=== PATIENT | male | born 1935 | race Caucasian/White ===

== ENCOUNTER → 2020-09-26 08:43 | Outpatient (BNVA) | payer MEDICARE, SELFPAY | PROVIDERS: Visit Provider Urology | DX: Z76.89 Persons encountering health services in other specified circumstances (principal) ==

== ENCOUNTER → 2020-10-04 10:36 | Outpatient (BNVA) | payer MEDICARE, SELFPAY | PROVIDERS: Visit Provider Urology | DX: Z13.89 Encounter for screening for other disorder (principal) | CPT/HCPCS: Q3014 ==

== ENCOUNTER → 2020-12-28 12:06 | Outpatient (BNVA) | payer MEDICARE, SELFPAY | PROVIDERS: Visit Provider Urology | DX: R97.20 Elevated prostate specific antigen [PSA] (principal); N32.0 Bladder-neck obstruction; R39.12 Poor urinary stream; R35.1 Nocturia | CPT/HCPCS: Q3014 ==

== ENCOUNTER → 2021-07-02 13:26 | Outpatient (BNVA) | payer MEDICARE, SELFPAY | PROVIDERS: Visit Provider Urology | DX: R97.20 Elevated prostate specific antigen [PSA] (principal); N40.1 Benign prostatic hyperplasia with lower urinary tract symptoms; R33.9 Retention of urine, unspecified | CPT/HCPCS: Q3014 ==

== ENCOUNTER 2021-07-10 18:59 | Outpatient (REF) | payer SELFPAY ==
[2021-07-10 19:19] LABS: Appearance Urine HAZY; Color Urine YELLOW; Glucose Urine UA NEG (NEG); Leukocyte Esterase Urine TRACE (NEG); Nitrite Urine NEG (NEG); Urine Blood 3+ (NEG); Urine Ketones NEG (NEG); Urine Protein 1+ MG/DL (NEG-TRACE)
[2021-07-10 19:25] LABS: Squamous Epithelial Cell Urine 1+ /LPF
[2021-07-10 19:26] LABS: RBC Urine 50-75 /HPF (0)
== END 2021-07-10 19:00 | disposition home or self-care (01) ==
LOC: HO.MMNH1L 18:59
PROVIDERS: Visit Provider Family Medicine
DX: I50.9 Heart failure, unspecified (principal); R35.0 Frequency of micturition
CPT/HCPCS: 81001; 87086

== ENCOUNTER → 2021-12-25 08:18 | Outpatient (BNVA) | payer BC, SELFPAY | PROVIDERS: PCP Family Medicine; Visit Provider Urology | DX: Z13.89 Encounter for screening for other disorder (principal) ==

== ENCOUNTER 2022-04-16 14:37 | Inpatient (IN) | payer MEDICARE, SELFPAY ==
[2022-04-16] VITALS (7 sets, daily range): BP systolic 129–150; BP diastolic 49–80; PULSE 54–76; RESP 17–22; TEMP 36.4–36.9; O2SAT 93–100; BMI 17.9
--- NOTE | ~2022-04-16 | CT_ITS ---
EXAMINATION: CT ABDOMEN AND PELVIS WITHOUT CONTRAST CLINICAL INFORMATION: 87-year-old male with abdominal pain. Rule out renal obstruction. COMPARISON: None TECHNIQUE: Multidetector volumetric imaging was performed from the superior aspect of the liver through the pubic symphysis. Sagittal and coronal reformatted images were obtained on the technologist's workstation. This CT examination was performed using dose optimization techniques as appropriate, variously including the following: *Automated exposure control *Adjustment of mA and/or kV according to patient size (this includes techniques or standardized protocols for targeted exams where dose is matched to indication/reason for exam; i.e. extremities or head) *Use of iterative reconstruction technique DLP: 343 mGy-cm FINDINGS: Visualized lung bases demonstrate emphysematous changes. There is minimal pleural fluid. The right lung base with some overlying patchy opacities, atelectasis versus developing infiltrate. Partially visualized coronary artery calcifications. The liver demonstrates normal size, contour and attenuation. The gallbladder is normal in appearance. The pancreas demonstrates several scattered calcifications which may be vascular in nature with sequelae of chronic pancreatitis. The spleen is normal in appearance. Hypertrophy of the bilateral adrenal glands. Bilateral renal cysts are noted, more prominent within the right kidney. Largest cyst measures approximately 6 cm. No renal calculi or hydronephrosis of either kidney. Normal caliber loops of small and large bowel. There is a moderate colonic stool burden. Normal appendix. Visualized portions of the distal descending thoracic aorta are prominent measuring up to 3.5 cm. The abdominal aorta is normal in caliber but demonstrates severe atherosclerotic disease. The bladder is well-distended. There is mild diffuse bladder wall thickening. The prostate gland is at the upper limits of normal in size. There is no gross free pelvic fluid. No inguinal lymphadenopathy. Small amount of fluid noted within the right inguinal canal. Diffuse osteopenia. Degenerative changes of the spine. Mild L1 compression deformity, age indeterminate. CT/CT abdomen pelvis wo con IMPRESSION: -No CT evidence for acute abnormality within the abdomen or pelvis. -Mild diffuse bladder wall thickening suggesting bladder outlet obstruction. -Bilateral renal cysts. No renal calculi or hydronephrosis of either kidney. -Atelectasis versus developing infiltrate of the right lung base. Fleischner guidelines were followed.
--- NOTE | 2022-04-16 15:11 | PC.NURSE ---
Pt's is a section 12 bed search from the community by [facility]. Pt is unable to remain at home by himself due to being bedbound/dependent on home O2. Pt offers no complaints. Diana from [facility] wrote section on spouse. Contact phone number [phone]
[2022-04-16 15:47] LABS: MANUAL DIFF FLAG NO
[2022-04-16 15:49] LABS: Basophils Percent Auto 0.3 % (0-2); Eosinophils Absolute Auto 0.2 X10*3/uL (0.0-0.4); Eosinophils Percent Auto 2.4 % (0-4); Hematocrit 23.3 % (42.0-52.0); Hemoglobin 7.3 g/dl (14.0-18.0); Imm Gran Abs Auto 0.09 X10*3/uL (0.00-0.03); Imm Gran Pct Auto 1.4 % (0.0-0.4); Lymphocytes Absolute Auto 0.6 X10*3/uL (1.2-4.9); Lymphocytes Percent Auto 8.4 % (20-40); Mean Corpuscular HGB Conc 31.3 g/dl (31.0-36.0); Mean Corpuscular Hemoglobin 27.7 pg (27.0-33.0); Mean Corpuscular Volume 88.3 fL (80.0-98.0); Mean Platelet Volume 9.6 fL (9.4-12.4); Monocytes Absolute Auto 0.6 X10*3/uL (0.1-1.2); Neutrophils Absolute Auto 5.2 x10*3/uL (2.0-8.3); Neutrophils Percent Auto 78.5 % (45-73); Platelet Count 247 X10*3/uL (160-400); Red Blood Count 2.64 X10*6/uL (4.60-5.80); Red Cell Distribution Width 15.9 % (11.0-16.0); White Blood Count 6.6 X10*3/uL (4.8-10.8)
[2022-04-16 15:51] LABS: Appearance Urine HAZY; Color Urine STRAW; Glucose Urine UA NEG (NEG); Leukocyte Esterase Urine NEG (NEG); Nitrite Urine NEG (NEG); UACC Culture Trigger NO; Urine Blood 3+ (NEG); Urine Ketones NEG (NEG); Urine Protein 2+ MG/DL (NEG-TRACE)
[2022-04-16 16:00] LABS: Bacteria Urine 1+ /LPF; Squamous Epithelial Cell Urine 1+ /LPF
--- NOTE | 2022-04-16 16:01 | ED_ITS ---
HPI - General Adult General Chief complaint: General Medical Stated complaint: UNABLE TO AMBULATE Time Seen by Provider: 04/16/22 14:59 Source: patient Mode of arrival: ambulatory Limitations: no limitations History of Present Illness HPI narrative: Patient comes to the emergency room via AMS. Patient has no complaints. Patient came here with his . His came to the emergency room with suicidal ideation. Patient cannot take care of himself at home, therefore he came along with the right. Patient's is very overwhelmed with taking care of the patient home, requesting a case management consult. Patient is not sure why he is here Related Data Home Medications Medication Instructions Recorded Confirmed amlodipine 5 mg tablet 1 tab PO DAILY 04/16/22 04/16/22 apixaban 2.5 mg tablet (Eliquis) 1 tab PO BID 04/16/22 04/16/22 digoxin 125 mcg (0.125 mg) tablet 1 tab PO DAILY 04/16/22 04/16/22 finasteride 5 mg tablet 1 tab PO DAILY 04/16/22 04/16/22 fluticasone fur. 100 mcg-umeclid 1 puff inhalation DAILY 04/16/22 04/16/22 62.5 mcg-vilant 25 mcg inhalat.powder (Trelegy Ellipta) furosemide 40 mg tablet 1 tab PO DAILY 04/16/22 04/16/22 levetiracetam 500 mg tablet 1 tab PO BID 04/16/22 04/16/22 pantoprazole 40 mg tablet,delayed 1 tab PO DAILY 04/16/22 04/16/22 release sertraline 25 mg tablet 1 tab PO DAILY 04/16/22 04/16/22 Allergies Allergy/AdvReac Type Severity Reaction Status Date / Time No Known Allergies Allergy Verified 12/25/21 08:19 Review of Systems Review of Systems: Constitutional : No Weight loss, No Fever, No Chills, No Night Sweats, No Fatigue, No Malaise ENT/Mouth : No Hearing loss, No Ear Pain, No Nasal Congestion, No Sinus Pain, No Hoarseness, No sore throat, No Rhinorrhea, No Swallowing Difficulty Eyes: No Eye Pain, No Swelling, No Redness, No Foreign Body, No Discharge, No Vision Changes Cardiovascular : No Chest Pain, No SOB, No Dyspnea on Exertion, No Orthopnea, No Edema, No Palpitations Respiratory : No Cough, No Sputum, No Wheezing, No Smoke Exposure, No Dyspnea Gastrointestinal : No Nausea, No Vomiting, No Diarrhea, No Constipation, No abdominal Pain, No Hematochezia, No Melena Genitourinary : no irregular bleeding, No Dysuria, No Urinary Frequency, No Hematuria, No Urinary Incontinence, No Urgency, No Flank Pain, No Urinary Flow Changes, No Hesitancy Musculoskeletal : No joint pain, No Myalgias, No Joint Swelling Skin : No Skin Lesions, No rash Neuro : No Weakness, No Numbness, No Paresthesias, No Loss of Consciousness, No Dizziness, No Headache Psych : No Anxiety/Panic, No Depression, No SI/HI/AH/VH, No Social Issues, Heme/Lymph: No Bruising, No Bleeding,No Lymphadenopathy Endocrine : No Polyuria, No Polydipsia, No Temperature Intolerance PMFSH Past Medical History Medical History Elevated PSA Elevated PSA Social History Social History Alcohol intake: unknown Patient Tobacco Use Status: Former Tobacco user Use of substances other than those prescribed or required for medical reasons: No Advance Directives: No Advance Directives Information Provided: No Physical Exam ED Vital Signs: Vital Signs - 24 hr 04/16/22 15:08 04/16/22 16:47 04/16/22 20:34 Temperature 98.4 F 97.9 F 97.6 F Pulse Rate 60 54 56 Respiratory Rate 18 18 22 H Blood Pressure 150/60 H 150/52 H 129/50 L Pulse Oximetry 100 98 93 Oxygen Delivery Method Nasal Cannula Nasal Cannula Nasal Cannula Oxygen Flow Rate 2 3 BMI result Body Mass Index 17.9 Const Other: Appearance: Alert. Oriented X3. No acute distress. Eyes: Pupils equal, round and reactive to light. ENT: Pharynx normal. Neck: Normal inspection. Neck supple. No lymph nodes noted. No crepitus CVS: Normal heart rate and rhythm. Pulses normal. Normal S1 and S2 Respiratory: No respiratory distress. Breath sounds normal. No Wheezing. No rales Abdomen: Soft and nontender. No rigidity. No distention. Skin: Skin warm and dry. Normal skin color. Normal skin turgor. Extremities: No lower extremity edema. No Lacerations. No Rash Neuro: Oriented X 3. No motor deficit. No sensory deficit. Moving all extremities. No slurred speech. CN 2 through 12 grossly intact Psych: calm, cooperative, normal affect Course Course Course Narrative: Were getting basic labs. Case management and physical therapy will be consulted, patient will likely need placement per patient's 's request. Compared to previous labs, patient is anemic, creatinine is elevated. Patient is receiving IV fluids, guaiac stool pending Guaiac is negative. I discussed with the patient that he needs a blood transfusion. Patient is agreeable. I also discussed the blood transfusion with the patient's , who is agreeable that the patient gets a blood transfusion. Patient's signed the blood consent. The states that patient has had kidney issues in the past especially after his [place]. I discussed the patient with Dr. Santana, patient being admitted Medical Decision Making Lab Data Result diagrams: 04/16/22 15:42 04/16/22 19:07 Labs: Lab Results 04/16/22 04/16/22 04/16/22 Range/Units 15:38 15:39 15:42 WBC 6.6 (4.8-10.8) X10*3/uL RBC 2.64 L D (4.60-5.80) X10*6/uL Hgb 7.3 L D (14.0-18.0) g/dl Hct 23.3 L D (42.0-52.0) % MCV 88.3 (80.0-98.0) fL MCH 27.7 (27.0-33.0) pg MCHC 31.3 (31.0-36.0) g/dl RDW 15.9 (11.0-16.0) % Plt Count 247 (160-400) X10*3/uL MPV 9.6 (9.4-12.4) fL Immature Gran % (Auto) 1.4 H (0.0-0.4) % Neut % (Auto) 78.5 H (45-73) % Lymph % (Auto) 8.4 L (20-40) % [place] % (Auto) 9.0 (2-11) % Eos % (Auto) 2.4 (0-4) % Baso % (Auto) 0.3 (0-2) % Lymph # (Auto) 0.6 L (1.2-4.9) X10*3/uL [place] # (Auto) 0.6 (0.1-1.2) X10*3/uL Eos # (Auto) 0.2 (0.0-0.4) X10*3/uL Baso # (Auto) 0.0 (0.0-0.2) X10*3/uL Abs Immat Gran (auto) 0.09 H (0.00-0.03) X10*3/uL Absolute Neuts (auto) 5.2 (2.0-8.3) x10*3/uL Absolute Nucleated RBC 0.000 (0.0-0.012) X10*3/uL Nucleated RBC % (auto) 0.0 (0.0-0.2) /100WBC Sodium (135-145) mmol/L Potassium (3.3-5.1) mmol/L Chloride (96-108) mmol/L Carbon Dioxide (22-29) mmol/L Anion Gap (12-20) BUN (9-16) mg/dL Creatinine (0.5-1.4) mg/dL Estim Creat Clear Calc Estimated GFR Random Glucose (60-115) mg/dL Calcium (8.4-10.2) mg/dL Total Bilirubin (0.0-1.0) mg/dL Direct Bilirubin (0.0-0.5) mg/dL AST (5-37) U/L ALT (0-40) U/L Alkaline Phosphatase (39-117) U/L Total Protein (6.5-8.0) g/dL Albumin (3.5-5.0) g/dL Urine Color STRAW Urine Appearance HAZY Urine pH 7.0 (5.0-8.0) Ur Specific [place] 1.020 (1.005-1.025) Urine Protein 2+ H (NEG-TRACE) MG/DL Urine Glucose (UA) NEG (NEG) MG/DL Urine Ketones NEG (NEG) MG/DL Urine Blood 3+ H (NEG) Urine Nitrite NEG (NEG) Ur Leukocyte Esterase NEG (NEG) Urine RBC 76-150 H (0) /HPF Urine WBC 1-4 (0-4) /HPF Ur Squamous Epith Cells 1+ /LPF Urine Bacteria 1+ /LPF Granular Casts 0-2 /LPF Stool Occult Blood (NEGATIVE) COVID-19 (VINCE) Negative (Negative) COVID-19 Clin Com See Note Blood Type Antibody Screen Crossmatch 04/16/22 04/16/22 04/16/22 Range/Units 15:42 16:43 19:07 WBC (4.8-10.8) X10*3/uL RBC (4.60-5.80) X10*6/uL Hgb (14.0-18.0) g/dl Hct (42.0-52.0) % MCV (80.0-98.0) fL MCH (27.0-33.0) pg MCHC (31.0-36.0) g/dl RDW (11.0-16.0) % Plt Count (160-400) X10*3/uL MPV (9.4-12.4) fL Immature Gran % (Auto) (0.0-0.4) % Neut % (Auto) (45-73) % Lymph % (Auto) (20-40) % [place] % (Auto) (2-11) % Eos % (Auto) (0-4) % Baso % (Auto) (0-2) % Lymph # (Auto) (1.2-4.9) X10*3/uL [place] # (Auto) (0.1-1.2) X10*3/uL Eos # (Auto) (0.0-0.4) X10*3/uL Baso # (Auto) (0.0-0.2) X10*3/uL Abs Immat Gran (auto) (0.00-0.03) X10*3/uL Absolute Neuts (auto) (2.0-8.3) x10*3/uL Absolute Nucleated RBC (0.0-0.012) X10*3/uL Nucleated RBC % (auto) (0.0-0.2) /100WBC Sodium 141 140 (135-145) mmol/L Potassium 5.0 4.9 (3.3-5.1) mmol/L Chloride 102 105 (96-108) mmol/L Carbon Dioxide 28 25 (22-29) mmol/L Anion Gap 16 15 (12-20) BUN 52 H 49 H (9-16) mg/dL Creatinine 3.08 H 2.90 H (0.5-1.4) mg/dL Estim Creat Clear Calc 11.1 11.8 Estimated GFR 19 21 Random Glucose 96 96 (60-115) mg/dL Calcium 8.6 8.2 L (8.4-10.2) mg/dL Total Bilirubin 0.2 (0.0-1.0) mg/dL Direct Bilirubin < 0.2 (0.0-0.5) mg/dL AST 13 D (5-37) U/L ALT 12 (0-40) U/L Alkaline Phosphatase 90 (39-117) U/L Total Protein 6.3 L (6.5-8.0) g/dL Albumin 3.2 L (3.5-5.0) g/dL Urine Color Urine Appearance Urine pH (5.0-8.0) Ur Specific [place] (1.005-1.025) Urine Protein (NEG-TRACE) MG/DL Urine Glucose (UA) (NEG) MG/DL Urine Ketones (NEG) MG/DL Urine Blood (NEG) Urine Nitrite (NEG) Ur Leukocyte Esterase (NEG) Urine RBC (0) /HPF Urine WBC (0-4) /HPF Ur Squamous Epith Cells /LPF Urine Bacteria /LPF Granular Casts /LPF Stool Occult Blood NEGATIVE (NEGATIVE) COVID-19 (VINCE) (Negative) COVID-19 Clin Com Blood Type Antibody Screen Crossmatch 04/16/22 Range/Units 19:07 WBC (4.8-10.8) X10*3/uL RBC (4.60-5.80) X10*6/uL Hgb (14.0-18.0) g/dl Hct (42.0-52.0) % MCV (80.0-98.0) fL MCH (27.0-33.0) pg MCHC (31.0-36.0) g/dl RDW (11.0-16.0) % Plt Count (160-400) X10*3/uL MPV (9.4-12.4) fL Immature Gran % (Auto) (0.0-0.4) % Neut % (Auto) (45-73) % Lymph % (Auto) (20-40) % [place] % (Auto) (2-11) % Eos % (Auto) (0-4) % Baso % (Auto) (0-2) % Lymph # (Auto) (1.2-4.9) X10*3/uL [place] # (Auto) (0.1-1.2) X10*3/uL Eos # (Auto) (0.0-0.4) X10*3/uL Baso # (Auto) (0.0-0.2) X10*3/uL Abs Immat Gran (auto) (0.00-0.03) X10*3/uL Absolute Neuts (auto) (2.0-8.3) x10*3/uL Absolute Nucleated RBC (0.0-0.012) X10*3/uL Nucleated RBC % (auto) (0.0-0.2) /100WBC Sodium (135-145) mmol/L Potassium (3.3-5.1) mmol/L Chloride (96-108) mmol/L Carbon Dioxide (22-29) mmol/L Anion Gap (12-20) BUN (9-16) mg/dL Creatinine (0.5-1.4) mg/dL Estim Creat Clear Calc Estimated GFR Random Glucose (60-115) mg/dL Calcium (8.4-10.2) mg/dL Total Bilirubin (0.0-1.0) mg/dL Direct Bilirubin (0.0-0.5) mg/dL AST (5-37) U/L ALT (0-40) U/L Alkaline Phosphatase (39-117) U/L Total Protein (6.5-8.0) g/dL Albumin (3.5-5.0) g/dL Urine Color Urine Appearance Urine pH (5.0-8.0) Ur Specific [place] (1.005-1.025) Urine Protein (NEG-TRACE) MG/DL Urine Glucose (UA) (NEG) MG/DL Urine Ketones (NEG) MG/DL Urine Blood (NEG) Urine Nitrite (NEG) Ur Leukocyte Esterase (NEG) Urine RBC (0) /HPF Urine WBC (0-4) /HPF Ur Squamous Epith Cells /LPF Urine Bacteria /LPF Granular Casts /LPF Stool Occult Blood (NEGATIVE) COVID-19 (VINCE) (Negative) COVID-19 Clin Com Blood Type O Positive Antibody Screen NEGATIVE Crossmatch See Detail Critical Care Time Critical Care Time Critical Care Time: Yes Total Critical Care Time: 45 Attestation: I have personally provided critical care time. Time includes review of lab data, radiology results, discussion with consultants, and monitoring for potential decompensation. Intervention performed as documented. Discharge Plan Discharge Clinical Impression: Anemia, BERLIN (acute kidney injury) Patient Disposition: Admitted As Inpatient
[2022-04-16 16:02] LABS: Granular Casts Urine 0-2 /LPF
[2022-04-16 16:08] LABS: COVID-19 Test Negative (Negative)
[2022-04-16 16:21] LABS: Alanine Aminotransferase 12 U/L (0-40); Alkaline Phosphatase 90 U/L (39-117); Blood Urea Nitrogen 52 mg/dL (9-16); Glucose Random 96 mg/dL (60-115)
--- NOTE | 2022-04-16 16:21 | PC.NURSE ---
Prelimary med rec completed via last claim. Pt is poor history.
[2022-04-16 16:26] LABS: Albumin Level 3.2 g/dL (3.5-5.0); Anion Gap 16 (12-20); Aspartate Amino Transferase 13 U/L (5-37); Bilirubin Direct < 0.2 mg/dL (0.0-0.5); Bilirubin Total 0.2 mg/dL (0.0-1.0); Calcium 8.6 mg/dL (8.4-10.2); Carbon Dioxide 28 mmol/L (22-29); Chloride 102 mmol/L (96-108); Creatinine Clr Calc Pharmacy 11.1; Estimated Glomerular Filt Rate 19; Sodium 141 mmol/L (135-145); Total Protein 6.3 g/dL (6.5-8.0)
[2022-04-16 16:47] LABS: OBS1 NEGATIVE (NEGATIVE)
[2022-04-16 16:48] LABS: OBS Int Ctl Valid YES
[2022-04-16] MEDS: 0.9 % Sodium Chloride 1,000 ML 999 ML IVCONT (16:50)
--- NOTE | 2022-04-16 17:27 | MHC.CM.ED ---
Addendum entered by Debbie Brush 04/16/22 22:01: Pt is being admitted. [facility] reviewed with pt , Tanya Ag 04/16. 5 referrals placed. PT pending. Awaiting HCP copy from [facility]. , Tanya requests updates regarding patient condition. Aware he will be admitted. awaiting [facility] consult. Original Note: CM met with patient at the request of Dr. Kendrick. Pt brought to ED because his /caregiver was Section 12 for Crisis at [facility] and he cannot care for himself at home. Pt is sl confused, but is able to answer many CM questions. Pt tells CM he lives with his , has a walker and a W/C and has limited mobility. He has VNA services, but cannot remember facility. Is an [employer] [place]. [facility] Cannot [facility] PCP name. Tells CM he needs care if his is hospitalized. States she has been hospitalized many times for mental issues . Agreeable to PT eval and possible STR while is hospitalized. CM met with . She is a patient at [facility] awaiting crisis evaluation from [facility]. Tanya was able to fill in the blanks with regards to pt history. Tanya tells CM her is confused at times and is able to pivot to his w/c. He has a weekly [employer] DEVELOPMENT SPECIALIST and SN, PT & OT with [facility]. Services with [facility] have been verified via [employer]. Tanya tells CM that PCP is Dr. Higgins in [place] and is vet connected. Pt uses continuous O2 @2L. Pt has MOW. Tanya tells CM her has brain damage from hypoxia, IL, COPD, PE, hx kidney failure. States pt has had problems swallowing ? growth in throat . Eats soft foods and full liquids with a straw. Tanya tells CM that HCP/daughter Ml Fritz ([phone]) is the HCP for both pt and for her. Daughter lives in [place] and cannot care for pt. Tanya is requesting [address] and [facility] for STR. D/C plan: STR. Will need transportation at discharge. Referrals placed. CM to follow for d/c needs.
--- NOTE | 2022-04-16 17:37 | PHA.MEDREC ---
Pharmacy Consult ? Medication Reconciliation Pharmacy has completed the medication reconciliation. Per daughter, patient is taking eliquis 2.5 bid. Patient thinks he is supposed to alternate 5mg and 2.5mg Thanks kyree
--- NOTE | 2022-04-16 19:05 | PC.NURSE ---
Assumed care of this pt. at 1900 - report from Taya Gamez RN
--- NOTE | 2022-04-16 19:38 | PC.NURSE ---
Pt. going for abdominal CT without contrast at this time
[2022-04-16 20:43] LABS: Anion Gap 15 (12-20); Blood Urea Nitrogen 49 mg/dL (9-16); Calcium 8.2 mg/dL (8.4-10.2); Carbon Dioxide 25 mmol/L (22-29); Chloride 105 mmol/L (96-108); Creatinine Clr Calc Pharmacy 11.8; Estimated Glomerular Filt Rate 21; Glucose Random 96 mg/dL (60-115); Potassium 4.9 mmol/L (3.3-5.1); Sodium 140 mmol/L (135-145)
--- NOTE | 2022-04-16 21:56 | PM.IMHP ---
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 Patient is pleasantly confused. Denies any chest pain palpitations lightheadedness or dizziness. Denies any shortness of breath. Most of the history obtained from the patient's , patient's daughter. Reportedly patient's was presented to the hospital for suicidal ideation - mentions she was not able to take care of her at home. Denies patient having any fever chills cough, Denies patient complaining of chest pain palpitations lightheadedness or dizziness. patient's mentions that she has not noticed any blood in the stool. And had patient has been eating and drinking well. Reports she felt depressed, overwhelmed; had suicidal ideation; subsequently called in the EMS and brought her as well for placement. ER team did written labs on the patient in the process of placement and noted to have drop in hemoglobin to less 7.3 and elevated creatinine to 3.0. Stool guaiac was negative. Admitted for further management. Review of all other systems is negative except mentioned above ER course: Per ER team patient on routine labs noted to have drop in hemoglobin; stool guaiac was negative. Also had elevated creatinine. Patient was given IV fluids. Admitted for further management. [facility] Medical History Elevated PSA Elevated PSA Pertinent family history: Patient unable to provide information Social History Alcohol intake: unknown Patient Tobacco Use Status: Former Tobacco user Use of substances other than those prescribed or required for medical reasons: No Advance Directives: No Advance Directives Information Provided: No Meds Allergies Allergy/AdvReac Type Severity Reaction Status Date / Time No Known Allergies Allergy Verified 12/25/21 08:19 Active Medications: Current Medications Acetaminophen (Acetaminophen 325 Mg Tablet) 650 mg PO Q6H PRN PRN Reason: Pain, Mild (Pain Scale 1-3) Amlodipine Besylate (Amlodipine Besylate 5 Mg Tablet) 5 mg PO DAILY [facility]; Protocol Apixaban (Apixaban 2.5 Mg Tablet) 2.5 mg PO BID [facility] Finasteride (Finasteride 5 Mg Tablet) 5 mg PO DAILY [facility] Sodium Chloride (Ns) 1,000 mls @ 50 mls/hr IVCONT .Q20H [facility] Levetiracetam (Levetiracetam 500 Mg Tablet) 500 mg PO BID [facility] Melatonin (Melatonin 3 Mg Tablet) 6 mg PO BEDTIME PRN PRN Reason: Insomnia Omeprazole (Omeprazole 20 Mg Capsule.Dr) 20 mg PO DAILY@0630 [facility] Pharmacy Consult (Consult Rx Perform Med Rec) 1 each MISCELLANE ONCE PRN PRN Reason: Consult order Senna (Sennosides 8.6 Mg Tablet) 17.2 mg PO BEDTIME PRN PRN Reason: Constipation Sertraline HCl (Sertraline Hcl 25 Mg Tablet) 25 mg PO DAILY [facility] Sodium Chloride (0.9 % Sodium Chloride Flush 3 Ml Syringe) 3 ml IVFLUSH QSHIFT [facility] Home Medications Medication Instructions Recorded Confirmed Last Taken Type amlodipine 5 mg tablet 1 tab PO DAILY 04/16/22 04/16/22 Unknown History apixaban 2.5 mg tablet (Eliquis) 1 tab PO BID 04/16/22 04/16/22 Unknown History digoxin 125 mcg (0.125 mg) tablet 1 tab PO DAILY 04/16/22 04/16/22 Unknown History finasteride 5 mg tablet 1 tab PO DAILY 04/16/22 04/16/22 Unknown History fluticasone fur. 100 mcg-umeclid 1 puff inhalation DAILY 04/16/22 04/16/22 Unknown History 62.5 mcg-vilant 25 mcg inhalat.powder (Trelegy Ellipta) furosemide 40 mg tablet 1 tab PO DAILY 04/16/22 04/16/22 Unknown History levetiracetam 500 mg tablet 1 tab PO BID 04/16/22 04/16/22 Unknown History pantoprazole 40 mg tablet,delayed 1 tab PO DAILY 04/16/22 04/16/22 Unknown History release sertraline 25 mg tablet 1 tab PO DAILY 04/16/22 04/16/22 Unknown History Physical Exam Vital Signs and Narrative: Vital Signs: Last Vital Signs Temp 97.9 F 04/16/22 21:43 Pulse 54 08/03/22 21:43 Resp 17 04/16/22 21:43 BP 136/50 L 04/16/22 21:43 Pulse Ox 93 04/16/22 20:34 O2 Del Method 04/16/22 20:34 O2 Flow Rate 3 04/16/22 20:34 Oxygen Flow Rate 2 04/16/22 15:08 BMI result Body Mass Index 17.9 Gen: Appears be in no acute distress HEENT: NCAT, Moist mucosa. Pulmonary: Vesicular breath sounds, fair air entry CVS: Normal S1-S2 Abdomen: BS+, Soft, Nontender Extremities: Warm well perfused Neuro: Alert and awake. Results Labs CBC and Chem 7: 04/16/22 15:42 04/16/22 19:07 Labs: Laboratory Results - last 24 hr 04/16/22 04/16/22 04/16/22 15:38 15:39 15:42 MCV 88.3 MCH 27.7 MCHC 31.3 RDW 15.9 Plt Count 247 MPV 9.6 Immature Gran % (Auto) 1.4 H Neut % (Auto) 78.5 H Lymph % (Auto) 8.4 L [place] % (Auto) 9.0 Eos % (Auto) 2.4 Baso % (Auto) 0.3 Lymph # (Auto) 0.6 L [place] # (Auto) 0.6 Eos # (Auto) 0.2 Baso # (Auto) 0.0 Abs Immat Gran (auto) 0.09 H Absolute Neuts (auto) 5.2 Absolute Nucleated RBC 0.000 Nucleated RBC % (auto) 0.0 Anion Gap Estim Creat Clear Calc Estimated GFR Random Glucose Calcium Total Bilirubin Direct Bilirubin AST ALT Alkaline Phosphatase Total Protein Albumin Urine Color STRAW Urine Appearance HAZY Urine pH 7.0 Ur Specific [place] 1.020 Urine Protein 2+ H Urine Glucose (UA) NEG Urine Ketones NEG Urine Blood 3+ H Urine Nitrite NEG Ur Leukocyte Esterase NEG Urine RBC 76-150 H Urine WBC 1-4 Ur Squamous Epith Cells 1+ Urine Bacteria 1+ Granular Casts 0-2 Stool Occult Blood COVID-19 (VINCE) Negative COVID-19 Clin Com See Note Blood Type Antibody Screen Crossmatch 04/16/22 04/16/22 04/16/22 15:42 16:43 19:07 MCV MCH MCHC RDW Plt Count MPV Immature Gran % (Auto) Neut % (Auto) Lymph % (Auto) [place] % (Auto) Eos % (Auto) Baso % (Auto) Lymph # (Auto) [place] # (Auto) Eos # (Auto) Baso # (Auto) Abs Immat Gran (auto) Absolute Neuts (auto) Absolute Nucleated RBC Nucleated RBC % (auto) Anion Gap 16 15 Estim Creat Clear Calc 11.1 11.8 Estimated GFR 19 21 Random Glucose 96 96 Calcium 8.6 8.2 L Total Bilirubin 0.2 Direct Bilirubin < 0.2 AST 13 D ALT 12 Alkaline Phosphatase 90 Total Protein 6.3 L Albumin 3.2 L Urine Color Urine Appearance Urine pH Ur Specific [place] Urine Protein Urine Glucose (UA) Urine Ketones Urine Blood Urine Nitrite Ur Leukocyte Esterase Urine RBC Urine WBC Ur Squamous Epith Cells Urine Bacteria Granular Casts Stool Occult Blood NEGATIVE COVID-19 (VINCE) COVID-19 [place] Blood Type Antibody Screen Crossmatch 04/16/22 19:07 MCV MCH MCHC RDW Plt Count MPV Immature Gran % (Auto) Neut % (Auto) Lymph % (Auto) [place] % (Auto) Eos % (Auto) Baso % (Auto) Lymph # (Auto) [place] # (Auto) Eos # (Auto) Baso # (Auto) Abs Immat Gran (auto) Absolute Neuts (auto) Absolute Nucleated RBC Nucleated RBC % (auto) Anion Gap Estim Creat Clear Calc Estimated GFR Random Glucose Calcium Total Bilirubin Direct Bilirubin AST ALT Alkaline Phosphatase Total Protein Albumin Urine Color Urine Appearance Urine pH Ur Specific [place] Urine Protein Urine Glucose (UA) Urine Ketones Urine Blood Urine Nitrite Ur Leukocyte Esterase Urine RBC Urine WBC Ur Squamous Epith Cells Urine Bacteria Granular Casts Stool Occult Blood COVID-19 (VINCE) COVID-19 zulily Com Blood Type O Positive Antibody Screen NEGATIVE Crossmatch See Detail Imaging Radiologist's Impressions: Impressions Abdomen/Pelvis CT 04/16/22 19:54 IMPRESSION: -No CT evidence for acute abnormality within the abdomen or pelvis. -Mild diffuse bladder wall thickening suggesting bladder outlet obstruction. -Bilateral renal cysts. No renal calculi or hydronephrosis of either kidney. -Atelectasis versus developing infiltrate of the right lung base. Fleischner guidelines were followed. 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 noted to have anemia /BERLIN. Admitted for further management. Anemia: Patient baseline hemoglobin around 11. Hemoglobin on presentation 7.3. Stool guaiac was negative in the ER. CT abdomen showed no evidence of retroperitoneal hemorrhage. Patient being transfused 1 unit of blood. Will stop obtain iron studies, folate and B12. BERLIN: Patient baseline creatinine around 1.0. Creatinine on presentation is 3.0. Avoid nephrotoxins. Hold home furosemide for now. Nephrology consult Microscopic Hematuria: Likely from dehydration/BERLIN. Repeat UA once improved to ensure improvement. Urology follow up. chronic conditions: History of CHF: Patient is currently euvolemic. Hold home Lasix for now. Monitor for signs of fluid overload. History of COPD: Stable. History of seizures: Continue home Keppra History of AFib: Will resume Eliquis if hemoglobin remains stable from tomorrow. digoxin on hold secondary to BERLIN. History of hypertension: Continue home amlodipine. History of depression: Continue home sertraline. History of bladder outlet obstruction: Patient on finasteride. DVT prophylaxis: SCD boots Code status: Full code. Confirmed with the patient's daughter who is the healthcare proxy. Quality Stroke Does the patient have a stroke diagnosis?: No VTE Prior VTE?: No VTE Risk Level:: Medical - moderate - high VTE Device Contraindication: Treatment Not Indicated VTE Drug Contraindication: N/A - Med Ordered
--- NOTE | 2022-04-16 23:38 | PC.NURSE ---
Blood transfusion ended. No reactions noted. VSS - see TAR
[2022-04-16] MEDS: 0.9 % Sodium Chloride 1,000 ML 50 ML IVCONT (23:41)
--- NOTE | 2022-04-16 23:41 | PC.NURSE ---
0.9% NS infusing at 50cc/hr for a total of 500ccs.
[2022-04-17] VITALS (7 sets, daily range): BP systolic 138–153; BP diastolic 54–66; PULSE 48–95; RESP 17–23; TEMP 36.2–36.6; O2SAT 91–100; BMI 17.9
[2022-04-17 00:34] LABS: Iron 62 mcg/dL (45-160); Percent Iron Saturation 27 % (15-50); Total Iron Binding Capacity 228 mcg/dL (228-428); Unsaturated Iron Binding 166 ug/dL
[2022-04-17 00:53] LABS: Ferritin 392 ng/mL (20-250)
--- NOTE | 2022-04-17 05:44 | PC.NURSE ---
PATIENT WAS INC OF URINE ,BED BATH GIVEN ,BEDDING CHANGE ,PATIENT WAS GIVEN FRESH PITCHER OF WATER .
[2022-04-17 05:45] LABS: Folate 6.8 ng/mL (> or = 4.0); Vitamin B12 456 pg/mL (200-900)
[2022-04-17 06:14] LABS: MANUAL DIFF FLAG NO
[2022-04-17 06:18] LABS: Basophils Percent Auto 0.4 % (0-2); Eosinophils Absolute Auto 0.2 X10*3/uL (0.0-0.4); Eosinophils Percent Auto 2.5 % (0-4); Hemoglobin 9.3 g/dl (14.0-18.0); Imm Gran Abs Auto 0.11 X10*3/uL (0.00-0.03); Imm Gran Pct Auto 1.6 % (0.0-0.4); Lymphocytes Absolute Auto 0.6 X10*3/uL (1.2-4.9); Lymphocytes Percent Auto 9.2 % (20-40); Mean Corpuscular HGB Conc 32.1 g/dl (31.0-36.0); Mean Corpuscular Hemoglobin 27.5 pg (27.0-33.0); Mean Corpuscular Volume 85.8 fL (80.0-98.0); Monocytes Absolute Auto 0.5 X10*3/uL (0.1-1.2); Neutrophils Absolute Auto 5.3 x10*3/uL (2.0-8.3); Neutrophils Percent Auto 78.3 % (45-73); Platelet Count 248 X10*3/uL (160-400); Red Blood Count 3.38 X10*6/uL (4.60-5.80); Red Cell Distribution Width 16.2 % (11.0-16.0); White Blood Count 6.8 X10*3/uL (4.8-10.8)
[2022-04-17 06:31] LABS: Anion Gap 17 (12-20); Blood Urea Nitrogen 46 mg/dL (9-16); Calcium 8.5 mg/dL (8.4-10.2); Carbon Dioxide 22 mmol/L (22-29); Chloride 107 mmol/L (96-108); Creatinine Clr Calc Pharmacy 12.7; Estimated Glomerular Filt Rate 23; Glucose Random 83 mg/dL (60-115); Potassium 5.4 mmol/L (3.3-5.1); Sodium 141 mmol/L (135-145)
[2022-04-17] MEDS: levETIRAcetam 500 MG TABLET PO (08:26)
[2022-04-17] MEDS: Sertraline HCL 25 MG TABLET PO (08:26)
[2022-04-17] MEDS: amLODIPine Besylate 5 MG TABLET PO (08:26)
[2022-04-17] MEDS: Finasteride 5 MG TABLET PO (08:26)
[2022-04-17] MEDS: Apixaban 2.5 MG TABLET PO (08:26)
[2022-04-17] MEDS: Digoxin 0.125 MG TABLET 0.0625 MG PO (08:35)
--- NOTE | 2022-04-17 09:10 | P.PNIM_ITS ---
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 unavailable interval history: no complaints Cardiovascular Cardiovascular: Reports no additional cardiovascular complaints Respiratory Respiratory: Reports no additional respiratory complaints Physical Exam Vital Signs: Vital Signs: Last Vital Signs Temp 97.9 F 04/17/22 08:56 Pulse 52 04/17/22 08:56 Resp 18 04/17/22 08:56 BP 152/66 H 04/17/22 08:56 Pulse Ox 99 04/17/22 08:56 O2 Del Method 04/17/22 08:56 O2 Flow Rate 2 04/17/22 08:56 Oxygen Flow Rate 2 04/16/22 15:08 BMI result Body Mass Index 17.9 General: AO X 2, no acute distress, frail Resp: diminished bilateral, no accessory muscles used CVS: S1,S2,RRR, murmur GI: soft, non tender, non distended Neuro: motor grossly intact, alert Psych: appropriate affect, impaired insight Objective Data Active Medications Acetaminophen (Acetaminophen 325 Mg Tablet) 650 mg PO Q6H PRN PRN Reason: Pain, Mild (Pain Scale 1-3) Amlodipine Besylate (Amlodipine Besylate 5 Mg Tablet) 5 mg PO DAILY [facility]; Protocol Last Admin: 04/17/22 08:26 Dose: 5 mg Documented By: ISABELLE Apixaban (Apixaban 2.5 Mg Tablet) 2.5 mg PO BID [facility] Last Admin: 04/17/22 08:26 Dose: 2.5 mg Documented By: ISABELLE Digoxin (Digoxin 0.125 Mg Tablet) 0.0625 mg PO Q48H [facility] Last Admin: 04/17/22 08:35 Dose: 0.0625 mg Documented By: ISABELLE Finasteride (Finasteride 5 Mg Tablet) 5 mg PO DAILY [facility] Last Admin: 04/17/22 08:26 Dose: 5 mg Documented By: ISABELLE Levetiracetam (Levetiracetam 500 Mg Tablet) 500 mg PO BID [facility] Last Admin: 04/17/22 08:26 Dose: 500 mg Documented By: ISABELLE Omeprazole (Omeprazole 20 Mg Capsule.) 20 mg PO DAILY@0630 [facility] Last Admin: 04/17/22 06:44 Dose: Not Given Documented By: HEVER Non-Admin Reason: Patient Refused Pharmacy Consult (Consult Rx Perform Med Rec) 1 each MISCELLANE ONCE PRN PRN Reason: Consult order Senna (Sennosides 8.6 Mg Tablet) 17.2 mg PO BEDTIME PRN PRN Reason: Constipation Sertraline HCl (Sertraline Hcl 25 Mg Tablet) 25 mg PO DAILY [facility] Last Admin: 04/17/22 08:26 Dose: 25 mg Documented By: ISABELLE Sodium Chloride (0.9 % Sodium Chloride Flush 3 Ml Syringe) 3 ml IVFLUSH QSHIFT [facility] Last Admin: 04/17/22 08:26 Dose: Not Given Documented By: ISABELLE Non-Admin Reason: IV Running Labs CBC & Chem 7: 04/17/22 05:55 04/17/22 05:55 Labs: Laboratory Results - last 24 hr 04/16/22 04/16/22 04/16/22 15:38 15:39 15:42 MCV 88.3 MCH 27.7 MCHC 31.3 RDW 15.9 Plt Count 247 MPV 9.6 Immature Gran % (Auto) 1.4 H Neut % (Auto) 78.5 H Lymph % (Auto) 8.4 L Lucas % (Auto) 9.0 Eos % (Auto) 2.4 Baso % (Auto) 0.3 Lymph # (Auto) 0.6 L Lucas # (Auto) 0.6 Eos # (Auto) 0.2 Baso # (Auto) 0.0 Abs Immat Gran (auto) 0.09 H Absolute Neuts (auto) 5.2 Absolute Nucleated RBC 0.000 Nucleated RBC % (auto) 0.0 Anion Gap Estim Creat Clear Calc Estimated GFR Random Glucose Calcium Iron TIBC % Saturation Unsat Iron Binding Ferritin Total Bilirubin Direct Bilirubin AST ALT Alkaline Phosphatase Total Protein Albumin Vitamin B12 Folate Urine Color STRAW Urine Appearance HAZY Urine pH 7.0 Ur Specific [place] 1.020 Urine Protein 2+ H Urine Glucose (UA) NEG Urine Ketones NEG Urine Blood 3+ H Urine Nitrite NEG Ur Leukocyte Esterase NEG Urine RBC 76-150 H Urine WBC 1-4 Ur Squamous Epith Cells 1+ Urine Bacteria 1+ Granular Casts 0-2 Stool Occult Blood COVID-19 (VINCE) Negative COVID-19 Clin Com See Note Blood Type Antibody Screen Crossmatch 04/16/22 04/16/22 04/16/22 15:42 16:43 19:07 MCV MCH MCHC RDW Plt Count MPV Immature Gran % (Auto) Neut % (Auto) Lymph % (Auto) Lucas % (Auto) Eos % (Auto) Baso % (Auto) Lymph # (Auto) Lucas # (Auto) Eos # (Auto) Baso # (Auto) Abs Immat Gran (auto) Absolute Neuts (auto) Absolute Nucleated RBC Nucleated RBC % (auto) Anion Gap 16 15 Estim Creat Clear Calc 11.1 11.8 Estimated GFR 19 21 Random Glucose 96 96 Calcium 8.6 8.2 L Iron TIBC % Saturation Unsat Iron Binding Ferritin Total Bilirubin 0.2 Direct Bilirubin < 0.2 AST 13 D ALT 12 Alkaline Phosphatase 90 Total Protein 6.3 L Albumin 3.2 L Vitamin B12 Folate Urine Color Urine Appearance Urine pH Ur Specific [place] Urine Protein Urine Glucose (UA) Urine Ketones Urine Blood Urine Nitrite Ur Leukocyte Esterase Urine RBC Urine WBC Ur Squamous Epith Cells Urine Bacteria Granular Casts Stool Occult Blood NEGATIVE COVID-19 (VINCE) COVID-19 [employer] Com Blood Type Antibody Screen Crossmatch 04/16/22 04/16/22 04/16/22 19:07 23:48 23:48 MCV MCH MCHC RDW Plt Count MPV Immature Gran % (Auto) Neut % (Auto) Lymph % (Auto) Lucas % (Auto) Eos % (Auto) Baso % (Auto) Lymph # (Auto) Lucas # (Auto) Eos # (Auto) Baso # (Auto) Abs Immat Gran (auto) Absolute Neuts (auto) Absolute Nucleated RBC Nucleated RBC % (auto) Anion Gap Estim Creat Clear Calc Estimated GFR Random Glucose Calcium Iron 62 TIBC 228 % Saturation 27 Unsat Iron Binding 166 Ferritin 392 H Total Bilirubin Direct Bilirubin AST ALT Alkaline Phosphatase Total Protein Albumin Vitamin B12 456 Folate 6.8 Urine Color Urine Appearance Urine pH Ur Specific [place] Urine Protein Urine Glucose (UA) Urine Ketones Urine Blood Urine Nitrite Ur Leukocyte Esterase Urine RBC Urine WBC Ur Squamous Epith Cells Urine Bacteria Granular Casts Stool Occult Blood COVID-19 (VINCE) COVID-19 [employer] Com Blood Type O Positive Antibody Screen NEGATIVE Crossmatch See Detail 04/17/22 04/17/22 05:55 05:55 MCV 85.8 MCH 27.5 MCHC 32.1 RDW 16.2 H Plt Count 248 MPV 10.0 Immature Gran % (Auto) 1.6 H Neut % (Auto) 78.3 H Lymph % (Auto) 9.2 L Lucas % (Auto) 8.0 Eos % (Auto) 2.5 Baso % (Auto) 0.4 Lymph # (Auto) 0.6 L Lucas # (Auto) 0.5 Eos # (Auto) 0.2 Baso # (Auto) 0.0 Abs Immat Gran (auto) 0.11 H Absolute Neuts (auto) 5.3 Absolute Nucleated RBC 0.000 Nucleated RBC % (auto) 0.0 Anion Gap 17 Estim Creat Clear Calc 12.7 Estimated GFR 23 Random Glucose 83 Calcium 8.5 Iron TIBC % Saturation Unsat Iron Binding Ferritin Total Bilirubin Direct Bilirubin AST ALT Alkaline Phosphatase Total Protein Albumin Vitamin B12 Folate Urine Color Urine Appearance Urine pH Ur Specific [place] Urine Protein Urine Glucose (UA) Urine Ketones Urine Blood Urine Nitrite Ur Leukocyte Esterase Urine RBC Urine WBC Ur Squamous Epith Cells Urine Bacteria Granular Casts Stool Occult Blood COVID-19 ([facility]INCE) COVID-19 Clin Com Blood Type Antibody Screen Crossmatch Assessment and Plan (1) B[place] (acute kidney injury): Status: Acute Plan 87M was brought into hospital as his who is his primary caregiver is in ED. he was found to have anemia and [place] on CKD III. anemia chronic, mostly due to CKD, inflammation, may be some element of chronic blood loss anemia s/p transfusion of 1 unit prbc, hgb improved 7.3 to 9.3 will restart low dose eliquis [place] on CKD III baseline creatinine about 2 improved from 3.08 to 2.69 possibly hypovolemic, some urinary retention, though no hydro seen on CT. monitor PVR bmp chronic diastolic chf with severe and moderate AI holding lasix chronic hypoxic respiratory failure due to copd stable on 2L home o2 paroxysmal atrial fibrillation low dose eliquis (age, renal function, weight) dig currently in sinus history of pe eliquis seizure disorder keppra htn amlodipine bph proscar full code dvt prophylaxis - eliquis reason for continued hospitalization: safe dispo Quality Stroke Does the patient have a stroke diagnosis?: No VTE Prior VTE?: No VTE Risk Level:: Medical - moderate - high VTE Device Contraindication: Treatment Not Indicated VTE Drug Contraindication: N/A - Med Ordered
--- NOTE | 2022-04-17 12:11 | MHC.CLN ---
PT IS MODERATELY MALNOURISHED PT WITH MILDLY DEPLETED SUBCUTANEOUS FAT AND MUSCLE MASS WITH BMI 17.9 PT DOES NOT KNOW UBW AND IS PLEASANTLY CONFUSED PT REPORTED HIS APPETITE IS ALWAYS GOOD DIET RX: 2GM NA -APPROPRIATE CAN LIBERALIZE IF PO INTAKE POOR RECOMMEND ADDING ENSURE BID TO INCREASE KCALS SUPP TO PROVIDE 700KCALS, 40G PROTEIN MONITOR PO INTAKE CLOSELY SEE ALSO FULL CLINICAL NUTRITION ASSESSMENT
--- NOTE | 2022-04-17 13:18 | PM.PNNEP ---
Subjective Subjective Date of Service: 04/17/22 Interval history: Chart Reviewed. Events noted. 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 Review of all other systems is negative except mentioned above ER course: Per ER team patient on routine labs noted to have drop in hemoglobin; stool guaiac was negative. Also had elevated creatinine. Patient was given IV fluids. Admitted for further management. Physical Exam Vital Signs: Vital Signs: Last Vital Signs Temp 97.5 F 04/17/22 11:33 Pulse 50 04/17/22 11:33 Resp 18 04/17/22 11:33 BP 145/66 H 04/17/22 11:33 Pulse Ox 95 04/17/22 11:33 O2 Del Method 04/17/22 11:33 O2 Flow Rate 2 04/17/22 08:56 Oxygen Flow Rate 2 04/16/22 15:08 BMI result Body Mass Index 17.9 Const: General: comfortable HEENT: Head: Yes normocephalic and Yes atraumatic Neck: Neck: Yes no JVD Resp: Auscultation: clear to auscultation bilaterally Cardio: Jugular venous distension: no JVD Rate: regular rate Rhythm: regular rhythm Heart sounds: S1 normal heart sound present and S2 normal heart sound present GI: Auscultation: normal bowel sounds Neuro: General: moves all extremities Extrem: General: Yes no clubbing, cyanosis or edema Objective Data Labs CBC & Chem 7: 04/17/22 05:55 04/17/22 05:55 Labs: Laboratory Results - last 24 hr 04/16/22 04/16/22 04/16/22 15:38 15:39 15:42 WBC 6.6 RBC 2.64 L D Hgb 7.3 L D Hct 23.3 L D MCV 88.3 MCH 27.7 MCHC 31.3 RDW 15.9 Plt Count 247 MPV 9.6 Immature Gran % (Auto) 1.4 H Neut % (Auto) 78.5 H Lymph % (Auto) 8.4 L [place] % (Auto) 9.0 Eos % (Auto) 2.4 Baso % (Auto) 0.3 Lymph # (Auto) 0.6 L [place] # (Auto) 0.6 Eos # (Auto) 0.2 Baso # (Auto) 0.0 Abs Immat Gran (auto) 0.09 H Absolute Neuts (auto) 5.2 Absolute Nucleated RBC 0.000 Nucleated RBC % (auto) 0.0 Sodium Potassium Chloride Carbon Dioxide Anion Gap BUN Creatinine Estim Creat Clear Calc Estimated GFR Random Glucose Calcium Iron TIBC % Saturation Unsat Iron Binding Ferritin Total Bilirubin Direct Bilirubin AST ALT Alkaline Phosphatase Total Protein Albumin Vitamin B12 Folate Urine Color STRAW Urine Appearance HAZY Urine pH 7.0 Ur Specific [place] 1.020 Urine Protein 2+ H Urine Glucose (UA) NEG Urine Ketones NEG Urine Blood 3+ H Urine Nitrite NEG Ur Leukocyte Esterase NEG Urine RBC 76-150 H Urine WBC 1-4 Ur Squamous Epith Cells 1+ Urine Bacteria 1+ Granular Casts 0-2 Stool Occult Blood COVID-19 (VINCE) Negative COVID-19 Clin Com See Note Blood Type Antibody Screen Crossmatch 04/16/22 04/16/22 04/16/22 15:42 16:43 19:07 WBC RBC Hgb Hct MCV MCH MCHC RDW Plt Count MPV Immature Gran % (Auto) Neut % (Auto) Lymph % (Auto) [place] % (Auto) Eos % (Auto) Baso % (Auto) Lymph # (Auto) [place] # (Auto) Eos # (Auto) Baso # (Auto) Abs Immat Gran (auto) Absolute Neuts (auto) Absolute Nucleated RBC Nucleated RBC % (auto) Sodium 141 140 Potassium 5.0 4.9 Chloride 102 105 Carbon Dioxide 28 25 Anion Gap 16 15 BUN 52 H 49 H Creatinine 3.08 H 2.90 H Estim Creat Clear Calc 11.1 11.8 Estimated GFR 19 21 Random Glucose 96 96 Calcium 8.6 8.2 L Iron TIBC % Saturation Unsat Iron Binding Ferritin Total Bilirubin 0.2 Direct Bilirubin < 0.2 AST 13 D ALT 12 Alkaline Phosphatase 90 Total Protein 6.3 L Albumin 3.2 L Vitamin B12 Folate Urine Color Urine Appearance Urine pH Ur Specific [place] Urine Protein Urine Glucose (UA) Urine Ketones Urine Blood Urine Nitrite Ur Leukocyte Esterase Urine RBC Urine WBC Ur Squamous Epith Cells Urine Bacteria Granular Casts Stool Occult Blood NEGATIVE COVID-19 ([facility]INCE) COVID-19 Clin Com Blood Type Antibody Screen Crossmatch 04/16/22 04/16/22 04/16/22 19:07 23:48 23:48 WBC RBC Hgb Hct MCV MCH MCHC RDW Plt Count MPV Immature Gran % (Auto) Neut % (Auto) Lymph % (Auto) [place] % (Auto) Eos % (Auto) Baso % (Auto) Lymph # (Auto) [place] # (Auto) Eos # (Auto) Baso # (Auto) Abs Immat Gran (auto) Absolute Neuts (auto) Absolute Nucleated RBC Nucleated RBC % (auto) Sodium Potassium Chloride Carbon Dioxide Anion Gap BUN Creatinine Estim Creat Clear Calc Estimated GFR Random Glucose Calcium Iron 62 TIBC 228 % Saturation 27 Unsat Iron Binding 166 Ferritin 392 H Total Bilirubin Direct Bilirubin AST ALT Alkaline Phosphatase Total Protein Albumin Vitamin B12 456 Folate 6.8 Urine Color Urine Appearance Urine pH Ur Specific [place] Urine Protein Urine Glucose (UA) Urine Ketones Urine Blood Urine Nitrite Ur Leukocyte Esterase Urine RBC Urine WBC Ur Squamous Epith Cells Urine Bacteria Granular Casts Stool Occult Blood COVID-19 ([facility]INCE) COVID-19 Clin Com Blood Type O Positive Antibody Screen NEGATIVE Crossmatch See Detail 04/17/22 04/17/22 05:55 05:55 WBC 6.8 RBC 3.38 L D Hgb 9.3 L D Hct 29.0 L D MCV 85.8 MCH 27.5 MCHC 32.1 RDW 16.2 H Plt Count 248 MPV 10.0 Immature Gran % (Auto) 1.6 H Neut % (Auto) 78.3 H Lymph % (Auto) 9.2 L [place] % (Auto) 8.0 Eos % (Auto) 2.5 Baso % (Auto) 0.4 Lymph # (Auto) 0.6 L [place] # (Auto) 0.5 Eos # (Auto) 0.2 Baso # (Auto) 0.0 Abs Immat Gran (auto) 0.11 H Absolute Neuts (auto) 5.3 Absolute Nucleated RBC 0.000 Nucleated RBC % (auto) 0.0 Sodium 141 Potassium 5.4 H Chloride 107 Carbon Dioxide 22 Anion Gap 17 BUN 46 H Creatinine 2.69 H Estim Creat Clear Calc 12.7 Estimated GFR 23 Random Glucose 83 Calcium 8.5 Iron TIBC % Saturation Unsat Iron Binding Ferritin Total Bilirubin Direct Bilirubin AST ALT Alkaline Phosphatase Total Protein Albumin Vitamin B12 Folate Urine Color Urine Appearance Urine pH Ur Specific [place] Urine Protein Urine Glucose (UA) Urine Ketones Urine Blood Urine Nitrite Ur Leukocyte Esterase Urine RBC Urine WBC Ur Squamous Epith Cells Urine Bacteria Granular Casts Stool Occult Blood COVID-19 ([facility]) COVID-19 Clin Com Blood Type Antibody Screen Crossmatch Procedures Date of Service Date of Service: 04/17/22 Assessment & Plan Assessment and plan (1) [place] (acute kidney injury): Status: Acute Assessment and Plan: 87-year-old male with past medical history of hypertension, COPD-on 2 L of home oxygen, CHF, AFib on Eliquis, 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 Review of all other systems is negative except mentioned above ER course: Per ER team patient on routine labs noted to have drop in hemoglobin; stool guaiac was negative. Also had elevated creatinine. Patient was given IV fluids. Admitted for further management. Problem List: #) [place], non-oliguric #) Hyperkalemia #) Anemia #) Hematuria #) Urinary retention #) [place], non-oliguric: [place] likely secondary to poor po intake, decreased renal perfusion which is improving with ivf's. Would provide gentle ivf's if po intake dose not improve. Consider boost/ensure for albumin support. Also noted to have bladder distension on CT abd/pelvis with prior history of bladder outlet dysf Monitor uop. May need chronic pritchett placement. BL S-Cr appears to be 1-1.2 mg/dL Monitor renal panel daily. Suggest repeat UA tomorrow to assess degree of hematuria. #) Hyperkalemia Low K diet lokelma 10 Gm prn K> 5.0 #) ANemia: tsat ok. Will provide 1x dose sergio #) urinary retention. Bladder scan daily. may require chronic pritchett. Should follow up with urology. (2) Anemia: Status: Acute Time Spent With Patient Time: Total time spent is greater than 50% in coordination of care (as documented) at patient's floor/unit and/or counseling patient: Progress Note: Quality Stroke Does the patient have a stroke diagnosis?: No
--- NOTE | 2022-04-17 13:24 | P.DS_ITS ---
DS: Providers Provider Date of Service: 04/17/22 Date of admission: 04/16/22 21:49 Primary care physician: Cailin Higgins MD Consults: 04/16/22 21:53 Consult to Nephrology Routine Consulting Provider: Benjie Guerrero Reason for consultation: [place] DS: Diagnosis Discharge Diagnosis (1) BERLIN (acute kidney injury): Status: Acute (2) Anemia: Status: Acute DS: Summary Hospital Course Hospital Course: from initial hpi: Chief Complaint:? abnormal labs ?87-year-old male with a? hypertension,? 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 Patient is pleasantly confused.? Denies any chest pain palpitations lightheadedness or dizziness.? Denies any shortness of breath.? Most of the history obtained from the patient's , patient's daughter.? Reportedly patient's was presented to the hospital for suicidal ideation - mentions she was not able to take care of her at home.? Denies patient having any fever chills cough,? Denies patient complaining of chest pain palp itations lightheadedness or dizziness. patient's mentions that she has not noticed any blood in the stool.? And had patient has been eating and drinking well.? Reports she felt depressed, overwhelmed; had suicidal ideation; subsequently called in the EMS and brought her as well for placement. ER team did written labs on the patient in the process of placement and noted to have drop in hemoglobin to less 7.3 and elevated creatinine to 3.0.? Stool guaiac was negative.? Admitted for further management.? Review of all other systems is negative except mentioned above ER course: Per ER team patient on routine labs noted to have drop in hemoglobin; stool guaiac was negative.? Also had elevated creatinine.? Patient was given IV fluids.? Admitted for further management. hospital course: Patient was admitted for acute kidney injury on CKD 3, chronic anemia due to CKD 3, inflammation, chronic blood loss anemia. He was given transfusion of 1 unit PRBC and hemoglobin improved from 7.3 to 9.3. No evidence of active bleed so Eliquis was restarted. For his BERLIN on CKD 3, baseline creatinine is about 2, creatinine improved from 3.08 to 2.69. There was some question of urinary ret ention on CT though no hydronephrosis, patient was able to urinate spontaneously, his output should be monitored and he may require Naylor catheter in the future. For his chronic diastolic CHF with severe aortic stenosis and moderate aortic regurgitation, Lasix was held initially, can restart as outpatient. For his chronic hypoxic respiratory failure due to COPD, he was stable on 2 L. 1st paroxysmal atrial fibrillation he will continue low-dose Eliquis and low-dose digoxin.he is currently in sinus rhythm. First history of pulmonary embolism he will continue Eliquis. For seizure disorder he will continue Keppra. For his hypertension will continue amlodipine. For his BPH will continue Proscar. Patient had mild hyperkalemia of 5.4, was given low,. He should have repeat labs within the next week. He is expected require less than 30 days at [facility]. Time Spent with Patient Time attestation: Total time spent providing and/or coordinating discharge services: Discharge coordination time: Greater than 30 minutes Quality: Safe Use of Opioids Does Pt have an Active Cancer Diagnosis on the Problem List?: No Quality: Stroke Does the patient have a stroke diagnosis?: No Physical Exam Vital Signs: Vital Signs: Last Vital Signs Temp 97.5 F 04/17/22 11:33 Pulse 50 04/17/22 11:33 Resp 18 04/17/22 11:33 BP 145/66 H 04/17/22 11:33 Pulse Ox 95 04/17/22 11:33 O2 Del Method 04/17/22 11:33 O2 Flow Rate 2 04/17/22 08:56 Oxygen Flow Rate 2 04/16/22 15:08 BMI result Body Mass Index 17.9 General: AO X 2, no acute distress, frail Resp: diminished bilateral, no accessory muscles used CVS: S1,S2,RRR, murmur GI: soft, non tender, non distended Neuro: motor grossly intact, alert Psych: appropriate affect, impaired insight DS: Data Data Completed and Pending Labs on day of discharge: Laboratory Results - last 24 hr 04/16/22 04/16/22 04/16/22 15:38 15:39 15:42 WBC 6.6 RBC 2.64 L D Hgb 7.3 L D Hct 23.3 L D MCV 88.3 MCH 27.7 MCHC 31.3 RDW 15.9 Plt Count 247 MPV 9.6 Immature Gran % (Auto) 1.4 H Neut % (Auto) 78.5 H Lymph % (Auto) 8.4 L [place] % (Auto) 9.0 Eos % (Auto) 2.4 Baso % (Auto) 0.3 Lymph # (Auto) 0.6 L [place] # (Auto) 0.6 Eos # (Auto) 0.2 Baso # (Auto) 0.0 Abs Immat Gran (auto) 0.09 H Absolute Neuts (auto) 5.2 Absolute Nucleated RBC 0.000 Nucleated RBC % (auto) 0.0 Sodium Potassium Chloride Carbon Dioxide Anion Gap BUN Creatinine Estim Creat Clear Calc Estimated GFR Random Glucose Calcium Iron TIBC % Saturation Unsat Iron Binding Ferritin Total Bilirubin Direct Bilirubin AST ALT Alkaline Phosphatase Total Protein Albumin Vitamin B12 Folate Urine Color STRAW Urine Appearance HAZY Urine pH 7.0 Ur Specific [place] 1.020 Urine Protein 2+ H Urine Glucose (UA) NEG Urine Ketones NEG Urine Blood 3+ H Urine Nitrite NEG Ur Leukocyte Esterase NEG Urine RBC 76-150 H Urine WBC 1-4 Ur Squamous Epith Cells 1+ Urine Bacteria 1+ Granular Casts 0-2 Stool Occult Blood COVID-19 ([facility]) Negative COVID-19 Clin Com See Note Blood Type Antibody Screen Crossmatch 04/16/22 04/16/22 04/16/22 15:42 16:43 19:07 WBC RBC Hgb Hct MCV MCH MCHC RDW Plt Count MPV Immature Gran % (Auto) Neut % (Auto) Lymph % (Auto) [place] % (Auto) Eos % (Auto) Baso % (Auto) Lymph # (Auto) [place] # (Auto) Eos # (Auto) Baso # (Auto) Abs Immat Gran (auto) Absolute Neuts (auto) Absolute Nucleated RBC Nucleated RBC % (auto) Sodium 141 140 Potassium 5.0 4.9 Chloride 102 105 Carbon Dioxide 28 25 Anion Gap 16 15 BUN 52 H 49 H Creatinine 3.08 H 2.90 H Estim Creat Clear Calc 11.1 11.8 Estimated GFR 19 21 Random Glucose 96 96 Calcium 8.6 8.2 L Iron TIBC % Saturation Unsat Iron Binding Ferritin Total Bilirubin 0.2 Direct Bilirubin < 0.2 AST 13 D ALT 12 Alkaline Phosphatase 90 Total Protein 6.3 L Albumin 3.2 L Vitamin B12 Folate Urine Color Urine Appearance Urine pH Ur Specific [place] Urine Protein Urine Glucose (UA) Urine Ketones Urine Blood Urine Nitrite Ur Leukocyte Esterase Urine RBC Urine WBC Ur Squamous Epith Cells Urine Bacteria Granular Casts Stool Occult Blood NEGATIVE COVID-19 ([facility]) COVID-[address] [facility] Blood Type Antibody Screen Crossmatch 04/16/22 04/16/22 04/16/22 19:07 23:48 23:48 WBC RBC Hgb Hct MCV MCH MCHC RDW Plt Count MPV Immature Gran % (Auto) Neut % (Auto) Lymph % (Auto) [place] % (Auto) Eos % (Auto) Baso % (Auto) Lymph # (Auto) [place] # (Auto) Eos # (Auto) Baso # (Auto) Abs Immat Gran (auto) Absolute Neuts (auto) Absolute Nucleated RBC Nucleated RBC % (auto) Sodium Potassium Chloride Carbon Dioxide Anion Gap BUN Creatinine Estim Creat Clear Calc Estimated GFR Random Glucose Calcium Iron 62 TIBC 228 % Saturation 27 Unsat Iron Binding 166 Ferritin 392 H Total Bilirubin Direct Bilirubin AST ALT Alkaline Phosphatase Total Protein Albumin Vitamin B12 456 Folate 6.8 Urine Color Urine Appearance Urine pH Ur Specific [place] Urine Protein Urine Glucose (UA) Urine Ketones Urine Blood Urine Nitrite Ur Leukocyte Esterase Urine RBC Urine WBC Ur Squamous Epith Cells Urine Bacteria Granular Casts Stool Occult Blood COVID-19 ([facility]) COVID-19 [facility] Com Blood Type O Positive Antibody Screen NEGATIVE Crossmatch See Detail 04/17/22 04/17/22 05:55 05:55 WBC 6.8 RBC 3.38 L D Hgb 9.3 L D Hct 29.0 L D MCV 85.8 MCH 27.5 MCHC 32.1 RDW 16.2 H Plt Count 248 MPV 10.0 Immature Gran % (Auto) 1.6 H Neut % (Auto) 78.3 H Lymph % (Auto) 9.2 L [place] % (Auto) 8.0 Eos % (Auto) 2.5 Baso % (Auto) 0.4 Lymph # (Auto) 0.6 L [place] # (Auto) 0.5 Eos # (Auto) 0.2 Baso # (Auto) 0.0 Abs Immat Gran (auto) 0.11 H Absolute Neuts (auto) 5.3 Absolute Nucleated RBC 0.000 Nucleated RBC % (auto) 0.0 Sodium 141 Potassium 5.4 H Chloride 107 Carbon Dioxide 22 Anion Gap 17 BUN 46 H Creatinine 2.69 H Estim Creat Clear Calc 12.7 Estimated GFR 23 Random Glucose 83 Calcium 8.5 Iron TIBC % Saturation Unsat Iron Binding Ferritin Total Bilirubin Direct Bilirubin AST ALT Alkaline Phosphatase Total Protein Albumin Vitamin B12 Folate Urine Color Urine Appearance Urine pH Ur Specific [place] Urine Protein Urine Glucose (UA) Urine Ketones Urine Blood Urine Nitrite Ur Leukocyte Esterase Urine RBC Urine WBC Ur Squamous Epith Cells Urine Bacteria Granular Casts Stool Occult Blood COVID-19 ([facility]) COVID-19 Clin Com Blood Type Antibody Screen Crossmatch Discharge Plan Discharge Patient Disposition: Xfer SNF Discharge Diagnosis: berlin Referrals: [facility] [Outside] - 1 Week Cailin Sheldon MD [Primary Care Provider] - 1 Week Discharge Medications: New digoxin 125 mcg (0.125 mg) Tablet 0.0625 mg PO Q48H Qty: 0 0RF Continued furosemide 40 mg tablet 1 tab PO DAILY levetiracetam 500 mg tablet 1 tab PO BID amlodipine 5 mg tablet 1 tab PO DAILY pantoprazole 40 mg tablet,delayed release (DR/EC) 1 tab PO DAILY sertraline 25 mg tablet 1 tab PO DAILY finasteride 5 mg tablet 1 tab PO DAILY Trelegy Ellipta 100-62.5-25 mcg blister with device 1 puff INHALATION DAILY Eliquis 2.5 mg tablet 1 tab PO BID Discontinued digoxin 125 mcg (0.125 mg) tablet 1 tab PO DAILY Discharge Orders: Discharge Order (Routine); Ordered 04/17/22 Ordered By: Allan Johnson Diet: Advance to usual diet Activity on Discharge: As tolerated Stand Alone Forms: Patient Portal Discharge page Care Plan Goals: pt Health Concerns: urinary retention [place] Plan of Treatment: monitor urine output Assessment: see above
--- NOTE | 2022-04-17 13:26 | MHC.CM.PN ---
Patient is medically cleared for dc to SNF/STR today. Patient will dc to his first choice SNF- [facility] today at 4PM, via [facility]. Patient and Daughter/HCP/Ml @ [phone] are aware of and pleased with the dc plan. Last IMM addressed yesterday.
== END 2022-04-17 16:33 | disposition skilled nursing facility (03) | DRG 682 ==
LOC: HO.ED 21:09 → HO.EDOVER 22:07 → HO.IMC 04-17 06:28
PROVIDERS: Admitting Provider Hospitalist; Emergency Provider Emergency Medicine; PCP Internal Medicine; Visit Provider Internal Medicine
DX: N17.9 Acute kidney failure, unspecified (principal); J96.01 Acute respiratory failure with hypoxia; I13.0 Hypertensive heart and chronic kidney disease with heart failure and stage 1 through stage 4 chronic kidney disease, or unspecified chronic kidney disease; I50.32 Chronic diastolic (congestive) heart failure; N13.8 Other obstructive and reflux uropathy; I35.2 Nonrheumatic aortic (valve) stenosis with insufficiency; J44.9 Chronic obstructive pulmonary disease, unspecified; G40.909 Epilepsy, unspecified, not intractable, without status epilepticus; E86.0 Dehydration; I48.0 Paroxysmal atrial fibrillation; E87.5 Hyperkalemia; D50.0 Iron deficiency anemia secondary to blood loss (chronic); N40.1 Benign prostatic hyperplasia with lower urinary tract symptoms; R33.8 Other retention of urine; D63.1 Anemia in chronic kidney disease; R31.21 Asymptomatic microscopic hematuria; Z20.822 Contact with and (suspected) exposure to COVID-19; Z99.81 Dependence on supplemental oxygen; I25.2 Old myocardial infarction; Z86.711 Personal history of pulmonary embolism; Z79.01 Long term (current) use of anticoagulants; Z79.899 Other long term (current) drug therapy
CPT/HCPCS: 36415; 36430; 74176; 80048; 80076; 81001; 82272; 82607; 82728; 82746; 83540; 85025; 86850; 86900; 86901; 86923; 87635; 96360; 96361; 97162; 99285; J0885; P9016

== ENCOUNTER 2022-04-24 05:00 | Outpatient (REF) | payer SELFPAY ==
[2022-04-24 06:15] LABS: Anion Gap 15 (12-20); Blood Urea Nitrogen 48 mg/dL (9-16); Calcium 8.9 mg/dL (8.4-10.2); Carbon Dioxide 27 mmol/L (22-29); Chloride 101 mmol/L (96-108); Estimated Glomerular Filt Rate 17; Glucose Random 90 mg/dL (60-115); Sodium 139 mmol/L (135-145)
== END 2022-04-24 05:01 | disposition home or self-care (01) ==
LOC: HO.MMNH1L 05:00
PROVIDERS: Visit Provider Family Medicine
DX: N17.9 Acute kidney failure, unspecified (principal)
CPT/HCPCS: 36415; 80048

== ENCOUNTER 2022-05-26 06:49 | Outpatient (REF) | payer MEDICAID, SELFPAY ==
[2022-05-26 07:04] LABS: Hematocrit 34.1 % (42.0-52.0); Hemoglobin 10.8 g/dl (14.0-18.0); Mean Corpuscular HGB Conc 31.7 g/dl (31.0-36.0); Mean Corpuscular Hemoglobin 27.1 pg (27.0-33.0); Mean Corpuscular Volume 85.5 fL (80.0-98.0); Mean Platelet Volume 9.6 fL (9.4-12.4); Platelet Count 261 X10*3/uL (160-400); Red Blood Count 3.99 X10*6/uL (4.60-5.80); Red Cell Distribution Width 16.9 % (11.0-16.0); White Blood Count 7.9 X10*3/uL (4.8-10.8)
[2022-05-26 07:42] LABS: Anion Gap 24 (12-20); Blood Urea Nitrogen 87 mg/dL (9-16); Calcium 9.4 mg/dL (8.4-10.2); Carbon Dioxide 19 mmol/L (22-29); Chloride 106 mmol/L (96-108); Estimated Glomerular Filt Rate 8; Glucose Random 79 mg/dL (60-115); Potassium 4.2 mmol/L (3.3-5.1); Sodium 145 mmol/L (135-145)
== END 2022-05-26 06:50 | disposition home or self-care (01) ==
LOC: HO.MMNH2L 06:49
PROVIDERS: Visit Provider Family Medicine
DX: J44.9 Chronic obstructive pulmonary disease, unspecified (principal); I11.0 Hypertensive heart disease with heart failure; I50.9 Heart failure, unspecified
CPT/HCPCS: 36415; 80048; 85027

== ENCOUNTER 2022-06-02 06:38 | Outpatient (REF) | payer MEDICARE, SELFPAY ==
[2022-06-02 06:47] LABS: Hematocrit 32.1 % (42.0-52.0); Hemoglobin 10.3 g/dl (14.0-18.0); Mean Corpuscular HGB Conc 32.1 g/dl (31.0-36.0); Mean Corpuscular Hemoglobin 27.2 pg (27.0-33.0); Mean Corpuscular Volume 84.9 fL (80.0-98.0); Mean Platelet Volume 10.5 fL (9.4-12.4); Platelet Count 227 X10*3/uL (160-400); Red Blood Count 3.78 X10*6/uL (4.60-5.80); Red Cell Distribution Width 17.2 % (11.0-16.0); White Blood Count 5.9 X10*3/uL (4.8-10.8)
[2022-06-02 07:06] LABS: Anion Gap 24 (12-20); Blood Urea Nitrogen 95 mg/dL (9-16); Calcium 9.7 mg/dL (8.4-10.2); Carbon Dioxide 19 mmol/L (22-29); Chloride 101 mmol/L (96-108); Estimated Glomerular Filt Rate 7; Glucose Random 123 mg/dL (60-115); Potassium 4.7 mmol/L (3.3-5.1); Sodium 139 mmol/L (135-145)
== END 2022-06-02 06:39 | disposition home or self-care (01) ==
LOC: HO.MMNH3L 06:38
PROVIDERS: Visit Provider Family Medicine
DX: I11.0 Hypertensive heart disease with heart failure (principal); I50.9 Heart failure, unspecified; J44.9 Chronic obstructive pulmonary disease, unspecified
CPT/HCPCS: 36415; 80048; 85027

== ENCOUNTER 2022-06-07 17:41 | Inpatient (IN) | payer MEDICARE, SELFPAY ==
--- NOTE | ~2022-06-07 | XR_ITS ---
EXAMINATION: PORTABLE CHEST 1 VIEW CLINICAL INFORMATION: sob . COMPARISON: No recent pertinent prior studies are available for comparison. TECHNIQUE: Portable frontal view of the chest was obtained. FINDINGS: The lungs are hyperinflated. Chronic appearing coarsened reticular markings are seen bilaterally right slightly more so than left. No superimposed acute appearing focal infiltrate, effusion, edema, or pneumothorax. Cardiac and mediastinal silhouettes are within normal limits for technique. No acute bony abnormality seen. XR/XR chest 1V IMPRESSION: Chronic appearing coarsened reticular markings bilaterally of uncertain etiology. No definitive acute process.
--- NOTE | ~2022-06-07 | CT_ITS ---
EXAMINATION: CT ABDOMEN AND PELVIS WITHOUT CONTRAST CLINICAL INFORMATION: Worsening acute kidney injury. Hematuria. COMPARISON: CT abdomen pelvis April 16, 2022 TECHNIQUE: Multidetector volumetric imaging was performed from the superior aspect of the liver through the pubic symphysis. Sagittal and coronal reformatted images were obtained on the technologist's workstation. This CT examination was performed using dose optimization techniques as appropriate, variously including the following: *Automated exposure control *Adjustment of mA and/or kV according to patient size (this includes techniques or standardized protocols for targeted exams where dose is matched to indication/reason for exam; i.e. extremities or head) *Use of iterative reconstruction technique DLP: 276 mGy-cm FINDINGS: Visualized lung bases again demonstrate emphysematous changes. There is mild posterior pleural thickening of the right lower lobe with some overlying atelectasis. The liver demonstrates normal size, contour and attenuation. The gallbladder is normal in appearance. Similar pancreatic calcifications, vascular versus sequela of chronic pancreatitis. The spleen is normal in appearance. There is hypertrophy of both adrenal glands again noted. Bilateral renal cysts again appreciated. No renal calculi or hydronephrosis of either kidney. Normal caliber loops of small and large bowel. Severe atherosclerotic disease of a normal caliber abdominal aorta. There is similar prominence of the visualized distal descending thoracic aorta. The bladder is well-distended and normal in appearance. Prostate gland remains at the upper limits of normal in size. No gross free pelvic fluid. No inguinal lymphadenopathy. Diffuse osteopenia. Degenerative changes of the spine. Similar L1 compression deformity. CT/CT abdomen pelvis wo IV con IMPRESSION: Bilateral renal cysts again noted. No renal calculi or hydronephrosis bilaterally. Fleischner guidelines were followed.
[2022-06-07 18:13] VITALS: BP 144/70; PULSE 78; O2SAT 100
[2022-06-07 18:27] VITALS: BP 138/52; BP 144/70; PULSE 77; PULSE 78; RESP 20; TEMP 36.6; O2SAT 100; BMI 16.9
--- NOTE | 2022-06-07 18:39 | PC.NURSE ---
Addendum entered by Anette Glover 06/07/22 18:43: Pt is a/o x 2. Original Note: Pt V/S are stable. Pt came in with 2L of nasal cannula, RN increased it to 3L d/t patient oxygen was dropping to 74. Pt was placed on the telemetry- and it shows a-fib.
--- NOTE | 2022-06-07 18:49 | ECG_ITS ---
Test Reason : SOB Blood Pressure : / mmHG Vent. Rate : 075 BPM Atrial Rate : 075 BPM P-R Int : 188 ms QRS Dur : 122 ms QT Int : 404 ms P-R-T Axes : 082 050 010 degrees QTc Int : 451 ms Normal sinus rhythm Right bundle branch block Possible Lateral infarct , age undetermined Possible Inferior infarct , age undetermined Abnormal ECG No previous ECGs available Referred By: Rachel Ward Electronically Signed By:
--- NOTE | 2022-06-07 19:01 | ED.GENADULT ---
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 Patient was recently discharged from our facility on 04/17/2022 for BERLIN and anemia. Patient reports SOB, and feeling hungry. Denies chest pain, abdominal pain, nausea, vomiting, diarrhea Onset (ago): day(s) Related Data Home Medications Medication Instructions Recorded Confirmed amlodipine 5 mg tablet 1 tab PO DAILY 04/16/22 04/16/22 apixaban 2.5 mg tablet (Eliquis) 1 tab PO BID 04/16/22 04/16/22 fluticasone fur. 100 mcg-umeclid 1 puff inhalation DAILY 04/16/22 04/16/22 62.5 mcg-vilant 25 mcg inhalat.powder (Trelegy Ellipta) furosemide 40 mg tablet 1 tab PO DAILY 04/16/22 04/16/22 levetiracetam 500 mg tablet 1 tab PO BID 04/16/22 04/16/22 pantoprazole 40 mg tablet,delayed 1 tab PO DAILY 04/16/22 04/16/22 release sertraline 25 mg tablet 1 tab PO DAILY 04/16/22 04/16/22 Previous Rx's Medication Instructions Recorded digoxin 125 mcg (0.125 mg) tablet 0.0625 mg PO Q48H #0 tabs 04/17/22 finasteride 5 mg tablet 5 mg PO DAILY 90 days #90 tabs 05/15/22 Allergies Allergy/AdvReac Type Severity Reaction Status Date / Time No Known Allergies Allergy Verified 12/25/21 08:19 Review of Systems Review of Systems: Constitutional: No Fever, No Chills, No Fatigue, No Malaise ENT/Mouth: No Ear Pain, No sore throat, No Rhinorrhea, No Swallowing Difficulty Eyes: No Eye Pain, No Swelling, No Redness Cardiovascular: No Chest Pain, + SOB, No Dyspnea on Exertion, No Edema Respiratory: No Cough, No Sputum, No Dyspnea Gastrointestinal: No Nausea, No Vomiting, No Diarrhea, No Constipation, No Abdominal pain Genitourinary: No Dysuria, No Urinary Frequency, No Hematuria, No Urinary Incontinence/retention Musculoskeletal: No joint pain, No Myalgias, No Joint Swelling Skin: No Skin Lesions, No rash Neuro: No Weakness, No Headache Yes all other systems are reviewed and are negative Constitutional: Constitutional: Reports as per [facility] Past Medical History Attestation statement: The following information was validated with the patient. Medical History Elevated PSA Elevated PSA Social History Social History Alcohol intake: unknown Patient Tobacco Use Status: Former Tobacco user Use of substances other than those prescribed or required for medical reasons: No Advance Directives: Yes Advance Directives on File: Yes Advance Directives Date on File: 04/17/22 Physical Exam ED Vital Signs: Vital Signs - 24 hr 06/07/22 18:27 06/07/22 20:24 Temperature 97.8 F 98.7 F Pulse Rate 77 83 Respiratory Rate 20 20 Blood Pressure 138/52 L 135/53 L Pulse Oximetry 100 98 Oxygen Delivery Method Nasal Cannula Nasal Cannula Oxygen Flow Rate 2 BMI result Body Mass Index 16.9 Const General: cooperative, healthy appearing and no acute distress Nutritional Appearance: cachectic Orientation/consciousness: oriented to person and oriented to place Limitations: no limitations HENMT Head: Yes normal to inspection and Yes atraumatic Ears: hearing grossly normal bilaterally General nose exam: Normal external nose present Face and sinus: Yes normal facial exam Mouth: mucous membranes dry Eyes General: appearance normal, both eyes and all related structures EOM: EOMs intact bilaterally Neck Neck: Yes normal visual inspection and Yes no meningeal signs Resp Effort & Inspection: normal respiratory effort and no respiratory distress Auscultation: clear to auscultation bilaterally, no crackles, no rales, no rhonchi and no wheezes Cardio Rate: regular rate Heart sounds: S1 normal heart sound present and S2 normal heart sound present GI Inspection: Yes normal to inspection Palpation (GI): Soft to palpation, nontender, no guarding and not rigid Skin Rashes: no rashes Wounds: no wounds Neuro General: oriented to person, oriented to place, tone normal and no meningeal signs Extrem General: Yes normal to inspection Course Course Course Narrative: Spoke with patient's nurse from [facility]. Unclear if patient is currently on dialysis, paperwork states short-term dialysis only, however patient without fistula/access -2025--no leukocytosis. H&H at patient's baseline. Potassium WNL. Acute on chronic worsening BERLIN with a BUN of 103, creatinine of 7.21 -troponin of 70.2, likely from renal dysfunction > will obtain 3 hour repeat. BNP 1151 > all fluids stopped on patient, did not receive anything > will consult Nephrology XR chest 1V IMPRESSION: Chronic appearing coarsened reticular markings bilaterally of uncertain etiology. No definitive acute process. -bladder scan had 0cc. -2111--spoke with Nephrology, Dr. Dominguez who recommended 1 L at 75 cc an hour, repeat labs, and re-evaluate in the morning. 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 On exam vital signs stable, NAD, cachectic, nontoxic, lungs CTA, abdomen soft/nontender. Patient is calm and cooperative, reporting he is hungry. Upon chart review patient was discharged from our facility on 04/17 with a creatinine of 2.69, outpatient labs on 06/02 with a creatinine of 7.51. Spoke with patient's nurse from [facility] was not familiar with patient, unclear if patient is on HD or not. Concern for BERLIN on CKD secondary to dehydration. Lower suspicion for obstruction with recent negative CT. Rule out infectious etiology Plan: EKG, labs, CXR, UA, anticipated admission Medical Records Medical records reviewed: Yes I reviewed the patient's medical records. Lab Data Lab results reviewed: Yes I reviewed the patient's lab results. Result diagrams: 06/07/22 19:04 06/07/22 19:04 Labs: Lab Results 06/07/22 06/07/22 06/07/22 Range/Units 19:04 19:04 19:04 WBC 5.6 (4.8-10.8) X10*3/uL RBC 3.54 L (4.60-5.80) X10*6/uL Hgb 9.6 L (14.0-18.0) g/dl Hct 30.0 L (42.0-52.0) % MCV 84.7 (80.0-98.0) fL MCH 27.1 (27.0-33.0) pg MCHC 32.0 (31.0-36.0) g/dl RDW 18.0 H (11.0-16.0) % Plt Count 185 (160-400) X10*3/uL MPV 9.7 (9.4-12.4) fL Immature Gran % (Auto) 1.6 H (0.0-0.4) % Neut % (Auto) 86.7 H (45-73) % Lymph % (Auto) 4.5 L (20-40) % [place] % (Auto) 6.3 (2-11) % Eos % (Auto) 0.5 (0-4) % Baso % (Auto) 0.4 (0-2) % Lymph # (Auto) 0.3 L (1.2-4.9) X10*3/uL [place] # (Auto) 0.4 (0.1-1.2) X10*3/uL Eos # (Auto) 0.0 (0.0-0.4) X10*3/uL Baso # (Auto) 0.0 (0.0-0.2) X10*3/uL Abs Immat Gran (auto) 0.09 H (0.00-0.03) X10*3/uL Absolute Neuts (auto) 4.8 (2.0-8.3) x10*3/uL Absolute Nucleated RBC 0.000 (0.0-0.012) X10*3/uL Nucleated RBC % (auto) 0.0 (0.0-0.2) /100WBC Sodium 139 (135-145) mmol/L Potassium 4.6 (3.3-5.1) mmol/L Chloride 102 (96-108) mmol/L Carbon Dioxide 16 L (22-29) mmol/L Anion Gap 26 H (12-20) BUN 103 H (9-16) mg/dL Creatinine 7.21 H* (0.5-1.4) mg/dL Estim Creat Clear Calc 4.9 Estimated GFR 7 Random Glucose 78 D (60-115) mg/dL Calcium 9.4 (8.4-10.2) mg/dL Magnesium 2.1 (1.6-2.6) mg/dL Total Bilirubin 0.3 (0.0-1.0) mg/dL Direct Bilirubin 0.2 (0.0-0.5) mg/dL AST 25 D (5-37) U/L ALT 19 (0-40) U/L Alkaline Phosphatase 88 D (39-117) U/L Troponin I High Sens 70.2 H (<3.5-35.0) ng/L B-Natriuretic Peptide (<100) pg/mL Total Protein 6.7 D (6.5-8.0) g/dL Albumin 3.6 D (3.5-5.0) g/dL Lipase 22 (8-78) U/L COVID-19 ([facility]) (Negative) COVID-19 Clin Com 06/07/22 06/07/22 Range/Units 19:04 19:04 WBC (4.8-10.8) X10*3/uL RBC (4.60-5.80) X10*6/uL Hgb (14.0-18.0) g/dl Hct (42.0-52.0) % MCV (80.0-98.0) fL MCH (27.0-33.0) pg MCHC (31.0-36.0) g/dl RDW (11.0-16.0) % Plt Count (160-400) X10*3/uL MPV (9.4-12.4) fL Immature Gran % (Auto) (0.0-0.4) % Neut % (Auto) (45-73) % Lymph % (Auto) (20-40) % [place] % (Auto) (2-11) % Eos % (Auto) (0-4) % Baso % (Auto) (0-2) % Lymph # (Auto) (1.2-4.9) X10*3/uL [place] # (Auto) (0.1-1.2) X10*3/uL Eos # (Auto) (0.0-0.4) X10*3/uL Baso # (Auto) (0.0-0.2) X10*3/uL Abs Immat Gran (auto) (0.00-0.03) X10*3/uL Absolute Neuts (auto) (2.0-8.3) x10*3/uL Absolute Nucleated RBC (0.0-0.012) X10*3/uL Nucleated RBC % (auto) (0.0-0.2) /100WBC Sodium (135-145) mmol/L Potassium (3.3-5.1) mmol/L Chloride (96-108) mmol/L Carbon Dioxide (22-29) mmol/L Anion Gap (12-20) BUN (9-16) mg/dL Creatinine (0.5-1.4) mg/dL Estim Creat Clear Calc Estimated GFR Random Glucose (60-115) mg/dL Calcium (8.4-10.2) mg/dL Magnesium (1.6-2.6) mg/dL Total Bilirubin (0.0-1.0) mg/dL Direct Bilirubin (0.0-0.5) mg/dL AST (5-37) U/L ALT (0-40) U/L Alkaline Phosphatase (39-117) U/L Troponin I High Sens (<3.5-35.0) ng/L B-Natriuretic Peptide 1151 H (<100) pg/mL Total Protein (6.5-8.0) g/dL Albumin (3.5-5.0) g/dL Lipase (8-78) U/L COVID-19 ([facility]INCE) Negative (Negative) COVID-19 Clin Com See Note ECG Data Attestation: I personally reviewed and interpreted this ECG as follows: Prior ECG tracings: available for review Interpretation: EKG normal sinus rhythm with right bundle branch block. When compared to prior EKGs ST now depressed and lateral leads. No STEMI Discharge Plan Discharge Clinical Impression: Acute kidney injury superimposed on CKD, Dyspnea Patient Disposition: Admitted As Inpatient
[2022-06-07 19:09] LABS: MANUAL DIFF FLAG NO
[2022-06-07 19:11] LABS: Basophils Percent Auto 0.4 % (0-2); Eosinophils Percent Auto 0.5 % (0-4); Hemoglobin 9.6 g/dl (14.0-18.0); Imm Gran Abs Auto 0.09 X10*3/uL (0.00-0.03); Imm Gran Pct Auto 1.6 % (0.0-0.4); Lymphocytes Absolute Auto 0.3 X10*3/uL (1.2-4.9); Lymphocytes Percent Auto 4.5 % (20-40); Mean Corpuscular Hemoglobin 27.1 pg (27.0-33.0); Mean Corpuscular Volume 84.7 fL (80.0-98.0); Mean Platelet Volume 9.7 fL (9.4-12.4); Monocytes Absolute Auto 0.4 X10*3/uL (0.1-1.2); Monocytes Percent Auto 6.3 % (2-11); Neutrophils Absolute Auto 4.8 x10*3/uL (2.0-8.3); Neutrophils Percent Auto 86.7 % (45-73); Platelet Count 185 X10*3/uL (160-400); Red Blood Count 3.54 X10*6/uL (4.60-5.80); White Blood Count 5.6 X10*3/uL (4.8-10.8)
[2022-06-07 19:25] LABS: COVID-19 Test Negative (Negative)
[2022-06-07 19:30] LABS: B Type Natriuretic Peptide 1151 pg/mL (<100)
[2022-06-07 19:31] LABS: Troponin-I High Sensitivity 70.2 ng/L (<3.5-35.0)
[2022-06-07 19:55] LABS: Alanine Aminotransferase 19 U/L (0-40); Albumin Level 3.6 g/dL (3.5-5.0); Alkaline Phosphatase 88 U/L (39-117); Anion Gap 26 (12-20); Aspartate Amino Transferase 25 U/L (5-37); Bilirubin Direct 0.2 mg/dL (0.0-0.5); Bilirubin Total 0.3 mg/dL (0.0-1.0); Blood Urea Nitrogen 103 mg/dL (9-16); Calcium 9.4 mg/dL (8.4-10.2); Carbon Dioxide 16 mmol/L (22-29); Chloride 102 mmol/L (96-108); Creatinine Clr Calc Pharmacy 4.9; Estimated Glomerular Filt Rate 7; Glucose Random 78 mg/dL (60-115); Lipase 22 U/L (8-78); Magnesium 2.1 mg/dL (1.6-2.6); Potassium 4.6 mmol/L (3.3-5.1); Sodium 139 mmol/L (135-145); Total Protein 6.7 g/dL (6.5-8.0)
[2022-06-07] MEDS: 0.9 % Sodium Chloride 1,000 ML 999 ML IV (20:21)
[2022-06-07 20:24] VITALS: BP 135/53; PULSE 83; RESP 20; TEMP 37.1; O2SAT 98
--- NOTE | 2022-06-07 20:30 | PC.NURSE ---
per request of provider, pts ivf were stopped
[2022-06-07] MEDS: 0.9 % Sodium Chloride 1,000 ML 75 ML IVCONT (21:19)
--- NOTE | 2022-06-07 21:21 | PC.NURSE ---
ivf started per order
--- NOTE | 2022-06-07 21:43 | PC.NURSE ---
Pt straight cath was inserted, during the insertion resistance was felt. will continue to monitor.
[2022-06-07 22:00] VITALS: BP 139/62; PULSE 81; RESP 20; TEMP 36.8; O2SAT 98
--- NOTE | 2022-06-07 22:27 | PM.IMHP ---
History of Present Illness Date of Service: 06/07/22 Chief Complaint: dyspnea 87-year-old male with past medical history of COPD on 2 L of O2 at baseline, CHF, AFib on Eliquis, bladder outlet obstruction on finasteride, history of seizures, depression, who [facility] after being discharged on 04/17 for management of acute kidney injury on CKD, as well as chronic anemia due to CKD, and chronic blood loss anemia receiving 1 unit of PRBC as well as improvement of his CKD and sent to nursing returns today abnormal labs as well as complaints of dyspnea. Patient reports that he has shortness of breath on his baseline of 2 L that has worsened over the past 3 days, he has a significant cough as well as sputum production. Denies any fever no chills, no chest pain abdominal pain nausea or vomiting, no diarrhea constipation, no urinary symptoms and no lower extremity edema. patient reports no urinary symptoms including no urinary urgency dysuria frequency. On arrival to the ED patient hemodynamically stable with no significant abnormal vitals labs are significant for WBC count of 7.8, hemoglobin of 9.4, hematocrit 30.0, BUN of 108, creatinine of 7. to 1 with a baseline of around 2.9. Chest x-ray shows chronic appearing coarsened reticular markings bilaterlly of uncertain etiology patient will be admitted for further management Review of Systems Review of Systems: Yes all other systems are reviewed and are negative [facility] Medical History (Updated 06/08/22 @ 07:09 by Nicolas Smith MD) Afib Bladder outlet obstruction CHF (congestive heart failure) Elevated PSA Elevated PSA History of COPD History of seizures On home oxygen therapy Family History (Updated 06/08/22 @ 07:05 by Nicolas Smith MD) Other No family history of coronary artery disease Surgical History (Updated 06/08/22 @ 07:05 by Nicolas Smith MD) No pertinent past surgical history Social History Alcohol intake: unknown Patient Tobacco Use Status: Former Tobacco user Use of substances other than those prescribed or required for medical reasons: No Advance Directives: Yes Advance Directives on File: Yes Advance Directives Date on File: 04/17/22 Meds Allergies Allergy/AdvReac Type Severity Reaction Status Date / Time No Known Allergies Allergy Verified 12/25/21 08:19 Active Medications: Current Medications Acetaminophen (Acetaminophen 325 Mg Tablet) 650 mg PO Q6H PRN PRN Reason: Pain, Mild (Pain Scale 1-3) Docusate Sodium (Docusate Sodium 100 Mg Capsule) 100 mg PO DAILY PRN PRN Reason: Constipation Sodium Chloride (Ns) 1,000 mls @ 75 mls/hr IVCONT .[id number] [facility] Last Admin: 06/07/22 21:19 Dose: 75 mls/hr Sodium Chloride (Ns) 1,000 mls @ 75 mls/hr IVCONT .[id number] [facility] Ondansetron HCl (Ondansetron Hcl 4 Mg/2 Ml Vial) 4 mg IVPUSH Q8H PRN PRN Reason: Nausea and Vomiting Pharmacy Consult (Consult Rx Perform Med Rec) 1 each MISCELLANE ONCE PRN PRN Reason: Consult order Sodium Chloride (0.9 % Sodium Chloride Flush 3 Ml Syringe) 3 ml IVFLUSH QSHIFT [facility] Home Medications Medication Instructions Recorded Confirmed Last Taken Type amlodipine 5 mg tablet 1 tab PO DAILY 04/16/22 04/16/22 Unknown History apixaban 2.5 mg tablet (Eliquis) 1 tab PO BID 04/16/22 04/16/22 Unknown History fluticasone fur. 100 mcg-umeclid 1 puff inhalation DAILY 04/16/22 04/16/22 Unknown History 62.5 mcg-vilant 25 mcg inhalat.powder (Trelegy Ellipta) furosemide 40 mg tablet 1 tab PO DAILY 04/16/22 04/16/22 Unknown History levetiracetam 500 mg tablet 1 tab PO BID 04/16/22 04/16/22 Unknown History pantoprazole 40 mg tablet,delayed 1 tab PO DAILY 04/16/22 04/16/22 Unknown History release sertraline 25 mg tablet 1 tab PO DAILY 04/16/22 04/16/22 Unknown History Physical Exam Vital Signs and Narrative: Vital Signs: Last Vital Signs Temp 98.3 F 06/07/22 22:00 Pulse 81 06/07/22 22:00 Resp 20 06/07/22 22:00 BP 139/62 06/07/22 22:00 Pulse Ox 98 06/07/22 22:00 O2 Del Method 06/07/22 22:00 O2 Flow Rate 2 06/07/22 22:00 Oxygen Flow Rate 3 06/07/22 18:27 BMI result Body Mass Index 16.9 Const: General: cooperative and no acute distress Orientation/consciousness: patient oriented x3 Eyes: General: appearance normal, both eyes and all related structures Pupils: Equal, round and reactive pupils present Resp: Other: course crackles bilaterally Effort & Inspection: normal respiratory effort Cardio: Rate: regular rate Rhythm: regular rhythm GI: Palpation (GI): Soft to palpation Auscultation: normal bowel sounds Skin: Other: patient appears very hypovolemic,, very dry skin and and mucosal membranes General skin exam: no rashes or lesions noted Neuro: General: patient oriented x3 Cranial nerves: Yes Equal, round and reactive pupils present Cognition (Neuro): normal cognition Extrem: General: Yes normal to inspection and Yes no pedal edema Results Labs CBC and Chem 7: 06/08/22 04:39 06/08/22 04:39 Labs: Laboratory Results - last 24 hr 06/07/22 06/07/22 06/07/22 19:04 19:04 19:04 MCV 84.7 MCH 27.1 MCHC 32.0 RDW 18.0 H Plt Count 185 MPV 9.7 Immature Gran % (Auto) 1.6 H Neut % (Auto) 86.7 H Lymph % (Auto) 4.5 L Morton % (Auto) 6.3 Eos % (Auto) 0.5 Baso % (Auto) 0.4 Lymph # (Auto) 0.3 L Morton # (Auto) 0.4 Eos # (Auto) 0.0 Baso # (Auto) 0.0 Abs Immat Gran (auto) 0.09 H Absolute Neuts (auto) 4.8 Absolute Nucleated RBC 0.000 Nucleated RBC % (auto) 0.0 Anion Gap 26 H Estim Creat Clear Calc 4.9 Estimated GFR 7 Random Glucose 78 D Calcium 9.4 Magnesium 2.1 Total Bilirubin 0.3 Direct Bilirubin 0.2 AST 25 D ALT 19 Alkaline Phosphatase 88 D B-Natriuretic Peptide Total Protein 6.7 D Albumin 3.6 D Lipase 22 COVID-19 ([facility]) Negative COVID-19 Clin Com See Note 06/07/22 19:04 MCV MCH MCHC RDW Plt Count MPV Immature Gran % (Auto) Neut % (Auto) Lymph % (Auto) Morton % (Auto) Eos % (Auto) Baso % (Auto) Lymph # (Auto) Morton # (Auto) Eos # (Auto) Baso # (Auto) Abs Immat Gran (auto) Absolute Neuts (auto) Absolute Nucleated RBC Nucleated RBC % (auto) Anion Gap Estim Creat Clear Calc Estimated GFR Random Glucose Calcium Magnesium Total Bilirubin Direct Bilirubin AST ALT Alkaline Phosphatase B-Natriuretic Peptide 1151 H Total Protein Albumin Lipase COVID-19 ([facility]) COVID-19 Clin Com Imaging Radiologist's Impressions: Impressions Chest X-Ray 06/07/22 19:40 IMPRESSION: Chronic appearing coarsened reticular markings bilaterally of uncertain etiology. No definitive acute process. Assessment and Plan (1) COPD exacerbation: Status: Acute (2) Acute kidney injury superimposed on CKD: Status: Acute (3) Dyspnea: Qualifiers: Dyspnea type: shortness of breath Qualified Code(s): R06.02 - Shortness of breath Status: Acute Plan this is an 87-year-old male with past medical history of COPD on 2 L of oxygen presents to the hospital with dyspnea found to have COPD exacerbation as well as BERLIN and CKD # acute COPD exacerbation - has dyspnea, cough, increased sputum production - no evidence of pneumonia - will treat with steroids, DuoNeb p.r.n. as well as schedule - continue home oxygen # BERLIN and CKD - unclear etiology at this time - nephrology was consulted recommended IV fluids 75 cc/hour - follow BMP - abdominal pelvic CT to rule out obstruction as patient does have bladder outlet obstruction, and a Naylor was difficult to place - urology consulted # dyspnea - secondary to COPD exacerbation - continue DuoNeb p.r.n. will schedule # hypertension - continue amlodipine # AFib - continue Eliquis, digoxin - Hgb stable # CHF - BNP is elevated but likely due to BERLIN - no evidenc of volume overload - hold furosemide in the setting BERLIN DVT ppx: eliquis Pt will require a minimum 2 night hospital stay for BERLIN requiring IV fluids Quality Stroke Does the patient have a stroke diagnosis?: No VTE Prior VTE?: No VTE Risk Level:: Medical - moderate - high VTE Device Contraindication: Treatment Not Indicated VTE Drug Contraindication: N/A - Med Ordered
--- NOTE | 2022-06-07 22:33 | PC.NURSE ---
Unsuccessful straight cath, Rn notified Dr. Smith at 9:56p.m. via tiger text. Pt had bladder scan and it was 0ml. will continue to monitor.
[2022-06-07 23:18] LABS: VBG Base Excess -7.7 mmol/L; VBG HCO3 15 mmol/L (22-26); VBG pCO2 25 mmHg; VBG pH 7.39 (7.32-7.43); VBG pO2 36 mmHg
[2022-06-07 23:19] LABS: Venous Blood Gas Refer to POC result
[2022-06-08] VITALS (10 sets, daily range): BP systolic 115–143; BP diastolic 54–64; PULSE 64–83; RESP 14–20; TEMP 36.6–37.2; O2SAT 96–100
[2022-06-08] MEDS: methylPREDNISolone Sod Succ 40 MG/ML VIAL IVPUSH (00:06)
[2022-06-08 05:25] LABS: Basophils Percent Auto 0.3 % (0-2); Eosinophils Percent Auto 0.1 % (0-4); Hemoglobin 9.4 g/dl (14.0-18.0); Imm Gran Pct Auto 1.3 % (0.0-0.4); Lymphocytes Absolute Auto 0.1 X10*3/uL (1.2-4.9); Lymphocytes Percent Auto 1.7 % (20-40); MANUAL DIFF FLAG SCAN; Mean Corpuscular HGB Conc 31.3 g/dl (31.0-36.0); Mean Corpuscular Hemoglobin 27.2 pg (27.0-33.0); Mean Corpuscular Volume 86.7 fL (80.0-98.0); Mean Platelet Volume 10.1 fL (9.4-12.4); Monocytes Absolute Auto 0.1 X10*3/uL (0.1-1.2); Monocytes Percent Auto 0.8 % (2-11); Neutrophils Absolute Auto 7.4 x10*3/uL (2.0-8.3); Neutrophils Percent Auto 95.8 % (45-73); Platelet Count 190 X10*3/uL (160-400); Red Blood Count 3.46 X10*6/uL (4.60-5.80); Red Cell Distribution Width 18.3 % (11.0-16.0); SCAN SMEAR FLAG 1; White Blood Count 7.8 X10*3/uL (4.8-10.8)
--- NOTE | 2022-06-08 05:26 | PC.NURSE ---
PT has blood/trauma at penis due to ED straigh cath attempt. Had condom cath on pt during night, no urine yet just some blood. Bladder scanned at 525 for 265ml. Will cont to watch for urine outpt ad pass to oncoming RN
[2022-06-08 05:38] LABS: Anion Gap 27 (12-20); Blood Urea Nitrogen 108 mg/dL (9-16); Calcium 9.6 mg/dL (8.4-10.2); Carbon Dioxide 14 mmol/L (22-29); Chloride 105 mmol/L (96-108); Creatinine Clr Calc Pharmacy 4.8; Estimated Glomerular Filt Rate 7; Glucose Random 73 mg/dL (60-115); Potassium 5.2 mmol/L (3.3-5.1); Sodium 141 mmol/L (135-145)
[2022-06-08 05:47] LABS: SLIDE REVIEW VERIFIED
[2022-06-08] MEDS: Albuterol/Iprat 2.5/0.5MG 3 ML AMPUL.NEB INHALE ×3 (07:54→16:30)
--- NOTE | 2022-06-08 08:14 | PHA.MEDREC ---
Pharmacy Consult ? Medication Reconciliation Pharmacy has completed the medication reconciliation. Patient from [facility]. Of note patient no longer has active order for keppra or furosemide anymore. Lasix was discontinued on 06/02. I personally verified with RN @ [facility] that patient is no longer keppra. Thanks Dino
[2022-06-08] MEDS: Sodium Polystyrene Sulfon/Sorb 15 GM/60 ML ORAL.SUSP 30 GM PO (09:45)
[2022-06-08] MEDS: 0.9 % Sodium Chloride 1,000 ML 75 ML IVCONT (10:45)
[2022-06-08 11:05] LABS: Appearance Urine Turbid; Color Urine RED; Glucose Urine UA Negative (Negative); Leukocyte Esterase Urine Trace (Negative); Nitrite Urine Negative (Negative); UMIC TRIGGER UACC YES; Urine Blood Large (3+) (Negative); Urine Ketones 15 mg/dL (Negative); Urine Protein 300 (3+) mg/dL (Neg-Trace)
[2022-06-08 11:12] LABS: RBC Urine >20 /HPF (0-2); Squamous Epithelial Cell Urine 0-2 /HPF (0-2); UACC Culture Trigger YES
[2022-06-08 11:13] LABS: Bacteria Urine Trace (None Seen); Hyaline Casts Urine 0-2 /LPF (0-2)
--- NOTE | 2022-06-08 12:07 | HO.PM.IMPN ---
Subjective Subjective Date of Service: 06/08/22 Interval History: the patient was seen and evaluated this morning Laying in bed, feels better overall but seems confused Shortness of breath improving No reported other overnight events. Systemic review: No fever, chills but has who relies weakness No chest pain, palpitation Shortness of breath improving, oxygen supplement No abdominal pain, nausea or vomiting No urinary symptoms Dry skin Review of Systems Review of Systems: Yes all other systems are reviewed and are negative Physical Exam Vital Signs: Vital Signs: Last Vital Signs Temp 98.4 F 06/08/22 11:07 Pulse 81 06/08/22 11:14 Resp 19 06/08/22 11:14 BP 127/54 L 06/08/22 11:07 Pulse Ox 100 06/08/22 11:07 O2 Del Method 06/08/22 11:07 O2 Flow Rate 2 06/08/22 07:53 Oxygen Flow Rate 3 06/07/22 18:27 BMI result Body Mass Index 16.9 Const: Other: Constitutional : Alert, interactive, not in distress Neck : Normal inspection, Supple Cardiovascular : RRR, no JVP, no lower extremity edema Respiratory : Decreased bilateral air entry, no crackles, scattered wheezes Gastrointestinal: soft, lax, Normal bowel sounds, Non tender Skin : Warm, Dry skin Neurological : Alert & disoriented x3, No focal deficit Objective Data Active Medications Acetaminophen (Acetaminophen 325 Mg Tablet) 650 mg PO Q6H PRN PRN Reason: Pain, Mild (Pain Scale 1-3) Albuterol/Ipratropium (Albuterol/Iprat 2.5/0.5mg 3 Ml Ampul.Neb) 3 ml INHALE Q4H PRN PRN Reason: Shortness of Breath/Wheezing Albuterol/Ipratropium (Albuterol/Iprat 2.5/0.5mg 3 Ml Ampul.Neb) 3 ml INHALE RQ4H WHILE AWAKE [facility] Last Admin: 06/08/22 11:12 Dose: 3 ml Documented By: GLENYS Docusate Sodium (Docusate Sodium 100 Mg Capsule) 100 mg PO DAILY PRN PRN Reason: Constipation Sodium Chloride (Ns) 1,000 mls @ 75 mls/hr IVCONT .[id number] [facility] Last Admin: 06/08/22 10:45 Dose: 75 mls/hr Documented By: JERRY Methylprednisolone Sodium Succinate (Methylprednisolone Sod Succ 40 Mg/Ml Vial) 40 mg IVPUSH Q12H [facility] Last Admin: 06/08/22 00:06 Dose: 40 mg Documented By: EDWIN Ondansetron HCl (Ondansetron Hcl 4 Mg/2 Ml Vial) 4 mg IVPUSH Q8H PRN PRN Reason: Nausea and Vomiting Pharmacy Consult (Consult Rx Perform Med Rec) 1 each MISCELLANE ONCE PRN PRN Reason: Consult order Sodium Chloride (0.9 % Sodium Chloride Flush 3 Ml Syringe) 3 ml IVFLUSH QSHIFT [facility] Last Admin: 06/08/22 09:36 Dose: Not Given Documented By: LIONEL Non-Admin Reason: IV Running Labs CBC & Chem 7: 06/08/22 04:39 06/08/22 04:39 Labs: Laboratory Results - last 24 hr 06/07/22 06/07/22 06/07/22 19:04 19:04 19:04 MCV 84.7 MCH 27.1 MCHC 32.0 RDW 18.0 H Plt Count 185 MPV 9.7 Immature Gran % (Auto) 1.6 H Neut % (Auto) 86.7 H Lymph % (Auto) 4.5 L Rogers % (Auto) 6.3 Eos % (Auto) 0.5 Baso % (Auto) 0.4 Lymph # (Auto) 0.3 L Rogers # (Auto) 0.4 Eos # (Auto) 0.0 Baso # (Auto) 0.0 Abs Immat Gran (auto) 0.09 H Absolute Neuts (auto) 4.8 Absolute Nucleated RBC 0.000 Nucleated RBC % (auto) 0.0 Smear Tech's Comments VBG pH VBG pCO2 VBG pO2 VBG HCO3 VBG O2 Saturation VBG Base Excess Anion Gap 26 H Estim Creat Clear Calc 4.9 Estimated GFR 7 Random Glucose 78 D Calcium 9.4 Magnesium 2.1 Total Bilirubin 0.3 Direct Bilirubin 0.2 AST 25 D ALT 19 Alkaline Phosphatase 88 D B-Natriuretic Peptide Total Protein 6.7 D Albumin 3.6 D Lipase 22 Urine Color Urine Appearance Urine pH Ur Specific [place] Urine Protein Urine Glucose (UA) Urine Ketones Urine Blood Urine Nitrite Ur Leukocyte Esterase Urine RBC Urine WBC Ur Squamous Epith Cells Urine Bacteria Hyaline Casts COVID-19 ([facility]) Negative COVID-19 Clin Com See Note 06/07/22 06/07/22 06/08/22 19:04 23:13 04:39 MCV 86.7 MCH 27.2 MCHC 31.3 RDW 18.3 H Plt Count 190 MPV 10.1 Immature Gran % (Auto) 1.3 H Neut % (Auto) 95.8 H Lymph % (Auto) 1.7 L Rogers % (Auto) 0.8 L Eos % (Auto) 0.1 Baso % (Auto) 0.3 Lymph # (Auto) 0.1 L Rogers # (Auto) 0.1 Eos # (Auto) 0.0 Baso # (Auto) 0.0 Abs Immat Gran (auto) 0.10 H Absolute Neuts (auto) 7.4 Absolute Nucleated RBC 0.000 Nucleated RBC % (auto) 0.0 Smear Tech's Comments VERIFIED VBG pH 7.39 VBG pCO2 25 VBG pO2 36 VBG HCO3 15 L VBG O2 Saturation 53.0 VBG Base Excess -7.7 Anion Gap Estim Creat Clear Calc Estimated GFR Random Glucose Calcium Magnesium Total Bilirubin Direct Bilirubin AST ALT Alkaline Phosphatase B-Natriuretic Peptide 1151 H Total Protein Albumin Lipase Urine Color Urine Appearance Urine pH Ur Specific [place] Urine Protein Urine Glucose (UA) Urine Ketones Urine Blood Urine Nitrite Ur Leukocyte Esterase Urine RBC Urine WBC Ur Squamous Epith Cells Urine Bacteria Hyaline Casts COVID-19 ([facility]) COVID-19 Clin Com 06/08/22 06/08/22 04:39 10:29 MCV MCH MCHC RDW Plt Count MPV Immature Gran % (Auto) Neut % (Auto) Lymph % (Auto) Rogers % (Auto) Eos % (Auto) Baso % (Auto) Lymph # (Auto) Rogers # (Auto) Eos # (Auto) Baso # (Auto) Abs Immat Gran (auto) Absolute Neuts (auto) Absolute Nucleated RBC Nucleated RBC % (auto) Smear Tech's Comments VBG pH VBG pCO2 VBG pO2 VBG HCO3 VBG O2 Saturation VBG Base Excess Anion Gap 27 H Estim Creat Clear Calc 4.8 Estimated GFR 7 Random Glucose 73 Calcium 9.6 Magnesium Total Bilirubin Direct Bilirubin AST ALT Alkaline Phosphatase B-Natriuretic Peptide Total Protein Albumin Lipase Urine Color RED Urine Appearance Turbid Urine pH 6.0 Ur Specific [place] 1.020 Urine Protein 300 (3+) H Urine Glucose (UA) Negative Urine Ketones 15 Urine Blood Large (3+) H Urine Nitrite Negative Ur Leukocyte Esterase Trace H Urine RBC >20 H Urine WBC 6-10 Ur Squamous Epith Cells 0-2 Urine Bacteria Trace Hyaline Casts 0-2 COVID-19 ([facility]) COVID-19 Clin Com Assessment and Plan (1) COPD exacerbation: Status: Acute (2) Acute kidney injury superimposed on CKD: Status: Acute Plan this is an 87-year-old male with past medical history of COPD on 2 L of oxygen presents to the hospital with dyspnea found to have COPD exacerbation as well as B[place] and CKD # acute COPD exacerbation Improving Continue with steroids, DuoNeb p.r.n. as well as schedule Wean down oxygen # B[place] and CKD stage IV with metabolic acidosis and hyperkalemia Prerenal, ATN Kayexalate given for hyperkalemia Start sodium bicarbonate for metabolic acidosis Continue IV fluids 75 cc/hour Nephrology to follow follow BMP Negative abdominal pelvic CT for any obstruction # bladder outlet obstruction Naylor was difficult to place Urology consulted # dyspnea secondary to COPD exacerbation continue DuoNeb p.r.n. will schedule # Hypertension continue amlodipine # AFib continue Eliquis, digoxin Hgb stable # elevated BNP No evidence of fluid overload or heart failure No reported history of heart failure DVT ppx: eliquis Patient will require overnight hospital stay for treatment of acute kidney injury, COPD exacerbation pending safe discharge plan Quality Stroke Does the patient have a stroke diagnosis?: No VTE Prior VTE?: No VTE Risk Level:: Medical - moderate - high VTE Device Contraindication: Treatment Not Indicated VTE Drug Contraindication: N/A - Med Ordered
[2022-06-08] MEDS: Sodium Bicarbonate 650 MG TABLET PO ×3 (12:43→20:54)
--- NOTE | 2022-06-08 20:07 | P.CONNP_ITS ---
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 He was recently [place] [facility] [place] and chronic blood loss anemia requiring 1 unit prbc's. In the ED, CT abd/pelvis with no evidence of obstruction noted. Lab assessment revealed hemoglobin of 9.4, hematocrit 30.0, BUN of 108, creatinine of 7. Nephrology has been consulted ot assist in his management. ROS is otherwise negative. Review of Systems Constitutional: Reports as per HPI Eyes: Reports as per HPI Reports system reviewed and no additional complaints, except as documented PMFSH Past Medical History Medical History (Updated 06/08/22 @ 07:09 by Nicolas Smith MD) Afib Bladder outlet obstruction CHF (congestive heart failure) Elevated PSA Elevated PSA History of COPD History of seizures On home oxygen therapy Family History Family History (Updated 06/08/22 @ 07:05 by Nicolas Smith MD) Other No family history of coronary artery disease Surgical History Surgical History (Updated 06/08/22 @ 07:05 by Nicolas Smith MD) No pertinent past surgical history Social History Social History Alcohol intake: unknown Patient Tobacco Use Status: Former Tobacco user Use of substances other than those prescribed or required for medical reasons: No Advance Directives: Yes Advance Directives on File: Yes Advance Directives Date on File: 04/17/22 Meds Allergies Allergy/AdvReac Type Severity Reaction Status Date / Time No Known Allergies Allergy Verified 12/25/21 08:19 Active Medications: Current Medications Acetaminophen (Acetaminophen 325 Mg Tablet) 650 mg PO Q6H PRN PRN Reason: Pain, Mild (Pain Scale 1-3) Albuterol/Ipratropium (Albuterol/Iprat 2.5/0.5mg 3 Ml Ampul.Neb) 3 ml INHALE Q4H PRN PRN Reason: Shortness of Breath/Wheezing Albuterol/Ipratropium (Albuterol/Iprat 2.5/0.5mg 3 Ml Ampul.Neb) 3 ml INHALE RQ4H WHILE AWAKE [facility] Last Admin: 06/08/22 19:41 Dose: Not Given Docusate Sodium (Docusate Sodium 100 Mg Capsule) 100 mg PO DAILY PRN PRN Reason: Constipation Sodium Chloride (Ns) 1,000 mls @ 75 mls/hr IVCONT .[id number] [facility] Last Admin: 06/08/22 10:45 Dose: 75 mls/hr Ondansetron HCl (Ondansetron Hcl 4 Mg/2 Ml Vial) 4 mg IVPUSH Q8H PRN PRN Reason: Nausea and Vomiting Pharmacy Consult (Consult Rx Perform Med Rec) 1 each MISCELLANE ONCE PRN PRN Reason: Consult order Prednisone (Prednisone 20 Mg Tablet) 40 mg PO DAILY [facility] Sodium Bicarbonate (Sodium Bicarbonate 650 Mg Tablet) 650 mg PO QID [facility] Last Admin: 06/08/22 17:29 Dose: 650 mg Sodium Chloride (0.9 % Sodium Chloride Flush 3 Ml Syringe) 3 ml IVFLUSH QSHIFT [facility] Last Admin: 06/08/22 17:25 Dose: Not Given Home Medications Medication Instructions Recorded Confirmed Last Taken Type amlodipine 5 mg tablet 1 tab PO DAILY 04/16/22 06/08/22 06/07/22 History apixaban 2.5 mg tablet (Eliquis) 1 tab PO BID 04/16/22 06/08/22 06/07/22 History fluticasone fur. 100 mcg-umeclid 1 puff inhalation DAILY 04/16/22 06/08/22 06/07/22 History 62.5 mcg-vilant 25 mcg inhalat.powder (Trelegy Ellipta) pantoprazole 40 mg tablet,delayed 1 tab PO DAILY 04/16/22 06/08/22 06/07/22 History release sertraline 25 mg tablet 1 tab PO DAILY 04/16/22 06/08/22 06/07/22 History Physical Exam Vital Signs: Last Vital Signs Temp 98 F 06/08/22 15:12 Pulse 82 06/08/22 16:34 Resp 19 06/08/22 16:34 BP 139/56 L 06/08/22 15:12 Pulse Ox 99 06/08/22 15:12 O2 Del Method 06/08/22 15:12 O2 Flow Rate 2 06/08/22 07:53 Oxygen Flow Rate 3 06/07/22 18:27 BMI result Body Mass Index 16.9 Const General: cooperative and no acute distress HEENT Head: Yes normocephalic and Yes atraumatic Neck Neck: Yes no JVD Resp Auscultation: diminished lung sounds Cardio Jugular venous distension: no JVD Rate: regular rate Rhythm: regular rhythm Heart sounds: S1 normal heart sound present and S2 normal heart sound present GI Auscultation: normal bowel sounds Neuro General: moves all extremities Extrem General: Yes no clubbing, cyanosis or edema Results Lab Results Result Diagrams: 06/08/22 04:39 06/08/22 04:39 Lab results: Chemistry 06/07/22 06/08/22 19:04 04:39 Sodium 139 141 Potassium 4.6 5.2 H Carbon Dioxide 16 L 14 L BUN 103 H 108 H Creatinine 7.21 H* 7.44 H* Calcium 9.4 9.6 Hematology 06/07/22 06/08/22 19:04 04:39 WBC 5.6 7.8 Hgb 9.6 L 9.4 L Plt Count 185 190 Urinalysis 06/08/22 10:29 Urine Color RED Urine Appearance Turbid Urine pH 6.0 Ur Specific [place] 1.020 Urine Protein 300 (3+) H Urine Glucose (UA) Negative Urine Ketones 15 Urine Blood Large (3+) H Urine Nitrite Negative Ur Leukocyte Esterase Trace H Urine RBC >20 H Urine WBC 6-10 Ur Squamous Epith Cells 0-2 Hyaline Casts 0-2 Assessment and Plan (1) Acute kidney injury superimposed on CKD: Status: Acute Plan 87-year-old male with past medical history of CKD (BL S-Cr ~ 2.7-3.0 mg/dL), COPD on 2 L of O2 at baseline, CHF, AFib on Eliquis, 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 He was recently [place] [facility] [place] and chronic blood loss anemia requiring 1 unit prbc's. In the ED, CT abd/pelvis with no evidence of obstruction noted. Lab assessment revealed hemoglobin of 9.4, hematocrit 30.0, BUN of 108, creatinine of 7. Nephrology has been consulted to assist in his management. Problem List: BERLIN, oliguric CKD (BL 2.9-3.0 mg/dL) #BERLIN, oliguria BERLIN with oliguria in setting of advanced CKD. Suspect IV depletion as underlying cause of BERLIN. R/O infectious etiology. Attain u.culture urinary obstruction requiring difficult pritchett cath placement. noted gross hemturia. Frail elderly male. Provide gentle ivf's as you are doing. Suggest D5W + 150 meq NaHCO3 at 75 cc/hr. Monitor I/O's Trial of ivf's avoidance of nephrotoxic agents. Patient may ultimately require ASSEMBLER FAUCETS in next 24-48 if no recovery. Low K diet 10 gm lokelma prn K>5.0 renal panel daily. Suggest GOC discussion(s) with family. Procedures Date of Service Date of Service: 06/08/22
--- NOTE | 2022-06-08 22:53 | PC.NURSE ---
PATIENT WAS GIVEN A BED BATH ,LOTION APPLIED AND LINEN CHANGE .
[2022-06-09] VITALS (7 sets, daily range): BP systolic 101–141; BP diastolic 54–70; PULSE 69–86; RESP 16–20; TEMP 36–36.6; O2SAT 95–100
[2022-06-09] MEDS: 0.9 % Sodium Chloride 1,000 ML 75 ML IVCONT (03:38)
[2022-06-09 07:21] LABS: Iron 62 mcg/dL (45-160); Percent Iron Saturation 28 % (15-50); Phosphorus 7.8 mg/dL (2.7-4.5); Total Iron Binding Capacity 220 mcg/dL (228-428); Unsaturated Iron Binding 158 ug/dL
[2022-06-09 07:37] LABS: HBsAGNum1 0.26 S/CO (0.00-0.99); Hepatitis B Surface Antigen Negative (Negative)
[2022-06-09] MEDS: Albuterol/Iprat 2.5/0.5MG 3 ML AMPUL.NEB INHALE (07:40)
--- NOTE | 2022-06-09 08:49 | PM.UROCN ---
History of Present Illness Consult details Consult date: 06/09/22 Narrative: Bladder outlet obstruction with renal BERLIN Michael is a pleasant male. Past history of COPD, CKD, CHF, AFib on Eliquis, bladder outlet obstruction on finasteride, depression. Presents through the emergency room for abnormal labs as well as complaints of dyspnea Had recently been discharged for BERLIN and chronic blood loss anemia CT scan performed showing no hydro nephrosis. BUN 108, creatinine 7 Has condom cath in place Recommend switching from condom catheter Naylor catheter during Nephrology investigation. Review of Systems Constitutional: Constitutional: Reports as per HPI and Reports no additional constitutional complaints Cardiovascular: Cardiovascular: Reports as per HPI and Reports no additional cardiovascular complaints Respiratory: Respiratory: Reports as per HPI and Reports no additional respiratory complaints Gastrointestinal: Gastrointestinal: Reports as per HPI and Reports no additional gastrointestinal complaints Genitourinary: Genitourinary: Reports as per HPI Musculoskeletal: Musculoskeletal: Reports no additional musculoskeletal complaints and Reports as per HPI Neurologic: Reports system reviewed and no additional complaints, except as documented and Reports as per HPI PMFSH Past Medical History Medical History (Updated 06/09/22 @ 08:52 by Javier Mcdonnell MD) Afib Bladder outlet obstruction CHF (congestive heart failure) Elevated PSA Elevated PSA History of COPD History of seizures On home oxygen therapy Family History Family History (Updated 06/08/22 @ 07:05 by Nicolas Smith MD) Other No family history of coronary artery disease Surgical History Surgical History (Updated 06/08/22 @ 07:05 by Nicolas Smith MD) No pertinent past surgical history Social History Social History Alcohol intake: unknown Patient Tobacco Use Status: Former Tobacco user Use of substances other than those prescribed or required for medical reasons: No Advance Directives: Yes Advance Directives on File: Yes Advance Directives Date on File: 04/17/22 Meds Allergies Allergy/AdvReac Type Severity Reaction Status Date / Time No Known Allergies Allergy Verified 12/25/21 08:19 Active Medications: Current Medications Acetaminophen (Acetaminophen 325 Mg Tablet) 650 mg PO Q6H PRN PRN Reason: Pain, Mild (Pain Scale 1-3) Albuterol/Ipratropium (Albuterol/Iprat 2.5/0.5mg 3 Ml Ampul.Neb) 3 ml INHALE Q4H PRN PRN Reason: Shortness of Breath/Wheezing Albuterol/Ipratropium (Albuterol/Iprat 2.5/0.5mg 3 Ml Ampul.Neb) 3 ml INHALE RQ4H WHILE AWAKE [facility] Last Admin: 06/09/22 07:40 Dose: 3 ml Docusate Sodium (Docusate Sodium 100 Mg Capsule) 100 mg PO DAILY PRN PRN Reason: Constipation Finasteride (Finasteride 5 Mg Tablet) 5 mg PO DAILY [facility] Sodium Bicarbonate 150 meq/ (Dextrose) 1,000 mls @ 75 mls/hr IV .[id number] [facility] Ondansetron HCl (Ondansetron Hcl 4 Mg/2 Ml Vial) 4 mg IVPUSH Q8H PRN PRN Reason: Nausea and Vomiting Pharmacy Consult (Consult Rx Perform Med Rec) 1 each MISCELLANE ONCE PRN PRN Reason: Consult order Prednisone (Prednisone 20 Mg Tablet) 40 mg PO DAILY [facility] Sodium Bicarbonate (Sodium Bicarbonate 650 Mg Tablet) 650 mg PO QID [facility] Last Admin: 06/08/22 20:54 Dose: 650 mg Sodium Chloride (0.9 % Sodium Chloride Flush 3 Ml Syringe) 3 ml IVFLUSH QSHIFT [facility] Last Admin: 06/09/22 01:11 Dose: Not Given Tamsulosin HCl (Tamsulosin Hcl 0.4 Mg Capsule) 0.4 mg PO DAILY [facility] Home Medications Medication Instructions Recorded Confirmed Last Taken Type amlodipine 5 mg tablet 1 tab PO DAILY 04/16/22 06/08/22 06/07/22 History apixaban 2.5 mg tablet (Eliquis) 1 tab PO BID 04/16/22 06/08/22 06/07/22 History fluticasone fur. 100 mcg-umeclid 1 puff inhalation DAILY 04/16/22 06/08/22 06/07/22 History 62.5 mcg-vilant 25 mcg inhalat.powder (Trelegy Ellipta) pantoprazole 40 mg tablet,delayed 1 tab PO DAILY 04/16/22 06/08/22 06/07/22 History release sertraline 25 mg tablet 1 tab PO DAILY 04/16/22 06/08/22 06/07/22 History Physical Exam Vital Signs: Vital Signs: Last Vital Signs Temp 97.9 F 06/09/22 04:00 Pulse 69 06/09/22 07:43 Resp 20 06/09/22 07:43 BP 140/70 H 06/09/22 04:00 Pulse Ox 100 06/09/22 04:00 O2 Del Method 06/09/22 04:00 O2 Flow Rate 2 06/08/22 20:00 Oxygen Flow Rate 3 06/07/22 18:27 BMI result Body Mass Index 16.9 Const: General: cooperative, healthy appearing, comfortable and no acute distress Orientation/consciousness: patient oriented x3 HEENT: Face and sinus: Yes normal facial exam Mouth: moist mucous membranes Neck: Neck: Yes normal visual inspection, Yes full ROM and Yes trachea midline Chest: Chest palpation & inspection: normal inspection of the chest Resp: Effort & Inspection: normal respiratory effort, able to speak in complete sentences and no respiratory distress GI: Inspection: Yes normal to inspection Back/Spine/Pelvis: Cervical Spine: normal cervical lordosis Thoracic/Lumbar Spine: thoracic and lumbar spine normal to inspection Skin: General skin exam: no rashes or lesions noted Neuro: General: patient oriented x3, tone normal and moves all extremities Extrem: General: Yes normal to inspection and Yes capillary refill normal Results Labs Result diagrams: 06/08/22 04:39 06/08/22 04:39 Labs: Abnormal lab results 06/08/22 06/09/22 Range/Units 10:29 06:36 Phosphorus 7.8 H (2.7-4.5) mg/dL TIBC 220 L (228-428) mcg/dL Urine Protein 300 (3+) H (Neg-Trace) mg/dL Urine Blood Large (3+) H (Negative) Ur Leukocyte Esterase Trace H (Negative) Urine RBC >20 H (0-2) /HPF Urine 06/08/22 Range/Units 10:29 Urine Color RED Urine Appearance Turbid Urine pH 6.0 (5.0-9.0) Ur Specific [place] 1.020 (1.005-1.025) Urine Protein 300 (3+) H (Neg-Trace) mg/dL Urine Glucose (UA) Negative (Negative) mg/dL All other labs normal. Assessment and Plan (1) BERLIN (acute kidney injury): Status: Acute (2) Bladder outlet obstruction: Status: Acute Plan Naylor catheter during nephrology assesment Procedures Date of Service Date of Service: 06/09/22
[2022-06-09 09:07] LABS: Anion Gap 22 (12-20); Blood Urea Nitrogen 99 mg/dL (9-16); Calcium 8.6 mg/dL (8.4-10.2); Carbon Dioxide 18 mmol/L (22-29); Chloride 107 mmol/L (96-108); Creatinine Clr Calc Pharmacy 5.1; Estimated Glomerular Filt Rate 8; Glucose Random 89 mg/dL (60-115); Sodium 143 mmol/L (135-145)
--- NOTE | 2022-06-09 10:16 | P.PNNP_ITS ---
Subjective Subjective Date of Service: 06/09/22 Interval history: Seen and examined, events noted Talked with his daughter Marissa re: severity of BERLIN nad possihilitty if HD--she feels strongly he would not want it Physical Exam Vital Signs: Vital Signs: Last Vital Signs Temp 96.8 F 06/09/22 09:04 Pulse 70 06/09/22 09:04 Resp 17 06/09/22 09:04 BP 119/58 L 06/09/22 09:04 Pulse Ox 100 06/09/22 09:04 O2 Del Method 06/09/22 09:04 O2 Flow Rate 3 06/09/22 09:04 Oxygen Flow Rate 3 06/07/22 18:27 BMI result Body Mass Index 16.9 Const: General: cooperative and no acute distress HEENT: Head: Yes normocephalic and Yes atraumatic Neck: Neck: Yes no JVD Resp: Auscultation: diminished lung sounds Cardio: Jugular venous distension: no JVD Rate: regular rate Rhythm: r egular rhythm Heart sounds: S1 normal heart sound present and S2 normal heart sound present GI: Auscultation: normal bowel sounds Neuro: General: moves all extremities Extrem: General: Yes no clubbing, cyanosis or edema Objective Data Labs CBC & Chem 7: 06/08/22 04:39 06/09/22 06:36 Labs: Laboratory Results - last 24 hr 06/08/22 06/09/22 06/09/22 10:29 06:36 06:36 Sodium 143 Potassium 4.0 D Chloride 107 Carbon Dioxide 18 L Anion Gap 22 H BUN 99 H Creatinine 6.90 H* Estim Creat Clear Calc 5.1 Estimated GFR 8 Random Glucose 89 Calcium 8.6 D Phosphorus 7.8 H Iron 62 TIBC 220 L % Saturation 28 Unsat Iron Binding 158 Urine Color RED Urine Appearance Turbid Urine pH 6.0 Ur Specific [place] 1.020 Urine Protein 300 (3+) H Urine Glucose (UA) Negative Urine Ketones 15 Urine Blood Large (3+) H Urine Nitrite Negative Ur Leukocyte Esterase Trace H Urine RBC >20 H Urine WBC 6-10 Ur Squamous Epith Cells 0-2 Urine Bacteria Trace Hyaline Casts 0-2 Hep Bs Antigen Negative Procedures Date of Service Date of Service: 06/09/22 Assessment & Plan Assessment and plan (1) Acute kidney injury superimposed on CKD: Status: Acute Plan 1. Non-Oliguric BERLIN: since last adm Cr 3.0 or greater ( prior SCr 07/2021 1.2)--per daughter since the 04/2022 hops he has had multiple hosp ( [facility] [place] and [facility]) and overall is doing very very poorly Suspect BERLIN on adv CKD and likely BSL SCr 3.0 Etiol of BERLIN includes renal hypoperfsuion AIN AGN Obs: depsite no hydro still may be playng a role 2. 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 Failure to Thrive: overall doing very poorly 4. NAGMA: HCO3 imporved REC: cont IVF; track UOP/renal func; would not recomend HD given my d/w daughter ( Marsisa) and his debiltated state as unliklely to provide any meaningful impact; cont IVF as still possible for some degeree of renal recovery with vol replacement Time Spent With Patient Time: Total time spent is greater than 50% in coordination of care (as documented) at patient's floor/unit and/or counseling patient: Progress Note: Quality Stroke Does the patient have a stroke diagnosis?: No
[2022-06-09] MEDS: Tamsulosin HCL 0.4 MG CAPSULE PO (10:18)
[2022-06-09] MEDS: predniSONE 20 MG TABLET 40 MG PO (10:18)
[2022-06-09] MEDS: Finasteride 5 MG TABLET PO (10:19)
[2022-06-09] MEDS: Sodium Bicarbonate 650 MG TABLET PO ×4 (10:19→20:31)
[2022-06-09] MEDS: Sodium Bicarbonate 8.4% 150 MEQ in Dextrose 5 % 850 ML 75 MEQ IV ×2 (10:20→23:20)
--- NOTE | 2022-06-09 12:02 | HO.PM.IMPN ---
Subjective Subjective Date of Service: 06/09/22 Interval History: the patient was seen and evaluated this morning Laying in bed, overall looks better but still confused Shortness of breath improving No reported other overnight events. Systemic review: No fever, chills but has who relies weakness No chest pain, palpitation Shortness of breath improving, oxygen supplement No abdominal pain, nausea or vomiting No urinary symptoms Dry skin Physical Exam Vital Signs: Vital Signs: Last Vital Signs Temp 96.8 F 06/09/22 09:04 Pulse 70 06/09/22 09:04 Resp 17 06/09/22 09:04 BP 119/58 L 06/09/22 09:04 Pulse Ox 100 06/09/22 09:04 O2 Del Method 06/09/22 09:04 O2 Flow Rate 3 06/09/22 09:04 Oxygen Flow Rate 3 06/07/22 18:27 BMI result Body Mass Index 16.9 Const: Other: Constitutional : Alert, interactive, not in distress Neck : Normal inspection, Supple Cardiovascular : RRR, no JVP, no lower extremity edema Respiratory : Decreased bilateral air entry, no crackles, scattered wheezes Gastrointestinal: soft, lax, Normal bowel sounds, Non tender Skin : Warm, Dry skin Neurological : Alert & disoriented x3, No focal deficit Objective Data Active Medications Acetaminophen (Acetaminophen 325 Mg Tablet) 650 mg PO Q6H PRN PRN Reason: Pain, Mild (Pain Scale 1-3) Albuterol/Ipratropium (Albuterol/Iprat 2.5/0.5mg 3 Ml Ampul.Neb) 3 ml INHALE Q4H PRN PRN Reason: Shortness of Breath/Wheezing Albuterol/Ipratropium (Albuterol/Iprat 2.5/0.5mg 3 Ml Ampul.Neb) 3 ml INHALE RQ4H WHILE AWAKE [facility] Last Admin: 06/09/22 11:25 Dose: Not Given Documented By: DEE DEE Non-Admin Reason: Patient Asleep Docusate Sodium (Docusate Sodium 100 Mg Capsule) 100 mg PO DAILY PRN PRN Reason: Constipation Finasteride (Finasteride 5 Mg Tablet) 5 mg PO DAILY [facility] Last Admin: 06/09/22 10:19 Dose: 5 mg Documented By: NOLAN Sodium Bicarbonate 150 meq/ (Dextrose) 1,000 mls @ 75 mls/hr IV .[id number] [facility] Last Admin: 06/09/22 10:20 Dose: 75 mls/hr Documented By: NOLAN Ondansetron HCl (Ondansetron Hcl 4 Mg/2 Ml Vial) 4 mg IVPUSH Q8H PRN PRN Reason: Nausea and Vomiting Pharmacy Consult (Consult Rx Perform Med Rec) 1 each MISCELLANE ONCE PRN PRN Reason: Consult order Prednisone (Prednisone 20 Mg Tablet) 40 mg PO DAILY [facility] Last Admin: 06/09/22 10:18 Dose: 40 mg Documented By: NOLAN Sodium Bicarbonate (Sodium Bicarbonate 650 Mg Tablet) 650 mg PO QID [facility] Last Admin: 06/09/22 10:19 Dose: 650 mg Documented By: NOLAN Sodium Chloride (0.9 % Sodium Chloride Flush 3 Ml Syringe) 3 ml IVFLUSH QSHIFT [facility] Last Admin: 06/09/22 09:04 Dose: Not Given Documented By: NOLAN Non-Admin Reason: IV Running Tamsulosin HCl (Tamsulosin Hcl 0.4 Mg Capsule) 0.4 mg PO DAILY [facility] Last Admin: 06/09/22 10:18 Dose: 0.4 mg Documented By: NOLAN Labs CBC & Chem 7: 06/08/22 04:39 06/09/22 06:36 Labs: Laboratory Results - last 24 hr 06/09/22 06/09/22 06:36 06:36 Anion Gap 22 H Estim Creat Clear Calc 5.1 Estimated GFR 8 Random Glucose 89 Calcium 8.6 D Phosphorus 7.8 H Iron 62 TIBC 220 L % Saturation 28 Unsat Iron Binding 158 Hep Bs Antigen Negative Microbiology Microbiology Results: Microbiology 06/08/22 Unknown Urine Culture - Final Urine Catheterized - Naylor Catheter Assessment and Plan (1) Bladder outlet obstruction: Status: Acute (2) COPD exacerbation: Status: Acute (3) Acute kidney injury superimposed on CKD: Status: Acute Plan this is an 87-year-old male with past medical history of COPD on 2 L of oxygen presents to the hospital with dyspnea found to have COPD exacerbation as well as BERLIN and CKD # acute COPD exacerbation Improving Continue with steroids, DuoNeb p.r.n. as well as schedule Wean down oxygen # BERLIN and CKD stage IV with metabolic acidosis and hyperkalemia Prerenal, ATN, ischemic, GA Negative abdominal pelvic CT for any obstruction Potassium improved Continue D5W with sodium bicarb infusion started Nephrology input appreciated Intake and output follow BMP # bladder outlet obstruction Naylor was difficult to place Urology consulted # dyspnea secondary to COPD exacerbation continue DuoNeb p.r.n. will schedule # Hypertension continue amlodipine # AFib continue Eliquis, digoxin Hgb stable # elevated BNP No evidence of fluid overload or heart failure No reported history of heart failure DVT ppx: eliquis Patient will require overnight hospital stay for treatment of acute kidney injury, COPD exacerbation pending safe discharge plan Quality Stroke Does the patient have a stroke diagnosis?: No VTE Prior VTE?: No VTE Risk Level:: Medical - moderate - high VTE Device Contraindication: Treatment Not Indicated VTE Drug Contraindication: N/A - Med Ordered
[2022-06-09 14:35] LABS: Anion Gap 21 (12-20); Blood Urea Nitrogen 92 mg/dL (9-16); Calcium 8.2 mg/dL (8.4-10.2); Carbon Dioxide 19 mmol/L (22-29); Chloride 107 mmol/L (96-108); Creatinine Clr Calc Pharmacy 5.2; Estimated Glomerular Filt Rate 8; Glucose Random 123 mg/dL (60-115); Potassium 3.7 mmol/L (3.3-5.1); Sodium 143 mmol/L (135-145)
--- NOTE | 2022-06-09 14:56 | MHC.CM.PN ---
PATIENT IS IN FROM [facility] ON 2 L O2 VIA [place] AT FACILITY HCP ON FILE AND VERIFIED. PATIENT IS ORIENTED TO SELF ONLY. PER DISCUSSION WITH DAUGHTER, JOANNE ([phone], REFERRAL PLACED TO [facility] FOR CONSULT. FAMILY PREFERS NO DIALYSIS FOR PATIENT AND WANTS TO POSSIBLY TAKE HIM HOME ON HOSPICE SERVICES. JOANNE ASKS FOR A 06/10/22 CALL AT 0900 OR LATER HOSPITALIST AWARE. IMM 06/09 IN MEDICAL RECORDS BIN
[2022-06-10] MEDS: 0.9 % Sodium Chloride Flush 3 ML SYRINGE IVFLUSH ×2 (00:22→10:08)
--- NOTE | 2022-06-10 03:27 | PC.NURSE ---
Pt changed and repositioned. redness noticed on bottom rn made aware. alleven pad applied to help relieve pressure. warm linen given pt comfortable
[2022-06-10 06:32] VITALS: BP 117/59; PULSE 71; RESP 14; TEMP 36.3; O2SAT 97
--- NOTE | 2022-06-10 06:37 | PC.NURSE ---
PT REPOSITIONED TO LEFT SIDE PAD CHANGED AND PT CLEANED AND MADE COMFY / GIVEN WARM BLANKET AND CALL [facility] PT STILL HAS REDNESS ON BOTTOM ALLVEEN STILL ON TO RELIEVE PRESSURE
[2022-06-10 07:45] LABS: Anion Gap 20 (12-20); Blood Urea Nitrogen 94 mg/dL (9-16); Carbon Dioxide 25 mmol/L (22-29); Chloride 103 mmol/L (96-108); Creatinine Clr Calc Pharmacy 5.4; Estimated Glomerular Filt Rate 8; Glucose Random 111 mg/dL (60-115); Potassium 3.2 mmol/L (3.3-5.1); Sodium 145 mmol/L (135-145)
[2022-06-10] MEDS: Albuterol/Iprat 2.5/0.5MG 3 ML AMPUL.NEB INHALE ×2 (07:49→15:15)
[2022-06-10 07:51] VITALS: PULSE 68; RESP 18; O2SAT 97
[2022-06-10 07:51] LABS: Osmolality Urine 341 mosm/kg (373-1093)
--- NOTE | 2022-06-10 09:59 | HO.PM.IMPN ---
Subjective Subjective Date of Service: 06/10/22 Interval History: the patient was seen and evaluated this morning Laying in bed, more alert and interactive but still confused No reported other overnight events. Systemic review: No fever, chills but has who relies weakness No chest pain, palpitation Shortness of breath improving, oxygen supplement No abdominal pain, nausea or vomiting Naylor catheter in place Dry skin Physical Exam Vital Signs: Vital Signs: Last Vital Signs Temp 97.4 F 06/10/22 06:32 Pulse 68 06/10/22 07:51 Resp 18 06/10/22 07:51 BP 117/59 L 06/10/22 06:32 Pulse Ox 97 06/10/22 06:32 O2 Del Method 06/10/22 06:32 O2 Flow Rate 2 06/10/22 06:32 Oxygen Flow Rate 3 06/07/22 18:27 BMI result Body Mass Index 16.9 Const: Other: Constitutional : Alert, interactive, not in distress Neck : Normal inspection, Supple Cardiovascular : RRR, no JVP, no lower extremity edema Respiratory : Improved bilateral air entry, no crackles, no wheezes Gastrointestinal: soft, lax, Normal bowel sounds, Non tender Skin : Warm, Dry skin Neurological : Alert & oriented to self only, No focal deficit Objective Data Active Medications Acetaminophen (Acetaminophen 325 Mg Tablet) 650 mg PO Q6H PRN PRN Reason: Pain, Mild (Pain Scale 1-3) Albuterol/Ipratropium (Albuterol/Iprat 2.5/0.5mg 3 Ml Ampul.Neb) 3 ml INHALE Q4H PRN PRN Reason: Shortness of Breath/Wheezing Albuterol/Ipratropium (Albuterol/Iprat 2.5/0.5mg 3 Ml Ampul.Neb) 3 ml INHALE RQ4H WHILE AWAKE [facility] Last Admin: 06/10/22 07:49 Dose: 3 ml Documented By: BRESYAMILA Docusate Sodium (Docusate Sodium 100 Mg Capsule) 100 mg PO DAILY PRN PRN Reason: Constipation Finasteride (Finasteride 5 Mg Tablet) 5 mg PO DAILY [facility] Last Admin: 06/09/22 10:19 Dose: 5 mg Documented By: DOBROB Ondansetron HCl (Ondansetron Hcl 4 Mg/2 Ml Vial) 4 mg IVPUSH Q8H PRN PRN Reason: Nausea and Vomiting Pharmacy Consult (Consult Rx Perform Med Rec) 1 each MISCELLANE ONCE PRN PRN Reason: Consult order Prednisone (Prednisone 20 Mg Tablet) 40 mg PO DAILY [facility] Last Admin: 06/09/22 10:18 Dose: 40 mg Documented By: NOLAN Sodium Bicarbonate (Sodium Bicarbonate 650 Mg Tablet) 650 mg PO BID [facility] Sodium Chloride (0.9 % Sodium Chloride Flush 3 Ml Syringe) 3 ml IVFLUSH QSHIFT [facility] Last Admin: 06/10/22 00:22 Dose: 3 ml Documented By: PHIL Tamsulosin HCl (Tamsulosin Hcl 0.4 Mg Capsule) 0.4 mg PO DAILY [facility] Last Admin: 06/09/22 10:18 Dose: 0.4 mg Documented By: NOLAN Labs CBC & Chem 7: 06/08/22 04:39 06/10/22 07:11 Labs: Laboratory Results - last 24 hr 06/09/22 06/10/22 06/10/22 14:08 07:09 07:09 Anion Gap 21 H Estim Creat Clear Calc 5.2 Estimated GFR 8 Random Glucose 123 H D Calcium 8.2 L Urine Osmolality 341 L Ur Random Sodium 74.0 06/10/22 07:11 Anion Gap 20 Estim Creat Clear Calc 5.4 Estimated GFR 8 Random Glucose 111 Calcium 8.0 L Urine Osmolality Ur Random Sodium Microbiology Microbiology Results: Microbiology 06/08/22 Unknown Urine Culture - Final Urine Catheterized - Naylor Catheter Assessment and Plan (1) Bladder outlet obstruction: Status: Acute (2) COPD exacerbation: Status: Acute (3) Acute kidney injury superimposed on CKD: Status: Acute Plan this is an 87-year-old male with past medical history of COPD on 2 L of oxygen presents to the hospital with dyspnea found to have COPD exacerbation as well as BERLIN and CKD # acute COPD exacerbation Resolved Continue with p.o. steroids, DuoNeb p.r.n. and scheduled Wean down oxygen as tolerated # BERLIN and CKD stage IV with metabolic acidosis Prerenal, ATN, ischemic, GA Negative abdominal pelvic CT for any obstruction Creatinine improved but still significantly elevated Acidosis resolved DC D5W with sodium bicarb infusion started Nephrology input appreciated, not candidate for dialysis Family to have hospice team discussion today # hypokalemia Potassium 3.2, replacement given Follow BMP # bladder outlet obstruction Urology placed a Naylor catheter Tamsulosin and finasteride # Hypertension continue amlodipine # AFib continue Eliquis, digoxin Hgb stable # elevated BNP Likely from chronic kidney disease, No evidence of fluid overload or heart failure No reported history of heart failure DVT ppx: eliquis Patient will require overnight hospital stay for treatment of acute kidney injury, COPD exacerbation pending safe discharge plan and hospice team discussion. Quality Stroke Does the patient have a stroke diagnosis?: No VTE Prior VTE?: No VTE Risk Level:: Medical - moderate - high VTE Device Contraindication: Treatment Not Indicated VTE Drug Contraindication: N/A - Med Ordered
[2022-06-10] MEDS: Sodium Bicarbonate 650 MG TABLET PO (10:07)
[2022-06-10] MEDS: predniSONE 20 MG TABLET 40 MG PO (10:08)
[2022-06-10] MEDS: Potassium Chloride Packet 20 MEQ PACKET PO (10:08)
[2022-06-10] MEDS: Finasteride 5 MG TABLET PO (10:08)
[2022-06-10] MEDS: Tamsulosin HCL 0.4 MG CAPSULE PO (10:08)
[2022-06-10 10:22] LABS: Complement C3 82 mg/dL
[2022-06-10 11:06] VITALS: BP 110/51; PULSE 67; RESP 16; O2SAT 95
--- NOTE | 2022-06-10 12:38 | MHC.CM.PN ---
Addendum entered by Bernadette Bush RN 06/10/22 13:46: [facility] transport Original Note: PLAN IS RETURN TO [facility] [place] PENDING COVID (-) RESULTS. THIS TESTING DIRECTOR TO REQUEST A 1600 SPORT INTERN. PATIENT IS MEDICAID PENDING AND WILL S[facility]O [facility] FACILITY. DAUGHTER JOANNE ([phone]) AWARE AND IN AGREEMENT IMM 06/09 PREVIOUSLY COMPLETED. [facility]ST COMPLETED AND UPLOADED INTO [facility]. THIS TESTING DIRECTOR TO BRING COMPLETED MOLST AND TRANSPORT FORM TO ED OVERFLOW AND NOTIFY RAJI
--- NOTE | 2022-06-10 13:34 | P.DS_ITS ---
DS: Providers Provider Date of Service: 06/19/22 Date of admission: 06/07/22 22:16 Primary care physician: Unknown Physician Consults: 06/07/22 22:24 Consult to Nephrology Routine Consulting Provider: [facility] Reason for consultation: B[place] Has provider been notified: No 06/08/22 07:08 Consult to Urology Routine Consulting Provider: Javier Mcdonnell Reason for consultation: bladder outlet obstruction with BERLIN DS: Diagnosis Discharge Diagnosis (1) COPD exacerbation: Status: Resolved (2) Acute kidney injury superimposed on CKD: Status: Acute DS: Summary Hospital Course Hospital Course: Admission note HPI ?87-year-old male with past medical history of COPD on 2 L of O2 at baseline, CHF, AFib on Eliquis, bladder outlet obstruction on finasteride, history of seizures, depression, who comes in from custodial after being discharged on 04/17 for management of acute kidney injury on CKD, as well as chronic anemia due to CKD, and chronic blood loss anemia receiving 1 unit of PRBC as well as improvement of his CKD and sent to nursing? returns today abnormal labs as well as complaints of dyspnea.? Patient reports that he has shortness of breath on his baseline of 2 L that has? worsened over the past 3 days, he has a significant cough as well as sputum production.? Denies any fever no chills, no chest pain abdominal pain nausea or vomiting, no diarrhea constipation, no urinary symptoms and no lower extremity edema.? patient reports no urinary symptoms including no urinary urgency dysuria frequency. ? On arrival to the ED patient hemodynamically stable with no significant abnormal vitals ?labs are significant for WBC count of 7.8, hemoglobin of 9.4, hematocrit 30.0, BUN of 108, creatinine of 7. to 1 with a baseline of around 2.9. ? Chest x-ray shows chronic appearing coarsened reticular markings bilaterlly? of uncertain etiology ?patient will be admitted for further management Hospital course The patient was admitted for treatment of difficulty breathing. Found to be in any acute COPD exacerbation. Responded well to treatment with steroids, nebulizers and oxygen which was weaned down during the hospital stay. He was evaluated for worsening kidney function that has been developing over the last month or so. Associated with metabolic acidosis and hyperkalemia. Treated with IV fluid as CT scan of the abdomen and pelvis was negative for any obstruction. Evaluated by Nephrology as the patient treated with D5W, sodium bicarbonate drip with discussion about need of dialysis. Nephrology team discussed the need of dialysis with the healthcare proxy who refused. Discussion was made with the hospice care team and the HCP approved to change the patient's status to hospice. A MOLST form was held and signed. Patient is supposed to be discharged to [facility] with a plan for hospice care to follow him there. The patient was noticed to have very weak urine stream and bladder outlet ob struction. Evaluated by Urology who placed a Naylor catheter. Finasteride resumed and tamsulosin was added. Noted to have soft blood pressure readings. Amlodipine was held during the hospital stay. Hold amlodipine at time of discharge and monitor blood pressure at the facility Start finasteride along with tamsulosin Keep Naylor catheter in place and follow with Urology as outpatient Continue sodium bicarbonate twice daily Time Spent with Patient Time attestation: Total time spent providing and/or coordinating discharge services: Discharge coordination time: Greater than 30 minutes Quality: Safe Use of Opioids Does Pt have an Active Cancer Diagnosis on the Problem List?: No Quality: Stroke Does the patient have a stroke diagnosis?: No Physical Exam Vital Signs: Vital Signs: Last Vital Signs Temp 97.4 F 06/10/22 06:32 Pulse 67 06/10/22 11:06 Resp 16 06/10/22 11:06 BP 110/51 L 06/10/22 11:06 Pulse Ox 95 06/10/22 11:06 O2 Del Method 06/10/22 06:32 O2 Flow Rate 2 06/10/22 06:32 Oxygen Flow Rate 3 06/07/22 18:27 BMI result Body Mass Index 16.9 Const: Other: Constitutional : Alert, interactive, not in distress Neck : Normal inspection, Supple Cardiovascular : RRR, no JVP, no lower extremity edema Respiratory : Improved bilateral air entry, no crackles, no wheezes Gastrointestinal: soft, lax, Normal bowel sounds, Non tender Skin : Warm, Dry skin Neurological : Alert & oriented to self only, No focal deficit DS: Data Data Completed and Pending Completed studies during hospitalization [Text1]: Procedures Transfusion of Nonautologous Red Blood Cells into Peripheral Vein, Percutaneous Approach (04/16/22) Labs on day of discharge: Laboratory Results - last 24 hr 06/09/22 06/09/22 06/10/22 06:36 14:08 07:09 Sodium 143 Potassium 3.7 Chloride 107 Carbon Dioxide 19 L Anion Gap 21 H BUN 92 H Creatinine 6.77 H* Estim Creat Clear Calc 5.2 Estimated GFR 8 Random Glucose 123 H D Calcium 8.2 L Urine Osmolality 341 L Ur Random Sodium Complement C3 82 Complement C4 43 06/10/22 06/10/22 07:09 07:11 Sodium 145 Potassium 3.2 L Chloride 103 Carbon Dioxide 25 Anion Gap 20 BUN 94 H Creatinine 6.58 H* Estim Creat Clear Calc 5.4 Estimated GFR 8 Random Glucose 111 Calcium 8.0 L Urine Osmolality Ur Random Sodium 74.0 Complement C3 Complement C4 Imaging CT scan - abdomen: Radiologist's impression: ITS Impressions Chest X-Ray 06/07/22 19:40 IMPRESSION: Chronic appearing coarsened reticular markings bilaterally of uncertain etiology. No definitive acute process. Abdomen/Pelvis CT 06/08/22 08:50 IMPRESSION: Bilateral renal cysts again noted. No renal calculi or hydronephrosis bilaterally. Fleischner guidelines were followed. Discharge Plan Discharge Anticipated Discharge Date/Time: 06/10/22 14:54 Patient Disposition: Xfer [facility] Discharge Diagnosis: Acute kidney injury COPD exacerbation Bladder outlet obstruction Referrals: [facility] [Outside] - 1 Week Kai Silva MD [Primary Care Provider] - 1 Week Discharge Medications: New prednisone 20 mg Tablet 40 mg PO DAILY 2 Days Qty: 4 0RF tamsulosin 0.4 mg Capsule 0.4 mg PO DAILY 30 Days Qty: 30 0RF sodium bicarbonate 650 mg Tablet 650 mg PO BID 30 Days Qty: 60 0RF Continued finasteride 5 mg tablet 5 mg PO DAILY 90 Days Qty: 90 1RF pantoprazole 40 mg tablet,delayed release (DR/EC) 1 tab PO DAILY sertraline 25 mg tablet 1 tab PO DAILY Trelegy Ellipta 100-62.5-25 mcg blister with device 1 puff INHALATION DAILY Eliquis 2.5 mg tablet 1 tab PO BID digoxin 125 mcg (0.125 mg) Tablet 0.0625 mg PO Q48H Qty: 0 0RF Held amlodipine 5 mg tablet 1 tab PO DAILY Hold Instructions: Monitor blood pressure before restarting amlodipine. Discharge Orders: Discharge Order (Routine); Ordered 06/10/22 Ordered By: Emma Miranda Diet: Advance to usual diet Activity on Discharge: As tolerated Stand Alone Forms: Patient Portal Discharge page Care Plan Goals: Read below Health Concerns: Read below Plan of Treatment: Read below Assessment: Admitted to the hospital for evaluation of difficulty breathing. Found to be in COPD exacerbation treated with steroids and nebulizers with good response. Kidney function was noted to be significantly worsened your baseline. Evaluated by concrete gun operator and treated with IV fluid and bicarbonate with fair response. Discussions with your healthcare proxy resulted in hospice care evaluation and follow-up after discharge. Discharge Date/Time: 06/10/22 16:34
[2022-06-10 13:38] LABS: COVID-19 Test Negative (Negative); IDNOW Serial# 16C4AD1C
[2022-06-10] MEDS: Digoxin 0.125 MG TABLET 0.0625 MG PO (13:57)
[2022-06-10] MEDS: Apixaban 2.5 MG TABLET PO (13:58)
[2022-06-10 15:16] VITALS: PULSE 104; RESP 20; O2SAT 97
--- NOTE | 2022-06-10 16:25 | PC.NURSE ---
Alert and responsive. VSS, afebrile, no acute resp. distress noted. Weaned oxygen down to 2L, patient tolerated it well. New order to discharge patient back to [facility]. Left via stretcher accompanied by 2 outplacement consultant.
== END 2022-06-10 16:34 | disposition skilled nursing facility (03) | DRG 191 ==
LOC: HO.ED 22:51 → HO.EDOVER 22:53
PROVIDERS: Internal Medicine Nephrology; Physician Assistant; Urology; Admitting Provider Internal Medicine; Emergency Provider Emergency Medicine; PCP Family Medicine; Visit Provider Student in an Organized Health Care Education/Training Program
DX: J44.1 Chronic obstructive pulmonary disease with (acute) exacerbation (principal); E87.2 Acidosis; N17.9 Acute kidney failure, unspecified; N18.4 Chronic kidney disease, stage 4 (severe); Z68.1 Body mass index [BMI] 19.9 or less, adult; I13.0 Hypertensive heart and chronic kidney disease with heart failure and stage 1 through stage 4 chronic kidney disease, or unspecified chronic kidney disease; N32.0 Bladder-neck obstruction; E87.5 Hyperkalemia; I50.9 Heart failure, unspecified; I48.91 Unspecified atrial fibrillation; R62.7 Adult failure to thrive; E86.0 Dehydration; Z20.822 Contact with and (suspected) exposure to COVID-19; Z99.81 Dependence on supplemental oxygen; Z79.01 Long term (current) use of anticoagulants; Z79.899 Other long term (current) drug therapy
CPT/HCPCS: 36415; 51798; 71045; 74176; 80048; 80076; 81001; 81003; 82803; 83540; 83690; 83735; 83880; 83935; 84100; 84300; 84484; 85025; 86160; 87086; 87340; 87635; 93005; 94640; 96360; 97162; 99285; J2920

== ENCOUNTER 2022-06-30 06:17 | Outpatient (REF) | payer MEDICARE, SELFPAY ==
[2022-06-30 06:54] LABS: Hematocrit 24.5 % (42.0-52.0); Hemoglobin 7.4 g/dl (14.0-18.0); Mean Corpuscular HGB Conc 30.2 g/dl (31.0-36.0); Mean Corpuscular Hemoglobin 28.5 pg (27.0-33.0); Mean Corpuscular Volume 94.2 fL (80.0-98.0); Mean Platelet Volume 11.4 fL (9.4-12.4); Platelet Count 155 X10*3/uL (160-400); Red Cell Distribution Width 20.5 % (11.0-16.0); White Blood Count 4.6 X10*3/uL (4.8-10.8)
[2022-06-30 07:37] LABS: Blood Urea Nitrogen 121 mg/dL (9-16); Calcium 8.9 mg/dL (8.4-10.2); Estimated Glomerular Filt Rate 6; Glucose Random 80 mg/dL (60-115)
[2022-06-30 07:49] LABS: Anion Gap 25 (12-20); Carbon Dioxide 22 mmol/L (22-29); Chloride 113 mmol/L (96-108); Potassium 3.7 mmol/L (3.3-5.1); Sodium 156 mmol/L (135-145)
== END 2022-06-30 06:18 | disposition home or self-care (01) ==
LOC: HO.MMNH3L 06:17
PROVIDERS: Visit Provider Family Medicine
DX: I11.0 Hypertensive heart disease with heart failure (principal); I50.9 Heart failure, unspecified; J44.9 Chronic obstructive pulmonary disease, unspecified
CPT/HCPCS: 36415; 80048; 85027

== ENCOUNTER 2022-07-03 06:59 | Inpatient (IN) | payer MEDICARE, OTHER, SELFPAY ==
[2022-07-03] VITALS (11 sets, daily range): BP systolic 124–145; BP diastolic 53–81; PULSE 64–78; RESP 16–24; TEMP 36.2–36.8; O2SAT 95–98; BMI 17.7
--- NOTE | ~2022-07-03 | XR_ITS ---
EXAMINATION: XR CHEST CLINICAL INFORMATION: Left lower lobe rales. Elevated BNP COMPARISON: June 07, 2022 TECHNIQUE: AP portable view of the chest was obtained. FINDINGS: There is some increased pleural density laterally right lower lung consistent with small increase in effusion. There is some right basilar disease present. There are bilateral regions of interstitial lung disease. Heart normal size. No evidence of pulmonary edema. XR/XR chest 1V IMPRESSION: 1. Small right pleural effusion with right basilar disease. 2. Chronic interstitial lung disease with appearance of superimposed emphysematous change
--- NOTE | 2022-07-03 07:12 | ECG_ITS ---
Test Reason : gi bleed Blood Pressure : / mmHG Vent. Rate : 073 BPM Atrial Rate : 073 BPM P-R Int : 134 ms QRS Dur : 118 ms QT Int : 414 ms P-R-T Axes : -22 077 027 degrees QTc Int : 456 ms Sinus rhythm with Premature atrial complexes Right bundle branch block Nonspecific T wave abnormality Inferior leads Nonspecific ST abnormality Lateral leads Abnormal ECG When compared with ECG of 07-JUN-2022 19:29, Premature atrial complexes are now Present Referred By: Berenice Reaves Electronically Signed By:NUVIA MORELAND MD
--- NOTE | 2022-07-03 07:19 | ED_ITS ---
HPI - GI Bleed General Chief complaint: GI Bleed Stated complaint: bloof in stool Time Seen by Provider: 07/03/22 07:12 Source: patient Mode of arrival: EMS Limitations: other (poor historian) History of Present Illness HPI Narrative: 87 yo male with hx of PE, anemia, BPH, afib on digoxin and eliquis, GERD here with c/o having BM this AM and [employer]GET[employer] V[employer]OR noted it was black x 1. No other complaints he is DNR/DNI do not transfer but family wanted him sent to the ED for evaluation. The patient himself has no complaints. MD complaint: melena Onset (ago): minute(s) (just prior to arrival ) Pain Consistency: other (denies pain) Severity: mild Relieving factors: none Exacerbating factors: bowel movement Context: anticoagulant use Associated symptoms: denies other symptoms Treatments Prior to Arrival: none Related Data Home Medications Medication Instructions Recorded Confirmed amlodipine 5 mg tablet 1 tab PO DAILY 04/16/22 07/03/22 apixaban 2.5 mg tablet (Eliquis) 1 tab PO BID 04/16/22 07/03/22 fluticasone fur. 100 mcg-umeclid 1 puff inhalation DAILY 04/16/22 07/03/22 62.5 mcg-vilant 25 mcg inhalat.powder (Trelegy Ellipta) pantoprazole 40 mg tablet,delayed 1 tab PO DAILY@0630 04/16/22 07/03/22 release sertraline 25 mg tablet 1 tab PO DAILY 04/16/22 07/03/22 digoxin 125 mcg (0.125 mg) tablet 62.5 mcg PO Q48H 07/03/22 07/03/22 tamsulosin 0.4 mg capsule 0.4 mg PO BEDTIME 07/03/22 07/03/22 Previous Rx's Medication Instructions Recorded finasteride 5 mg tablet 5 mg PO DAILY 90 days #90 tabs 05/15/22 sodium bicarbonate 650 mg tablet 650 mg PO BID 30 days #60 tabs 06/10/22 Allergies Allergy/AdvReac Type Severity Reaction Status Date / Time No Known Allergies Allergy Verified 12/25/21 08:19 Review of Systems Review of Systems: Constitutional : No Weight loss, No Fever, No Chills ENT/Mouth : No sore throat, No Rhinorrhea Eyes: No Swelling, No Redness Cardiovascular : No Chest Pain, No SOB, NoEdema Respiratory : No Cough, No Sputum, No Wheezing Gastrointestinal : no Nausea, no Vomiting, no Diarrhea, no abdominal Pain, No Hematochezia, pos Melena Genitourinary : No Dysuria, No Urinary Frequency, No Hematuria, No Urgency Musculoskeletal : No joint pain, No Myalgias, No Joint Swelling Skin : No Skin Lesions, No rash Neuro : No Weakness, No Numbness, No Dizziness, No Headache Psych : No Anxiety/Panic, No Depression Heme/Lymph: No Bruising, No Lymphadenopathy Endocrine : No Polyuria, No Polydipsia All other systems reviewed and are negative. [facility] Past Medical History Attestation statement: The following information was validated with the patient. Medical History Afib Bladder outlet obstruction Bladder outlet obstruction CHF (congestive heart failure) Elevated PSA Elevated PSA History of COPD History of seizures On home oxygen therapy Pulmonary embolus Surgical History No pertinent past surgical history Family History Family History (Updated 06/08/22 @ 07:05 by Nicolas Smith MD) Other No family history of coronary artery disease Social History Social History Alcohol intake: unknown Patient Tobacco Use Status: Former Tobacco user Advance Directives: Yes Advance Directives on File: Yes Advance Directives Date on File: 07/03/22 service: No Current occupational status: retired Physical Exam Vital Signs: Vital Signs: Last Vital Signs Temp 97.8 F 07/03/22 07:21 Pulse 76 07/03/22 07:21 Resp 18 07/03/22 07:21 BP 128/53 L 07/03/22 07:21 Pulse Ox 98 07/03/22 07:21 O2 Del Method 07/03/22 07:21 Oxygen Flow Rate 2 07/03/22 07:21 BMI result Body Mass Index 17.7 Appearance: Alert. Oriented X person and place. No acute distress. Eyes: Pupils equal, round and reactive to light. ENT: Pharynx normal. Neck: Normal inspection. Neck supple. CVS: irregular heart rate and rhythm. Pulses normal. Respiratory: No respiratory distress. Breath sounds normal. Abdomen: Soft and nontender. : Naylor in place Rectal: black stool noted on digit Skin: Skin warm and dry. pale skin color. Normal skin turgor. Extremities: No lower extremity edema. No calf ttp Neuro: Oriented X 2. No motor deficit. No sensory deficit. Course Course Course Narrative: hx of anemia in past due to CKD has refused HD, will transfuse 2 UPRBCs and admit patient already given protonix no active GIB here left message with HCP Ml unable to reach to consent for blood - has had transfusions in the past per EMR Ml wants to proceed with admission and blood transfusoion MDM - GI Bleed MDM Narrative Medical decision making narrative: 87 yo male with hx of PE, anemia, BPH, afib on digoxin and eliquis, GERD here with episode of melanotic stool at home he is on DOAC. At this time will need labs, type and screen, IV protonix. Dispo per results and findings. Patient is DNR/DNI and do not transfer to hospital but family wishes him to be evaluated. Lab Data Result diagrams: 07/03/22 07:57 07/03/22 07:57 Labs: Lab Results 07/03/22 07/03/22 07/03/22 Range/Units 07:34 07:57 07:57 WBC 5.8 (4.8-10.8) X10*3/uL RBC 2.14 L (4.60-5.80) X10*6/uL Hgb 6.1 L* (14.0-18.0) g/dl Hct 20.4 L* (42.0-52.0) % MCV 95.3 (80.0-98.0) fL MCH 28.5 (27.0-33.0) pg MCHC 29.9 L (31.0-36.0) g/dl RDW 20.7 H (11.0-16.0) % Plt Count 127 L (160-400) X10*3/uL MPV 11.1 (9.4-12.4) fL Immature Gran % (Auto) 1.4 H (0.0-0.4) % Neut % (Auto) 82.3 H (45-73) % Lymph % (Auto) 6.7 L (20-40) % Greene % (Auto) 6.2 (2-11) % Eos % (Auto) 2.9 (0-4) % Baso % (Auto) 0.5 (0-2) % Lymph # (Auto) 0.4 L (1.2-4.9) X10*3/uL Greene # (Auto) 0.4 (0.1-1.2) X10*3/uL Eos # (Auto) 0.2 (0.0-0.4) X10*3/uL Baso # (Auto) 0.0 (0.0-0.2) X10*3/uL Abs Immat Gran (auto) 0.08 H (0.00-0.03) X10*3/uL Absolute Neuts (auto) 4.8 (2.0-8.3) x10*3/uL Absolute Nucleated RBC 0.000 (0.0-0.012) X10*3/uL Nucleated RBC % (auto) 0.0 (0.0-0.2) /100WBC Smear Path Review SEE NOTE PT (10.0-13.1) SEC INR (0.9-1.1) APTT (26.0-36.4) SEC Sodium 159 H (135-145) mmol/L Potassium 4.3 (3.3-5.1) mmol/L Chloride 113 H (96-108) mmol/L Carbon Dioxide 28 (22-29) mmol/L Anion Gap 22 H (12-20) BUN 122 H (9-16) mg/dL Creatinine 9.16 H* (0.5-1.4) mg/dL Estim Creat Clear Calc 4.4 Estimated GFR 5 Random Glucose 109 D (60-115) mg/dL Lactic Acid (0.5-2.0) mmol/L Calcium 9.3 (8.4-10.2) mg/dL Magnesium 2.3 (1.6-2.6) mg/dL Total Bilirubin 0.4 (0.0-1.0) mg/dL Direct Bilirubin 0.2 (0.0-0.5) mg/dL AST 19 (5-37) U/L ALT 8 (0-40) U/L Alkaline Phosphatase 74 (39-117) U/L Troponin I High Sens (<3.5-35.0) ng/L Total Protein 5.8 L (6.5-8.0) g/dL Albumin 3.0 L (3.5-5.0) g/dL Lipase 19 (8-78) U/L Stool Occult Blood POSITIVE (NEGATIVE) COVID-19 (VINCE) (Negative) COVID-19 Clin Com Blood Type Antibody Screen Crossmatch 07/03/22 07/03/22 07/03/22 Range/Units 07:57 07:57 07:57 WBC (4.8-10.8) X10*3/uL RBC (4.60-5.80) X10*6/uL Hgb (14.0-18.0) g/dl Hct (42.0-52.0) % MCV (80.0-98.0) fL MCH (27.0-33.0) pg MCHC (31.0-36.0) g/dl RDW (11.0-16.0) % Plt Count (160-400) X10*3/uL MPV (9.4-12.4) fL Immature Gran % (Auto) (0.0-0.4) % Neut % (Auto) (45-73) % Lymph % (Auto) (20-40) % Greene % (Auto) (2-11) % Eos % (Auto) (0-4) % Baso % (Auto) (0-2) % Lymph # (Auto) (1.2-4.9) X10*3/uL Greene # (Auto) (0.1-1.2) X10*3/uL Eos # (Auto) (0.0-0.4) X10*3/uL Baso # (Auto) (0.0-0.2) X10*3/uL Abs Immat Gran (auto) (0.00-0.03) X10*3/uL Absolute Neuts (auto) (2.0-8.3) x10*3/uL Absolute Nucleated RBC (0.0-0.012) X10*3/uL Nucleated RBC % (auto) (0.0-0.2) /100WBC Smear Path Review PT (10.0-13.1) SEC INR (0.9-1.1) APTT (26.0-36.4) SEC Sodium (135-145) mmol/L Potassium (3.3-5.1) mmol/L Chloride (96-108) mmol/L Carbon Dioxide (22-29) mmol/L Anion Gap (12-20) BUN (9-16) mg/dL Creatinine (0.5-1.4) mg/dL Estim Creat Clear Calc Estimated GFR Random Glucose (60-115) mg/dL Lactic Acid 0.7 (0.5-2.0) mmol/L Calcium (8.4-10.2) mg/dL Magnesium (1.6-2.6) mg/dL Total Bilirubin (0.0-1.0) mg/dL Direct Bilirubin (0.0-0.5) mg/dL AST (5-37) U/L ALT (0-40) U/L Alkaline Phosphatase (39-117) U/L Troponin I High Sens 93.3 H (<3.5-35.0) ng/L Total Protein (6.5-8.0) g/dL Albumin (3.5-5.0) g/dL Lipase (8-78) U/L Stool Occult Blood (NEGATIVE) COVID-19 (VINCE) Negative (Negative) COVID-19 Clin Com See Note Blood Type Antibody Screen Crossmatch 07/03/22 07/03/22 Range/Units 07:57 08:36 WBC (4.8-10.8) X10*3/uL RBC (4.60-5.80) X10*6/uL Hgb (14.0-18.0) g/dl Hct (42.0-52.0) % MCV (80.0-98.0) fL MCH (27.0-33.0) pg MCHC (31.0-36.0) g/dl RDW (11.0-16.0) % Plt Count (160-400) X10*3/uL MPV (9.4-12.4) fL Immature Gran % (Auto) (0.0-0.4) % Neut % (Auto) (45-73) % Lymph % (Auto) (20-40) % Greene % (Auto) (2-11) % Eos % (Auto) (0-4) % Baso % (Auto) (0-2) % Lymph # (Auto) (1.2-4.9) X10*3/uL Greene # (Auto) (0.1-1.2) X10*3/uL Eos # (Auto) (0.0-0.4) X10*3/uL Baso # (Auto) (0.0-0.2) X10*3/uL Abs Immat Gran (auto) (0.00-0.03) X10*3/uL Absolute Neuts (auto) (2.0-8.3) x10*3/uL Absolute Nucleated RBC (0.0-0.012) X10*3/uL Nucleated RBC % (auto) (0.0-0.2) /100WBC Smear Path Review PT 12.4 (10.0-13.1) SEC INR 1.1 (0.9-1.1) APTT 29.0 (26.0-36.4) SEC Sodium (135-145) mmol/L Potassium (3.3-5.1) mmol/L Chloride (96-108) mmol/L Carbon Dioxide (22-29) mmol/L Anion Gap (12-20) BUN (9-16) mg/dL Creatinine (0.5-1.4) mg/dL Estim Creat Clear Calc Estimated GFR Random Glucose (60-115) mg/dL Lactic Acid (0.5-2.0) mmol/L Calcium (8.4-10.2) mg/dL Magnesium (1.6-2.6) mg/dL Total Bilirubin (0.0-1.0) mg/dL Direct Bilirubin (0.0-0.5) mg/dL AST (5-37) U/L ALT (0-40) U/L Alkaline Phosphatase (39-117) U/L Troponin I High Sens (<3.5-35.0) ng/L Total Protein (6.5-8.0) g/dL Albumin (3.5-5.0) g/dL Lipase (8-78) U/L Stool Occult Blood (NEGATIVE) COVID-19 (VINCE) (Negative) COVID-19 Clin Com Blood Type O Positive Antibody Screen NEGATIVE Crossmatch See Detail ECG Data Attestation: I personally reviewed and interpreted this ECG as follows: ECG interpretation date: 07/03/22 ECG interpretation time: 07:35 Interpretation: Rate: 73 Rhythm: NSR with PACs [place]: normal , LVH Normal P waves. Normal MONICA. RBBB ST T wave : nonspecific ST changes anterior leads, no GO qTC: normal prior studies: no sig changes from may 2022 The study has been interpreted contemporaneously by me. . Critical Care Time Critical Care Time Critical Care Time: Yes Total Critical Care Time: 35 Attestation: review of records, blood transfusion I attest to this time spent taking care of the patient Discharge Plan Discharge Clinical Impression: Melena Anemia Qualifiers: Anemia type: due to chronic kidney disease CKD (chronic kidney disease) Qualifiers: Chronic kidney disease stage: stage 5, not on chronic dialysis Qualified Code(s): N18.5 - Chronic kidney disease, stage 5 Patient Disposition: Admitted As Inpatient
[2022-07-03 07:43] LABS: OBS Int Ctl Valid YES; OBS1 POSITIVE (NEGATIVE)
--- OUTSIDE RECORDS SUMMARY | 2022-07-03 07:44 | XMS_ITS | Continuity of Care Document ---
:1935 Author Organization [facility] Adult Address [address] [place] [address]- Care Team Providers Name Role Phone Ingrid SPRING, Cailin Primary Care Physician [place] [facility] [place] 08/02/21 - 09/01/21 [facility] Adult [address] [place] [address]- Allergies, Adverse Reactions, Alerts Substance Reaction Severity Status cortisone Generalized body aches Active Immunizations Given and Recorded Vaccine Date Status Refusal Reason influenza virus vaccine, inactivated 06/28/21 Given tetanus/diphtheria/pertussis, acel(Tdap) 05/28/21 Given Medications alendronate 70 mg oral tablet TAKE 1 TABLET BY MOUTH ONCE WEEKLY Start Date: 06/27/21 Status: Orderedapixaban = 5 mg, By Mouth, 2 times a day, to start from 07/04/21. last dose tonight -10 mg 07/03/21, 0 Refills, Maintenance, 06/29/21 17:01:00 EDT, Tablet, Partial fill upon patient request if the prescription is for a schedule II opioid drug. Start Date: 06/29/21 Status: Ordereddigoxin 0.125 mg oral tablet 0.125 mg, 1, tablet, By Mouth, Daily, Refills 0, Maintenance, 07/03/21 13:53:00 EDT, Partial fill upon patient request if the prescription is for a schedule II opioid drug. Start Date: 07/03/21 Status: OrderedDocusate/Senna Tablet 1 tablet, By Mouth, 2 times a day, PRN Constipation, 0 Refills, Maintenance, 07/03/21 13:53:00 EDT, Tablet, Partial fill upon patient request if the prescription is for a schedule II opioid drug. Start Date: 07/03/21 Status: Orderedfinasteride 5 mg oral tablet TAKE ONE TABLET BY MOUTH EVERY DAY Start Date: 06/27/21 Status: Orderedfurosemide 40 mg oral tablet 40 mg, 1, tablet, By Mouth, 2 times a day, Refills 0, Maintenance, 07/03/21 13:52:00 EDT, Partial fill upon patient request if the prescription is for a schedule II opioid drug. Start Date: 07/03/21 Status: Orderedmelatonin 3 mg oral tablet = 3 mg, By Mouth, Daily at bedtime, PRN Insomnia, 0 Refills, Maintenance, 07/03/21 13:53:00 EDT, Tablet, Partial fill upon patient request if the prescription is for a schedule II opioid drug. Start Date: 07/03/21 Status: Orderedmetoprolol 100 mg oral tablet, extended release 200 mg, 2, tablet, By Mouth, Daily, # 60 tablet, Refills 5, Tot. Refills 5, Maintenance, 08/21/21 10:10:00 EST, Route to Pharmacy Electronically, [id number], Partial fill upon patientrequest if the prescription is for a schedule II opio... Start Date: 08/21/21 Status: OrderedPRESERVISION AREDS 2 CAPS TAKE 1 CAPSULE BY MOUTH TWICE A DAY Start Date: 06/27/21 Status: Ordered Problem List Condition Effective Dates Status Health Status Informant Aortic valve stenosis(Confirmed) Active Atrial flutter(Confirmed) Active BPH - benign prostatic Active hyperplasia(Confirmed) Diastolic heart failure(Confirmed) Active Emphysema of lung(Confirmed) Active Hypertension(Confirmed) Active PE - Pulmonary embolism(Confirmed) Active Pleural mass(Confirmed) Active Underweight(Confirmed) Active Social History Social History Type Response Tobacco Use: QUIT 04/2021. Sex
--- OUTSIDE RECORDS SUMMARY | 2022-07-03 07:44 | XMS_ITS | Continuity of Care Document ---
:1935 Author Organization [facility] Adult Address [address] [place] [address]- Care Team Providers Name Role Phone Ingrid SPRING, Cailin Primary Care Physician [phone] [facility] [place] Date(s): 03/18/22 - 04/17/22 [facility] Adult [address] [place] [address]- Allergies, Adverse Reactions, Alerts Substance Reaction Severity Status codeine Active Immunizations Given and Recorded Vaccine Date Status Refusal Reason SARS-CoV-2 (COVID-19) mRNA-1273 vaccine 10/01/21 Recorded SARS-CoV-2 (COVID-19) mRNA-1273 vaccine 12/20/20 Recorded SARS-CoV-2 (COVID-19) mRNA-1273 vaccine 11/23/20 Recorded influenza virus vaccine, inactivated 06/28/21 Given tetanus/diphtheria/pertussis, acel(Tdap) 05/28/21 Given Medications albuterol CFC free 90 mcg/inh inhalation aerosol 2, puffs, Inhalation, 4 times a day, PRN, # 8.5 Gm, Refills 5, Tot. Refills 5, Maintenance, 11/13/2216:32:00 EST, Aerosol, Route to Pharmacy Electronically, [id number], [id number], 168, cm, 11/13/21 11:23:00 ES... Start Date: 11/13/21 Stop Date: 05/12/22 Status: OrderedamLODIPine 5 mg oral tablet 5 mg, 1, tablet, By Mouth, Daily, Refills 0, Maintenance, 02/20/22 14:51:00 EDT, Partial fill upon patient request if the prescription is for a schedule II opioid drug. Start Date: 02/20/22 Status: Orderedapixaban 2.5 mg oral tablet 1 tablet = 2.5 mg, By Mouth, 2 times a day, 0 Refills, Maintenance, 02/04/22 13:52:00 EDT, Tablet, Partial fill upon patient request if the prescription is for a schedule II opioid drug. Start Date: 02/04/22 Status: Orderedaspirin 81 mg oral delayed release tablet 81 mg, 1, tablet, By Mouth, Daily, # 30 tablet, Refills 0, Maintenance, 09/09/21 10:09:00 EST, Partial fill upon patient request if the prescription is for a schedule II opioid drug. Start Date: 09/09/21 Status: Orderedcyanocobalamin 100 mcg oral tablet 100 mcg, 1, tablet, By Mouth, Daily, Refills 0, Maintenance, 02/04/22 13:52:00 EDT, Partial fill upon patient request if the prescription is for a schedule II opioid drug. Start Date: 02/04/22 Status: Orderedferrous sulfate 325 mg oral enteric coated tablet 325 mg, 1, tablet, By Mouth, Daily, # 30 tablet, Refills 0, Maintenance, 02/14/22 14:05:00 EDT, Partial fill upon patient request if the prescription is for a schedule II opioid drug. Start Date: 02/14/22 Status: Orderedfinasteride 5 mg oral tablet 1 tablet = 5 mg, By Mouth, Daily, # 90 tablet, 0 Refills, Maintenance, 09/09/21 10:08:00 EST, Tablet, Partial fill upon patient request if the prescription is for a schedule II opioid drug. Start Date: 09/09/21 Status: OrderedFleet Enema 19 gm-7 gm rectal enema 1 each, Rectally, Once, PRN for constipation, Maintenance, 02/14/22 11:34:00 EDT, Enema, Partial fill upon patient request if the prescription is for a schedule II opioid drug. Start Date: 02/14/22 Status: Orderedinsulin lispro 100 units/mL injectable solution 2-10 units, Subcutaneous Injection, Every 6 hours, << Sliding Scale Comments >> 150 - 199 2 units Call if less than 70 200 - 249 4 units 250 - 299 6 units 300 - 349 8 units 350 - 399 10 units Call if greater than 400 << Sliding Scal... Start Date: 02/20/22 Status: OrderedlevETIRAcetam 100 mg/mL oral solution 5 mL = 500 mg, By Mouth, 2 times a day, 0 Refills, Maintenance, 02/20/22 14:51:00 EDT, Solution, Partial fill upon patient request if the prescription is for a schedule II opioid drug. Start Date: 02/20/22 Status: Orderedloratadine 10 mg oral tablet 10 mg, 1, tablet, By Mouth, Daily, Refills 0, Maintenance, 02/20/22 14:50:00 EDT, Partial fill upon patient request if the prescription is for a schedule II opioid drug. Start Date: 02/20/22 Status: Orderedpantoprazole 40 mg oral delayed release tablet 1 tablet = 40 mg, By Mouth, Daily, # 30 tablet, 0 Refills, Maintenance, 02/20/22 14:53:00 EDT, EC Tablet Start Date: 02/20/22 Stop Date: 03/22/22 Status: OrderedPreserVision AREDS oral capsule 1 cap, 2 times a day, 0 Refills, Maintenance, 01/30/22 20:08:00 EDT, Partial fill upon patient request if the prescription is for a schedule II opioid drug. Start Date: 01/30/22 Status: Orderedsertraline 25 mg oral tablet 1 tablet, By Mouth, Daily, # 30 tablet, 10 Refills, [facility], 168, cm, 12/26/21 14:26:00 EDT, Height, 55, kg, 12/06/21 12:39:00 EDT, Dry Weight Start Date: 01/02/22 Status: OrderedTrelegy Ellipta 200 mcg-62.5 mcg-25 mcg/inh inhalation powder 1 puffs, Inhalation, Daily, at the same time every day, 0 Refills, Maintenance, 03/21/22 17:03:00 EDT, Powder, Partial fill upon patient request if the prescription is for a schedule II opioid drug. Start Date: 03/21/22 Status: OrderedVitamin D3 1000 intl units oral capsule 1 capsule = 25 mcg, By Mouth, Daily, # 75 capsule, 0 Refills, Maintenance, 09/09/21 10:09:00 EST, Capsule, Partial fill upon patient request if the prescription is for a schedule II opioid drug. 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 Sex
--- OUTSIDE RECORDS SUMMARY | 2022-07-03 07:44 | XMS_ITS | Continuity of Care Document ---
:1935 Author Organization [facility] Adult Address [address] [place] [address]- Care Team Providers Name Role Phone Ingrid SPRIGN, Cailin Primary Care Physician [phone] Encounter [facility] [place](s): 10/25/21 - 11/24/21 [facility] Adult [address] [place] [id number]- Allergies, Adverse Reactions, Alerts Substance Reaction Severity [...] 11/13/2216:32:00 EST, Aerosol, Route to Pharmacy Electronically, [id number], [facility], 806, cm, 11/13/21 11:23:00 ES... Start Date: 11/13/21 Stop Date: 05/12/22 Status: Orderedapixaban = 5 mg, By Mouth, 2 times a day, to start from 07/04/21. last dose tonight -10 mg 07/03/21, 0 Refills, Maintenance, 06/29/21 17:01:00 EDT, Tablet, Partial fill upon patient request if the prescription is for a schedule II opioid drug. Start Date: 06/29/21 Status: Orderedapixaban 5 mg oral tablet 1 tablet = 5 mg, By Mouth, 2 times a day, # 180 tablet, 3 Refills, Maintenance, 10/28/21 14:11:00 EST, Tablet, [facility] [place], Partial fill upon patient request if the prescription is for a scheduleII opioid drug., 168, cm, 10/14/21 14:11:00 EST,... Start Date: 10/28/21 Stop Date: 10/23/22 Status: Orderedaspirin 81 mg oral delayed release tablet 81 mg, 1, tablet, By Mouth, Daily, # 30 tablet, Refills 0, Maintenance, 09/09/21 10:09:00 EST, Partial fill upon patient request if the prescription is for a schedule II opioid drug. Start Date: 09/09/21 Status: OrderedChem 7 and Digoxin levels in a week Chem 7 and Digoxin levels in a week, See Instructions, # 1 Unknown, Refills 0, Tot. Refills 0, Maintenance, Results to PCP, 10/05/21 11:01:00 EST, Supply, 168, cm, 10/05/21 7:51:00 EST, Height, 46.3, kg, 10/02/21 21:59:00 EST, Dry Weight Start Date: 10/05/21 Status: OrderedDigox 125 mcg (0.125 mg) oral tablet 1 tablet = 125 mcg, By Mouth, Daily, # 90 tablet, 3 Refills, Maintenance, 10/28/21 14:11:00 EST, [facility] [place], Partial fill upon patient request if the prescription is for a schedule II opioid drug., 168, cm, 10/14/21 14:11:00 EST, Height, 46.3,... Start Date: 10/28/21 Stop Date: 10/23/22 Status: Ordereddigoxin 0.125 mg oral tablet 0.125 mg, 1, tablet, By Mouth, Daily, Refills 0, Maintenance, 07/03/21 13:53:00 EDT, Partial fill upon patient request if the prescription is for a schedule II opioid drug. Start Date: 07/03/21 Status: Orderedfinasteride 5 mg oral tablet 1 tablet = 5 mg, By Mouth, Daily, # 90 tablet, 0 Refills, Maintenance, 09/09/21 10:08:00 EST, Tablet, Partial fill upon patient request if the prescription is for a schedule II opioid drug. Start Date: 09/09/21 Status: Orderedfurosemide 40 mg oral tablet 40 mg, 1, tablet, By Mouth, Daily, Refills 0, Maintenance, 07/03/21 13:52:00 EDT, Partial fill upon patient request if the prescription is for a schedule II opioid drug. Start Date: 07/03/21 Status: Orderedfurosemide 40 mg oral tablet 40 mg, 1, tablet, By Mouth, Daily, # 90 tablet, Refills 3, Tot. Refills 3, Maintenance, 10/28/21 14:11:00 EST, Route to Pharmacy Electronically, [facility] [place], Partial fill upon patient request if the prescription is for a schedule II opioid drug.... Start Date: 10/28/21 Stop Date: 10/23/22 Status: Orderedmelatonin 3 mg oral tablet = 3 mg, By Mouth, Daily at bedtime, PRN Insomnia, 0 Refills, Maintenance, 07/03/21 13:53:00 EDT, Tablet, Partial fill upon patient request if the prescription is for a schedule II opioid drug. Start Date: 07/03/21 Status: OrderedPRESERVISION AREDS 2 CAPS TAKE 1 CAPSULE BY MOUTH TWICE A DAY Start Date: 06/27/21 Status: Orderedsertraline 25 mg oral tablet 1 tablet = 25 mg, By Mouth, Daily, # 90 tablet, 0 Refills, Maintenance, 10/25/21 12:27:00 EST, Tablet, [facility] [place], Partial fill upon patient request if the prescription is for a schedule II opioid drug., 168, cm, 10/14/21 14:11:00 EST, Height,... Start Date: 10/25/21 Status: OrderedVitamin D3 1000 intl units oral [...]
--- OUTSIDE RECORDS SUMMARY | 2022-07-03 07:44 | XMS_ITS | Continuity of Care Document ---
:1935 Author Organization [facility] Adult Address [address] [place] [address]- Care Team Providers Name Role Phone Ingrid SPRING, Cailin Primary Care Physician [phone] Encounter [facility] [place] Date(s): 04/18/22 - 05/18/22 [facility] [address] [place] [address]- Allergies, Adverse Reactions, Alerts Substance Reaction Severity [...] 11/13/2216:32:00 EST, Aerosol, Route to Pharmacy Electronically, [id number], [facility], 168, cm, [...] Mouth, Daily, # 30 tablet, 10 Refills, [facility], 168, cm, 12/26/21 14:26:00 EDT, Height, [...] History of pulmonary Active embolism(Confirmed) Hypertension(Confirmed) Active 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 Sex Care Team PersonnelName: Cailin Quintero MD [facility] [address]rd [address] [place], [place] [address]
--- OUTSIDE RECORDS SUMMARY | 2022-07-03 07:44 | XMS_ITS | Continuity of Care Document ---
:1935 Author Organization [facility] Address [address] [place] [address]- Care Team Providers Name Role Phone Live SPRING, Genaro Cisneros Primary Care Physician Encounter [facility] [place] Date(s): 07/17/21 - 08/16/21 [facility] [address] [place] [address]- Attending Physician: Apolonia Cooper Admitting Physician: Apolonia Cooper Referring Physician: Apolonia Cooper Allergies, Adverse Reactions, Alerts Substance Reaction Severity [...] 200 mg, 2, tablet, By Mouth, Daily, Refills 0, Maintenance, 07/03/21 13:53:00 EDT, Partial fill uponpatient request if the prescription is for a [...]
--- OUTSIDE RECORDS SUMMARY | 2022-07-03 07:44 | XMS_ITS | Continuity of Care Document ---
:1935 Author Organization [facility] Adult Address [address] [place] [address]- Care Team Providers Name Role Phone Ingrid SPRING, Cailin Primary Care Physician [phone] Encounter [facility] [place] Date(s): 12/16/21 - 01/15/22 [facility] Adult [address] [place] [address]- Allergies, Adverse Reactions, Alerts Substance Reaction Severity [...] 11/13/2216:32:00 EST, Aerosol, Route to Pharmacy Electronically, [id number], [facility], 168, cm, 11/13/21 11:23:00 ES... Start Date: 11/13/21 Stop Date: 05/12/22 Status: Orderedapixaban 2.5 mg oral tablet 1 tablet = 2.5 mg, By Mouth, 2 times a day, # 60 tablet, 11 Refills, Maintenance, 12/09/21 15:20:00 EDT, Tablet, [facility], Partial fill upon patient request if the prescription is for a schedule II opioid drug., 168, cm, 12/09/21 14:35... Start Date: 12/09/21 Status: Orderedaspirin 81 mg oral delayed release tablet 81 mg, 1, tablet, By Mouth, Daily, # 30 tablet, Refills 0, Maintenance, 09/09/21 10:09:00 EST, Partial fill upon patient request if the prescription is for a schedule II opioid drug. Start Date: 09/09/21 Status: OrderedDigox 125 mcg (0.125 mg) oral tablet 1 tablet = 125 mcg, By Mouth, Daily, # 90 tablet, 3 Refills, Maintenance, 10/28/21 14:11:00 EST, [facility], Partial fill upon patient request if the prescription is for a schedule II opioid drug., 168, cm, 10/14/21 14:11:00 EST, Height, 46.3,... Start Date: 10/28/21 Stop Date: 10/23/22 Status: Orderedfinasteride 5 mg oral tablet 1 [...] 10/28/21 14:11:00 EST, Route to Pharmacy Electronically, [facility], Partial fill upon patient request if the prescription is for a schedule II opioid drug.... Start Date: 10/28/21 Stop Date: 10/23/22 Status: OrderedPRESERVISION AREDS 2 CAPS TAKE 1 CAPSULE BY MOUTH TWICE A DAY Start Date: 06/27/21 Status: Orderedsertraline 25 mg oral tablet 1 tablet, By Mouth, Daily, # 30 tablet, 10 Refills, [facility], 168, cm, 12/26/21 14:26:00 EDT, Height, 55, kg, 12/06/21 12:39:00 EDT, Dry Weight Start Date: 01/02/22 Status: OrderedVitamin D3 1000 intl units oral [...] Active BPH - benign prostatic Active hyperplasia(Confirmed) Depression(Confirmed) Active Diastolic heart failure(Confirmed) Active Vallecular mass(Confirmed) Active Emphysema of lung(Confirmed) Active History of pulmonary Active embolism(Confirmed) Hypertension(Confirmed) Active Pleural mass(Confirmed) Active Underweight(Confirmed) Active Social History Social History Type Response Tobacco Use: 4 or less cigarettes(le ss than 1/4 pack)/day in last 30 days, QUIT 04/2021. Sex
--- OUTSIDE RECORDS SUMMARY | 2022-07-03 07:44 | XMS_ITS | Continuity of Care Document ---
:1935 Author Organization [facility] Adult Address [address] [place] [address]- Care Team Providers Name Role Phone Ingrid SPRING, Cailin Primary Care Physician Encounter [facility] [place] Date(s): 10/28/21 - 11/27/21 [facility] Adult [address] [place] [address]- Allergies, Adverse Reactions, Alerts Substance Reaction Severity [...] 11/13/2216:32:00 EST, Aerosol, Route to Pharmacy Electronically, [id number], [facility], 301, cm, 11/13/21 11:23:00 ES... Start Date: 11/13/21 [...] EST, Route to Pharmacy Electronically, [facility] [place], Partial fill upon patient request if the [...] Maintenance, 10/25/21 12:27:00 EST, Tablet, [facility] [place], Partial fill upon patient request if the [...]
--- OUTSIDE RECORDS SUMMARY | 2022-07-03 07:45 | XMS_ITS | Continuity of Care Document ---
:1935 Author Organization [facility] Adult Address [address] [place] [address]- Care Team Providers Name Role Phone Ingrid SPRING, Cailin Primary Care Physician [phone] Encounter [facility] [place] Date(s): 02/13/22 - 03/15/22 [facility] Adult [address] [place] [address]- Allergies, Adverse Reactions, Alerts Substance Reaction Severity Status codeine Active Immunizations Given and Recorded Vaccine Date Status Refusal Reason SARS-CoV-2 (COVID-19) mRNA-1273 vaccine 10/01/21 Recorded SARS-CoV-2 (COVID-19) mRNA-1273 vaccine 12/20/20 Recorded SARS-CoV-2 (COVID-19) mRNA-1273 vaccine 11/23/20 Recorded influenza virus vaccine, inactivated 06/28/21 Given tetanus/diphtheria/pertussis, acel(Tdap) 05/28/21 Given Medications acetaminophen 325 mg oral tablet 650 mg, 2, tablet, By Mouth, Every 6 hours, PRN, Refills 0, Maintenance, as needed for fever/ pain, 02/14/22 11:31:00 EDT, Partial fill upon patient request if the prescription is for a schedule II opioid drug. Start Date: 02/14/22 Status: Orderedalbuterol CFC free 90 mcg/inh inhalation aerosol 2, puffs, Inhalation, 4 times a day, PRN, # 8.5 Gm, Refills 5, Tot. Refills 5, Maintenance, 11/13/2216:32:00 EST, Aerosol, Route to Pharmacy Electronically, [id number], [facility], 898, cm, 11/13/21 11:23:00 ES... Start Date: 11/13/21 [...] II opioid drug. Start Date: 09/09/21 Status: Orderedbisacodyl 10 mg rectal suppository 1 supp = 10 mg, Rectally, Daily, PRN for constipation, Maintenance, 02/14/22 11:33:00 EDT, Suppository, Partial fill upon patient request if the prescription is for a schedule II opioid drug. Start Date: 02/14/22 Status: Orderedcyanocobalamin 100 mcg oral tablet 100 [...] II opioid drug. Start Date: 02/14/22 Status: Orderedhydrochlorothiazide 25 mg oral tablet 25 mg, 1, tablet, By Mouth, Daily, Refills 0, Maintenance, 02/20/22 14:51:00 EDT, Partial fill upon patient request if the prescription is for a schedule II opioid drug. Start Date: 02/20/22 Status: Orderedinsulin lispro 100 units/mL injectable solution [...] Mouth, Daily, # 30 tablet, 10 Refills, [facility], 168, cm, 12/26/21 14:26:00 EDT, Height, [...] Active Chronic kidney disease, stage Active 3b(Confirmed)1 Depression(Confirmed) Active Diastolic heart failure(Confirmed) Active Vallecular mass(Confirmed) Active Emphysema of lung(Confirmed) Active History of pulmonary Active embolism(Confirmed) Hypertension(Confirmed) Active Pleural mass(Confirmed) Active Underweight(Confirmed) Active 1Per chart review meets GFR criteria Social History Social History Type Response Tobacco Use: 4 or less cigarettes(le ss than 1/4 pack)/day in last 30 days, QUIT 04/2021. Sex
--- OUTSIDE RECORDS SUMMARY | 2022-07-03 07:45 | XMS_ITS | Continuity of Care Document ---
:1935 [address] [facility] Adult Address [address] [place] [address]- Care Team Providers Name Role Phone Ingrid SPRING, Cailin Primary Care Physician [phone] Encounter [facility] [place] Date(s): 10/18/21 - 11/17/[address] [facility] Adult [address] [place] [address]- Allergies, Adverse Reactions, Alerts Substance Reaction Severity [...] 11/13/2216:32:00 EST, Aerosol, Route to Pharmacy Electronically, [id number], [facility], 271, cm, 11/13/21 11:23:00 ES... Start Date: 11/13/21 [...] Maintenance, 10/28/21 14:11:00 EST, Tablet, [facility] [place], Partial fill upon patient request if the [...] Refills, Maintenance, 10/28/21 14:11:00 EST, [facility] [place], Partial fill upon patient request if the [...] 10/28/21 14:11:00 EST, Route to Pharmacy Electronically, [facility], Partial fill upon patient request if the [...] 0 Refills, Maintenance, 10/25/21 12:27:00 EST, Tablet[facility], [facility] fill upon patient request if the [...]
--- OUTSIDE RECORDS SUMMARY | 2022-07-03 07:45 | XMS_ITS | Continuity of Care Document ---
:1935 Author Organization [facility] Adult Address [address] [place] [address]- Care Team Providers Name Role Phone Ingrid SPRING, Cailin Primary Care Physician [phone] Encounter [facility] [place] Date(s): 04/21/22 - 05/21/22 [facility] Adult [address] [place] [address]- Allergies, Adverse Reactions, Alerts Substance Reaction Severity [...] 11/13/2216:32:00 EST, Aerosol, Route to Pharmacy Electronically, [id number], [facility], 168, cm, [...] Mouth, Daily, # 30 tablet, 10 Refills, [facility], 168, cm, 12/26/21 14:26:00 EDT, [...] History of pulmonary Active embolism(Confirmed) Hypertension(Confirmed) Active long-term (current) use of Active anticoagulants(Confirmed) Pleural mass(Confirmed) Active Underweight(Confirmed) Active 1Per chart review meets GFR criteria Social History Social History Type Response Tobacco Use: 4 or less cigarettes(le ss than 1/4 pack)/day in last 30 days, QUIT 04/2021. Sex Care Team PersonnelName: Cailin Quintero MD [facility] [address]rd [address] [place], [place] [address]
--- OUTSIDE RECORDS SUMMARY | 2022-07-03 07:45 | XMS_ITS | Continuity of Care Document ---
:1935 Author Organization [facility] Adult Address [address] [place] [address]- Care Team Providers Name Role Phone Ingrid SPRING, Cailin Primary Care Physician Encounter [facility] [place] Date(s): 10/25/21 - 11/24/21 [facility] Adult [address] [place] [address]- Allergies, Adverse Reactions, Alerts Substance Reaction Severity [...] 11/13/2216:32:00 EST, Aerosol, Route to Pharmacy Electronically, [id number], [facility], 994, cm, 11/13/21 11:23:00 ES... Start Date: 11/13/21 [...] EST, Route to Pharmacy Electronically, [facility] [place], Partial fill upon patient request if the [...] Maintenance, 10/25/21 12:27:00 EST, Tablet, [facility] [place], Partial fill upon patient request if the [...]
--- OUTSIDE RECORDS SUMMARY | 2022-07-03 07:45 | XMS_ITS | Continuity of Care Document ---
:1935 Author Organization [facility] Adult Address [address] [place] [address]- Care Team Providers Name Role Phone Cailin Quintero MD Primary Care Physician Encounter 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 Depression (Discharge Diagnosis) - 12/10/21 Aortic valve stenosis (Discharge Diagnosis) - 12/10/21 Emphysema of lung (Discharge Diagnosis) - 12/10/21 Underweight (Discharge Diagnosis) - 12/10/21 Anemia (Discharge Diagnosis) - 12/10/21 Recurrent falls (Discharge Diagnosis) - 12/10/21 Attending Physician: Cailin Quintero MD Allergies, Adverse Reactions, Alerts Substance Reaction Severity [...] 11/13/2216:32:00 EST, Aerosol, Route to Pharmacy Electronically, [id number], [facility], 168, cm, [...] tablet, 3 Refills, Maintenance, 10/28/21 14:11:00 EST, [facility], Partial fill upon patient request if the [...] EST, Route to Pharmacy Electronically, [facility] [place], Partial fill upon patient request if the prescription is for a schedule II opioid drug.... Start Date: 10/28/21 Stop Date: 10/23/22 Status: OrderedPRESERVISION AREDS 2 CAPS TAKE 1 CAPSULE BY MOUTH TWICE A DAY Start Date: 06/27/21 Status: Orderedsertraline 25 mg oral tablet 1 tablet = 25 mg, By Mouth, Daily, # 90 tablet, 0 Refills, Maintenance, 10/25/21 12:27:00 EST, Tablet, [facility] [place], Partial fill [...] Hypertension(Confirmed) Active Pleural mass(Confirmed) Active Underweight(Confirmed) Active Diagnosis Diagnosis Type Effective Dates Health Clinical Infor mant Status Service Vallecular mass Discharge 12/10/21 Diagnosis Depression Discharge 12/10/21 Diagnosis Aortic valve Discharge 12/10/21 stenosis Diagnosis Emphysema of lung Discharge 12/10/21 Diagnosis Anemia Discharge 12/10/21 Diagnosis Underweight Discharge 12/10/21 Diagnosis Recurrent falls Discharge 12/10/21 Diagnosis Vital Signs Most recent to oldest [Reference Range]: 1 Height 168 cm (12/10/21 2:25 PM) Weight 46 kg (12/10/21 2:25 PM) Oxygen Saturation [94-100 %] 96 % (12/10/21 2:25 PM) Pulse Rate [55-90 bpm] 66 bpm (12/10/21 2:25 PM) Body Mass Index [18.5-24.99] 16.3 *L* (12/10/21 2:25 PM) Blood Pressure [90-138/55-84 mm Hg] 119/53 mm Hg (12/10/21 2:25 PM) Temperature [96.8-100.4 DegF] 97.7 DegF (12/10/21 2:25 PM) Mode of Delivery (Oxygen) Room air (12/10/21 2:25 PM) Blood pressure sites Arm, left (12/10/21 2:25 PM) Temperature Route Oral (12/10/21 2:25 PM) Social History Social History Type Response Tobacco Use: 4 or less cigarettes(le ss than 1/4 pack)/day in last 30 days, QUIT 04/2021. Sex
--- OUTSIDE RECORDS SUMMARY | 2022-07-03 07:45 | XMS_ITS | Continuity of Care Document ---
:1935 Author Organization [facility] Adult Address [address] [place] [address]- Care Team Providers Name Role Phone Ingrid SPRING, Cailin Primary Care Physician Encounter [facility] [place] [place] Date(s): 08/20/21 - 09/19/21 [facility] [address] [place] [address]- Allergies, Adverse Reactions, Alerts Substance Reaction Severity Status cortisone Generalized body aches Active Immunizations Given and Recorded Vaccine Date Status Refusal Reason influenza virus vaccine, inactivated 06/28/21 Given tetanus/diphtheria/pertussis, acel(Tdap) 05/28/21 Given Medications apixaban = 5 mg, By Mouth, 2 times a day, to start from 07/04/21. last dose tonight -10 mg 07/03/21, 0 Refills, Maintenance, 06/29/21 17:01:00 EDT, Tablet, Partial fill upon patient request if the prescription is for a schedule II opioid drug. Start Date: 06/29/21 Status: Orderedaspirin 81 mg oral delayed release tablet 81 mg, 1, tablet, By Mouth, Daily, # 30 tablet, Refills 0, Maintenance, 09/09/21 10:09:00 EST, Partial fill upon patient request if the prescription is for a schedule II opioid drug. Start Date: 09/09/21 Status: Ordereddigoxin 0.125 mg oral tablet 0.125 [...] II opioid drug. Start Date: 07/03/21 Status: Orderedlosartan 50 mg oral tablet 50 mg, 1, tablet, By Mouth, Daily, # 30 tablet, Refills 0, Maintenance, 09/09/21 10:08:00 EST, Partial fill upon patient request if the prescription is for a schedule II opioid drug. Start Date: 09/09/21 Status: Orderedmelatonin 3 mg oral tablet = 3 mg, By Mouth, Daily at bedtime, PRN Insomnia, 0 Refills, Maintenance, 07/03/21 13:53:00 EDT, Tablet, Partial fill upon patient request if the prescription is for a schedule II opioid drug. Start Date: 07/03/21 Status: OrderedPRESERVISION AREDS 2 CAPS TAKE 1 CAPSULE BY MOUTH TWICE A DAY Start Date: 06/27/21 Status: OrderedVitamin D3 1000 intl units oral [...]
--- OUTSIDE RECORDS SUMMARY | 2022-07-03 07:45 | XMS_ITS | Continuity of Care Document ---
:1935 Author Organization [facility] Address [address] [place] [address]- Care Team Providers Name Role Phone Live SPRING, Genaro Cisneros Primary Care Physician Encounter [facility] [place] Date(s): 06/29/21 - 07/03/[address] [address] Discharge Disposition: A-Transfer SNF Attending Physician: Saskia Higgins MD, Alexa Admitting Physician: Malena Corcoran MD Referring Physician: Not on Staff, Referring MD Allergies, Adverse Reactions, Alerts Substance Reaction Severity Status cortisone Generalized body aches Active Immunizations Given and Recorded Vaccine Date Status Refusal Reason influenza virus vaccine, inactivated 06/28/21 Given tetanus/diphtheria/pertussis, acel(Tdap) 05/28/21 Given Medications acetaminophen 325 mg oral tablet 650 mg, By Mouth, 3 times a day, Temperature Greater than 100.5, Refills 0, Maintenance, 06/29/21 17:01:00 EDT, Partial fill upon patient request if the prescription is for a schedule II opioid drug. Start Date: 06/29/21 Status: Orderedalendronate 70 mg oral tablet TAKE 1 TABLET [...] II opioid drug. Start Date: 07/03/21 Status: Ordereddigoxin 0.125 mg oral tablet 0.125 mg, Tablet, By Mouth, 07/03/21 16:00:00 EDT Start Date: 07/03/21 Stop Date: 07/03/21 Status: CompletedDocusate/Senna Tablet 1 tablet, By Mouth, 2 times [...] mg oral tablet, extended release 200 mg, XL Tablet, By Mouth, Hold for: SBP<100, recheck BP, 07/03/21 9:00:00 EDT Start Date: 07/03/21 Stop Date: 07/03/21 Status: CompletedPRESERVISION AREDS 2 CAPS TAKE 1 CAPSULE BY MOUTH TWICE A DAY Start Date: 06/27/21 Status: Ordered Problem List Condition Effective Dates Status Health Status Informant History of BPH(Confirmed) Active Hypertension(Confirmed) Active Procedures Procedure Date Related Diagnosis Body Site Status Cataract Completed Vital Signs Most recent to oldest 1 2 3 [Reference Range]: Height 168 cm 168 cm 168 cm (07/03/21 4:33 PM) (07/03/21 11:35 AM) (07/03/21 7:23 AM) Weight 49.7 kg 49.4 kg 51.6 kg (07/03/21 3:53 AM) (07/02/21 5:46 AM) (07/01/21 8:31 AM) Oxygen Saturation [94-100 98 % 95 % 94 % %] (07/03/21 4:33 PM) (07/03/21 11:35 AM) (07/03/21 7:23 AM) Pulse Rate [55-90 bpm] 79 bpm 76 bpm 80 bpm (07/03/21 4:33 PM) (07/03/21 3:30 PM) (07/03/21 11:35 AM) Body Mass Index 17.93 [18.5-24.99] *L* (06/29/21 5:18 PM) Blood Pressure 103/60 mm Hg 95/56 mm Hg 115/65 mm Hg [90-138/55-84 mm Hg] (07/03/21 4:33 PM) (07/03/21 11:35 AM) ( 9:25 AM) Respiratory Rate [16-30 18 br/min 18 br/min 18 br/mi n br/min] (07/03/21 4:33 PM) (07/03/21 11:35 AM) (07/03/21 7:23 AM) Temperature [96.8-100.4 98.1 DegF 98.1 DegF 97.7 Deg F DegF] (07/03/21 4:33 PM) (07/03/21 11:35 AM) (07/03/21 7:23 AM) Liters per Minute 2 L/min 2 L/min 2 L/min (07/03/21 7:23 AM) (07/02/21 7:29 PM) (07/02/21 4:59 PM) Mode of Delivery (Oxygen) Room air Room air Nasal cannula (07/03/21 4:33 PM) (07/03/21 11:35 AM) (07/03/21 7:23 AM) Blood pressure sites Arm, right Arm, right Arm, right (07/03/21 4:33 PM) (07/03/21 11:35 AM) (07/03/21 7:23 AM) Temperature Route Oral Oral Oral (07/03/21 4:33 PM) (07/03/21 11:35 AM) (07/03/21 7:23 AM) Dry Weight 48 kg (06/29/21 5:18 PM) Weight Obtained Via Bed scale Bed scale Bed scale (07/02/21 5:46 AM) (07/01/21 8:31 AM) (06/30/21 3:36 AM) Dry Weight Obtained Via Patient/family stated (06/29/21 5:18 PM) Social History Social History Type Response Smoking Status 5-9 cigarettes (between 1/4 to 1/2 pack)/day in last 30 days entered on: 12/27/20 Sex
--- OUTSIDE RECORDS SUMMARY | 2022-07-03 07:45 | XMS_ITS | Continuity of Care Document ---
:1935 Author Organization [facility] Adult Address [address] [place] [address]- Care Team Providers Name Role Phone Ingrid SPRING, Cailin Primary Care Physician En[place] [facility] [place] Date(s): 03/14/22 - 04/13/22 [facility] Adult [address] [place] [address]- Allergies, Adverse Reactions, Alerts Substance Reaction Severity [...] 11/13/2216:32:00 EST, Aerosol, Route to Pharmacy Electronically, [id number], [facility], 168, cm, [...] Mouth, Daily, # 30 tablet, 10 Refills, [facility], 168, cm, 12/26/21 14:26:00 EDT, Height, [...] History of pulmonary Active embolism(Confirmed) Hypertension(Confirmed) Active rn long term care (current) use of Active anticoagulants(Confirmed) Pleural mass(Confirmed) Active Underweight(Confirmed) Active 1Per chart review meets GFR criteria Social History Social History Type Response Tobacco Use: 4 or less cigarettes(le ss than 1/4 pack)/day in last 30 days, QUIT 04/2021. Sex
--- OUTSIDE RECORDS SUMMARY | 2022-07-03 07:45 | XMS_ITS | Continuity of Care Document ---
:1935 Author Organization [facility] Adult Address [address] [place] [address]- Care Team Providers Name Role Phone Ingrid SPRING, Cailin Primary Care Physician [phone] Encounter [facility] [place] Date(s): 05/02/22 - 06/01/22 [facility] Adult [address] [place] [address]- Allergies, Adverse Reactions, Alerts Substance Reaction Severity [...] 11/13/2216:32:00 EST, Aerosol, Route to Pharmacy Electronically, [id number], [facility], 168, cm, [...] # 30 tablet, 10 Refills, [facility], 168, cm, 12/26/21 14:26:00 EDT, Height, [...] History of pulmonary Active embolism(Confirmed) Hypertension(Confirmed) Active 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 Sex Care Team PersonnelName: Cailin Quintero MD [facility] [address]rd [address] [place], [place] [address]
--- OUTSIDE RECORDS SUMMARY | 2022-07-03 07:45 | XMS_ITS | Continuity of Care Document ---
:1935 Author Organization [facility] Adult Address [address] [place] [address]- Care Team Providers Name Role Phone Ingrid SPRING, Cailin Primary Care Physician [phone] Encounter [facility] [place] Date(s): 10/24/21 - 11/23/21 [facility] Adult [address] [place] [address]- Encounter Diagnosis Depression (Discharge Diagnosis) - 10/25/21 Allergies, Adverse Reactions, Alerts Substance Reaction Severity [...] 11/13/2216:32:00 EST, Aerosol, Route to Pharmacy Electronically, [id number], [facility], 756, cm, 11/13/21 11:23:00 ES... Start Date: 11/13/21 [...] 10/28/21 14:11:00 EST, Route to [facility], [facility], Partial fill upon patient request if the [...] 0 Refills, Maintenance, 10/25/21 12:27:00 EST, Tablet, [facility], Partial fill upon patient request if the [...] embolism(Confirmed) Active Pleural mass(Confirmed) Active Underweight(Confirmed) Active Diagnosis Diagnosis Type Effective Dates Health Status Clinical Serv ice Informant Depression Discharge 10/25/21 Non-Specified Diagnosis Social History Social History Type Response Tobacco Use: QUIT 04/2021. Sex
--- OUTSIDE RECORDS SUMMARY | 2022-07-03 07:45 | XMS_ITS | Continuity of Care Document ---
:1935 Author Organization [facility] Adult Address [address] [place] [address]- Care Team Providers Name Role Phone Ingrid SPRING, Cailin Primary Care Physician Encounter [facility] [place] Date(s): 03/13/22 - 04/12/22 [facility] Adult [address] [place] [address]- Allergies, Adverse Reactions, Alerts Substance Reaction Severity [...] 11/13/2216:32:00 EST, Aerosol, Route to Pharmacy Electronically, [id number], [facility], 168, cm, [...] Mouth, Daily, # 30 tablet, 10 Refills, [facility], 168, cm, 12/26/21 14:26:00 EDT, [...] History of pulmonary Active embolism(Confirmed) Hypertension(Confirmed) Active base ply hand (current) use of Active anticoagulants(Confirmed) Pleural mass(Confirmed) Active Underweight(Confirmed) Active 1Per chart review meets GFR criteria Social History Social History Type Response Tobacco Use: 4 or less cigarettes(le ss than 1/4 pack)/day in last 30 days, QUIT 04/2021. Sex
--- OUTSIDE RECORDS SUMMARY | 2022-07-03 07:45 | XMS_ITS | Continuity of Care Document ---
:1935 Author Organization [facility] Adult Address [address] [place] [address]- Care Team Providers Name Role Phone Cailin Quintero MD Primary Care Physician [phone] Encounter [facility] Date(s): 10/14/21 - 10/21/21 [facility] Adult [address] [place] [address]- Encounter Diagnosis Acute kidney injury (Discharge Diagnosis) - 10/14/21 Depression (Discharge Diagnosis) - 10/14/21 Aortic valve stenosis (Discharge Diagnosis) - 10/14/21 Diastolic heart failure (Discharge Diagnosis) - 10/14/21 Hypertension (Discharge Diagnosis) - 10/14/21 Attending Physician: Cailin Quintero MD Allergies, Adverse [...] EST, Dry Weight Start Date: 10/05/21 Status: Ordereddigoxin 0.125 mg oral tablet 0.125 [...] II opioid drug. Start Date: 07/03/21 Status: OrderedMetoprolol Succinate ER 100 mg oral tablet, extended release 1 tablet = 100 mg, By Mouth, Daily, # 30 tablet, 0 Refills, Maintenance, 10/02/21 14:24:00 EST, ER Tablet, Partial fill upon patient request if the prescription is for a schedule II opioid drug. Start Date: 10/02/21 Status: OrderedPRESERVISION AREDS 2 CAPS TAKE 1 CAPSULE BY MOUTH TWICE A DAY Start Date: 06/27/21 Status: Orderedsertraline 25 mg oral tablet 1 tablet = 25 mg, By Mouth, Daily, # 90 tablet, 0 Refills, Maintenance, 10/14/21 16:17:00 EST, Tablet, [facility], Partial fill upon patient request if the prescription is for a schedule II opioid drug., 168, cm, 10/14/21 14:11:00 EST, H... Start Date: 10/14/21 Status: OrderedVitamin D3 1000 intl units oral [...] Dates Health Clinical Infor mant Status Service Acute kidney injury Discharge 10/14/21 Diagnosis Depression Discharge 10/14/21 Diagnosis Aortic valve Discharge 10/14/21 stenosis Diagnosis Diastolic heart Discharge 10/14/21 failure Diagnosis Hypertension Discharge 10/14/21 Diagnosis Vital Signs Most recent to oldest [Reference Range]: 1 Height 168 cm (10/14/21 2:11 PM) Social History Social History Type Response Tobacco Use: QUIT 04/2021. Sex
--- OUTSIDE RECORDS SUMMARY | 2022-07-03 07:45 | XMS_ITS | Continuity of Care Document ---
:1935 Author Organization [facility] Adult Address [address] [place] [address]- Care Team Providers Name Role Phone Ingrid SPRING, Cailin Primary Care Physician [phone] Encounter [facility] [place] Date(s): 03/26/22 - 04/25/22 [facility] Adult [address] [place] [address]- Allergies, Adverse Reactions, Alerts Substance Reaction Severity [...] 11/13/2216:32:00 EST, Aerosol, Route to Pharmacy Electronically, [id number], [facility], 168, cm, [...] Mouth, Daily, # 30 tablet, 10 Refills, [facility], 168, cm, 12/26/21 14:26:00 EDT, Height, [...] History of pulmonary Active embolism(Confirmed) Hypertension(Confirmed) Active snf (current) use of Active anticoagulants(Confirmed) Pleural mass(Confirmed) Active Underweight(Confirmed) Active 1Per chart review meets GFR criteria Social History Social History Type Response Tobacco Use: 4 or less cigarettes(le ss than 1/4 pack)/day in last 30 days, QUIT 04/2021. Sex
--- OUTSIDE RECORDS SUMMARY | 2022-07-03 07:45 | XMS_ITS | Continuity of Care Document ---
:1935 Author Organization [facility] Address Unavailable , Care Team Providers Name Role Phone Ingrid SPRING, Cailin Primary Care Physician [id number] Date(s): 02/20/22 - 04/26/22 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 Sex
--- OUTSIDE RECORDS SUMMARY | 2022-07-03 07:45 | XMS_ITS | Continuity of Care Document ---
:1935 Author Organization [facility] Adult Address [address] [place] [address]- Care Team Providers Name Role Phone Ingrid SPRING, Cailin Primary Care Physician [phone] Encounter [facility] [place] Date(s): 12/27/21 - 01/26/22 [facility] Adult [address] [place] [address]- Allergies, Adverse Reactions, Alerts Substance Reaction Severity [...] 11/13/2216:32:00 EST, Aerosol, Route to Pharmacy Electronically, [id number], [facility], 168, cm, [...] tablet, 3 Refills, Maintenance, 10/28/21 14:11:00 EST, [facility], Partial fill upon patient request if the [...] 10/28/21 14:11:00 EST, Route to Pharmacy Electronically, [facility], Partial fill upon patient request if the prescription is for a schedule II opioid drug.... Start Date: 10/28/21 Stop Date: 10/23/22 Status: OrderedPRESERVISION AREDS 2 CAPS TAKE 1 CAPSULE BY MOUTH TWICE A DAY Start Date: 06/27/21 Status: Orderedsertraline 25 mg oral tablet 1 tablet, By Mouth, Daily, # 30 tablet, 10 Refills, [facility], 168, cm, 12/26/21 14:26:00 EDT, Height, [...]
--- OUTSIDE RECORDS SUMMARY | 2022-07-03 07:45 | XMS_ITS | Continuity of Care Document ---
:1935 Author Organization [facility] Address [address] [place] [address]- Care Team Providers Name Role Phone Ingrid SPRING, Cailin Primary Care Physician [id number] Date(s): 03/28/22 - 04/27/22 [facility] [address] [place] [address]- Allergies, Adverse Reactions, Alerts Substance Reaction Severity [...] 11/13/2216:32:00 EST, Aerosol, Route to Pharmacy Electronically, [id number], [facility], 168, cm, [...] Mouth, Daily, # 30 tablet, 10 Refills, [facility], 168, cm, 12/26/21 14:26:00 EDT, [...] History of pulmonary Active embolism(Confirmed) Hypertension(Confirmed) Active halfway (current) use of Active anticoagulants(Confirmed) Pleural mass(Confirmed) Active Underweight(Confirmed) Active 1Per chart review meets GFR criteria Social History Social History Type Response Tobacco Use: 4 or less cigarettes(le ss than 1/4 pack)/day in last 30 days, QUIT 04/2021. Sex
--- OUTSIDE RECORDS SUMMARY | 2022-07-03 07:45 | XMS_ITS | Continuity of Care Document ---
:1935 Author Organization [facility] Adult Address [address] [place] [address]- Care Team Providers Name Role Phone Ingrid PSRING, Cailin Primary Care Physician [phone] Encounter [facility] [place] Date(s): 12/23/21 - 01/22/22 [facility] Adult [address] [place] [address]- Allergies, Adverse Reactions, Alerts Substance Reaction Severity [...] 11/13/2216:32:00 EST, Aerosol, Route to Pharmacy Electronically, [id number], [facility], 168, cm, [...] tablet, 3 Refills, Maintenance, 10/28/21 14:11:00 EST, [facility], Partial fill upon patient request [...] 10/28/21 14:11:00 EST, Route to Pharmacy Electronically, [facility], Partial fill upon patient request if the prescription is for a schedule II opioid drug.... Start Date: 10/28/21 Stop Date: 10/23/22 Status: OrderedPRESERVISION AREDS 2 CAPS TAKE 1 CAPSULE BY MOUTH TWICE A DAY Start Date: 06/27/21 Status: Orderedsertraline 25 mg oral tablet 1 tablet, By Mouth, Daily, # 30 tablet, 10 Refills, [facility], 168, cm, 12/26/21 14:26:00 EDT, [...]
--- OUTSIDE RECORDS SUMMARY | 2022-07-03 07:45 | XMS_ITS | Continuity of Care Document ---
:1935 Author Organization [facility] Adult Address [address] [place] [address]- Care Team Providers Name Role Phone Ingrid SPRING, Cailin Primary Care Physician [phone] Encounter [facility] [place] Date(s): 04/09/22 - 05/09/22 [facility] Adult [address] [place] [address]- Allergies, Adverse Reactions, Alerts Substance Reaction Severity [...] 11/13/2216:32:00 EST, Aerosol, Route to Pharmacy Electronically, [id number], [facility], 168, cm, [...] Mouth, Daily, # 30 tablet, 10 Refills, [facility], 168, cm, 12/26/21 14:26:00 EDT, [...] History of pulmonary Active embolism(Confirmed) Hypertension(Confirmed) Active [facility]FP (current) use of Active anticoagulants(Confirmed) Pleural mass(Confirmed) Active Underweight(Confirmed) Active 1Per chart review meets GFR criteria Social History Social History Type Response Tobacco Use: 4 or less cigarettes(le ss than 1/4 pack)/day in last 30 days, QUIT 04/2021. Sex Care Team PersonnelName: Cailin Quintero MD [facility] [address] [place], [place] [address]
--- OUTSIDE RECORDS SUMMARY | 2022-07-03 07:45 | XMS_ITS | Continuity of Care Document ---
:1935 Author Organization [facility] Adult Address [address] [place] [address]- Care Team Providers Name Role Phone Ingrid SPRING, Cailin Primary Care Physician [place] [facility] [place] 10/14/21 - 11/13/21 [facility] Adult [address] [place] [address]- Attending Physician: Apolonia Cooper Admitting Physician: Admtr, Ar8 Referring Physician: Admtr, Ar8 Allergies, Adverse Reactions, Alerts Substance Reaction Severity [...] 11/13/2216:32:00 EST, Aerosol, Route to Pharmacy Electronically, [id number], [facility], 168, cm, 11/13/21 11:23:00 ES... Start Date: 11/13/21 Stop Date: 05/12/22 Status: Orderedapixaban = 5 mg, By Mouth, 2 times a day, to start from 10/21/21. last dose tonight -10 mg 10/20/21, 0 Refills, Maintenance, 06/29/21 17:01:00 EDT, Tablet, [...] EST, Route to Pharmacy Electronically, [facility] [place], Partial fill upon patient [...]
--- OUTSIDE RECORDS SUMMARY | 2022-07-03 07:45 | XMS_ITS | Continuity of Care Document ---
:1935 Author Organization [facility] Adult Address [address] [place] [address]- Care Team Providers Name Role Phone Cailin Quintero MD Primary Care Physician [place] [facility] [place] 03/21/22 - 03/28/22 [facility] Adult [address] [place] [address]- Encounter Diagnosis Atrial flutter (Discharge Diagnosis) - 03/21/22 half-way (current) use of anticoagulants (Discharge Diagnosis) - 03/21/22 Oxygen dependent (Discharge Diagnosis) - 03/21/22 Attending Physician: Cailin Quintero MD Allergies, Adverse [...] 11/13/2216:32:00 EST, Aerosol, Route to Pharmacy Electronically, [id number], [facility], 168, cm, [...] History of pulmonary Active embolism(Confirmed) Hypertension(Confirmed) Active 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(Confirmed) Pleural mass(Confirmed) Active Underweight(Confirmed) Active 1Per chart review meets GFR criteria Diagnosis Diagnosis Type Effective Dates Health Clinical Infor mant Status Service Atrial flutter Discharge 03/21/22 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 Sex
--- OUTSIDE RECORDS SUMMARY | 2022-07-03 07:45 | XMS_ITS | Continuity of Care Document ---
:1935 Author Organization [facility] Address [address] [place] [address]- Care Team Providers Name Role Phone Genaro Mancini MD Primary Care Physician [place] [facility] [place] 07/03/21 - 08/16/21 [facility] [address] [place] [address]- Attending Physician: Garry Kincaid MD Admitting Physician: Garry Kincaid MD Referring Physician: Genaro Mancini MD Allergies, Adverse Reactions, Alerts Substance Reaction [...]
--- OUTSIDE RECORDS SUMMARY | 2022-07-03 07:45 | XMS_ITS | Continuity of Care Document ---
:1935 Author Organization [facility] Address [address] [place] [address]- Care Team Providers Name Role Phone Cailin Quintero MD Primary Care Physician Encounter [facility] [place] Date(s): 12/24/21 - 12/31/21 [facility] [address] [place] [address]- Encounter Diagnosis Bilateral leg weakness (Discharge Diagnosis) - 12/24/21 Bad odor of urine (Discharge Diagnosis) - 12/24/21 Attending Physician: Cailin Quintero MD Allergies, Adverse [...] 11/13/2216:32:00 EST, Aerosol, Route to Pharmacy Electronically, [id number], [facility], 168, cm, [...] Refills, Maintenance, 10/28/21 14:11:00 EST, [facility] [place], Partial fill upon patient request if the [...] EST, Route to Pharmacy Electronically, [facility] [place], Partial fill upon patient request if the [...] Diagnosis Type Effective Dates Health Status Clinical In formant Service Bilateral leg Discharge 12/24/21 weakness Diagnosis Bad odor of Discharge 12/24/21 urine Diagnosis Vital Signs Most recent to oldest [Reference Range]: 1 Height 168 cm (12/24/21 4:15 PM) Social History Social History Type Response Tobacco Use: 4 or less cigarettes(le ss than 1/4 pack)/day in last 30 days, QUIT 04/2021. Sex
--- OUTSIDE RECORDS SUMMARY | 2022-07-03 07:45 | XMS_ITS | Continuity of Care Document ---
:1935 Author Organization [facility] Adult Address [address] [place] [address]- Care Team Providers Name Role Phone Cailin Quintero MD Primary Care Physician [place] [facility] [place] 07/15/21 - 10/16/21 [facility] [address] [place] [address]- Attending Physician: Cailin Quintero MD Allergies, Adverse [...]
--- OUTSIDE RECORDS SUMMARY | 2022-07-03 07:45 | XMS_ITS | Continuity of Care Document ---
:1935 Author Organization [facility] Adult Address [address] [place] [address]- Care Team Providers Name Role Phone Ingrid SPRING, Cailin Primary Care Physician Encounter [facility] [place] Date(s): 11/05/21 - 12/05/21 [facility] Adult [address] [place] [address]- Allergies, Adverse Reactions, Alerts Substance Reaction Severity [...] 11/13/2216:32:00 EST, Aerosol, Route to Pharmacy Electronically, [id number], [facility], 168, cm, [...] EST, Route to Pharmacy Electronically, [facility] [place], Partial fill upon patient request if the [...] Maintenance, 10/25/21 12:27:00 EST, Tablet, [facility] [place], Partial fill upon patient request if the [...] - Pulmonary embolism(Confirmed) Active Pleural mass(Confirmed) Active Social History Social History Type Response Tobacco Use: QUIT 04/2021. Sex
--- OUTSIDE RECORDS SUMMARY | 2022-07-03 07:46 | XMS_ITS | Encounter Summary ---
:1935 Author Care Team Providers Name Role Phone Genaro Mancini Primary Care Provider [phone] [facility] [address] OTHER [phone] Reason for Visit Acute Rounding Visit Assessment and Plan 1. Chronic kidney disease stage 4 With marked worsening over the past 6 mo nths Will push fluids and monitor closely. bicarb 650 mg bid Continue to avoid nephrotoxic meds as ab le. Renal consult prn 2. Dementia continue to monitor and chart any wilks es in mood or behaviors psych prn zoloft 25 mg daily Discussion Note: None recorded.Patient educational handouts: No information available. Plan of Care Reminders Provider Appointments None recorded. ? ? Lab None recorded. ? ? Referral None recorded. ? ? Procedures None recorded. ? ? Surgeries None recorded. ? ? Imaging None recorded. ? ? Medications Notes: med list reviewed, see MAR for complete list Medications Administered None recorded. Vitals Height Blood Pressure 5 ft 6 in 114/70 mm[Hg] Results Lab Results None recorded. Allergies Code Code System Name Reaction Severity Onset 2877 RxNorm Cortisone ? ? ? Problems Name Status Onset Date Source ? Essential Hypertension Active 07/05/2021 ? Atrial Fibrillation Active 07/05/2021 ? Congestive Heart Failure Active 07/05/2021 ? Benign Prostatic Hyperplasia Active 07/05/2021 ? Osteoporosis Active 07/05/2021 ? At Risk for Falls Active 07/05/2021 ? Seizure Disorder Active 04/18/2022 ? Chronic Obstructive Lung Disease Active 04/18/2022 ? Gastroesophageal Reflux Disease without Esophagitis Active 04/18/2022 ? Dementia Active 04/18/2022 ? Anemia Active 04/22/2022 ? Chronic Kidney Disease Stage 4 Active 04/22/2022 ? Blood in Urine Active 07/02/2022 ? Procedures Notes: cataract Vaccine List Vaccine Type COVID-19, mRNA, LNP-S, PF, 30 mcg/0.3 mL dose (Cyber-Rain) 11/23/2020 12/20/2020 10/01/2021 influenza, high-dose, quadrivalent 06/28/2021 Tdap 05/28/2021 Social History Tobacco Smoking Status Former Smoker Notes: quit Has tobacco cessation counseling been N N otes: n/a as pt no longer provided? smokes What is your code status? DNR/DNI Do you have a medical power of Y Notes: invoked trade mark attorney? What was the date of your most recent 04/18/2022 tobacco screening? Do you have an advanced directive? Y Note s: DNH, NO hd, IVF, GTHCP invoked Do you use any illicit or recreational N drugs? Where do you live? [place]ment Notes[facility] What is your relationship status? What is your level of alcohol None consumption? Legal Guardian? N Do you have an out of hospital DNR? N Do you or have you ever used any other N forms of tobacco or nicotine? Functional Status Unknown. 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 06/13/2022 Chronic Obstructive Lung Disease; Benign Prostatic Hyperplasia; Atrial Fibrillation; Essential Hypertension; Chronic Kidney Disease Stage 4; Gastroesophageal Reflux Disease without Esophagitis; Mixed Anxiety and Depressive Disorder Janine Tam MD: [address] [facility] [place] [address], Ph. 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 History of Present Illness Note: <div>seen today for acute rounding visit-CAOX1 pleaantly confused, lungs clear, labs kidney functioning worsenting and family thinking about hospice</div>Review of Systems: ROS as noted in the HPI Review of Systems None recorded. Physical Exam ? General Adult Exam Reported By: Patient Constitutional: General Appearance: healthy- appearing, too thin. Level of Distress: NAD. Ambulation: in wheelcha ir; in bed at the time of visit Psychiatric: Insight: poor insight. Menta l Status: active and alert, normal mood, normal affect. Orienta tion: to person. Memory: remote memory normal, recent memory abnorm al; Head: Head: normocephalic, atrauma tic Eyes: Lids and Conjunctivae: non-i njected. Sclerae: non-icteric ENMT: Hearing: no hearing loss. Or opharynx: moist mucous membranes Neck: Neck: supple Lungs: Auscultation: no wheezing, n o rales/crackles, no rhonchi, diminished air movement; dim bases Cardiovascular: Heart Auscultation: irregula rly irregular Abdomen: Bowel Sounds: normal, soft, non-distended, no tenderness Musculoskeletal:: Extremities: no cyanosis, no edema. Joints, Bones, and Muscles normal movement of all extre mities Neurologic: Cranial Nerves: grossly inta ct Skin: Inspection and palpation: no rash, no ulcer Notes: <div>04/16 covid negative, vac cine +</div><div>wbc 6.6 h/h 7.3/23.3 plt 247 na 141 k 5.0 bun 49 creat 2.9 gfr 21</div><div>04/18 wbc 6.5 h/h 8.9/27.6 plt 232 na 140 k 4.4 bun 43 creat 2.65 gfr 23 alb 2.7</div><div>04/21 wbc 6.1 h/ h 8.7/27.1 plt 241 na 138 k 3.9 bun 40 creat 3.16 gfr 19</div><div> 04/28 wbc 6.9 h/h 9.9/31.6 plt 257 na 139 k 4.1 bun 54 creat 4.12 gfr 14</div><div>05/05 wbc 6.6 h/h 9.5/31 plt 265 na 139 k 5.1 bun 85 creat 4.83 gfr 12</div><div>06/08 wbc 7.8 h/h 9.4/30 plt 190 n a 141 k 5.2 bun 108 creat 7.44 -hosp</div><div>06/11 wbc 4.7 h/h 7.3/23.2 plt 137 na 146 k 3.5 b un 97 creat 6.5 gfr 8</div>< div>10/17 wbc 4.6 h/h 7.4/24.5 plt 155 na 156 k 3.7 bun 121 creat 8 .8 gfr 6</div>
--- OUTSIDE RECORDS SUMMARY | 2022-07-03 07:46 | XMS_ITS | Continuity of Care Document ---
:1935 Author Organization [facility] Adult Address [address] [place] [address]- Care Team Providers Name Role Phone Ingrid SPRING, Cailin Primary Care Physician Encounter [facility] [place] Date(s): 03/11/22 - 04/10/22 [facility] [address] [place] [address]- Allergies, Adverse Reactions, Alerts Substance Reaction Severity [...] 11/13/2216:32:00 EST, Aerosol, Route to Pharmacy Electronically, [id number], [facility], 168, cm, [...] Mouth, Daily, # 30 tablet, 10 Refills, [facility], 168, cm, 12/26/21 14:26:00 EDT, [...] History of pulmonary Active embolism(Confirmed) Hypertension(Confirmed) Active protein chemist (current) use of Active anticoagulants(Confirmed) Pleural mass(Confirmed) Active Underweight(Confirmed) Active 1Per chart review meets GFR criteria Social History Social History Type Response Tobacco Use: 4 or less cigarettes(le ss than 1/4 pack)/day in last 30 days, QUIT 04/2021. Sex
--- OUTSIDE RECORDS SUMMARY | 2022-07-03 07:46 | XMS_ITS | Continuity of Care Document ---
:1935 Author Organization [facility] Adult Address [address] [place] [address]- Care Team Providers Name Role Phone Ingrid SPRING, Cailin Primary Care Physician [place] [facility] [place](s): 11/28/21 - 12/28/21 [facility] [address] [place] [id number]- Allergies, Adverse Reactions, Alerts Substance Reaction Severity [...] 11/13/2216:32:00 EST, Aerosol, Route to Pharmacy Electronically, [id number], [facility], 168, cm, [...] II opioid drug. Start Date: 09/09/21 Status: Orderedcefuroxime 250 mg oral tablet 1 tablet = 250 mg, By Mouth, 2 times a day, for 5 days, # 10 tablet, 0 Refills, Acute 12/29/21 17:03:00 EDT, 12/24/21 17:03:00 EDT, Tablet, [facility], Partial fill upon patient request if the prescription is for a schedule II opioid chip... Start Date: 12/24/21 Stop Date: 12/29/21 Status: OrderedDigox 125 mcg (0.125 mg) oral tablet 1 tablet = 125 mcg, By Mouth, Daily, # 90 tablet, 3 Refills, Maintenance, 10/28/21 14:11:00 EST, [facility], Partial fill upon patient request if the [...] 14:11:00 EST, Route to Pharmacy Electronically, [facility], Partial fill upon patient request if the [...]
--- OUTSIDE RECORDS SUMMARY | 2022-07-03 07:46 | XMS_ITS | Encounter Summary ---
:1935 Author Care Team Providers Name Role Phone Genaro Mancini Primary Care Provider [phone] [facility] 2nd Floor OTHER [phone] Reason for Visit Admitting H&P Assessment and Plan 1. Dementia Pleasantly confused at baseline. Continue sertraline 25 mg qd. Continue supportive care, expect decline . HCP invoked Monitor mood and behaviors. Psych consult prn. 2. Chronic kidney disease stage 4 With marked worsening over the past 6 m onths, Had improved somewhat with hydration inpt, but beginning to worsen again yest. Will push fluids and monitor closely. Consider decreasing lasix if not improvi ng. Continue to avoid nephrotoxic meds as ab le. Renal consult prn. 3. Anemia Not iron deficient and no evidence of b leeding, so likely anemia of chronic disease. Also malnourished. Monitor labs. Transfuse for hgb <7 Consider procrit. 4. Congestive heart failure Appears euvolemic. Continue lasix 40 mg qd. Monitor resp. status, fluid status, wts and labs. 5. At risk for falls PT OT eval and treat fall precautions frequent safety checks 6. Atrial fibrillation Rate in good control on digoxin 62.5 mc g qod. Continue Eliquis 2.5 mg BID for AC. Monitor HR and bleeding risk. 7. Benign prostatic hyperplasia Continue finasteride 5 mg qd. Concern for possible intermittent retent ion as cause for BERLIN. Needs f/u with uro, Dr. Mcdonnell. 8. Essential hypertension BP in good control on lasix 40 mg qd. a nd amlodipine 5 mg qd. BP goal for this elderly man is permissi ve HTN, with SBP<150 and DBP<90 Monitor BP and labs. 9. Osteoporosis On no meds for this. Encourage high calcium foods. Monitor 10. Chronic obstructive lung disease In good control today. On RA without issue at this time. Continue trelegy 100/62.5/12.5 qd Add albuterol or combivent prn. Use supplemental O2 prn to maintain sats 88-92% Monitor resp status 11. Gastroesophageal reflux disease wit hout esophagitis Continue pantoprazole 40 mg qd. Monitor sxs. 12. Seizure disorder Thought to be isolated incident. Will d/c Antoinettera per neuro. Monitor for seizure activity. Discussion Note: None recorded.Patient educational handouts: No information available. Plan of Care Reminders Provider Appointments None recorded. ? ? Lab None recorded. ? ? Referral None recorded. ? ? Procedures None recorded. ? ? Surgeries None recorded. ? ? Imaging None recorded. ? ? Medications Notes: med list reviewed, see MAR for complete list Medications Administered None recorded. Vitals Height Weight BMI Blood Pressure 5 ft 6 in 98.4 lbs 15.9 kg/m2 112/61 mm[Hg] Results Lab Results None recorded. Allergies Code Code System Name Reaction Severity Onset 0216 RxNorm Cortisone ? ? ? Problems Name [...] mRNA, LNP-S, PF, 30 mcg/0.3 mL dose (Gemvara) 11/23/2020 12/20/2020 10/01/2021 influenza, high-dose, quadrivalent 06/28/2021 Tdap 05/28/2021 Social History Tobacco Smoking Status Former Smoker Notes: quit Has tobacco cessation counseling been N N otes: n/a as pt no longer provided? smokes What is your code status? DNR/DNI Do you have a medical power of Y Notes: invoked attorney law clerk? What was the date of your most recent 04/18/2022 tobacco screening? Do you have an advanced directive? Y Note s: DNH, NO hd, IVF, GTHCP invoked Do you use any illicit or recreational N drugs? Where do you live? Apartment Notes: lives in [facility] complex with his wif e What is your relationship status? What is your level of alcohol None consumption? Do you have an out of hospital DNR? N Legal Guardian? N Do you or have you ever used any other N forms of tobacco or nicotine? Functional Status Unknown. Past Encounters 04/22/2022 Dementia; Chronic Kidney Disease Stage 4 ; Anemia; Congestive Heart Failure; At Risk for Falls; Atrial Fibrillation; Benign Prostatic Hyperplasia; Essential Hypertension; Osteoporosis; Chronic Obstructiv e Lung Disease; Gastroesophageal Reflux Disease without Esophagitis; Seizure Disorder Jocelyn Good MD: [address] [facility] [place] [address], Ph. 04/21/2022 Dementia; Congestive Heart Failure; At R isk for Falls Carmen Hameed [employer]: [address] [facility] [place] [address], Ph. 04/18/2022 Dementia; Congestive Heart Failure; Atri al Fibrillation; Benign Prostatic Hyperplasia; Essential Hypertension; Osteoporosis; At Risk for Falls; Chronic Obstructive Lung Disease; Gastroesophageal Reflux Disease without Esophagitis; Seizure Disorder Carmen Hameed NP: [address] [facility] [place] [address], Ph. History of Present Illness Note: <div>This is an 87 yo man who is known to us from stay here 07/03/2021- 07/31/2021 for rehab after PE, CHF exacerbation and new Aflutter. This time he is here for rehab and possible LTC after a hospitalization for BERLIN, anemia and FTT. He was brought to the ED on 04/16 because was feeling unable to cope and was having SI, she called 911 for both of them as she felt she could no longer care for him and he needed rehab placement. In ED he was found to have had a sharp drop in hgb from 11.1 in 07/2021 to 7.3 and change in renal function from 30/1.15 in 07/2021 to 52/3.08. Labs found in [facility] system showed 24/1.7 in 02/2022 and hgb of 7.2-8.5. SS, stool was heme neg. U/A showed hematuria of 76-150 RBCs and 1-4 WBCs. K+ was 5.0 and he got a dose of lokelma. He got 1U PRBC and IV fluid. Abd/pelvicCT showed Mild diffuse bladder wall thickening suggesting bladder outlet obstruction. Bilateral renal cysts. No renal calculi or hydronephrosis of either kidney. Atelectasis versus developinginfiltrate of the right lung base . Anemia w/u showed nl. iron and high ferritin. Renal function improved sl. with hydration, but was still 46/2.69 when he was transferred here on 04/17. Hgb wasup to 9.3. Renal consult felt this was likely a combination of intermittent obstruction and poor intake, although family said he had been eating and drinking well at home, this seems not to have been the case as he is 7# less than when he was d/c from here in 07/2021.</div><div>Since transfer he has not been eating well. His BUN/Cr was 43/2.65 on 04/18, but up to 40/3.16 yesterday. And hgb is sliding down sl, being 8.9 on 04/18 and 8.7 yest. He got his 2nd COVID booster on 04/18. </div><div>Notable is hospitalization in 02/2022 at [facility] after a seizure, thought to be due to hypertensive urgency, not seizure disorder and dxed with posterior reversible encephalopathy syndrome. Neuro said Reasonable to continue AEDs for now and consider outpatient follow-up. If no further seizure activity and suspicion that seizure was provoked by hypertensive emergency could consider discontinuing Keppra as an outpatient with close monitoring. </div><div>Today he sayshe is feeling well, he has a good appetite and has no c/o. He says he walked a little with PT today.</div><div>His PMH includes HTN, COPD on home O2, CHF pEF, Afib on Eliquis, dementia, BPHwith hx of bladder outlet obstruction on finasteride, depression, hx of PE in 06/2021, GERD, OP, hx of seizure in 02/2022, severe TR/ and right ventricular dysfunction. </div> Review of Systems ? Notes: <div>All others reviewed and negative unless otherwise stated in the HPI.</div> Physical Exam ? General Adult Exam Reported By: Patient Constitutional: General Appearance: healthy- appearing, too thin. Level of Distress: NAD. Ambulation: limited amb ulation, ambulation with walker, in wheelchair; At baseline uses wheelchair mostly. But does use walker Psychiatric: Insight: poor insight. Menta l Status: active and alert, normal mood, normal affect. Orienta tion: to place, to person, not oriented to time. Memory: remote cesar ry normal, recent memory abnormal; Does not recall hospitalization, says he's 84, knows his and where his daughters live Head: Head: normocephalic, atrauma tic Eyes: Lids and Conjunctivae: non-i njected. Sclerae: non-icteric ENMT: Hearing: no hearing loss. Or opharynx: moist mucous membranes Lungs: Auscultation: no wheezing, n o rales/crackles, no rhonchi, diminished air movement; dim bases Cardiovascular: Heart Auscultation: irregula rly irregular; gr. 4/6 holosystolic murmur Abdomen: Bowel Sounds: normal, soft, non-distended, no tenderness Musculoskeletal:: Extremities: no cyanosis, no edema. Joints, Bones, and Muscles normal movement of all extre mities Neurologic: Cranial Nerves: grossly inta ct Skin: Inspection and palpation: no rash, no ulcer Notes: <div>8/3 covid negative, vac cine +</div><div>wbc 6.6 h/h 7.3/23.3 plt 247 na 141 k 5.0 bun 49 creat 2.9 gfr 21</div><div>8 wbc 6.5 h/h 8.9/27.6 plt 232 na 140 k 4.4 bun 43 creat 2.65 gfr 23 alb 2.7</div><div>8/8 wbc 6.1 h/ h 8.7/27.1 plt 241 na 138 k 3.9 bun 40 creat 3.16 gfr 19</div>
--- OUTSIDE RECORDS SUMMARY | 2022-07-03 07:46 | XMS_ITS | Continuity of Care Document ---
:1935 Author Organization [facility] Adult Address [address] [place] [address]- Care Team Providers Name Role Phone Ingrid SPRING, Cailin Primary Care Physician [phone] [place] [facility] [place](s): 01/08/22 - 02/07/22 [facility] [address] [place] [id number] Allergies, Adverse Reactions, Alerts Substance Reaction Severity [...] 11/13/2216:32:00 EST, Aerosol, Route to Pharmacy Electronically, [id number], [facility], 168, cm, [...] mg oral enteric coated tablet 325 mg, By Mouth, Every 48 hours, Refills 0, Maintenance, 02/04/22 13:52:00 EDT, Partial fill upon patient request if the prescription is for a schedule II opioid drug. Start Date: 02/04/22 Status: Orderedfinasteride 5 mg oral tablet 1 tablet = 5 mg, By Mouth, Daily, # 90 tablet, 0 Refills, Maintenance, 09/09/21 10:08:00 EST, Tablet, Partial fill upon patient request if the prescription is for a schedule II opioid drug. Start Date: 09/09/21 Status: Orderedmidodrine 5 mg oral tablet 2.5 mg, 0.5, tablet, By Mouth, 3 times a day, Refills 0, Maintenance, 02/04/22 13:52:00 EDT, Partialfill upon patient request if the prescription is for a schedule II opioid drug. Start Date: 02/04/22 Status: OrderedPreserVision AREDS oral capsule 1 cap, 2 times a day, 0 Refills, Maintenance, 01/30/22 20:08:00 EDT, Partial fill upon patient request if the prescription is for a schedule II opioid drug. Start Date: 01/30/22 Status: Orderedsertraline 25 mg oral tablet 1 tablet, By Mouth, Daily, # 30 tablet, 10 Refills, [facility], 168, cm, 12/26/21 14:26:00 [...] benign prostatic Active hyperplasia(Confirmed) Chronic a-fib(Confirmed) Active Depression(Confirmed) Active Diastolic heart failure(Confirmed) Active Vallecular mass(Confirmed) Active Emphysema of lung(Confirmed) Active History of pulmonary Active embolism(Confirmed) Hypertension(Confirmed) Active Pleural mass(Confirmed) Active Underweight(Confirmed) Active Social History Social History Type Response Tobacco Use: 4 or less cigarettes(le ss than 1/4 pack)/day in last 30 days, QUIT 04/2021. Sex
--- OUTSIDE RECORDS SUMMARY | 2022-07-03 07:46 | XMS_ITS | Continuity of Care Document ---
:1935 Author Organization [facility] Address Unavailable , Care Team Providers Name Role Phone Cailin Quintero MD Primary Care Physician [phone] [id number] Date(s): 03/27/22 - 04/26/22 [facility] Attending Physician: Apoolnia Cooper Admitting Physician: AdmApolonia cormier Referring Physician: AdmtrApolonia Allergies, Adverse Reactions, Alerts Substance Reaction Severity [...] 11/13/2216:32:00 EST, Aerosol, Route to Pharmacy Electronically, [id number], [facility], 168, cm, [...] Mouth, Daily, # 30 tablet, 10 Refills, [facility], 168, cm, 12/26/21 14:26:00 [...] History of pulmonary Active embolism(Confirmed) Hypertension(Confirmed) Active 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 Sex
--- OUTSIDE RECORDS SUMMARY | 2022-07-03 07:46 | XMS_ITS ---
:1935 Author Care Team Providers Name Role Phone YASMEEN REID Primary Care Provider [phone] RIYA JUANA 2ND FLOOR OTHER [phone] Allergies Code Code System Name Reaction Severity Status Onset 2878 RxNorm Cortisone ? ? Active ? Medications Notes: med list reviewed, see MAR for complete list Problems Name Status Onset Date Source ? [...] Urine Active 07/02/2022 ? Procedures Notes: cataract Results Lab Results None recorded. Past Encounters 07/02/2022 Blood in Urine Carmen Hameed [employer]: [address] [place] [address], Ph. 06/30/2022 Chronic Kidney Disease Stage 4; Dementia Carmen Hameed [employer]: [address] [place] [address], Ph. 06/13/2022 Chronic Obstructive Lung Disease; Benign Prostatic Hyperplasia; Atrial Fibrillation; Essential Hypertension; Chronic Kidney Disease Stage 4; Gastroesophageal Reflux Disease without Esophagitis; Mixed Anxiety and Depressive Disorder Jannie Tam MD: [address] [facility] [place] [address], Ph. 06/11/2022 Chronic Obstructive Lung Disease; Mukesh ia; Congestive Heart Failure; Atrial Fibrillation; Benign Prostatic Hyperplasia; Essential Hypertension; Osteoporosis; At Risk for Falls; Gastroesophageal Reflux Disease without Esophagitis; Seizure Dis order; Chronic Kidney Disease Stage 4 Carmen Hameed [employer]: [address] [place] [address], Ph. 05/15/2022 Dementia; Congestive Heart Failure; Atri al Fibrillation; Benign Prostatic Hyperplasia; Essential Hypertension; Osteoporosis; At Risk for Falls; Chronic Obstructive Lung Disease; Gastroesophageal Reflux Disease without Esophagitis; Seizure Disorder Carmen Hameed [employer]: [address] [place] [address], Ph. 05/07/2022 Chronic Obstructive Lung Disease; Chroni c Kidney Disease Stage 4; Gastroesophageal Reflux Disease without Esophagitis Carmen Hameed [employer]: [address] [place] [address], Ph. 04/30/2022 Seizure Disorder; Congestive Heart Failu re; Chronic Obstructive Lung Disease Carmen Hameed [employer]: [address] [place] [address], Ph. 04/22/2022 Dementia; Chronic Kidney Disease Stage 4 ; Anemia; Congestive Heart Failure; At Risk for Falls; Atrial Fibrillation; Benign Prostatic Hyperplasia; Essential Hypertension; Osteoporosis; Chronic Obstructiv e Lung Disease; Gastroesophageal Reflux Disease without Esophagitis; Seizure Disorder Jocelyn Good MD: [address] [place] [address], Ph. 04/21/2022 Dementia; Congestive Heart Failure; At R isk for Falls Carmen Hameed NP: [address] [place] [address], Ph. 04/18/2022 Dementia; Congestive Heart Failure; Atri al Fibrillation; Benign Prostatic Hyperplasia; Essential Hypertension; Osteoporosis; At Risk for Falls; Chronic Obstructive Lung Disease; Gastroesophageal Reflux Disease without Esophagitis; Seizure Disorder Carmen Hameed [employer]: [address] [place] [address], Ph. 07/30/2021 Congestive Heart Failure; Atrial Fibrill ation; Benign Prostatic Hyperplasia; Essential Hypertension; Osteoporosis; At Risk for Falls Carmen Hameed [employer]: [address] [facility] , [place] [address], Ph. 07/23/2021 Congestive Heart Failure; At Risk for Fa lls Carmen Hameed [employer]: [address] [facility] , [place] [address], Ph. 07/19/2021 Congestive Heart Failure; Osteoporosis Carmen Hameed [employer]: [address] [place] [address], Ph. 07/15/2021 Congestive Heart Failure; Benign Prostat ic Hyperplasia Carmen Hameed [employer]: [address] [place] [address], Ph. 07/10/2021 Asthenia; Atrial Fibrillation; Benign Pr ostatic Hyperplasia; Acute Pulmonary Embolism; Aortic Valve Stenosis; Osteoporosis; Congestive Heart Failure; Essential Hypertension Janine Tam MD: [address] [place] [address], Ph. 07/08/2021 Congestive Heart Failure; Essential Hype rtension Carmen Hameed [employer]: [address] [place] [address], Ph. 07/05/2021 Congestive Heart Failure; Atrial Fibrill ation; Benign Prostatic Hyperplasia; Essential Hypertension; Osteoporosis; At Risk for Falls Carmen Hameed [employer]: [address] [place] [address], Ph. Social History Tobacco Smoking Status Former Smoker Notes: quit Vaccine List Vaccine Type COVID-19, mRNA, LNP-S, PF, 30 mcg/0.3 mL dose (abcdexperts) 11/23/2020 12/20/2020 10/01/2021 influenza, high-dose, quadrivalent 06/28/2021 Tdap 05/28/2021 Plan of Care Reminders Provider Appointments None recorded. ? ? Lab None recorded. ? ? Referral None recorded. ? ? Procedures None recorded. ? ? Surgeries None recorded. ? ? Imaging None recorded. ? ? Vitals 07/02/2022 11:58AM Acute Rounding Visit Height Blood Pressure 5 ft 6 in 114/70 mm[Hg] 06/30/2022 02:46PM Acute Rounding Visit Height Blood Pressure 5 ft 6 in 114/70 mm[Hg] 06/13/2022 06:38AM Routine Rounding Visit Height Blood Pressure 5 ft 6 in 110/60 mm[Hg] 06/11/2022 10:47AM Readmission Height Blood Pressure 5 ft 6 in 110/51 mm[Hg] 05/15/2022 11:26AM Routine Rounding Visit Height Blood Pressure 5 ft 6 in 104/74 mm[Hg] 05/07/2022 11:47AM Acute Rounding Visit Height Weight BMI Blood Pressure 5 ft 6 in 95 lbs 15.3 kg/m2 112/61 mm[Hg] 04/30/2022 12:04PM Acute Rounding Visit Height Blood Pressure 5 ft 6 in 112/61 mm[Hg] 04/22/2022 11:55AM Admitting H&P Height Weight BMI Blood Pressure 5 ft 6 in 98.4 lbs 15.9 kg/m2 112/61 mm[Hg] 04/21/2022 01:11PM Acute Rounding Visit Height Blood Pressure 5 ft 6 in 112/71 mm[Hg] 04/18/2022 10:08AM Initial Intake Note Height Weight BMI Blood Pressure 5 ft 6 in 98.4 lbs 15.9 kg/m2 149/60 mm[Hg] 07/30/2021 11:05AM Discharge Summary Height Blood Pressure 5 ft 6 in 106/54 mm[Hg] 07/23/2021 09:52AM Acute Rounding Visit Height Blood Pressure 5 ft 6 in 117/60 mm[Hg] 07/19/2021 10:08AM Acute Rounding Visit Height Blood Pressure 5 ft 6 in 97/56 mm[Hg] 07/15/2021 11:36AM Acute Rounding Visit Height Blood Pressure 5 ft 6 in 106/57 mm[Hg] 07/10/2021 05:23AM Admitting H&P Height Blood Pressure 5 ft 6 in 107/68 mm[Hg] 07/08/2021 11:16AM Acute Rounding Visit Height Blood Pressure 5 ft 6 in 97/62 mm[Hg] 07/05/2021 08:10AM Initial Intake Note Height Weight BMI Blood Pressure 5 ft 6 in 105.6 lbs 17 kg/m2 98/57 mm[Hg]
--- OUTSIDE RECORDS SUMMARY | 2022-07-03 07:46 | XMS_ITS | Continuity of Care Document ---
:1935 Author Organization [facility] Address [address] [place] [address]- Care Team Providers Name Role Phone Ingrid SPRING, Cailin Primary Care Physician Encounter [facility] Date(s): 02/13/22 - 02/20/[address] [address] Discharge Disposition: A-Transfer SNF Attending Physician: James SPRING, Cindy Oden Admitting Physician: Connie Cole MD Referring Physician: Not on Staff, Referring [...] 11/13/2216:32:00 EST, Aerosol, Route to Pharmacy Electronically, [id number], [facility], 168, cm, 11/13/21 11:23:00 ES... Start Date: 11/13/21 Stop Date: 05/12/22 Status: OrderedamLODIPine 5 mg oral tablet 5 mg, 1, tablet, By Mouth, Daily, Refills 0, Maintenance, 02/20/22 14:51:00 EDT, Partial fill upon patient request if the prescription is for a schedule II opioid drug. Start Date: 02/20/22 Status: OrderedamLODIPine 5 mg oral tablet 5 mg, Tablet, By Mouth, 02/20/22 9:00:00 EDT Start Date: 02/20/22 Stop Date: 02/20/22 Status: Completedapixaban 2.5 mg oral tablet 1 tablet = [...] Mouth, Daily, # 30 tablet, 10 Refills, [facility], 168, cm, 12/26/21 14:26:00 [...] Active 1Per chart review meets GFR criteria Results Orders for Microbiology Reports Name Date Sputum Culture w/ Gram Smear 02/14/22 CSF Culture w/ Gram Smear 02/14/22 Fungal Culture, Nonrespiratory 02/14/22 Blood Culture 02/13/22 Blood Culture #2 02/13/22 Urine Culture (Culture Urine) 02/13/22 Microbiology Reports TEST:Sputum Culture STATUS:Auth (Verified) BODY SITE: SOURCE:ENDOTR COLLECTED DATE/TIME:02/14/22 5:30 PMSputum Culture SPECIMEN DESCRIPTION : ENDOTRACHEAL ASPIRATE SPECIAL REQUESTS : NONE GRAM STAIN : 2+ WHITE BLOOD CELLS 2+ GRAM POSITIVE COCCI 1+ GRAM NEGATIVE RODS CULTURE : 1+ NORMAL KRISTINA REPORT STATUS : FINAL 02/17/2022TEST:Spinal Fluid Culture STATUS:Auth (Verified) BODY SITE: SOURCE:CEREBR COLLECTED DATE/TIME:02/14/22 2:50 PMSpinal Fluid Culture SPECIMEN DESCRIPTION : CEREBROSPINAL FLUID SPECIAL REQUESTS : NONE GRAM STAIN : NO ORGANISMS SEEN 1+ RBC'S CULTURE : NO GROWTH 3 DAYS REPORT STATUS : FINAL 02/17/2022TEST:Fungal Culture, Non-Respiratory STATUS:Unauthenticated BODY SITE: SOURCE:CEREBR COLLECTED DATE/TIME:02/14/22 2:50 PMFungal Culture, Non-Respiratory SPECIMEN DESCRIPTION : CEREBROSPINAL FLUID LUMBAR SPINE SPECIAL REQUESTS : NONE DIRECT EXAM : NO FUNGAL ELEMENTS OBSERVED CULTURE : NO FUNGI ISOLATED AFTER 6 DAYS REPORT STATUS : PRELIMINARY REPORT TEST:Blood Culture, Second Order STATUS:Auth (Verified) BODY SITE: SOURCE:Blood COLLECTED DATE/TIME:02/13/22 10:49 PMBlood Culture, Second Order SPECIMEN DESCRIPTION : BLOOD NONE SPECIAL REQUESTS : NONE CULTURE : NO GROWTH 5 DAYS. REPORT STATUS : FINAL 02/19/2022TEST:Blood Culture STATUS:Auth (Verified) BODY SITE: SOURCE:Blood COLLECTED DATE/TIME:02/13/22 10:36 PMBlood Culture SPECIMEN DESCRIPTION : BLOOD NONE SPECIAL REQUESTS : NONE CULTURE : NO GROWTH 5 DAYS. REPORT STATUS : FINAL 02/19/2022TEST:Urine Culture STATUS:Auth (Verified) BODY SITE: SOURCE:RAÚL COLLECTED DATE/TIME:02/13/22 10:29 PMUrine Culture SPECIMEN DESCRIPTION : BLADDER SPECIAL REQUESTS : NONE CULTURE : NO GROWTH 3 DAYS REPORT STATUS : FINAL 2Radiology Reports Exam Date Time Procedure Performing Provider Status 02/18/22 12:28 PM Modified Barium Swallow W/ Speech Veronica Soto; Auth (Verified) (Radio Notes:(Modified Barium Swallow W/ Speech (Radio) Reason For Exam: Dysphagia;DysphagiaRESULT: Modified Barium Swallow W/ Speech (Radio Modified Barium Swallow WITH SPEECH PATHOLOGY CLINICAL INDICATION: Dysphagia COMPARISON: None Technique: Lateral cine-videofluoroscopy was performed during the oral administration of various barium containing consistencies, as described below. Fluoroscopic imaging provided by Mumtaz Levin PA-C. Pulsed fluoroscopy time: 1.6 minutes Dose Area Product (DAP): 188.0 uGy*m2 Findings: Applesauce, pudding, nectar, mixed fruit/juice, and thin barium consistencies were tested. Deep laryngeal penetration was seen with thin barium. The oral and pharyngeal phases of swallowing were otherwise without evidence of laryngeal penetration or subglottic aspiration. IMPRESSION: Deep laryngeal penetration as described. For dietary concerns or recommendations, please refer to speech pathologist report. By undersigning and finalizing the report, the attending radiologist confirms he/she has personally reviewed and interpreted the images and agrees with the description of the findings. I have personally reviewed the images and I agree with this report. WSN: [id number] Ordering Physician: Chastity Dover Dictated By: Yves Bowie Dictated Date/Time: 02/18/22 1:51 pm Reviewed By: Chris Vora MD Signed By: Chris Vora MD Signed Date/Time: 02/18/22 1:56 pm Transcribed By: MARIUSZ Transcribed Date/Time: 02/18/22 12:11 pm Exam Date Time Procedure Performing Provider Status 02/13/22 9:59 PM Chest Portable Dale Larson (Verified) Notes:(Chest Portable) Reason For Exam: Other:RESULT: Chest Portable Chest Portable Reason: Other:; Clinical Question(s): Tube Placement COMPARISON: 12/06/2021 FINDINGS: LINES AND TUBES: Endotracheal tube tip 2.9 cm above the kimberly. OG tube tip and side-port in the stomach. LUNGS AND PLEURA: There is a small right pleural effusion with adjacent atelectasis in the right lower lobe. Central vascular markings are prominent and indistinct. No pleural effusion. No pneumothorax. HEART, MEDIASTINUM AND CALISTA: Heart is at the upper limits of normal for size. Normal upper mediastinal and hilar contour. BONES AND SOFT TISSUES: No acute abnormality. IMPRESSION: ET and OG tubes are satisfactory in position. Vascular congestion and small right pleural effusion suggesting CHF-fluid overload. WSN: [id number] Ordering Physician: Anne-Marie Burr Dictated By: Ab Ordonez MD Dictated Date/Time: 02/13/22 10:28 p Reviewed By: Ab Ordonez MD Signed By: Ab Ordonez MD Signed Date/Time: 02/13/22 10:28 pm Transcribed By: MARIUSZ Transcribed Date/Time: 02/13/22 10:27 pm Vital Signs Most recent to oldest [Reference 1 2 3 Range]: Weight 55.2 kg 55.2 kg 50.5 kg (02/20/22 8:00 AM) (02/20/22 7:58 AM) (02/19/22 7:31 A M) Oxygen Saturation [94-100 %] 98 % 98 % 90 % (02/20/22 8:00 AM) (02/20/22 6:00 AM) *L* (02/20/22 5:34 AM) Pulse Rate [55-90 bpm] 111 bpm 76 bpm 57 bpm *H* (02/20/22 6:00 AM) (02/20/22 5:34 AM ) (02/20/22 8:00 AM) Blood Pressure [90-138/55-84 mm 122/65 mm Hg 122/65 mm Hg 115/67 mm Hg Hg] (02/20/22 10:06 AM) (02/20/22 8:00 AM) (02/20/22 6:00 AM) Respiratory Rate [16-30 br/min] 20 br/min 20 br/min 21 br/min (02/20/22 8:00 AM) (02/20/22 6:00 AM) (02/20/22 5:34 A M) Temperature [96.8-100.4 DegF] 97.3 DegF 97.8 DegF 98 .4 DegF (02/20/22 8:00 AM) (02/20/22 6:00 AM) (02/20/22 12:00 AM) Liters per Minute 2 L/min 2 L/min 2 L/min (02/20/22 8:00 AM) (02/20/22 6:00 AM) (02/20/22 5:34 A M) Mode of Delivery (Oxygen) Nasal cannula Nasal cannula Nasal cannula (02/20/22 8:00 AM) (02/20/22 6:00 AM) (02/20/22 5:34 A M) Blood pressure sites Arm, right Arm, left Arm, left (02/20/22 8:00 AM) (02/20/22 6:00 AM) (02/20/22 5:34 A M) Temperature Route Axillary Oral Oral (02/20/22 8:00 AM) (02/20/22 6:00 AM) (02/20/22 12:00 AM) Weight Obtained Via Bed scale Bed scale Bed scale (02/20/22 7:58 AM) (02/19/22 7:31 AM) (02/14/22 5:46 A M) Social History Social History Type Response Tobacco Use: 4 or less cigarettes(le ss than 1/4 pack)/day in last 30 days, QUIT 04/2021. Sex
--- OUTSIDE RECORDS SUMMARY | 2022-07-03 07:46 | XMS_ITS | Continuity of Care Document ---
:1935 Author Organization [facility] Address [address] [place] [address]- Care Team Providers Name Role Phone Ingrid SPRING, Cailin Primary Care Physician [phone] Encounter [facility] [place] Date(s): 12/31/21 - 01/30/22 [facility] [address] [place] [address]- Allergies, Adverse Reactions, Alerts Substance Reaction Severity [...] 11/13/2216:32:00 EST, Aerosol, Route to Pharmacy Electronically, [id number], [facility], 168, cm, 11/13/21 11:23:00 ES... Start Date: 11/13/21 Stop Date: 05/12/22 Status: Orderedapixaban 5 mg oral tablet 1 tablet = 5 mg, By Mouth, 2 times a day, 0 Refills, Maintenance, 01/30/22 20:06:00 EDT, Partial fill upon patient request if the prescription is for a schedule II opioid drug. Start Date: 01/30/22 Status: Orderedaspirin 81 mg oral delayed release [...] tablet, 3 Refills, Maintenance, 10/28/21 14:11:00 EST, [facility], Partial fill upon patient request [...] 10/28/21 14:11:00 EST, Route to Pharmacy Electronically, [facility], Partial fill upon patient request if the prescription is for a schedule II opioid drug.... Start Date: 10/28/21 Stop Date: 10/23/22 Status: OrderedPRESERVISION AREDS 2 CAPS TAKE 1 CAPSULE BY MOUTH TWICE A DAY Start Date: 06/27/21 Status: OrderedPreserVision AREDS oral capsule 1 cap, 2 times a day, 0 Refills, Maintenance, 01/30/22 20:08:00 EDT, Partial fill upon patient request if the prescription is for a schedule II opioid drug. Start Date: 01/30/22 Status: Orderedsertraline 25 mg oral tablet 1 tablet, By Mouth, Daily, # 30 tablet, 10 Refills, [facility], 168, cm, 12/26/21 14:26:00 EDT, [...]
--- OUTSIDE RECORDS SUMMARY | 2022-07-03 07:46 | XMS_ITS | Encounter Summary ---
:1935 Author Care Team Providers Name Role Phone Genaro Mancini Primary Care Provider [phone] Milton Serena [address] OTHER [phone] Reason for Visit Acute Rounding Visit Assessment and Plan 1. Blood in urine hold to thursday and reeval ua negative for infection Discussion Note: None recorded.Patient educational handouts: No [...] Code Code System Name Reaction Severity Onset 811 RxNorm Cortisone ? ? ? Problems Name [...] mRNA, LNP-S, PF, 30 mcg/0.3 mL dose (MediaPhy) 11/23/2020 12/20/2020 10/01/2021 influenza, high-dose, quadrivalent 06/28/2021 Tdap 05/28/2021 Social History Tobacco Smoking Status Former Smoker Notes: quit What is your level of alcohol None consumption? Has tobacco cessation counseling been N N otes: n/a as pt no longer provided? smokes What is your code status? DNR/DNI Do you have a medical power of Y Notes: invoked contracts attorney? What was the date of your most recent 04/18/2022 tobacco screening? Do you have an advanced directive? Y Note s: DNH, NO hd, IVF, GTHCP invoked Legal Guardian? N Do you have an out of hospital DNR? N Do you or have you ever used any other N forms of tobacco or nicotine? Do you use any illicit or recreational N drugs? Where do you live? Apartment Notes: lives in [facility] with his wif e What is your relationship status? Functional Status Unknown. Past Encounters 07/02/2022 Blood in Urine Carmen Hameed LICENSED DIRECT ENTRY MIDWIFE: [address] [place] [address], Ph. 06/30/2022 Chronic Kidney Disease Stage 4; Dementia Carmen Hameed LICENSED DIRECT ENTRY MIDWIFE: [address] [place] [address], Ph. 06/13/2022 Chronic Obstructive Lung Disease; Benign Prostatic Hyperplasia; Atrial Fibrillation; Essential Hypertension; Chronic Kidney Disease Stage 4; Gastroesophageal Reflux Disease without Esophagitis; Mixed Anxiety and Depressive Disorder Janine Tam MD: [address] [facility] [place] [address], Ph. 06/11/2022 Chronic Obstructive Lung Disease; Mukesh ia; Congestive Heart Failure; Atrial Fibrillation; Benign Prostatic Hyperplasia; Essential Hypertension; Osteoporosis; At Risk for Falls; Gastroesophageal Reflux Disease without Esophagitis; Seizure Dis order; Chronic Kidney Disease Stage 4 Carmen Hameed LICENSED DIRECT ENTRY MIDWIFE: [address] [place] [address], Ph. History of Present Illness Note: <div>seen today for acute rounding visit, CAOx1 O2 on hematuria noted with no symptoms, eliquis held to for 3 days, will reeval then, HCP considering hospice but waiting for [facility]</div>Review of Systems: ROS as noted in the [...] Bowel Sounds: normal, soft, non-distended, no tenderness : ; chronic pritchett-hematuria -eliquis on hold Musculoskeletal:: Extremities: no cyanosis, no edema. Joints, Bones, and Muscles normal movement of all extre mities Neurologic: Cranial Nerves: grossly inta ct Skin: Inspection and palpation: no rash, no ulcer Notes: <div>8 covid negative, vac cine +</div><div>wbc 6.6 h/h 7.3/23.3 plt 247 na 141 k 5.0 bun 49 creat 2.9 gfr 21</div><div>8/ wbc 6.5 h/h 8.9/27.6 plt 232 na 140 k 4.4 bun 43 creat 2.65 gfr 23 alb 2.7</div><div>8 wbc 6.1 h/ h 8.7/27.1 plt 241 [...] b un 97 creat 6.5 gfr 8</div>< div>06/30 wbc 4.6 h/h 7.4/24.5 plt 155 na 156 k 3.7 bun 121 creat 8 .8 gfr 6</div>
--- OUTSIDE RECORDS SUMMARY | 2022-07-03 07:46 | XMS_ITS | Encounter Summary ---
:1935 Author Care Team Providers Name Role Phone Genaro Mancini Primary Care Provider [phone] Milton Serena [address] OTHER [phone] Reason for Visit Routine Rounding routine rounding visit Assessment and Plan 1. Chronic obstructive lung disease s/p recent exacerbation, improved: prednisone 40 mg daily through today Trelegy ellipta 100-62.5-25: one inhalat ion daily will monitor 2. Benign prostatic hyperplasia finasteride 5 mg daily tamsulosin 0.4 mg daily Naylor catheter fu urology will monitor 3. Atrial fibrillation digoxin 62.5 mcg qod for rate control apixaban 2.5 mg bid for AC will monitor 4. Essential hypertension amlodipine 5 mg daily will monitor 5. Chronic kidney disease stage 4 will avoid nephrotoxic medications sodium bicarb 650 bid patient has declined dialysis will monitor 6. Gastroesophageal reflux disease with out esophagitis pantoprazole 40 mg daily will monitor 7. Mixed anxiety and depressive disorde r sertraline 25 mg daily will monitor Discussion Note: None recorded.Patient educational handouts: No [...] Pressure 5 ft 6 in 110/60 mm[Hg] Results Lab Results None recorded. Allergies Code Code System Name Reaction Severity Onset 7140 RxNorm Cortisone ? ? ? Problems Name [...] mRNA, LNP-S, PF, 30 mcg/0.3 mL dose (NoDaysOff) 11/23/2020 12/20/2020 10/01/2021 influenza, high-dose, quadrivalent 06/28/2021 Tdap 05/28/2021 Social History Tobacco Smoking Status Former Smoker Notes: quit What is your level of alcohol None consumption? Has tobacco cessation counseling been N N otes: n/a as pt no longer provided? smokes What is your code status? DNR/DNI Do you have a medical power of Y Notes: invoked civil litigation attorney? What was the date of your [...] do you live? Apartment Notes: lives in [facility] with his wif e What is your relationship status? Functional Status Unknown. Past Encounters 06/13/2022 Chronic Obstructive Lung Disease; Benign Prostatic Hyperplasia; Atrial Fibrillation; Essential Hypertension; Chronic Kidney Disease Stage 4; Gastroesophageal Reflux Disease without Esophagitis; Mixed Anxiety and Depressive Disorder Janine Tam MD: [address] [facility] [place] [address], Ph. 06/11/2022 Chronic Obstructive Lung Disease; Mukesh ia; Congestive Heart Failure; Atrial Fibrillation; Benign Prostatic Hyperplasia; Essential Hypertension; Osteoporosis; At Risk for Falls; Gastroesophageal Reflux Disease without Esophagitis; Seizure Dis order; Chronic Kidney Disease Stage 4 Carmen Hameed NP: [address] [facility] [place] [address], Ph. 05/15/2022 Dementia; Congestive Heart Failure; Atri al Fibrillation; Benign Prostatic Hyperplasia; Essential Hypertension; Osteoporosis; At Risk for Falls; Chronic Obstructive Lung Disease; Gastroesophageal Reflux Disease without Esophagitis; Seizure Disorder Carmen Hameed, FIRE BOSS: [address] [facility] [address] , [place] [address], Ph. 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
</div><div>Medical history is remarkable for hypertension, peripheral edema, COPD, BPH, history of PE, aflutter, CHF, severe TR/, right ventricular dysfuncti on</div><div>
</div><div>Patient was sent out from facility on 06/07/22 to ER at [facility] with dyspnea worsened over prior few days with cough and sputum production. CXR showed chronic changes and labs were stable with no significant abnormalities in vitalsigns. Patient was treated to COPD exacerbation with steroids, nebulizers, and increased oxygen. He responded to respiratory treatments and oxygen was able to weaned down to baseline level during hospitalization.</div><div>
</div><div>Patient was also evaluated for worsened renal function associated with metabolic acidosis and hyperkalemia. Nephrology treated with D5W, sodium bicarb drip and discussed possible dialysis. HCP refused dialysis. Advanced directives were discussed and MOLST was changed. Naylor was placed due to weak stream and bladder outlet obstruction. Hospice consult was placed.</div><div>
</div><div>Today patient is resting in bed with oxygen pnc. He tells me that his breathing is better and he is worried about his roommate and his .</div><div>
</div><div>MOLST: DNR, DNI, DNH - signed 06/10/22; HCP invoked 04/18/22</div>Review of Systems: ROS as noted in the HPI Review of Systems ? Notes: <div>All others [...] 3.5 b un 97 creat 6.5 gfr 8</div>
--- OUTSIDE RECORDS SUMMARY | 2022-07-03 07:46 | XMS_ITS | Continuity of Care Document ---
:1935 Author Organization [facility] Address [address] [place] [address]- Care Team Providers Name Role Phone Ingrid SPRING, Cailin Primary Care Physician Encounter [facility] [place] Date(s): 12/06/21 - 01/05/22 [facility] [address] [place] [address]- Allergies, Adverse Reactions, Alerts Substance Reaction Severity [...] 11/13/2216:32:00 EST, Aerosol, Route to Pharmacy Electronically, [id number], [facility], 168, cm, [...] tablet, 3 Refills, Maintenance, 10/28/21 14:11:00 EST, [facility], Partial fill upon patient request if [...] 10/28/21 14:11:00 EST, Route to Pharmacy Electronically, [facility], Partial fill upon patient request if the prescription is for a schedule II opioid drug.... Start Date: 10/28/21 Stop Date: 10/23/22 Status: OrderedPRESERVISION AREDS 2 CAPS TAKE 1 CAPSULE BY MOUTH TWICE A DAY Start Date: 06/27/21 Status: Orderedsertraline 25 mg oral tablet 1 tablet, By Mouth, Daily, # 30 tablet, 10 Refills, [facility], 168, cm, 12/26/21 14:26:00 EDT, [...]
--- OUTSIDE RECORDS SUMMARY | 2022-07-03 07:46 | XMS_ITS | Continuity of Care Document ---
:1935 Author Organization [facility] Address [address] [place] [address]- Care Team Providers Name Role Phone Live SPRING, Genaro Cisneros Primary Care Physician Encounter [facility] [place] Date(s): 08/12/21 - 08/19/21 [facility] [address] [place] [address]- Encounter Diagnosis Atrial flutter (Discharge Diagnosis) - 08/12/21 Diastolic heart failure (Discharge Diagnosis) - 08/12/21 Emphysema of lung (Discharge Diagnosis) - 08/12/21 Aortic valve stenosis (Discharge Diagnosis) - 08/12/21 Hypertension (Discharge Diagnosis) - 08/12/21 PE - Pulmonary embolism (Discharge Diagnosis) - 08/12/21 Pleural mass (Discharge Diagnosis) - 08/12/21 Attending Physician: Ingrid SPRING, Cailin Allergies, Adverse Reactions, Alerts Substance Reaction Severity [...] Diagnosis Type Effective Dates Health Clinical Infor [facility] Status Service Atrial flutter Discharge 08/12/21 Diagnosis Diastolic heart Discharge 08/12/21 failure Diagnosis Emphysema of lung Discharge 08/12/21 Diagnosis Aortic valve Discharge 08/12/21 stenosis Diagnosis Hypertension Discharge 08/12/21 Diagnosis PE - Pulmonary Discharge 08/12/21 embolism Diagnosis Pleural mass Discharge 08/12/21 Diagnosis Vital Signs Most recent to oldest [Reference Range]: 1 Height 168 cm (08/12/21 4:21 PM) Weight 47.6 kg (08/12/21 4:21 PM) Oxygen Saturation [94-100 %] 97 % (08/12/21 4:21 PM) Body Mass Index [18.5-24.99] 16.87 *L* (08/12/21 4:21 PM) Blood Pressure [90-138/55-84 mm Hg] 114/64 mm Hg (08/12/21 4:21 PM) Mode of Delivery (Oxygen) Room air (08/12/21 4:21 PM) Blood pressure sites Arm, left (08/12/21 4:21 PM) Social History Social History Type Response Tobacco Use: QUIT 04/2021. Sex
--- OUTSIDE RECORDS SUMMARY | 2022-07-03 07:46 | XMS_ITS | Encounter Summary ---
:1935 Author Care Team Providers Name Role Phone Genaro Mancini Primary Care Provider [phone] [facility] 2[address] Floor OTHER [phone] Reason for Visit Routine Rounding Assessment and Plan 1. Dementia continue to monitor and chart any wilks es in mood or behaviors psych prn zoloft 25 mg daily 2. Congestive heart failure eliquis 2.5 mg bid digoxin 62.5 mcg every other day lasix 40 mg bid 3. Atrial fibrillation eliquis 2.5 mg bid digoxin 62.5 mcg daily 4. Benign prostatic hyperplasia finasteride 5 mg daily monitor voiding 5. Essential hypertension lasix 40 mg bid amlodipine 5 mg daily monitor bp 6. Osteoporosis tylenol 650 mg tid preservision mvi 7. At risk for falls PT OT eval and treat fall precautions frequent safety checks 8. Chronic obstructive lung disease trelegy daily monitor resp status O2 prn 9. Gastroesophageal reflux disease with out esophagitis protonix 40 mg daily 10. Seizure disorder monitor for seizures Discussion Note: None recorded.Patient educational handouts: No [...] Pressure 5 ft 6 in 104/74 mm[Hg] Results Lab Results None recorded. Allergies Code Code System Name Reaction Severity Onset 8276 RxNorm Cortisone ? ? ? Problems Name [...] mRNA, LNP-S, PF, 30 mcg/0.3 mL dose (ProtoExchange) 11/23/2020 12/20/2020 10/01/2021 influenza, high-dose, quadrivalent 06/28/2021 Tdap 05/28/2021 Social History Tobacco Smoking Status Former Smoker Notes: quit What is your level of alcohol None consumption? Has tobacco cessation counseling been N N otes: n/a as pt no longer provided? smokes What is your code status? DNR/DNI Do you have a medical power of Y Notes: invoked claims attorney? What was the date of your [...] do you live? Apartment Notes: lives in [facility] with his wif e What is your relationship status? Functional Status Unknown. Past Encounters 05/15/2022 Dementia; Congestive Heart Failure; Atri al Fibrillation; Benign Prostatic Hyperplasia; Essential Hypertension; Osteoporosis; At Risk for Falls; Chronic Obstructive Lung Disease; Gastroesophageal Reflux Disease without Esophagitis; Seizure Disorder Carmen Hameed ROUTE AIDE: [address] [facility] [place] [address], Ph. 05/07/2022 Chronic Obstructive Lung Disease; Chroni c Kidney Disease Stage 4; Gastroesophageal Reflux Disease without Esophagitis Carmen Hameed ROUTE AIDE: [address] [facility] [place] [address], Ph. 04/30/2022 Seizure Disorder; Congestive Heart Failu re; Chronic Obstructive Lung Disease Carmen Hameed ROUTE AIDE: [address] [facility] [place] [place] [address], Ph. 04/22/2022 Dementia; Chronic Kidney Disease Stage 4 ; Anemia; Congestive Heart Failure; At Risk for Falls; Atrial Fibrillation; Benign Prostatic Hyperplasia; Essential Hypertension; Osteoporosis; Chronic Obstructiv e Lung Disease; Gastroesophageal Reflux Disease without Esophagitis; Seizure Disorder Jocelyn Good MD: [address] [facility], [place] [address], Ph. 04/21/2022 Dementia; Congestive Heart Failure; At R isk for Falls Carmen Hameed ROUTE AIDE: [address] [facility] , [place] [address], Ph. 04/18/2022 Dementia; Congestive Heart Failure; Atri al Fibrillation; Benign Prostatic Hyperplasia; Essential Hypertension; Osteoporosis; At Risk for Falls; Chronic Obstructive Lung Disease; Gastroesophageal Reflux Disease without Esophagitis; Seizure Disorder Carmen Hameed ROUTE AIDE: [address] [facility] , [place] [address], Ph. History of Present Illness Note: <div>seen today for 30 day routine rounding visit-</div><div>87 yom admitted to for rehab after presenting from home 04/16, he came with his to the ED because she was SI and felt he could not be left home alone, she was requesting rehab placement. His reported she could no longer take care of him. per family he has been eating and drinking well. He was admitted for desirae CK D3 and chronic anemia due to the ckd, he was given 1 unit PRBC, there was a question of urinary retention, CT no hydronephrosis and he is able to urinate spontaneously.</div><div>
</div><div>CAOx2 animated and engaging, pleasantly confused, lungs clear dim, no distressor discomfort noted, no edema, ambulated with PT contact guard with walker, eating and drinking fairly well, likes his ensure</div>Review of Systems: ROS as noted in the [...] remote cesar ry normal, recent memory abnormal; Head: Head: normocephalic, atrauma tic Eyes: Lids [...] k 5.0 bun 49 creat 2.9 gfr 21</div><div>8/5 wbc 6.5 h/h 8.9/27.6 plt 232 na 140 k 4.4 bun 43 creat 2.65 gfr 23 alb 2.7</div><div>8/8 wbc 6.1 h/ h 8.7/27.1 plt 241 na 138 k 3.9 bun 40 creat 3.16 gfr 19</div><div> 8/15 wbc 6.9 h/h 9.9/31.6 plt 257 na 139 k 4.1 bun 54 creat 4.12 gfr 14</div><div>8 wbc 6.6 h/h 9.5/31 plt 265 na 139 k 5.1 bun 85 creat 4.83 gfr 12</div>
--- OUTSIDE RECORDS SUMMARY | 2022-07-03 07:46 | XMS_ITS | Continuity of Care Document ---
:1935 Author Organization [facility] Adult Address [address] [place] [address]- Care Team Providers Name Role Phone Ingrid SPRING, Cailin Primary Care Physician [place] [facility] [place] 03/24/22 - 04/23/22 [facility] Adult [address] [place] [address]- Allergies, Adverse Reactions, Alerts Substance Reaction Severity [...] 11/13/2216:32:00 EST, Aerosol, Route to Pharmacy Electronically, [id number], [facility], 168, cm, [...] Mouth, Daily, # 30 tablet, 10 Refills, [facility], 168, cm, 12/26/21 14:26:00 [...] History of pulmonary Active embolism(Confirmed) Hypertension(Confirmed) Active prison (current) use of Active anticoagulants(Confirmed) Pleural mass(Confirmed) Active Underweight(Confirmed) Active 1Per chart review meets GFR criteria Social History Social History Type Response Tobacco Use: 4 or less cigarettes(le ss than 1/4 pack)/day in last 30 days, QUIT 04/2021. Sex
--- OUTSIDE RECORDS SUMMARY | 2022-07-03 07:46 | XMS_ITS | Continuity of Care Document ---
:1935 Author Organization [facility] Adult Address [address] [place] [address]- Care Team Providers Name Role Phone Ingrid SPRING, Cailin Primary Care Physician [phone] [place] [facility] [place] 03[place]/22 [facility] Adult [address] [place] [id number] Attending Physician: Cailin Quintero MD Allergies, Adverse [...] 11/13/2216:32:00 EST, Aerosol, Route to Pharmacy Electronically, [id number], [facility], 949, cm, 11/13/21 11:23:00 ES... Start Date: 11/13/21 [...] 10 Refills, [facility], 168, cm, 12/26/21 14:26:00 EDT, Height, [...] History of pulmonary Active embolism(Confirmed) Hypertension(Confirmed) Active assisted (current) use of Active anticoagulants(Confirmed) Pleural mass(Confirmed) Active Underweight(Confirmed) Active 1Per chart review meets GFR criteria Social History Social History Type Response Tobacco Use: 4 or less cigarettes(le ss than 1/4 pack)/day in last 30 days, QUIT 04/2021. Sex
--- OUTSIDE RECORDS SUMMARY | 2022-07-03 07:46 | XMS_ITS | Continuity of Care Document ---
:1935 Author Organization [facility] Adult Address [address] [place] [address]- Care Team Providers Name Role Phone Ingrid SPRING, Cailin Primary Care Physician Encounter [facility] Date(s): 12/24/21 - 01/23/22 [facility] Adult [address] [place] [address]- Attending Physician: AdmApolonia cormier Admitting Physician: AdmtrApolonia Referring Physician: Admtr, Ar8 Allergies, Adverse Reactions, [...] 11/13/2216:32:00 EST, Aerosol, Route to Pharmacy Electronically, [id number], [facility], 340, cm, 11/13/21 11:23:00 ES... Start Date: 11/13/21 [...] tablet, 3 Refills, Maintenance, 10/28/21 14:11:00 EST, [facility], Partial fill upon patient request [...] 10/28/21 14:11:00 EST, Route to Pharmacy Electronically, [facility], Partial fill upon patient request if the prescription is for a schedule II opioid drug.... Start Date: 10/28/21 Stop Date: 10/23/22 Status: OrderedPRESERVISION AREDS 2 CAPS TAKE 1 CAPSULE BY MOUTH TWICE A DAY Start Date: 06/27/21 Status: Orderedsertraline 25 mg oral tablet 1 tablet, By Mouth, Daily, # 30 tablet, 10 Refills, [facility], 168, cm, 12/26/21 14:26:00 EDT, [...]
--- OUTSIDE RECORDS SUMMARY | 2022-07-03 07:46 | XMS_ITS | Encounter Summary ---
:1935 Author Care Team Providers Name Role Phone Genaro Mancini Primary Care Provider [phone] [facility] 2[address] Floor OTHER [phone] Reason for Visit Readmission Assessment and Plan 1. Chronic obstructive lung disease trelegy daily prednisone 40 mg to 06/13 monitor resp status O2 prn 2. Dementia continue to monitor and chart any wilks es in mood or behaviors psych prn zoloft 25 mg daily 3. Congestive heart failure eliquis 2.5 mg bid digoxin 62.5 mcg every other day 4. Atrial fibrillation eliquis 2.5 mg bid digoxin 62.5 mcg qod 5. Benign prostatic hyperplasia finasteride 5 mg daily tamsulosin 0.4 mg daily chronic pritchett now monitor voiding 6. Essential hypertension amlodipine 5 mg daily monitor bp 7. Osteoporosis tylenol 650 mg tid preservision mvi 8. At risk for falls PT OT eval and treat fall precautions frequent safety checks 9. Gastroesophageal reflux disease with out esophagitis monitor 10. Seizure disorder monitor for seizures 11. Chronic kidney disease stage 4 With marked worsening over the past 6 mo nths, Had improved somewhat with hydration inpt Will push fluids and monitor closely. bicarb 650 mg bid Continue to avoid nephrotoxic meds as ab le. Renal consult prn Discussion Note: None recorded.Patient educational handouts: No [...] Pressure 5 ft 6 in 110/51 mm[Hg] Results Lab Results None recorded. Allergies Code Code System Name Reaction Severity Onset 7794 RxNorm Cortisone ? ? ? Problems Name [...] mRNA, LNP-S, PF, 30 mcg/0.3 mL dose (XING) 11/23/2020 12/20/2020 10/01/2021 influenza, high-dose, quadrivalent 06/28/2021 Tdap 05/28/2021 Social History Tobacco Smoking Status Former Smoker Notes: quit What is your level of alcohol None consumption? Has tobacco cessation counseling been N N otes: n/a as pt no longer provided? smokes What is your code status? DNR/DNI Do you have a medical power of Y Notes: invoked estate attorney? What was the date of your [...] relationship status? Functional Status Unknown. Past Encounters 06/11/2022 Chronic Obstructive Lung Disease; Mukesh ia; Congestive Heart Failure; Atrial Fibrillation; Benign Prostatic Hyperplasia; Essential Hypertension; Osteoporosis; At Risk for Falls; Gastroesophageal Reflux Disease without Esophagitis; Seizure Dis order; Chronic Kidney Disease Stage 4 Carmen Hameed NP: [address] [facility] , [place] [address], Ph. 05/15/2022 Dementia; Congestive Heart Failure; Atri al Fibrillation; Benign Prostatic Hyperplasia; Essential Hypertension; Osteoporosis; At Risk for Falls; Chronic Obstructive Lung Disease; Gastroesophageal Reflux Disease without Esophagitis; Seizure Disorder Carmen Hameed COLLECTIONS CURATOR: [address] [facility] , [place] [address], Ph. History of Present Illness Note: <div>seen today for readmission-</div><div>
</div><div>87 yom originally admitted to for rehab after presenting from home 04/16, he came with his to the EDbecause she was SI and felt he could not be left home alone, she was requesting rehab placement. Hiswife reported she could no longer take care of him. per family he has been eating and drinking well.He was admitted for desirae CKD3 and chronic anemia due to the ckd, he was given 1 unit PRBC, there was a question of urinary retention, CT no hydronephrosis and he is able to urinate spontaneously.</div><div>06/07 sent to hospital for altered mental status and sob, with sputum production, cxr negative for acute process, but has corsened reticular markings bilaterally. He was in copd exacerbation, started on steroids, nebs and O2 weaned down. he haslo had desirae, tx with ivf, CT a/p negative forobstruction and he was seen by nephrology, discussed with hcp dialysis and it was refused. status was changed to hospice and to follow him at .,n pritchett started for weak urine stream, tamsulosin added. </div><div>
</div><div>CAOx1 engaging, pleasantly confused, lungs clear dim, no distress or discomfort noted, no edema, pritchett intact of miranda yellow urine</div>Review of Systems: ROS as noted in the HPI Review of Systems None recorded. Physical Exam ? General Adult Exam Reported By: Patient Constitutional: General Appearance: healthy- appearing, too thin. Level of Distress: NAD. Ambulation: in wheelcha ir; At baseline uses wheelchair mostly. But does [...] normal, soft, non-distended, no tenderness : ; now chronic pritchett Musculoskeletal:: Extremities: no cyanosis, no edema. Joints, [...]
--- OUTSIDE RECORDS SUMMARY | 2022-07-03 07:46 | XMS_ITS | Continuity of Care Document ---
:1935 Author Organization [facility] Adult Address [address] [place] [address]- Care Team Providers Name Role Phone Ingrid SPRING, Cailin Primary Care Physician Encounter [facility] [place] Date(s): 04/14/22 - 05/14/22 [facility] Adult [address] [place] [address]- Allergies, Adverse Reactions, Alerts Substance Reaction Severity [...] 11/13/2216:32:00 EST, Aerosol, Route to Pharmacy Electronically, [id number], [facility], 168, cm, [...] Mouth, Daily, # 30 tablet, 10 Refills, [facility], 168, cm, 12/26/21 14:26:00 EDT, [...] History of pulmonary Active embolism(Confirmed) Hypertension(Confirmed) Active 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 Sex Care Team PersonnelName: Cailin Quintero MD [facility] [address] [place], [place] [address]
--- OUTSIDE RECORDS SUMMARY | 2022-07-03 07:46 | XMS_ITS | Continuity of Care Document ---
:1935 Author Organization [facility] Adult Address [address] [place] [address]- Care Team Providers Name Role Phone Ingrid SPRING, Cailin Primary Care Physician Encounter [facility] [place] Date(s): 04/03/22 - 05/03/22 [facility] [address] [place] [address]- Allergies, Adverse Reactions, Alerts Substance Reaction Severity [...] 11/13/2216:32:00 EST, Aerosol, Route to Pharmacy Electronically, [id number], [facility], 168, cm, [...] Mouth, Daily, # 30 tablet, 10 Refills, [facility], 168, cm, 12/26/21 14:26:00 EDT, [...] History of pulmonary Active embolism(Confirmed) Hypertension(Confirmed) Active [facility] (current) use of Active anticoagulants(Confirmed) Pleural mass(Confirmed) Active Underweight(Confirmed) Active 1Per chart review meets GFR criteria Social History Social History Type Response Tobacco Use: 4 or less cigarettes(le ss than 1/4 pack)/day in last 30 days, QUIT 04/2021. Sex
--- OUTSIDE RECORDS SUMMARY | 2022-07-03 07:46 | XMS_ITS | Continuity of Care Document ---
:1935 Author Organization [facility] Adult Address [address] [place] [address]- Care Team Providers Name Role Phone Ingrid SPRING, Cailin Primary Care Physician [id number] Date(s): 03/20/22 - 04/19/[address] 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 Sex
--- OUTSIDE RECORDS SUMMARY | 2022-07-03 07:46 | XMS_ITS | Encounter Summary ---
:1935 Author Care Team Providers Name Role Phone Genaro Mancini Primary Care Provider [phone] [facility] 2nd Floor OTHER [phone] Reason for Visit Acute Rounding Visit Assessment and Plan 1. Chronic obstructive lung disease trelegy daily monitor resp status O2 prn 2. Chronic kidney disease stage 4 With marked worsening over the past 6 m onths, Had improved somewhat with hydration inpt, but beginning to worsen again yest. Will push fluids and monitor closely. Consider decreasing lasix if not improvi ng. Continue to avoid nephrotoxic meds as ab le. Renal consult prn 3. Gastroesophageal reflux disease with out esophagitis protonix 40 mg daily Discussion Note: None recorded.Patient educational [...] in 95 lbs 15.3 kg/m2 112/61 mm[Hg] Results Lab Results None recorded. Allergies Code Code System Name Reaction Severity Onset 5818 RxNorm Cortisone ? ? ? Problems Name [...] mRNA, LNP-S, PF, 30 mcg/0.3 mL dose (Bizak) 11/23/2020 12/20/2020 10/01/2021 influenza, high-dose, quadrivalent 06/28/2021 Tdap 05/28/2021 Social History Tobacco Smoking Status Former Smoker Notes: quit What is your level of alcohol None consumption? Has tobacco cessation counseling been N N otes: n/a as pt no longer provided? smokes What is your code status? DNR/DNI Do you have a medical power of Y Notes: invoked recyclable materials distributor? What was the date of your most [...] do you live? Apartment Notes: lives in [facility] complex with his wif e What is your relationship status? Functional Status Unknown. Past Encounters 05/07/2022 Chronic Obstructive Lung Disease; Chroni c Kidney Disease Stage 4; Gastroesophageal Reflux Disease without Esophagitis Carmen Hameed NP: [address] [facility] [place] [address], Ph. 04/30/2022 Seizure Disorder; Congestive Heart Failu re; Chronic Obstructive Lung Disease Carmen Hameed NP: [address] [facility] [place] [address], Ph. 04/22/2022 Dementia; Chronic Kidney Disease Stage 4 ; Anemia; Congestive Heart Failure; At Risk for Falls; Atrial Fibrillation; Benign Prostatic Hyperplasia; Essential Hypertension; Osteoporosis; Chronic Obstructiv e Lung Disease; Gastroesophageal Reflux Disease without Esophagitis; Seizure Disorder Jocelyn Good MD: [address] [facility] [place] [address], Ph. 04/21/2022 Dementia; Congestive Heart Failure; At R isk for Falls Carmen Hameed NP: [address] [facility] [place] [address], Ph. 04/18/2022 Dementia; Congestive Heart Failure; Atri al Fibrillation; Benign Prostatic Hyperplasia; Essential Hypertension; Osteoporosis; At Risk for Falls; Chronic Obstructive Lung Disease; Gastroesophageal Reflux Disease without Esophagitis; Seizure Disorder Carmen Hameed FILTER CHANGER: [address] [facility] [address] , [place] [address], Ph. History of Present Illness Note: <div>seen today for acute rounding visit, CAOx2 up in wheelchair, eating and drinking fairly well, discharge has been delayed per SW, lungs clear</div> Review of Systems: ROS as noted in the [...]
--- OUTSIDE RECORDS SUMMARY | 2022-07-03 07:46 | XMS_ITS | Encounter Summary ---
:1935 Author Care Team Providers Name Role Phone Genaro Mancini Primary Care Provider [phone] [facility] Serena 2[address] Floor OTHER [phone] Reason for Visit Acute Rounding Visit Assessment and Plan 1. Dementia continue to monitor and chart any wilks es in mood or behaviors psych prn zoloft 25 mg daily 2. Congestive heart failure eliquis 2.5 mg bid digoxin 62.5 mcg everry other day lasix 40 mg bid 3. At risk for falls PT OT eval and treat fall precautions frequent safety checks Discussion Note: None recorded.Patient educational handouts: No [...] Pressure 5 ft 6 in 112/71 mm[Hg] Results Lab Results None recorded. Allergies [...] mRNA, LNP-S, PF, 30 mcg/0.3 mL dose (ISVWorld) 11/23/2020 12/20/2020 10/01/2021 influenza, high-dose, quadrivalent 06/28/2021 Tdap 05/28/2021 Social History Tobacco Smoking Status Former Smoker Notes: quit What is your level of alcohol None consumption? Has tobacco cessation counseling been N N otes: n/a as pt no longer provided? smokes What is your code status? DNR/DNI Do you have a medical power of Y Notes: invoked attorney at law? What was the date of your most [...] do you live? Apartment Notes: lives in [facility]. complex with his wif e What is your relationship status? Functional Status Unknown. Past Encounters 04/21/2022 Dementia; Congestive Heart Failure; At R isk for Falls Carmen Hameed TELESALES CONSULTANT: [address] [place] [address], Ph. 04/18/2022 Dementia; Congestive Heart Failure; Atri al Fibrillation; Benign Prostatic Hyperplasia; Essential Hypertension; Osteoporosis; At Risk for Falls; Chronic Obstructive Lung Disease; Gastroesophageal Reflux Disease without Esophagitis; Seizure Disorder Carmen Hameed TELESALES CONSULTANT: [address] [place] [address], Ph. History of Present Illness Note: <div>seen today for acute rounding visit-CAOx1 sitting up in wheelchair, he reports he cannotwalke but stands easily at the parallel bars, pleasantly confused, eating and drinking fairly well, lungs clear</div>Review of Systems: ROS as noted in the HPI Review of Systems None recorded. Physical Exam ? General Adult Exam Reported By: Patient Constitutional: General Appearance: healthy- appearing, well-developed, too thin. Level of Distress: NAD. Ambu lation: ambulation with walker; contact guard with ambulation and wa lker Psychiatric: Insight: good judgement. Men kelly Status: active and alert, normal mood, normal affect. Orienta tion: to time, to place, to person. Memory: recent memory normal , remote memory normal Head: Head: normocephalic Eyes: Lids and Conjunctivae: non-i njected. Sclerae: non-icteric ENMT: Hearing: no hearing loss. Or opharynx: moist mucous membranes Neck: Neck: supple Lungs: Auscultation: breath sounds normal, good air movement, no wheezing, no rales/crackles, no rhonch i; dim bases Cardiovascular: Heart Auscultation: regularl y irregular Abdomen: Bowel Sounds: normal, soft, no guarding, non-distended Musculoskeletal:: Extremities: no cyanosis, no edema. Joints, Bones, and Muscles (normal) normal movement of all extremities Neurologic: Cranial Nerves: grossly inta ct Skin: Inspection and palpation: no rash Notes: <div>8/ covid negative, vac cine +</div><div>wbc 6.6 h/h 7.3/23.3 plt 247 na 141 k 5.0 bun 49 creat 2.9 gfr 21</div><div>8/5 wbc 6.5 h/h 8.9/27.6 plt 232 na 140 k 4.4 bun 43 creat 2.65 gfr 23 alb 2.7</div><div>8/8 wbc 6.1 h/ h 8.7/27.1 plt 241 na 138 k 3.9 bun 40 creat 3.16 gfr 19</div>
--- OUTSIDE RECORDS SUMMARY | 2022-07-03 07:46 | XMS_ITS | Continuity of Care Document ---
:1935 Author Organization [facility] Adult Address [address] [place] [address]- Care Team Providers Name Role Phone Ingrid SPRING, Cailin Primary Care Physician Encounter [facility] Date(s): 04/14/22 - 05/14/22 [facility] Adult [address] [place] [address]- Allergies, Adverse Reactions, Alerts Substance Reaction Severity [...] 11/13/2216:32:00 EST, Aerosol, Route to Pharmacy Electronically, [id number], [facility], 168, cm, [...] Mouth, Daily, # 30 tablet, 10 Refills, [facility], 168, cm, 12/26/21 14:26:00 [...] History of pulmonary Active embolism(Confirmed) Hypertension(Confirmed) 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 Sex Care Team PersonnelName: Cailin Quintero MD [facility] 3rd Floor [place], [place] [address]
--- OUTSIDE RECORDS SUMMARY | 2022-07-03 07:46 | XMS_ITS | Encounter Summary ---
:1935 Author Care Team Providers Name Role Phone Genaro Mancini Primary Care Provider [phone] [facility] Serena 2[address] Floor OTHER [phone] Reason for Visit Acute Rounding Visit Assessment and Plan 1. Seizure disorder keppra 500 mg bid monitor for seizures 2. Congestive heart failure eliquis 2.5 mg bid digoxin 62.5 mcg everry other day lasix 40 mg bid 3. Chronic obstructive lung disease trelegy daily monitor resp status O2 prn Discussion Note: None recorded.Patient educational handouts: [...] Pressure 5 ft 6 in 112/61 mm[Hg] Results Lab Results None recorded. Allergies Code Code System Name Reaction Severity Onset 3318 RxNorm Cortisone ? ? ? Problems Name [...] mRNA, LNP-S, PF, 30 mcg/0.3 mL dose (Tamecco) 11/23/2020 12/20/2020 10/01/2021 influenza, high-dose, quadrivalent 06/28/2021 Tdap 05/28/2021 Social History Tobacco Smoking Status Former Smoker Notes: quit What is your level of alcohol None consumption? Has tobacco cessation counseling been N N otes: n/a as pt no longer provided? smokes What is your code status? DNR/DNI Do you have a medical power of Y Notes: invoked criminal attorney? What was the date of your [...] do you live? Apartment Notes: lives in [facility] with his wif e What is your relationship status? Functional Status Unknown. 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 04/22/2022 Dementia; Chronic Kidney Disease Stage 4 ; Anemia; Congestive Heart Failure; At Risk for Falls; Atrial Fibrillation; Benign Prostatic Hyperplasia; Essential Hypertension; Osteoporosis; Chronic Obstructiv e Lung Disease; Gastroesophageal Reflux Disease without Esophagitis; Seizure Disorder Jocelyn Good MD: [address] [place] [address], Ph. 04/21/2022 Dementia; Congestive Heart Failure; At R isk for Falls Carmen Hameed NP: [address] [place] [address], Ph. 04/18/2022 Dementia; Congestive Heart Failure; Atri al Fibrillation; Benign Prostatic Hyperplasia; Essential Hypertension; Osteoporosis; At Risk for Falls; Chronic Obstructive Lung Disease; Gastroesophageal Reflux Disease without Esophagitis; Seizure Disorder Carmen Hameed NP: [address] [place] [address], Ph. History of Present Illness Note: <div>seen today for acute rounding visit</div><div>CAOx2 sitting up in wheelchair, eating and drinking fairly well, mood stable, lungs clear, no edema, pt denies any discomfort or distress</div>Review of Systems: ROS as noted in the [...] 3.9 bun 40 creat 3.16 gfr 19</div><div> 815 wbc 6.9 h/h 9.9/31.6 plt 257 na 139 k 4.1 bun 54 creat 4.12 gfr 14</div>
--- OUTSIDE RECORDS SUMMARY | 2022-07-03 07:46 | XMS_ITS | Continuity of Care Document ---
:1935 Author Organization [facility] Adult Address [address] [place] [address]- Care Team Providers Name Role Phone Ingrid SPRING, Cailin Primary Care Physician Encounter [facility] Date(s): 01/20/22 - 02/19/22 [facility] Adult [address] [place] [address]- Allergies, Adverse Reactions, Alerts Substance Reaction Severity Status codeine Active Immunizations Given and Recorded Vaccine Date Status Refusal Reason SARS-CoV-2 (COVID-19) mRNA-1273 vaccine 10/01/21 Recorded SARS-CoV-2 (COVID-19) mRNA-1273 vaccine 12/20/20 Recorded SARS-CoV-2 (COVID-19) mRNA-127 vaccine 11/23/20 Recorded influenza virus vaccine, inactivated [...] 11/13/2216:32:00 EST, Aerosol, Route to Pharmacy Electronically, [id number], [facility], 168, cm, [...] II opioid drug. Start Date: 02/14/22 Status: Orderedmidodrine 5 mg oral tablet 2.5 [...]
--- OUTSIDE RECORDS SUMMARY | 2022-07-03 07:46 | XMS_ITS | Continuity of Care Document ---
:1935 Author Organization [facility] Adult Address [address] [place] [address]- Care Team Providers Name Role Phone Ingrid SPRING, Cailin Primary Care Physician [phone] [facility] Date(s): 09/11/21 - 09/18/21 [facility] Adult [address] [place] [address]- Encounter Diagnosis Hypertension (Discharge Diagnosis) - 09/11/21 Atrial flutter (Discharge Diagnosis) - 09/11/21 Aortic valve stenosis (Discharge Diagnosis) - 09/11/21 Pleural mass (Discharge Diagnosis) - 09/11/21 Underweight (Discharge Diagnosis) - 09/11/21 Adjustment disorder with depressed mood (Discharge Diagnosis) - 09/11/21 Attending Physician: Cailin Qunitero MD Allergies, Adverse Reactions, Alerts Substance Reaction [...] Dates Health Clinical Infor mant Status Service Hypertension Discharge 09/11/21 Diagnosis Atrial flutter Discharge 09/11/21 Diagnosis Aortic valve Discharge 09/11/21 stenosis Diagnosis Pleural mass Discharge 09/11/21 Diagnosis Underweight Discharge 09/11/21 Diagnosis Adjustment disorder Discharge 09/11/21 with depressed mood Diagnosis Vital Signs Most recent to oldest [Reference Range]: 1 Height 168 cm (09/11/21 2:41 PM) Weight 52 kg (09/11/21 2:41 PM) Oxygen Saturation [94-100 %] 93 % *L* (09/11/21 2:41 PM) Pulse Rate [55-90 bpm] 109 bpm *H* (09/11/21 2:41 PM) Body Mass Index [18.5-24.99] 18.42 *L* (09/11/21 2:41 PM) Blood Pressure [90-138/55-84 mm Hg] 121/71 mm Hg (09/11/21 2:41 PM) Temperature [96.8-100.4 DegF] 97.8 DegF (09/11/21 2:41 PM) Liters per Minute 2 L/min (09/11/21 2:41 PM) Mode of Delivery (Oxygen) Nasal cannula (09/11/21 2:41 PM) Blood pressure sites Arm, right (09/11/21 2:41 PM) Temperature Route Oral (09/11/21 2:41 PM) Weight Obtained Via Standing scale (09/11/21 2:41 PM) Social History Social History Type Response Tobacco Use: QUIT 04/2021. Sex
--- OUTSIDE RECORDS SUMMARY | 2022-07-03 07:47 | XMS_ITS | Encounter Summary ---
:1935 Author Care Team Providers Name Role Phone Genaro Mancini Primary Care Provider [phone] [facility] 2nd Floor OTHER [phone] Reason for Visit Initial Intake Assessment and Plan 1. Dementia continue to [...] protonix 40 mg daily 10. Seizure disorder keppra 500 mg bid monitor for seizures Discussion Note: None recorded.Patient [...] in 98.4 lbs 15.9 kg/m2 149/60 mm[Hg] Results Lab Results None recorded. Allergies Code Code System Name Reaction Severity Onset 6847 RxNorm Cortisone ? ? ? Problems Name [...] mRNA, LNP-S, PF, 30 mcg/0.3 mL dose (Glass) 11/23/2020 12/20/2020 10/01/2021 influenza, high-dose, quadrivalent 06/28/2021 Tdap 05/28/2021 Social History Tobacco Smoking Status Former Smoker Notes: quit What is your level of alcohol None consumption? Has tobacco cessation counseling been N N otes: n/a as pt no longer provided? smokes What is your code status? DNR/DNI Do you have a medical power of Y Notes: invoked ip attorney? What was the date of your [...] do you live? Apartment Notes: lives in [facility] with his wif e What is your relationship status? Functional Status Unknown. Past Encounters 04/18/2022 Dementia; Congestive Heart Failure; Atri al Fibrillation; Benign Prostatic Hyperplasia; Essential Hypertension; Osteoporosis; At Risk for Falls; Chronic Obstructive Lung Disease; Gastroesophageal Reflux Disease without Esophagitis; Seizure Disorder Carmen Hameed MIDDLE SCHOOL PRINCIPAL: [address] [facility] , [place] [address], Ph. History of Present Illness Note: <div>seen today for initial intake visit-</div><div>87 yom admitted to for rehab after presenting from home 04/16, he came with his to the ED because she was SI and felt he could not be left home alone, she was requesting rehab placement. His reported she could no longer take care of him. per family he has been eating and drinking well. He was admitted for desirae CKD3 and ch ronic anemia due to the ckd, he was given 1 unit PRBC, there was a question of urinary retention, CTno hydronephrosis and he is able to urinate spontaneously.</div><div>
</div><div>CAOx1 animated and engaging, pleasantly confused, HCP invoked, lungs clear dim, no distress or discomfort noted, no edema, ambulated with PT contact guard with walker</div>Review of Systems: ROS as noted in the [...] Skin: Inspection and palpation: no rash Notes: <div>8/3 covid negative, vac cine +</div><div>wbc 6.6 h/h 7.3/23.3 plt 247 na 141 k 5.0 bun 49 creat 2.9 gfr 21</div><div>8/5 wbc 6.5 h/h 8.9/27.6 plt 232 na 140 k 4.4 bun 43 creat 2.65 gfr 23 alb 2.7</div>
[2022-07-03 08:00] LABS: COVID-19 Test Negative (Negative); IDNOW Serial# 16C4AD1C
[2022-07-03 08:07] LABS: MANUAL DIFF FLAG NO
[2022-07-03 08:13] LABS: Basophils Percent Auto 0.5 % (0-2); Eosinophils Absolute Auto 0.2 X10*3/uL (0.0-0.4); Eosinophils Percent Auto 2.9 % (0-4); Imm Gran Abs Auto 0.08 X10*3/uL (0.00-0.03); Imm Gran Pct Auto 1.4 % (0.0-0.4); Lymphocytes Absolute Auto 0.4 X10*3/uL (1.2-4.9); Lymphocytes Percent Auto 6.7 % (20-40); Mean Corpuscular HGB Conc 29.9 g/dl (31.0-36.0); Mean Corpuscular Hemoglobin 28.5 pg (27.0-33.0); Mean Corpuscular Volume 95.3 fL (80.0-98.0); Mean Platelet Volume 11.1 fL (9.4-12.4); Monocytes Absolute Auto 0.4 X10*3/uL (0.1-1.2); Monocytes Percent Auto 6.2 % (2-11); Neutrophils Absolute Auto 4.8 x10*3/uL (2.0-8.3); Neutrophils Percent Auto 82.3 % (45-73); Platelet Count 127 X10*3/uL (160-400); Red Blood Count 2.14 X10*6/uL (4.60-5.80); Red Cell Distribution Width 20.7 % (11.0-16.0); White Blood Count 5.8 X10*3/uL (4.8-10.8)
[2022-07-03 08:19] LABS: Hemoglobin 6.1 g/dl (14.0-18.0)
[2022-07-03 08:20] LABS: Hematocrit 20.4 % (42.0-52.0)
[2022-07-03] MEDS: Pantoprazole Sodium 40 MG/10 ML VIAL IVPUSH ×2 (08:21→16:52)
[2022-07-03] MEDS: 0.9 % Sodium Chloride 1,000 ML 100 ML IVCONT (08:21)
[2022-07-03] MEDS: ondansetron HCL 4 MG/2 ML VIAL IVPUSH (08:21)
[2022-07-03 08:24] LABS: Lactic Acid 0.7 mmol/L (0.5-2.0)
--- NOTE | 2022-07-03 08:24 | PHA.MEDREC ---
Pharmacy Consult ? Medication Reconciliation Pharmacy has completed the medication reconciliation. Patient came from [facility] with medication list. Tana Thompson, ChristinaD
[2022-07-03 08:31] LABS: Troponin-I High Sensitivity 93.3 ng/L (<3.5-35.0)
[2022-07-03 08:42] LABS: Alanine Aminotransferase 8 U/L (0-40); Alkaline Phosphatase 74 U/L (39-117); Aspartate Amino Transferase 19 U/L (5-37); Bilirubin Direct 0.2 mg/dL (0.0-0.5); Bilirubin Total 0.4 mg/dL (0.0-1.0); Calcium 9.3 mg/dL (8.4-10.2); Creatinine Clr Calc Pharmacy 4.4; Estimated Glomerular Filt Rate 5; Glucose Random 109 mg/dL (60-115); Lipase 19 U/L (8-78); Magnesium 2.3 mg/dL (1.6-2.6); Total Protein 5.8 g/dL (6.5-8.0)
--- NOTE | 2022-07-03 08:48 | PC.NURSE ---
DR PIZARRO AND MYSELF HAVE ATTEMPTED TO CONTACT DAUGHTER (EDIL) HAVE LEFT , TO RETURN CALLS. ALSO CONTACTED [facility] TO SEE IF THEY HAD A ADDITIONAL CONTACT NUMBER FOR HER, STATED THEY WILL ALSO ATTEMPT TO CONTACT HER.
[2022-07-03 08:53] LABS: INTERNATIONAL NORM RATIO 1.1 (0.9-1.1); Prothrombin Time 12.4 SEC (10.0-13.1)
[2022-07-03 08:57] LABS: Anion Gap 22 (12-20); Blood Urea Nitrogen 122 mg/dL (9-16); Carbon Dioxide 28 mmol/L (22-29); Chloride 113 mmol/L (96-108); Potassium 4.3 mmol/L (3.3-5.1); Sodium 159 mmol/L (135-145)
[2022-07-03 10:26] LABS: Digoxin 0.6 ng/mL (0.8-2.0)
--- OUTSIDE RECORDS SUMMARY | 2022-07-03 12:23 | XMS_ITS | Encounter Summary ---
:1935 Author Care Team Providers Name Role Phone Genaro aMncini Primary Care Provider [phone] [facility] 2nd Floor OTHER [phone] Reason for Visit Acute Rounding Visit Assessment [...] mRNA, LNP-S, PF, 30 mcg/0.3 mL dose ([employer]) 11/23/2020 12/20/2020 10/01/2021 influenza, high-dose, quadrivalent 06/28/2021 Tdap 05/28/2021 Social History Tobacco Smoking Status Former Smoker Notes: quit What is your level of alcohol None consumption? Has tobacco cessation counseling been N N otes: n/a as pt no longer provided? smokes What is your code status? DNR/DNI Do you have a medical power of Y Notes: invoked colorist? What was the date of your most [...] do you live? Apartment Notes: lives in [facility]. complex with his wif e What is your relationship status? Functional Status Unknown. Past Encounters 04/21/2022 Dementia; Congestive Heart Failure; At R isk for Falls Carmen Hameed PLASMA TABLE OPERATOR: [address] [place] [address], Ph. 04/18/2022 Dementia; Congestive Heart Failure; Atri al Fibrillation; Benign Prostatic Hyperplasia; Essential Hypertension; Osteoporosis; At Risk for Falls; Chronic Obstructive Lung Disease; Gastroesophageal Reflux Disease without Esophagitis; Seizure Disorder Carmen Hameed PLASMA TABLE OPERATOR: [address] [place] [address], Ph. History of Present Illness Note: <div>seen [...]
--- OUTSIDE RECORDS SUMMARY | 2022-07-03 12:23 | XMS_ITS | Encounter Summary ---
:1935 Author Care Team Providers Name Role Phone Genaro Mancini Primary Care Provider [phone] [facility] Serena 2nd Floor OTHER [phone] Reason for Visit Acute Rounding Visit Assessment [...] mRNA, LNP-S, PF, 30 mcg/0.3 mL dose ([employer] / [employer]á) 11/23/2020 12/20/2020 10/01/2021 influenza, high-dose, quadrivalent 06/28/2021 Tdap 05/28/2021 Social History Tobacco Smoking Status Former Smoker Notes: quit What is your level of alcohol None consumption? Has tobacco cessation counseling been N N otes: n/a as pt no longer provided? smokes What is your code status? DNR/DNI Do you have a medical power of Y Notes: invoked civil attorney? What was the date of your [...] do you live? Apartment Notes: lives in [facility] with his wif e What is your relationship status? Functional Status Unknown. 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 06/13/2022 Chronic Obstructive Lung Disease; Benign Prostatic Hyperplasia; Atrial Fibrillation; Essential Hypertension; Chronic Kidney Disease Stage 4; Gastroesophageal Reflux Disease without Esophagitis; Mixed Anxiety and Depressive Disorder Janine Tam MD: [address] [facility] [place] [address], Ph. 06/11/2022 Chronic Obstructive Lung Disease; Mukesh ia; Congestive Heart Failure; Atrial Fibrillation; Benign Prostatic Hyperplasia; Essential Hypertension; Osteoporosis; At Risk for Falls; Gastroesophageal Reflux Disease without Esophagitis; Seizure Dis order; Chronic Kidney Disease Stage 4 Carmen Hameed CREMATORY ATTENDANT: [address] [place] [address], Ph. History of Present Illness Note: <div>seen [...]
--- OUTSIDE RECORDS SUMMARY | 2022-07-03 12:23 | XMS_ITS | Encounter Summary ---
:1935 Author Care Team Providers Name Role Phone Genaro Mancini Primary Care Provider [phone] Milton Serena 2nd Floor OTHER [phone] Reason for Visit Acute Rounding Visit Assessment [...] Code Code System Name Reaction Severity Onset 2677 RxNorm Cortisone ? ? ? Problems Name [...] mRNA, LNP-S, PF, 30 mcg/0.3 mL dose ([employer]) 11/23/2020 12/20/2020 10/01/2021 influenza, high-dose, quadrivalent 06/28/2021 Tdap 05/28/2021 Social History Tobacco Smoking Status Former Smoker Notes: quit What is your level of alcohol None consumption? Has tobacco cessation counseling been N N otes: n/a as pt no longer provided? smokes What is your code status? DNR/DNI Do you have a medical power of Y Notes: invoked securities attorney? What was the date of your [...] do you live? Apartment Notes: lives in [facility] with his wif e What is your relationship status? Functional Status Unknown. Past Encounters 04/30/2022 Seizure Disorder; Congestive Heart Failu re; Chronic Obstructive Lung Disease Carmen Hameed SUPPLIER QUALITY: [address] [place] [address], Ph. 04/22/2022 Dementia; Chronic Kidney Disease Stage 4 ; Anemia; Congestive Heart Failure; At Risk for Falls; Atrial Fibrillation; Benign Prostatic Hyperplasia; Essential Hypertension; Osteoporosis; Chronic Obstructiv e Lung Disease; Gastroesophageal Reflux Disease without Esophagitis; Seizure Disorder Jocelyn Good MD: [address] [place] [address], Ph. 04/21/2022 Dementia; Congestive Heart Failure; At R isk for Falls Carmen Hameed NP: [address] [place] [address], Ph. 04/18/2022 Dementia; Congestive Heart Failure; Atri al Fibrillation; Benign Prostatic Hyperplasia; Essential Hypertension; Osteoporosis; At Risk for Falls; Chronic Obstructive Lung Disease; Gastroesophageal Reflux Disease without Esophagitis; Seizure Disorder Cramen Hameed NP: [address] [place] [address], Ph. History of Present Illness Note: <div>seen [...]
--- OUTSIDE RECORDS SUMMARY | 2022-07-03 12:23 | XMS_ITS | Encounter Summary ---
:1935 Author Care Team Providers Name Role Phone Genaro Mancini Primary Care Provider [phone] [facility] 2nd Floor OTHER [phone] Reason for Visit Acute Rounding Visit Assessment [...] Code Code System Name Reaction Severity Onset 4702 RxNorm Cortisone ? ? ? Problems Name [...] mRNA, LNP-S, PF, 30 mcg/0.3 mL dose ([employer]) 11/23/2020 12/20/2020 10/01/2021 influenza, high-dose, quadrivalent 06/28/2021 Tdap 05/28/2021 Social History Tobacco Smoking Status Former Smoker Notes: quit What is your code status? DNR/DNI Do you have a medical power of Y Notes: invoked claim attorney? What is your relationship status? What is your level of alcohol None consumption? Do you have an out of hospital DNR? N Legal Guardian? N Do you or have you ever used any other N forms of tobacco or nicotine? Has tobacco cessation counseling been N N otes: n/a as pt no longer provided? smokes What was the date of your most recent 04/18/2022 tobacco screening? Do you have an advanced directive? Y Note s: DNH, NO hd, IVF, GTHCP invoked Do you use any illicit or recreational N drugs? Where do you live? Apartment Notes: lives in [facility] with his wif e Functional Status Unknown. Past Encounters 05/07/2022 Chronic Obstructive Lung Disease; Chroni c Kidney Disease Stage 4; Gastroesophageal Reflux Disease without Esophagitis Carmen Hameed NP: [address] [facility] [place] [address], Ph. 04/30/2022 Seizure Disorder; Congestive Heart Failu re; Chronic Obstructive Lung Disease Carmen Hameed NP: [address] [facility] [place] [address], Ph. 04/22/2022 Dementia; Chronic Kidney Disease Stage 4 ; Anemia; Congestive Heart Failure; At Risk for Falls; Atrial Fibrillation; Benign Prostatic Hyperplasia; Essential Hypertension; Osteoporosis; Chronic Obstructiv e Lung Disease; Gastroesophageal Reflux Disease without Esophagitis; Seizure Disorder Jocelyn Good MD: [address] [facility] [place] [address], Ph. 04/21/2022 Dementia; Congestive Heart Failure; At R isk for Falls Carmen Hameed NP: [address] [facility] [place] [address], Ph. 04/18/2022 Dementia; Congestive Heart Failure; Atri al Fibrillation; Benign Prostatic Hyperplasia; Essential Hypertension; Osteoporosis; At Risk for Falls; Chronic Obstructive Lung Disease; Gastroesophageal Reflux Disease without Esophagitis; Seizure Disorder Carmen Hameed SCARF GLUER: [address] [facility] [address] , [place] [address], Ph. History of Present Illness Note: <div>seen [...]
--- OUTSIDE RECORDS SUMMARY | 2022-07-03 12:23 | XMS_ITS | Encounter Summary ---
:1935 Author Care Team Providers Name Role Phone Genaro Mancini Primary Care Provider [phone] Milton Serena 2nd Floor OTHER [phone] Reason for Visit Readmission Assessment and Plan [...] Code Code System Name Reaction Severity Onset 7949 RxNorm Cortisone ? ? ? Problems Name [...] mRNA, LNP-S, PF, 30 mcg/0.3 mL dose (OMEGA MORGAN) 11/23/2020 12/20/2020 10/01/2021 influenza, high-dose, quadrivalent 06/28/2021 Tdap 05/28/2021 Social History Tobacco Smoking Status Former Smoker Notes: quit What is your level of alcohol None consumption? Has tobacco cessation counseling been N N otes: n/a as pt no longer provided? smokes What is your code status? DNR/DNI Do you have a medical power of Y Notes: invoked mergers and acquisitions attorney? What was the date of your [...] do you live? Apartment Notes: lives in [facility] with his wif e What is your relationship status? Functional Status Unknown. Past Encounters 06/11/2022 Chronic Obstructive Lung Disease; Mukesh ia; Congestive Heart Failure; Atrial Fibrillation; Benign Prostatic Hyperplasia; Essential Hypertension; Osteoporosis; At Risk for Falls; Gastroesophageal Reflux Disease without Esophagitis; Seizure Dis order; Chronic Kidney Disease Stage 4 Carmen Hameed NP: [address] [facility] , [place] [address], Ph. 05/15/2022 Dementia; Congestive Heart Failure; Atri al Fibrillation; Benign Prostatic Hyperplasia; Essential Hypertension; Osteoporosis; At Risk for Falls; Chronic Obstructive Lung Disease; Gastroesophageal Reflux Disease without Esophagitis; Seizure Disorder Carmen Hameed AFFILIATE MARKETING MANAGER: [address] [facility] , [place] [address], Ph. History of Present Illness Note: <div>seen [...]
--- OUTSIDE RECORDS SUMMARY | 2022-07-03 12:23 | XMS_ITS | Encounter Summary ---
:1935 Author Care Team Providers Name Role Phone Genaro Mancini Primary Care Provider [phone] [facility] 2nd Floor OTHER [phone] Reason for Visit Admitting H&P Assessment and [...] Code Code System Name Reaction Severity Onset 3643 RxNorm Cortisone ? ? ? Problems Name [...] mRNA, LNP-S, PF, 30 mcg/0.3 mL dose ([employer]) 11/23/2020 12/20/2020 10/01/2021 influenza, high-dose, quadrivalent 06/28/2021 Tdap 05/28/2021 Social History Tobacco Smoking Status Former Smoker Notes: quit What is your level of alcohol None consumption? Has tobacco cessation counseling been N N otes: n/a as pt no longer provided? smokes What is your code status? DNR/DNI Do you have a medical power of Y Notes: invoked tax attorney? What was the date of your [...] do you live? Apartment Notes: lives in [facility]. complex with his wif e What is your relationship status? Functional Status Unknown. Past Encounters 04/22/2022 Dementia; Chronic Kidney Disease Stage 4 ; Anemia; Congestive Heart Failure; At Risk for Falls; Atrial Fibrillation; Benign Prostatic Hyperplasia; Essential Hypertension; Osteoporosis; Chronic Obstructiv e Lung Disease; Gastroesophageal Reflux Disease without Esophagitis; Seizure Disorder Jocelyn Good MD: [address] [facility] [place] [address], Ph. 04/21/2022 Dementia; Congestive Heart Failure; At R isk for Falls Carmen Hameed MAPPING SUPERVISOR: [address] [facility] [place] [address], Ph. 04/18/2022 Dementia; Congestive Heart Failure; Atri al Fibrillation; Benign Prostatic Hyperplasia; Essential Hypertension; Osteoporosis; At Risk for Falls; Chronic Obstructive Lung Disease; Gastroesophageal Reflux Disease without Esophagitis; Seizure Disorder Carmen Hameed NP: [address] [facility] [place] [address], Ph. History of Present Illness Note: <div>This [...] in 07/2021 to 52/3.08. Labs found in [facility] system showed 24/1.7 in 02/2022 and hgb [...] 04/18. </div><div>Notable is hospitalization in 02/2022 at [facility] after a seizure, thought to be due [...]
--- OUTSIDE RECORDS SUMMARY | 2022-07-03 12:23 | XMS_ITS | Encounter Summary ---
:1935 Author Care Team Providers Name Role Phone Genaro Mancini Primary Care Provider [phone] Milton Serena 2nd Floor OTHER [phone] Reason for Visit Routine Rounding routine rounding [...] Code Code System Name Reaction Severity Onset 2707 RxNorm Cortisone ? ? ? Problems Name [...] mRNA, LNP-S, PF, 30 mcg/0.3 mL dose ([employer]) 11/23/2020 12/20/2020 10/01/2021 influenza, high-dose, quadrivalent 06/28/2021 [...] do you live? Apartment Notes: lives in [facility] with his wif e What is your relationship status? Functional Status Unknown. Past Encounters 06/13/2022 Chronic Obstructive Lung Disease; Benign Prostatic Hyperplasia; Atrial Fibrillation; Essential Hypertension; Chronic Kidney Disease Stage 4; Gastroesophageal Reflux Disease without Esophagitis; Mixed Anxiety and Depressive Disorder Janine Tam MD: 36 [facility] [place] [address], Ph. 06/11/2022 Chronic Obstructive Lung Disease; Mukesh ia; Congestive Heart Failure; Atrial Fibrillation; Benign Prostatic Hyperplasia; Essential Hypertension; Osteoporosis; At Risk for Falls; Gastroesophageal Reflux Disease without Esophagitis; Seizure Dis order; Chronic Kidney Disease Stage 4 Carmen Hameed NP: 36 [facility] [place] [address], Ph. 05/15/2022 Dementia; Congestive Heart Failure; Atri al Fibrillation; Benign Prostatic Hyperplasia; Essential Hypertension; Osteoporosis; At Risk for Falls; Chronic Obstructive Lung Disease; Gastroesophageal Reflux Disease without Esophagitis; Seizure Disorder Carmen Hameed, DECAL DECORATOR: [address] [facility] [place] [address], Ph. 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
</div><div>Medical history is remarkable for hypertension, peripheral edema, COPD, BPH, history of PE, aflutter, CHF, severe TR/, right ventricular dysfuncti on</div><div>
</div><div>Patient was sent out from facility on 06/07/22 to ER at [facility] with dyspnea worsened over prior few days [...]
--- OUTSIDE RECORDS SUMMARY | 2022-07-03 12:23 | XMS_ITS ---
:1935 Author Care Team Providers Name Role Phone YASMEEN REID Primary Care Provider [phone] RIYA JUANA 2ND FLOOR OTHER [phone] Allergies Code Code System Name Reaction Severity [...] Encounters 07/02/2022 Blood in Urine Carmen Hameed SHELLFISH CHECKER: [address] [place] [address], Ph. 06/30/2022 Chronic Kidney Disease Stage 4; Dementia Carmen Hameed SHELLFISH CHECKER: [address] [place] [address], Ph. 06/13/2022 Chronic Obstructive Lung Disease; Benign Prostatic Hyperplasia; Atrial Fibrillation; Essential Hypertension; Chronic Kidney Disease Stage 4; Gastroesophageal Reflux Disease without Esophagitis; Mixed Anxiety and Depressive Disorder Janine Tam MD: 36 [facility] [place] [address], Ph. 06/11/2022 Chronic Obstructive Lung Disease; Mukesh ia; Congestive Heart Failure; Atrial Fibrillation; Benign Prostatic Hyperplasia; Essential Hypertension; Osteoporosis; At Risk for Falls; Gastroesophageal Reflux Disease without Esophagitis; Seizure Dis order; Chronic Kidney Disease Stage 4 Carmen Hameed SHELLFISH CHECKER: [address] [place] [address], Ph. 05/15/2022 Dementia; Congestive Heart Failure; Atri al Fibrillation; Benign Prostatic Hyperplasia; Essential Hypertension; Osteoporosis; At Risk for Falls; Chronic Obstructive Lung Disease; Gastroesophageal Reflux Disease without Esophagitis; Seizure Disorder Carmen Hameed SHELLFISH CHECKER: [address] [place] [address], Ph. 05/07/2022 Chronic Obstructive Lung Disease; Chroni c Kidney Disease Stage 4; Gastroesophageal Reflux Disease without Esophagitis Carmen Hameed SHELLFISH CHECKER: [address] [place] [address], Ph. 04/30/2022 Seizure Disorder; Congestive Heart Failu re; Chronic Obstructive Lung Disease Carmen Hameed SHELLFISH CHECKER: [address] [place] [address], Ph. 04/22/2022 Dementia; Chronic Kidney Disease Stage 4 ; Anemia; Congestive Heart Failure; At Risk for Falls; Atrial Fibrillation; Benign Prostatic Hyperplasia; Essential Hypertension; Osteoporosis; Chronic Obstructiv e Lung Disease; Gastroesophageal Reflux Disease without Esophagitis; Seizure Disorder Jocelyn Good MD: [address] [place] [address], Ph. 04/21/2022 Dementia; Congestive Heart Failure; At R isk for Falls Carmen Hameed NP: [address] [place] [address], Ph. 04/18/2022 Dementia; Congestive Heart Failure; Atri al Fibrillation; Benign Prostatic Hyperplasia; Essential Hypertension; Osteoporosis; At Risk for Falls; Chronic Obstructive Lung Disease; Gastroesophageal Reflux Disease without Esophagitis; Seizure Disorder Carmen Hameed SHELLFISH CHECKER: [address] [place] [address], Ph. 07/30/2021 Congestive Heart Failure; Atrial Fibrill ation; Benign Prostatic Hyperplasia; Essential Hypertension; Osteoporosis; At Risk for Falls Carmen Hameed SHELLFISH CHECKER: [address] [facility] , [place] [address], Ph. 07/23/2021 Congestive Heart Failure; At Risk for Fa lls Carmen Hameed SHELLFISH CHECKER: [address] [facility] , [place] [address], Ph. 07/19/2021 Congestive Heart Failure; Osteoporosis Carmen Hameed SHELLFISH CHECKER: [address] [place] [address], Ph. 07/15/2021 Congestive Heart Failure; Benign Prostat ic Hyperplasia Carmen Hameed SHELLFISH CHECKER: [address] [place] [address], Ph. 07/10/2021 Asthenia; Atrial Fibrillation; Benign Pr ostatic Hyperplasia; Acute Pulmonary Embolism; Aortic Valve Stenosis; Osteoporosis; Congestive Heart Failure; Essential Hypertension Janine Tam MD: [address] [place] [address], Ph. 07/08/2021 Congestive Heart Failure; Essential Hype rtension Carmen Hameed SHELLFISH CHECKER: [address] [place] [address], Ph. 07/05/2021 Congestive Heart Failure; Atrial Fibrill ation; Benign Prostatic Hyperplasia; Essential Hypertension; Osteoporosis; At Risk for Falls Carmen Hameed SHELLFISH CHECKER: [address] [place] [address], Ph. Social History Tobacco Smoking Status Former Smoker Notes: quit Vaccine List Vaccine Type COVID-19, mRNA, LNP-S, PF, 30 mcg/0.3 mL dose ([employer]) 11/23/2020 12/20/2020 10/01/2021 influenza, high-dose, quadrivalent 06/28/2021 [...]
--- OUTSIDE RECORDS SUMMARY | 2022-07-03 12:23 | XMS_ITS | Encounter Summary ---
:1935 Author Care Team Providers Name Role Phone Genaro Mancini Primary Care Provider [phone] [facility] 2nd Floor OTHER [phone] Reason for Visit Initial Intake Assessment and [...] Code Code System Name Reaction Severity Onset 5123 RxNorm Cortisone ? ? ? Problems Name [...] mRNA, LNP-S, PF, 30 mcg/0.3 mL dose ([employer]) 11/23/2020 12/20/2020 10/01/2021 influenza, high-dose, quadrivalent 06/28/2021 Tdap 05/28/2021 Social History Tobacco Smoking Status Former Smoker Notes: quit What is your level of alcohol None consumption? Has tobacco cessation counseling been N N otes: n/a as pt no longer provided? smokes What is your code status? DNR/DNI Do you have a medical power of Y Notes: invoked vice president of finance? What was the date of your most [...] do you live? Apartment Notes: lives in [facility] with his wif e What is your relationship status? Functional Status Unknown. Past Encounters 04/18/2022 Dementia; Congestive Heart Failure; Atri al Fibrillation; Benign Prostatic Hyperplasia; Essential Hypertension; Osteoporosis; At Risk for Falls; Chronic Obstructive Lung Disease; Gastroesophageal Reflux Disease without Esophagitis; Seizure Disorder Carmen Hameed COAL PASSER: 36 [facility] , [place] [address], Ph. History of Present Illness Note: <div>seen [...]
--- OUTSIDE RECORDS SUMMARY | 2022-07-03 12:23 | XMS_ITS | Encounter Summary ---
:1935 Author Care Team Providers Name Role Phone Genaro Mancini Primary Care Provider [phone] Milton Serena 2nd Floor OTHER [phone] Reason for Visit Routine Rounding Assessment and [...] Code Code System Name Reaction Severity Onset 5093 RxNorm Cortisone ? ? ? Problems Name [...] mRNA, LNP-S, PF, 30 mcg/0.3 mL dose ([employer]) 11/23/2020 12/20/2020 10/01/2021 influenza, high-dose, quadrivalent 06/28/2021 Tdap 05/28/2021 Social History Tobacco Smoking Status Former Smoker Notes: quit What is your level of alcohol None consumption? Has tobacco cessation counseling been N N otes: n/a as pt no longer provided? smokes What is your code status? DNR/DNI Do you have a medical power of Y Notes: invoked state's attorney? What was the date of your [...] do you live? Apartment Notes: lives in [facility] with his wif e What is your relationship status? Functional Status Unknown. Past Encounters 05/15/2022 Dementia; Congestive Heart Failure; Atri al Fibrillation; Benign Prostatic Hyperplasia; Essential Hypertension; Osteoporosis; At Risk for Falls; Chronic Obstructive Lung Disease; Gastroesophageal Reflux Disease without Esophagitis; Seizure Disorder Carmen Hameed HARVESTING MANAGER: 36 [facility] [place] [address], Ph. 05/07/2022 Chronic Obstructive Lung Disease; Chroni c Kidney Disease Stage 4; Gastroesophageal Reflux Disease without Esophagitis Carmen Hameed HARVESTING MANAGER: 36 [facility] [place] [address], Ph. 04/30/2022 Seizure Disorder; Congestive Heart Failu re; Chronic Obstructive Lung Disease Carmen Hameed HARVESTING MANAGER: 36 [facility] [place] [address], Ph. 04/22/2022 Dementia; Chronic Kidney Disease Stage 4 ; Anemia; Congestive Heart Failure; At Risk for Falls; Atrial Fibrillation; Benign Prostatic Hyperplasia; Essential Hypertension; Osteoporosis; Chronic Obstructiv e Lung Disease; Gastroesophageal Reflux Disease without Esophagitis; Seizure Disorder Jocelyn Good MD: 36 [facility], [place] [address], Ph. 04/21/2022 Dementia; Congestive Heart Failure; At R isk for Falls Carmen Hameed HARVESTING MANAGER: 36 [facility] , [place] [address], Ph. 04/18/2022 Dementia; Congestive Heart Failure; Atri al Fibrillation; Benign Prostatic Hyperplasia; Essential Hypertension; Osteoporosis; At Risk for Falls; Chronic Obstructive Lung Disease; Gastroesophageal Reflux Disease without Esophagitis; Seizure Disorder Carmen Hameed HARVESTING MANAGER: 36 [facility] , [place] [address], Ph. History of Present Illness Note: <div>seen [...]
--- OUTSIDE RECORDS SUMMARY | 2022-07-03 12:23 | XMS_ITS | Encounter Summary ---
:1935 Author Care Team Providers Name Role Phone Genaro Mancini Primary Care Provider [phone] Milton Serena 2nd Floor OTHER [phone] Reason for Visit Acute Rounding Visit Assessment [...] Code Code System Name Reaction Severity Onset 684 RxNorm Cortisone ? ? ? Problems Name [...] mRNA, LNP-S, PF, 30 mcg/0.3 mL dose ([employer]) 11/23/2020 12/20/2020 10/01/2021 influenza, high-dose, quadrivalent 06/28/2021 Tdap 05/28/2021 Social History Tobacco Smoking Status Former Smoker Notes: quit What is your level of alcohol None consumption? Has tobacco cessation counseling been N N otes: n/a as pt no longer provided? smokes What is your code status? DNR/DNI Do you have a medical power of Y Notes: invoked personal injury attorney? What was the date of your [...] do you live? Apartment Notes: lives in [facility] with his wif e What is your relationship status? Functional Status Unknown. Past Encounters 07/02/2022 Blood in Urine Carmen Hameed DUMP WORKER: [address] [place] [address], Ph. 06/30/2022 Chronic Kidney Disease Stage 4; Dementia Carmen Hameed DUMP WORKER: [address] [place] [address], Ph. 06/13/2022 Chronic Obstructive Lung Disease; Benign Prostatic Hyperplasia; Atrial Fibrillation; Essential Hypertension; Chronic Kidney Disease Stage 4; Gastroesophageal Reflux Disease without Esophagitis; Mixed Anxiety and Depressive Disorder Janine Tam MD: 36 [facility] [place] [address], Ph. 06/11/2022 Chronic Obstructive Lung Disease; Mukesh ia; Congestive Heart Failure; Atrial Fibrillation; Benign Prostatic Hyperplasia; Essential Hypertension; Osteoporosis; At Risk for Falls; Gastroesophageal Reflux Disease without Esophagitis; Seizure Dis order; Chronic Kidney Disease Stage 4 Carmen Hameed DUMP WORKER: [address] [place] [address], Ph. History of Present Illness Note: <div>seen [...]
--- NOTE | 2022-07-03 12:38 | PM.GICN ---
History of Present Illness Data of Consult Service Date: 07/03/22 Requesting physician: Claudia Pham Primary Care Provider: Kai Silva MD HPI Reason for consult: UGI bleeding 87 YM with hx of COPD on 2 L of O2 at baseline, CHF, history of PE, AFib on Eliquis, BPH with bladder outlet obstruction on finasteride, history of seizures, depression, PE, anemia, BPH, GERD seen at [facility] ED this morning with c/o having BM this AM and BICYCLE REPAIRER noted it was black x 1. Pt presented to the ED via EMS due to an episode of melena x1 noted by his an aide at [facility] where he has been residing since discharge from 06/10 for [place] and COPD exacerbation Pt denies heartburn, nausea, vomiting, abdominal pain or change in appetite Pt has end-stage renal disease but declines hemodialysis.? Labs in the ED showed H/H of 6.1/20.4 (baseline 7.4, 24.5%), Creatinine 9.16, BUN 122, creatinine clearance 4.4, sodium 159, chloride 113, potassium 4.3.? INR 1.1, PT 12.4.? UA with 3+ protein, 3+ blood, trace leuks, trace bacteria, urine osmolality 341, urine sodium 74.? The patient does endorse fatigue but denies any fevers, chills, nausea, vomiting, lightheadedness, palpitations, shortness of breath, or chest pain.? He does endorse some dysphagia initially reported by his daughter Pt is DNR/DNI do not transfer but family wanted him sent to the ED for evaluation. Of note, the pt was discharged from [facility] on 06/10/22 after management of acute kidney injury on CKD, as well as chronic anemia due to CKD.? The patient was supposed to have been discharged on hospice but according to his daughter he is not actually on hospice yet.? He is DNR/DNI but is agreeable to hospitalization as well as Gastroenterology evaluation for acute blood loss anemia with Review of Systems Neurologic: Reports confusion Psychiatric: Psychiatric: Reports confusion PMFSH Past Medical History Medical History Afib Bladder outlet obstruction Bladder outlet obstruction CHF (congestive heart failure) Elevated PSA Elevated PSA History of COPD History of seizures On home oxygen therapy Pulmonary embolus Family History Family History Other No family history of coronary artery disease Surgical History Surgical History No pertinent past surgical history Social History Social History Housing: Half-Way Alcohol intake: unknown Patient Tobacco Use Status: Former Tobacco user Use of substances other than those prescribed or required for medical reasons: No Currently Displaying Signs/Symptoms of Drug Intoxication Withdrawal: No Have you been hit, kicked, punched, or otherwise hurt by someone within the past year? If so, by whom?: No Do you feel safe in your current relationship?: No Current Relationship Is there a partner from a previous relationship who is making you feel unsafe now?: No Are you made to feel afraid or neglected: No Advance Directives: Yes Advance Directives on File: Yes Advance Directives Date on File: 07/03/22 Do you have thoughts of harming others: None Do you have a plan to hurt others: No Plan Recently lost weight without trying: Unsure Nutrition Risks: Difficulty chewing, Difficulty swallowing and On aspiration precautions service: No Current occupational status: retired Meds Allergies Allergy/AdvReac Type Severity Reaction Status Date / Time No Known Allergies Allergy Verified 12/25/21 08:19 Active Medications: Current Medications Acetaminophen (Acetaminophen 325 Mg Tablet) 650 mg PO Q6H PRN PRN Reason: Pain, Mild (Pain Scale 1-3) Amlodipine Besylate (Amlodipine Besylate 5 Mg Tablet) 5 mg PO DAILY IGNACIO; Protocol Digoxin (Digoxin 0.125 Mg Tablet) 0.0625 mg PO Q48H INGACIO Docusate Sodium (Docusate Sodium 100 Mg Capsule) 100 mg PO DAILY PRN PRN Reason: Constipation Finasteride (Finasteride 5 Mg Tablet) 5 mg PO DAILY IGNACIO Fluticasone/Vilanterol (Fluticasone/Vilanterol 100/25 Blst.W.Dev) 1 puff INHALE RDAILY IGNACIO Dextrose (D5w) 1,000 mls @ 100 mls/hr IVCONT .Q10H IGNACIO Ondansetron HCl (Ondansetron Hcl 4 Mg/2 Ml Vial) 4 mg IVPUSH Q8H PRN PRN Reason: Nausea and Vomiting Pharmacy Consult (Consult Rx Perform Med Rec) 1 each MISCELLANE ONCE PRN PRN Reason: Consult order Sertraline HCl (Sertraline Hcl 25 Mg Tablet) 25 mg PO DAILY [facility] Sodium Chloride (0.9 % Sodium Chloride Flush 3 Ml Syringe) 3 ml IVFLUSH QSHIFT [facility] Tamsulosin HCl (Tamsulosin Hcl 0.4 Mg Capsule) 0.4 mg PO BEDTIME [facility] Tiotropium Laurel (Tiotropium Laurel 18 Mcg Cap.W.Dev) 1 puff INHALE RDAILY [facility] Home Medications Medication Instructions Recorded Confirmed Last Taken Type amlodipine 5 mg tablet 1 tab PO DAILY 04/16/22 07/03/22 06/07/22 History apixaban 2.5 mg tablet (Eliquis) 1 tab PO BID 04/16/22 07/03/22 06/07/22 History fluticasone fur. 100 mcg-umeclid 1 puff inhalation DAILY 04/16/22 07/03/22 06/07/22 History 62.5 mcg-vilant 25 mcg inhalat.powder (Trelegy Ellipta) pantoprazole 40 mg tablet,delayed 1 tab PO DAILY@0630 04/16/22 07/03/22 06/07/22 History release sertraline 25 mg tablet 1 tab PO DAILY 04/16/22 07/03/22 06/07/22 History digoxin 125 mcg (0.125 mg) tablet 62.5 mcg PO Q48H 07/03/22 07/03/22 Unknown History tamsulosin 0.4 mg capsule 0.4 mg PO BEDTIME 07/03/22 07/03/22 Unknown History Physical Exam Vital Signs: Vital Signs: Last Vital Signs Temp 97.5 F 07/03/22 09:55 Pulse 72 07/03/22 09:55 Resp 16 07/03/22 09:55 BP 124/61 07/03/22 09:55 Pulse Ox 98 07/03/22 07:21 O2 Del Method 07/03/22 07:21 Oxygen Flow Rate 2 07/03/22 07:21 BMI result Body Mass Index 17.7 Const: General: no acute distress, confusion, ill appearing and other (frail appearing) Nutritional Appearance: underweight Orientation/consciousness: confusion HEENT: Head: Yes normal to inspection Ears: hearing grossly normal bilaterally Eyes: Sclerae: sclerae normal Pupils: Equal, round and reactive pupils present Neck: Neck: Yes normal visual inspection Chest: Chest palpation & inspection: normal inspection of the chest Resp: Effort & Inspection: normal respiratory effort Auscultation: clear to auscultation bilaterally Cardio: Palpation: normal PMI Rate: regular rate Rhythm: regular rhythm Heart sounds: S1 normal heart sound present, S2 normal heart sound present and no murmurs GI: Palpation (GI): Soft to palpation, nontender and No hepatosplenomegaly present Auscultation: normal bowel sounds Rectal Exam - Male: Yes deferred Skin: General skin exam: no rashes or lesions noted Neuro: General: gait normal, moves all extremities and confusion Cranial nerves: Yes Equal, round and reactive pupils present Psych: Appearance: grossly normal Mental Status: other (Confused) Results Labs CBC & Chem 7: 07/05/22 06:49 07/05/22 06:49 Labs: Short CBC 07/03/22 Range/Units 07:57 WBC 5.8 (4.8-10.8) X10*3/uL Hgb 6.1 L* (14.0-18.0) g/dl Hct 20.4 L* (42.0-52.0) % Plt Count 127 L (160-400) X10*3/uL BMP 07/03/22 07:57 Sodium 159 H Potassium 4.3 Chloride 113 H Carbon Dioxide 28 BUN 122 H Creatinine 9.16 H* Calcium 9.3 Liver Function 07/03/22 Range/Units 07:57 Total Bilirubin 0.4 (0.0-1.0) mg/dL Direct Bilirubin 0.2 (0.0-0.5) mg/dL AST 19 (5-37) U/L ALT 8 (0-40) U/L Alkaline Phosphatase 74 (39-117) U/L Albumin 3.0 L (3.5-5.0) g/dL Assessment and Plan (1) Melena: Status: Acute (2) Anemia: Qualifiers: Anemia type: due to chronic kidney disease Status: Acute Plan 87 YM with hx of COPD on 2 L of O2 at baseline, CHF, AFib on Eliquis, BPH with bladder outlet obstruction on finasteride, history of seizures, depression, PE, anemia, BPH, GERD seen at [facility] ED this morning with c/o having BM this AM and BICYCLE REPAIRER noted it was black x 1. Melena is likely due to PUD, stress gastritis, erosive esophagitis or GI AVMs Its unclear if pt has had past evaluation with an EGD or colon (no records in [facility] [employer] [facility]) Pt had severe anemia which has improved after blood transfusion The patient was supposed to have been discharged on hospice after his recent hospitalization but according to his daughter he is not actually on hospice yet.? RECOMMENDATIONS: 1. Monitor H & H twice daily x 24 hrs. 2. IV PPI 3. Given patient's age and multiple comorbidities and since family is planning to transition to hospice care, hold off any invasive procedures. Discussed with patient's daughter (Ml Fritz at [phone]) who agrees with the plan. Procedures Date of Service Date of Service: 07/03/22
--- NOTE | 2022-07-03 13:28 | PM.IMHP ---
History of Present Illness Date of Service: 07/03/22 Attending physician on admission: Emma Miranda Chief Complaint: melena 87-year-old male with past medical history of COPD on 2 L of O2 at baseline, CHF, history of PE, AFib on Eliquis, bladder outlet obstruction on finasteride, history of seizures, depression, who comes in from assisted after being discharged on 04/17 for management of acute kidney injury on CKD, as well as chronic anemia due to CKD presented to the ED via EMS due to an episode of melena x1 noted by his an aide at [facility] where he has been residing since discharge from 06/10 for [place] and COPD exacerbation. The patient was supposed to have been discharged on hospice but according to his daughter he is not actually on hospice yet. He is DNR/DNI but is agreeable to hospitalization as well as Gastroenterology evaluation for acute blood loss anemia with H/H of 6.1/20.4 (baseline 7.4, 24.5%). Has end-stage renal disease but declines hemodialysis. Creatinine 9.16, BUN 122, creatinine clearance 4.4, sodium 159, chloride 113, potassium 4.3. INR 1.1, PT 12.4. UA with 3+ protein, 3+ blood, trace leuks, trace bacteria, urine osmolality 341, urine sodium 74. The patient does endorse fatigue but denies any fevers, chills, nausea, vomiting, lightheadedness, palpitations, shortness of breath, or chest pain. He does endorse some dysphagia initially reported by his daughter. Review of Systems Review of Systems: General: No fevers, malaise, unintentional weight loss HEENT: No blurred vision or diplopia Cardiovascular: No chest pain, palpitations, or leg edema Respiratory: No shortness of breath, wheezing, cough GI: +melena. No abdominal pain, nausea, vomiting, diarrhea, constipation, hematochezia : + limited urinary output with weak stream. No dysuria, hematuria MSK: Denies myalgias Neuro: No headaches, weakness, paresthesias Skin: No rashes or lesions [facility] Medical History Afib Bladder outlet obstruction Bladder outlet obstruction CHF (congestive heart failure) Elevated PSA Elevated PSA History of COPD History of seizures On home oxygen therapy Pulmonary embolus Family History Other No family history of coronary artery disease Surgical History No pertinent past surgical history Social History Alcohol intake: unknown Patient Tobacco Use Status: Former Tobacco user Advance Directives: Yes Advance Directives on File: Yes Advance Directives Date on File: 07/03/22 service: No Current occupational status: retired [employer] Allergies Allergy/AdvReac Type Severity Reaction Status Date / Time No Known Allergies Allergy Verified 12/25/21 08:19 Active Medications: Current Medications Acetaminophen (Acetaminophen 325 Mg Tablet) 650 mg PO Q6H PRN PRN Reason: Pain, Mild (Pain Scale 1-3) Amlodipine Besylate (Amlodipine Besylate 5 Mg Tablet) 5 mg PO DAILY IGNACIO; Protocol Digoxin (Digoxin 0.125 Mg Tablet) 0.0625 mg PO Q48H [facility] Docusate Sodium (Docusate Sodium 100 Mg Capsule) 100 mg PO DAILY PRN PRN Reason: Constipation Finasteride (Finasteride 5 Mg Tablet) 5 mg PO DAILY [facility] Fluticasone/Vilanterol (Fluticasone/Vilanterol 100/25 Blst.W.Dev) 1 puff INHALE RDAILY [facility] Dextrose (D5w) 1,000 mls @ 100 mls/hr IVCONT .Q10H [facility] Ondansetron HCl (Ondansetron Hcl 4 Mg/2 Ml Vial) 4 mg IVPUSH Q8H PRN PRN Reason: Nausea and Vomiting Pharmacy Consult (Consult Rx Perform Med Rec) 1 each MISCELLANE ONCE PRN PRN Reason: Consult order Sertraline HCl (Sertraline Hcl 25 Mg Tablet) 25 mg PO DAILY [facility] Sodium Chloride (0.9 % Sodium Chloride Flush 3 Ml Syringe) 3 ml IVFLUSH QSHIFT [facility] Tamsulosin HCl (Tamsulosin Hcl 0.4 Mg Capsule) 0.4 mg PO BEDTIME [facility] Tiotropium [place] (Tiotropium [place] 18 Mcg Cap.W.Dev) 1 puff INHALE RDAILY [facility] Home Medications Medication Instructions Recorded Confirmed Last Taken Type amlodipine 5 mg tablet 1 tab PO DAILY 04/16/22 07/03/22 06/07/22 History apixaban 2.5 mg tablet (Eliquis) 1 tab PO BID 04/16/22 07/03/22 06/07/22 History fluticasone fur. 100 mcg-umeclid 1 puff inhalation DAILY 04/16/22 07/03/22 06/07/22 History 62.5 mcg-vilant 25 mcg inhalat.powder (Trelegy Ellipta) pantoprazole 40 mg tablet,delayed 1 tab PO DAILY@0630 04/16/22 07/03/22 06/07/22 History release sertraline 25 mg tablet 1 tab PO DAILY 04/16/22 07/03/22 06/07/22 History digoxin 125 mcg (0.125 mg) tablet 62.5 mcg PO Q48H 07/03/22 07/03/22 Unknown History tamsulosin 0.4 mg capsule 0.4 mg PO BEDTIME 07/03/22 07/03/22 Unknown History Physical Exam Vital Signs and Narrative: Vital Signs: Last Vital Signs Temp 97.5 F 07/03/22 09:55 Pulse 72 07/03/22 09:55 Resp 16 07/03/22 09:55 BP 124/61 07/03/22 09:55 Pulse Ox 98 07/03/22 07:21 O2 Del Method 07/03/22 07:21 Oxygen Flow Rate 2 07/03/22 07:21 BMI result Body Mass Index 17.7 Constitutional - Awake and Alert, No apparent distress, pallor Eyes - PERRLA, EOMI Cardiovascular - S1S2, RRR, No edema Respiratory - Normal lung expansion, Normal respiratory effort, No respiratory distress, CTA bilaterally Gastrointestinal - NT / ND; +BS; No rebound or guarding Extremities - no calf tenderness bilaterally, no swelling Skin - Warm/Dry, pallor Neurological - Alert & oriented x2, CN II -XII in tact. 4/5 strength BUE and BLE Results Labs CBC and Chem 7: 07/03/22 07:57 07/03/22 07:57 Labs: Laboratory Results - last 24 hr 07/03/22 07/03/22 07/03/22 07:34 07:57 07:57 MCV 95.3 MCH 28.5 MCHC 29.9 L RDW 20.7 H Plt Count 127 L MPV 11.1 Immature Gran % (Auto) 1.4 H Neut % (Auto) 82.3 H Lymph % (Auto) 6.7 L [place] % (Auto) 6.2 Eos % (Auto) 2.9 Baso % (Auto) 0.5 Lymph # (Auto) 0.4 L [place] # (Auto) 0.4 Eos # (Auto) 0.2 Baso # (Auto) 0.0 Abs Immat Gran (auto) 0.08 H Absolute Neuts (auto) 4.8 Absolute Nucleated RBC 0.000 Nucleated RBC % (auto) 0.0 Smear Path Review SEE NOTE PT INR APTT Anion Gap 22 H Estim Creat Clear Calc 4.4 Estimated GFR 5 Random Glucose 109 D Lactic Acid Calcium 9.3 Magnesium 2.3 Total Bilirubin 0.4 Direct Bilirubin 0.2 AST 19 ALT 8 Alkaline Phosphatase 74 Troponin I High Sens Total Protein 5.8 L Albumin 3.0 L Lipase 19 Stool Occult Blood POSITIVE Digoxin COVID-19 (VINCE) COVID-19 Clin Com Blood Type Antibody Screen Crossmatch 07/03/22 07/03/22 07/03/22 07:57 07:57 07:57 MCV MCH MCHC RDW Plt Count MPV Immature Gran % (Auto) Neut % (Auto) Lymph % (Auto) [place] % (Auto) Eos % (Auto) Baso % (Auto) Lymph # (Auto) [place] # (Auto) Eos # (Auto) Baso # (Auto) Abs Immat Gran (auto) Absolute Neuts (auto) Absolute Nucleated RBC Nucleated RBC % (auto) Smear Path Review PT INR APTT Anion Gap Estim Creat Clear Calc Estimated GFR Random Glucose Lactic Acid 0.7 Calcium Magnesium Total Bilirubin Direct Bilirubin AST ALT Alkaline Phosphatase Troponin I High Sens 93.3 H Total Protein Albumin Lipase Stool Occult Blood Digoxin COVID-19 (VINCE) Negative COVID-19 Clin Com See Note Blood Type Antibody Screen Crossmatch 07/03/22 07/03/22 07/03/22 07:57 07:57 08:36 MCV MCH MCHC RDW Plt Count MPV Immature Gran % (Auto) Neut % (Auto) Lymph % (Auto) [place] % (Auto) Eos % (Auto) Baso % (Auto) Lymph # (Auto) [place] # (Auto) Eos # (Auto) Baso # (Auto) Abs Immat Gran (auto) Absolute Neuts (auto) Absolute Nucleated RBC Nucleated RBC % (auto) Smear Path Review PT 12.4 INR 1.1 APTT 29.0 Anion Gap Estim Creat Clear Calc Estimated GFR Random Glucose Lactic Acid Calcium Magnesium Total Bilirubin Direct Bilirubin AST ALT Alkaline Phosphatase Troponin I High Sens Total Protein Albumin Lipase Stool Occult Blood Digoxin 0.6 L COVID-19 (VINCE) COVID-19 Clin Com Blood Type O Positive Antibody Screen NEGATIVE Crossmatch See Detail Assessment and Plan (1) Anemia: Qualifiers: Anemia type: due to chronic kidney disease Status: Acute (2) Melena: Status: Acute Plan 87-year-old male with past medical history of COPD on 2 L of O2 at baseline, CHF, history of PE, AFib on Eliquis, bladder outlet obstruction on finasteride, history of seizures, depression to be admitted for severe anemia with upper GI bleed. # acute on chronic normocytic anemia-likely secondary to UGIB -H/H 6.1/20.4%, heme-positive stool -reticulocyte count, ferritin, iron panel add on -transfused 2 units in ED -admit to telemetry for monitoring -follows CBC and BMP tomorrow # upper GI bleed with melena causing acute worsening of anemia -noted to have melena at nursing facility with heme-positive stool -gastroenterology consulted. Patient is DNR/DNI but family does wish to have gastro evaluate patient -IV PPI # dysphagia likely secondary to GERD -IV PPI -GI consult -NPO for now pending speech eval # hypernatremia -sodium chronically elevated likely secondary to anemia but acutely elevated at 159 -free water calculated at 100. gentle hydration with D5W -BMP q.6h -hold home sodium bicarb # ESRD -no acute kidney injury -patient and family declined HD-discussed with daughter on the phone and MOLST form updated # CHF, unspecified type without acute exacerbation -BNP is pending -gentle hydration as above for correction of hypernatremia # chronic atrial fibrillation-rate controlled at 67 -hold Eliquis due to upper GI bleed -continue digoxin. Digital level 0.6 -not on rate control # HTN-controlled -continue amlodipine # BPH with bladder outlet obstruction -continue finasteride # depression -continue sertraline # COPD with chronic hypoxic respiratory failure without acute exacerbation -continue home O2 at 2 L. oximetry stable 97% -continue home maintenance inhalers -albuterol p.r.n. DVT prophylaxis-hold Eliquis due to upper GI bleed. Mechanical/ambulation DNR/DNI-discussed MOLST form With patient and daughter. Patient family interested in hospice potentially. Patient requires inpatient stay of at least 2 midnights due to severe anemia requiring blood transfusion with upper GI bleed requiring close monitoring of blood counts and further GI workup to determine an etiology. Quality Stroke Does the patient have a stroke diagnosis?: No VTE Prior VTE?: No VTE Risk Level:: Medical - moderate - high VTE Device Contraindication: N/A - Device Ordered VTE Drug Contraindication: Treatment Not Tolerated
[2022-07-03 14:10] LABS: Immature Retic Fraction 20.9 % (2.3-13.4); Retic HGB Equivalent 30.5 pg (30.0-35.0); Reticulocyte Percent 1.3 % (0.5-1.8); Reticulocytes Absolute 0.028 X10*6/uL (0.026-0.095)
[2022-07-03 14:24] LABS: Iron 46 mcg/dL (45-160); Percent Iron Saturation 22 % (15-50); Total Iron Binding Capacity 210 mcg/dL (228-428); Unsaturated Iron Binding 164 ug/dL
[2022-07-03 14:38] LABS: Ferritin 292 ng/mL (20-250)
[2022-07-03 15:06] LABS: Glucose Random 94 mg/dL (60-115)
[2022-07-03 15:07] LABS: Calcium 9.2 mg/dL (8.4-10.2)
[2022-07-03 15:08] LABS: Creatinine Clr Calc Pharmacy 4.5; Estimated Glomerular Filt Rate 6
[2022-07-03 15:17] LABS: Anion Gap 24 (12-20); Blood Urea Nitrogen 118 mg/dL (9-16); Carbon Dioxide 25 mmol/L (22-29); Chloride 114 mmol/L (96-108); Potassium 4.5 mmol/L (3.3-5.1); Sodium 158 mmol/L (135-145)
--- NOTE | 2022-07-03 17:15 | MHC.SL.SWA ---
Addendum entered and electronically signed by MANNY Mayers 07/03/22 17:52: SW Original Note: Speech Pathologist Impression: Oropharyngeal Dysphagia Risk of Aspiration Due to: Poor PO Intake Weak Cough Weak Voice Dysphasia Diet Status: UPGRADE from NPO to NDD2 & NECTAR Liquid Consistency and Strategies for Safe Swallow: Liquid Intake Recommendation: [place] Thick Liquid Intake Strategies: Small Sips Solid Food Consistency: Dietary Recommendations: Grnd/Mech Altered (NDD2) Additional Modifications to Solid Foods: Moisten with sauces/gravy Oral Medication Intake: Crushed with Puree Please contact the pharmacy regarding appropriate crushable or liquid drug formulations that are available whenever modified delivery is recommended. Compensatory Strategies and Precautions to be Taken for Safe Swallow: Sitting Upright (90 deg) No Straw Liquids from Cup Liquids from Spoon Small Bites and Sips Alternate Liquids/Solids Oral Check Supervision While Eating and Drinking for Safe Swallow: Total Assistance (1:1) Foods to Avoid: Avoid sticky and tough to chew foods Swallowing Recommended Treatments: Compens. Strategy Educat. Recommendation for Speech: Outpatient Speech Therapy Inpatient Speech Therapy Comment: Per Milton Lyons, pt's baseline is regular solids and thin liquids. Pt presents with oropharyngeal dysphagia. Pt is edentulous. Recommend UPGRADE to GROUND/MECH ALTERED and NECTAR THICK liquid, pills CRUSHED in puree. Recommend 1:1 assistance d/t pt reporting that he doesn't like to hold the cup himself to drink. Recommend alternate liquids & solids. Please check oral cavity for residue. Do not introduce additional food until lingual residue is cleared or trace amount. FRONT OFFICE ASSOCIATE will continue to follow. Message sent to PA, RN, and RD via [employer]. Risk Assessment Analyst Clinican/Clinical Fellow: Yes: Anabella Lauren M.A., CF-FRONT OFFICE ASSOCIATE Supervisory Statement: I have reviewed and agree with the student/clinical fellow's documentation: Speech Language Pathologist:
[2022-07-03] MEDS: Dextrose 5 % 1,000 ML 100 ML IVCONT (17:18)
[2022-07-03 20:39] LABS: Anion Gap 22 (12-20); Blood Urea Nitrogen 119 mg/dL (9-16); Carbon Dioxide 25 mmol/L (22-29); Chloride 114 mmol/L (96-108); Creatinine Clr Calc Pharmacy 4.6; Estimated Glomerular Filt Rate 6; Glucose Random 119 mg/dL (60-115); Potassium 4.4 mmol/L (3.3-5.1); Sodium 157 mmol/L (135-145)
--- NOTE | 2022-07-03 21:10 | MHC.CM.PN ---
Attempted to meet with patient regarding D/C planning. Pt sleeping. No family at bedside. Will complete when patient wakes. CM to follow for d/c needs.
[2022-07-03] MEDS: Tamsulosin HCL 0.4 MG CAPSULE PO (23:46)
[2022-07-04] VITALS (7 sets, daily range): BP systolic 126–149; BP diastolic 59–92; PULSE 55–78; RESP 16–19; TEMP 36.3–37.3; O2SAT 93–99; BMI 17.7
[2022-07-04] MEDS: Dextrose 5 % 1,000 ML 100 ML IVCONT (02:19)
[2022-07-04 02:59] LABS: Anion Gap 23 (12-20); Blood Urea Nitrogen 116 mg/dL (9-16); Calcium 8.7 mg/dL (8.4-10.2); Carbon Dioxide 23 mmol/L (22-29); Chloride 112 mmol/L (96-108); Creatinine Clr Calc Pharmacy 4.6; Estimated Glomerular Filt Rate 6; Glucose Random 109 mg/dL (60-115); Potassium 4.5 mmol/L (3.3-5.1); Sodium 153 mmol/L (135-145)
[2022-07-04] MEDS: Pantoprazole Sodium 40 MG/10 ML VIAL IVPUSH ×2 (06:23→15:57)
[2022-07-04 06:45] LABS: MANUAL DIFF FLAG NO
[2022-07-04 06:54] LABS: Basophils Percent Auto 0.6 % (0-2); Eosinophils Absolute Auto 0.3 X10*3/uL (0.0-0.4); Eosinophils Percent Auto 3.8 % (0-4); Hematocrit 29.3 % (42.0-52.0); Hemoglobin 9.4 g/dl (14.0-18.0); Imm Gran Abs Auto 0.11 X10*3/uL (0.00-0.03); Imm Gran Pct Auto 1.7 % (0.0-0.4); Lymphocytes Absolute Auto 0.5 X10*3/uL (1.2-4.9); Lymphocytes Percent Auto 6.8 % (20-40); Mean Corpuscular HGB Conc 32.1 g/dl (31.0-36.0); Mean Corpuscular Hemoglobin 30.6 pg (27.0-33.0); Mean Corpuscular Volume 95.4 fL (80.0-98.0); Mean Platelet Volume 11.2 fL (9.4-12.4); Monocytes Absolute Auto 0.3 X10*3/uL (0.1-1.2); Monocytes Percent Auto 4.4 % (2-11); Neutrophils Absolute Auto 5.4 x10*3/uL (2.0-8.3); Neutrophils Percent Auto 82.7 % (45-73); Platelet Count 133 X10*3/uL (160-400); Red Blood Count 3.07 X10*6/uL (4.60-5.80); Red Cell Distribution Width 17.2 % (11.0-16.0); White Blood Count 6.6 X10*3/uL (4.8-10.8)
[2022-07-04 07:11] LABS: B Type Natriuretic Peptide 2889 pg/mL (<100)
[2022-07-04] MEDS: Fluticasone/Vilanterol 100/25 BLST.W.DEV 1 PUFF INHALE (07:34)
[2022-07-04 07:57] LABS: Anion Gap 21 (12-20); Blood Urea Nitrogen 115 mg/dL (9-16); Calcium 8.6 mg/dL (8.4-10.2); Carbon Dioxide 25 mmol/L (22-29); Chloride 111 mmol/L (96-108); Creatinine Clr Calc Pharmacy 4.7; Estimated Glomerular Filt Rate 6; Glucose Random 124 mg/dL (60-115); Potassium 4.2 mmol/L (3.3-5.1); Sodium 153 mmol/L (135-145)
--- NOTE | 2022-07-04 08:36 | P.CDIC_ITS ---
CDI Concurrent Query Documentation Clarification: PHYSICIAN'S DOCUMENTATION REQUEST Date of Query: 07/04/22 0836 Patient Name: Khoa Ag Admit Date: 07/03/22 Dear Doctor, A review of the medical record indicates additional documentation may be needed. Please review below and update the documentation accordingly. Clinical Indicators: Risk Factors/Clinical Indicators/Treatments Acute on chronic anemia secondary to UGIB. H/H 6.1/20.4%, heme-positive stool. Transfuse 2 units in the ED. Upper GI bleed with melena causing acute worsening of anemia Family does not wish to have Gastro evaluate patient. Based on the above, could you clarify in the Progress Notes which of the following is the most likely type of anemia you are evaluating, treating, and/or monitoring? * Acute blood loss anemia * Acute blood loss anemia with baseline chronic anemia (specify type) * Anemia of chronic disease- indicate if neoplastic disease, CKD, or other * Chronic iron deficiency anemia due to blood loss * Acute on chronic anemia due to blood loss * Other ? please specify * Unable to determine Use of terms such as suspected, likely, concern for, or probable (associated with a specific diagnosis that is being evaluated, monitored, or treated as if it exists) are acceptable and can be coded in the inpatient setting, when documented at the time of discharge. Thank you, [facility], CDIS Extension: [id number] Please use your independent medical judgment in providing your response. THIS QUERY IS PART OF THE PERMANENT MEDICAL RECORD Provider Response: Other Other Diagnosis: Acute blood loss anemia secondary to UGIB with baseline chronic normocytic anemia r/t ESRD
[2022-07-04] MEDS: amLODIPine Besylate 5 MG TABLET PO (09:12)
[2022-07-04] MEDS: Finasteride 5 MG TABLET PO (09:12)
[2022-07-04] MEDS: Digoxin 0.125 MG TABLET 0.0625 MG PO (09:12)
[2022-07-04] MEDS: Sertraline HCL 25 MG TABLET PO (09:12)
[2022-07-04] MEDS: 0.9 % Sodium Chloride Flush 3 ML SYRINGE IVFLUSH ×3 (09:17→21:08)
--- NOTE | 2022-07-04 09:28 | MHC.CM.PN ---
CM ATTEMPTED TO MEET WITH PT, LETHARGIC, UNABLE TO PARTICIPATE IN INTAKE PROCESS. CALL PLACED TO DAUGHTER/HCP EDIL WHO STATES SHE WILL CALL BACK WHEN SHE IS FREE. WILL CONTINUE TO FOLLOW.
--- NOTE | 2022-07-04 10:30 | MHC.SLORD ---
Addendum entered and electronically signed by Edith León MA, CCC-CLASSIFYING MACHINE OPERATOR 07/04/22 17:42: D.S. Original Note: Speech Language Pathology Order Status: Attempted to see pt for bedside swallow re-evaluation to monitor for toleration of diet and possible upgrade. Pt was sleeping upon arrival, awoke to verbal stimuli. Pt refused PO trials. Pt expressed interest in coffee and when offered coffee, he responded he would drink it later. Breakfast tray in room looks untouched with ground pancakes, eggs, and nectar thick coffee. Per VETERINARIAN HELPER, pt refused to eat breakfast this morning. Per RN, pt took a few bites of applesauce with meds and a few sips of thickened orange juice and refused any additional PO. No observed coughing or complications. RN reports pt is following commands to swallow. CLASSIFYING MACHINE OPERATOR will continue to follow during hospitalization.
--- NOTE | 2022-07-04 10:43 | P.PNIM_ITS ---
Subjective Subjective Date of Service: 07/04/22 Interval History: Seen in follow up for acute blood loss anemia with UGIB Interval history- pt has no complaints. Sitting up comfortably in bed. Denies sob, palpitations, CP, abd pain, n/v. No BM yet to determine if further melena. Pritchett in place draining yellow urine. +3000ml. Review of Systems General: No fevers, malaise, unintentional weight loss Cardiovascular: No chest pain, palpitations, or leg edema Respiratory: No shortness of breath, wheezing, cough GI: No abdominal pain, nausea, vomiting, diarrhea, constipation, melena, hematochezia : pritchett in place, no hematuria Neuro: No headaches, weakness, paresthesias Skin: No rashes or lesions Physical Exam Vital Signs: Vital Signs: Last Vital Signs Temp 97.3 F 07/04/22 08:00 Pulse 58 07/04/22 08:00 Resp 18 07/04/22 08:00 BP 129/60 07/04/22 08:00 Pulse Ox 99 07/04/22 08:00 O2 Del Method 07/04/22 08:00 O2 Flow Rate 2 07/04/22 08:00 Oxygen Flow Rate 2 07/03/22 07:21 BMI result Body Mass Index 17.7 Constitutional - Awake and Alert, No apparent distress Eyes - PERRLA, EOMI Mouth- lips dry Cardiovascular - S1S2, RRR, No edema Respiratory - LLL crackles. Normal lung expansion, Normal respiratory effort, No respiratory distress on 2L O2 Gastrointestinal - NT / ND; +BS; No rebound or guarding Extremities - no calf tenderness bilaterally, no swelling Skin - Warm/Dry Neurological - Alert & oriented x3, No focal deficit Psychological - Appropriate affect Objective Data Active Medications Acetaminophen (Acetaminophen 325 Mg Tablet) 650 mg PO Q6H PRN PRN Reason: Pain, Mild (Pain Scale 1-3) Amlodipine Besylate (Amlodipine Besylate 5 Mg Tablet) 5 mg PO DAILY [facility]; Protocol Last Admin: 07/04/22 09:12 Dose: 5 mg Documented By: TEODORO Digoxin (Digoxin 0.125 Mg Tablet) 0.0625 mg PO Q48H [facility] Last Admin: 07/04/22 09:12 Dose: 0.0625 mg Documented By: TEODORO Docusate Sodium (Docusate Sodium 100 Mg Capsule) 100 mg PO DAILY PRN PRN Reason: Constipation Finasteride (Finasteride 5 Mg Tablet) 5 mg PO DAILY [facility] Last Admin: 07/04/22 09:12 Dose: 5 mg Documented By: TEODORO Fluticasone/Vilanterol (Fluticasone/Vilanterol 100/25 Blst.W.Dev) 1 puff INHALE RDAILY [facility] Last Admin: 07/04/22 07:34 Dose: 1 puff Documented By: JAIME Ondansetron HCl (Ondansetron Hcl 4 Mg/2 Ml Vial) 4 mg IVPUSH Q8H PRN PRN Reason: Nausea and Vomiting Pantoprazole Sodium (Pantoprazole Sodium 40 Mg/10 Ml Vial) 40 mg IVPUSH BID@0 630,1630 [facility] Last Admin: 07/04/22 06:23 Dose: 40 mg Documented By: JESSE Pharmacy Consult (Consult Rx Perform Med Rec) 1 each MISCELLANE ONCE PRN PRN Reason: Consult order Sertraline HCl (Sertraline Hcl 25 Mg Tablet) 25 mg PO DAILY [facility] Last Admin: 07/04/22 09:12 Dose: 25 mg Documented By: TEODORO Sodium Chloride (0.9 % Sodium Chloride Flush 3 Ml Syringe) 3 ml IVFLUSH QSHIFT [facility] Last Admin: 07/04/22 09:17 Dose: 3 ml Documented By: TEODORO Tamsulosin HCl (Tamsulosin Hcl 0.4 Mg Capsule) 0.4 mg PO BEDTIME [facility] Last Admin: 07/03/22 23:46 Dose: 0.4 mg Documented By: VINOD Tiotropium [place] (Tiotropium [place] 18 Mcg Cap.W.Dev) 1 puff INHALE RDAILY [facility] Last Admin: 07/04/22 07:33 Dose: 1 puff Documented By: JAIME Labs CBC & Chem 7: 07/04/22 06:21 07/04/22 06:21 Labs: Laboratory Results - last 24 hr 07/03/22 07/03/22 07/03/22 07:57 07:57 07:57 MCV MCH MCHC RDW Plt Count MPV Immature Gran % (Auto) Neut % (Auto) Lymph % (Auto) [place] % (Auto) Eos % (Auto) Baso % (Auto) Lymph # (Auto) [place] # (Auto) Eos # (Auto) Baso # (Auto) Abs Immat Gran (auto) Absolute Neuts (auto) Absolute Nucleated RBC Nucleated RBC % (auto) Absolute Retic 0.028 Percent Retic 1.3 Immature Retic Fraction 20.9 H Retic Hgb Equivalent 30.5 Anion Gap Estim Creat Clear Calc Estimated GFR Random Glucose Calcium Iron 46 TIBC 210 L % Saturation 22 Unsat Iron Binding 164 Ferritin 292 H B-Natriuretic Peptide Blood Type O Positive Antibody Screen NEGATIVE Crossmatch See Detail 07/03/22 07/03/22 07/04/22 14:30 19:47 01:57 MCV MCH MCHC RDW Plt Count MPV Immature Gran % (Auto) Neut % (Auto) Lymph % (Auto) [place] % (Auto) Eos % (Auto) Baso % (Auto) Lymph # (Auto) [place] # (Auto) Eos # (Auto) Baso # (Auto) Abs Immat Gran (auto) Absolute Neuts (auto) Absolute Nucleated RBC Nucleated RBC % (auto) Absolute Retic Percent Retic Immature Retic Fraction Retic Hgb Equivalent Anion Gap 24 H 22 H 23 H Estim Creat Clear Calc 4.5 4.6 4.6 Estimated GFR 6 6 6 Random Glucose 94 119 H 109 Calcium 9.2 9.0 8.7 Iron TIBC % Saturation Unsat Iron Binding Ferritin B-Natriuretic Peptide Blood Type Antibody Screen Crossmatch 07/04/22 07/04/22 07/04/22 06:21 06:21 06:21 MCV 95.4 MCH 30.6 MCHC 32.1 RDW 17.2 H Plt Count 133 L MPV 11.2 Immature Gran % (Auto) 1.7 H Neut % (Auto) 82.7 H Lymph % (Auto) 6.8 L [place] % (Auto) 4.4 Eos % (Auto) 3.8 Baso % (Auto) 0.6 Lymph # (Auto) 0.5 L [place] # (Auto) 0.3 Eos # (Auto) 0.3 Baso # (Auto) 0.0 Abs Immat Gran (auto) 0.11 H Absolute Neuts (auto) 5.4 Absolute Nucleated RBC 0.000 Nucleated RBC % (auto) 0.0 Absolute Retic Percent Retic Immature Retic Fraction Retic Hgb Equivalent Anion Gap 21 H Estim Creat Clear Calc 4.7 Estimated GFR 6 Random Glucose 124 H Calcium 8.6 Iron TIBC % Saturation Unsat Iron Binding Ferritin B-Natriuretic Peptide 2889 H Blood Type Antibody Screen Crossmatch Assessment and Plan (1) Melena: Status: Acute (2) Anemia: Status: Acute (3) CKD (chronic kidney disease): Status: Acute Plan 87-year-old male with past medical history of COPD on 2 L of O2 at baseline, CHF, history of PE, AFib on Eliquis, bladder outlet obstruction on finasteride, history of seizures, depression to be admitted for severe anemia with upper GI bleed. # acute on chronic normocytic anemia-likely secondary to UGIB -H/H 6.1/20.4%, heme-positive stool -reticulocyte count, ferritin, iron panel add on -transfused 2 units in ED -admit to telemetry for monitoring -follows CBC and BMP tomorrow # upper GI bleed with melena causing acute worsening of anemia -noted to have melena at nursing facility with heme-positive stool -gastroenterology consulted.? Patient is DNR/DNI but family does wish to have gastro evaluate patient -IV PPI # CHF, unspecified type with acute exacerbation -Fluid overload +3300 following D5W correction for hypernatremia -CLinically denies sob, orthopnea. -BNP 2800, baseline 1151- likely cardiorenal -Crackles LLL. Denies sob, orthopnea. CXR ordered showing small right sided pleural effusion -60mg IV lasix given one time -Renal consulted # oropharyngeal dysphagia -IV PPI -GI consult -evaluated by speech recommending ground/mechanical altered and nectar thick liquids with pills crushed in puree as well as 1 on 1 assistance -will need outpatient speech therapy # Poor PO intake with moderate malnutrition -Refusing food, with minimal fluid intake -Nutrition consult placed -Initial discussions surrounding hospice have taken place with family. # hypernatremia -Slight correction from 159 to 153. -REceived 1L NS. Free water calculated at 100. Received 2L D5W @100l/hr -Now with fluid overload +3300, only putting out 300ml urine -BMP q.6h -hold home sodium bicarb # ESRD -no acute kidney injury -FLuid overload +3300 with only 300ml urine output -patient and family declined HD-discussed with daughter on the phone and MOLST form updated # chronic atrial fibrillation-rate controlled at 67 -hold Eliquis due to upper GI bleed -continue digoxin.? Digital level 0.6 -not on rate control # HTN-controlled -continue amlodipine # BPH with bladder outlet obstruction -continue finasteride # depression -continue sertraline # COPD with chronic hypoxic respiratory failure without acute exacerbation -continue home O2 at 2 L. oximetry stable 97% -continue home maintenance inhalers -albuterol p.r.n. DVT prophylaxis-hold Eliquis due to upper GI bleed.? Mechanical/ambulation DNR/DNI-discussed MOLST form With patient and daughter.? Patient prognosis poor. No HD per MOLST form. Has upper GI bleed, high risk for procedure which would likely do little to add to the quality of his life. Now refusing most PO and fluid overloaded from IV with limited urine output secondary to ESRD. [facility] hospice with family Patient requires ongoing inpatient stay due to acute blood loss anemia of unclear etiology for further monitoring of blood counts and possible additional transfusion now in fluid overload requiring nephrology evaluation. Quality Stroke Does the patient have a stroke diagnosis?: No VTE Prior VTE?: No VTE Risk Level:: Medical - moderate - high VTE Device Contraindication: N/A - Device Ordered VTE Drug Contraindication: Treatment Not Tolerated
--- NOTE | 2022-07-04 13:59 | MHC.CLN ---
RE: CONSULT PT IS MODERATELY MALNOURISHED PT WITH MILDLY DEPLETED SUBCUTANEOUS FAT AMD MUSCLE MASS WITH BMI 17.7 PT IS FAMILIAR TO ME FROM PREVIOUS ADMISSION SEE CLINICAL NUTRITION ASSESSMENT DATED 04/17/22 PT REPORTED HIS APPETITE IS ALWAYS GOOD DIET RX: GRD M/S WITH NT LIQ-APPROPRIATE PER PRECISION MACHINE OPERATOR REC. RECOMMEND ADDING ENSURE BID TO INCREASE KCALS SUPP TO PROVIDE 700KCALS, 40G PROTEIN MONITOR PO INTAKE CLOSELY SEE ALSO CLINICAL NUTRITION ASSESSMENT
--- NOTE | 2022-07-04 14:01 | MHC.CM.PN ---
CM SPOKE WITH DAUGHTER/HCP VIA TELEPHONE FOR INTAKE, EDIL GRAY (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 RETURN REFERRAL SENT AND ACCEPTED IS A BED HOLD. USES W/C AT CENTER AND PRN [address] RONQUILLO. =HCP ON FILE. COVID VAX X4 AND ANNUAL FLU VAX. DAUGHTER HAS HAD CONSULT WITH [facility] AND IS CONSIDERING A SIGN ON WITH THEM WHEN PT STABILIZES AND RETURNS TO CENTER. REFERRAL MADE TO [facility] FOR F/U. dp: RETURN TO [facility] VIA BLS/ SIGN ON TO [facility] WHEN RETURNS TO [place].
--- NOTE | 2022-07-04 15:33 | P.EN_ITS ---
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 Patrick
[2022-07-04] MEDS: Furosemide 100 MG/10 ML VIAL 60 MG IVPUSH (15:57)
[2022-07-04] MEDS: Dextrose 5 % 1,000 ML 75 ML IVCONT (17:29)
[2022-07-04] MEDS: Tamsulosin HCL 0.4 MG CAPSULE PO (21:07)
[2022-07-04] MEDS: Furosemide 40 MG/4 ML VIAL IVPUSH (21:08)
[2022-07-05] VITALS (7 sets, daily range): BP systolic 117–151; BP diastolic 58–76; PULSE 56–88; RESP 16–20; TEMP 35.7–37.1; O2SAT 93–99
[2022-07-05] MEDS: Pantoprazole Sodium 40 MG/10 ML VIAL IVPUSH ×2 (06:23→17:49)
[2022-07-05] MEDS: Dextrose 5 % 1,000 ML 75 ML IVCONT ×2 (06:23→20:22)
[2022-07-05 07:06] LABS: MANUAL DIFF FLAG NO
[2022-07-05 07:17] LABS: Basophils Percent Auto 0.5 % (0-2); Eosinophils Absolute Auto 0.2 X10*3/uL (0.0-0.4); Eosinophils Percent Auto 2.6 % (0-4); Hematocrit 28.6 % (42.0-52.0); Hemoglobin 9.1 g/dl (14.0-18.0); Imm Gran Abs Auto 0.14 X10*3/uL (0.00-0.03); Imm Gran Pct Auto 2.3 % (0.0-0.4); Lymphocytes Absolute Auto 0.4 X10*3/uL (1.2-4.9); Lymphocytes Percent Auto 6.9 % (20-40); Mean Corpuscular HGB Conc 31.8 g/dl (31.0-36.0); Mean Corpuscular Hemoglobin 29.9 pg (27.0-33.0); Mean Corpuscular Volume 94.1 fL (80.0-98.0); Monocytes Absolute Auto 0.4 X10*3/uL (0.1-1.2); Monocytes Percent Auto 6.4 % (2-11); Neutrophils Percent Auto 81.3 % (45-73); Platelet Count 128 X10*3/uL (160-400); Red Blood Count 3.04 X10*6/uL (4.60-5.80); Red Cell Distribution Width 17.1 % (11.0-16.0); White Blood Count 6.1 X10*3/uL (4.8-10.8)
[2022-07-05] MEDS: Fluticasone/Vilanterol 100/25 BLST.W.DEV 1 PUFF INHALE (08:04)
--- NOTE | 2022-07-05 09:32 | P.PNIM_ITS ---
Subjective Subjective Date of Service: 07/05/22 Interval History: Seen in follow up for acute blood loss anemia with UGIB Interval history- pt has no complaints. Sitting up comfortably in bed. Denies sob, palpitations, CP, abd pain, n/v. BM last night without melena. Diuresing - 132.5ml yellow urine from pritchett Review of Systems General: No fevers, malaise, unintentional weight loss Cardiovascular: No chest pain, palpitations, or leg edema Respiratory: No shortness of breath, wheezing, cough GI: No abdominal pain, nausea, vomiting, diarrhea, constipation, melena, hematochezia : pritchett in place, no hematuria Neuro: No headaches, weakness, paresthesias Skin: No rashes or lesions Physical Exam Vital Signs: Vital Signs: Last Vital Signs Temp 96.8 F 07/05/22 06:53 Pulse 61 07/05/22 08:06 Resp 16 07/05/22 08:06 BP 122/64 07/05/22 06:53 Pulse Ox 96 07/05/22 06:53 O2 Del Method 07/05/22 06:53 O2 Flow Rate 2 07/05/22 04:00 Oxygen Flow Rate 2 07/03/22 07:21 BMI result Body Mass Index 17.7 Constitutional - Awake and Alert, No apparent distress Eyes - PERRLA, EOMI Mouth- lips dry Cardiovascular - S1S2, RRR, No edema Respiratory - Bibasilar crackles. Normal lung expansion, Normal respiratory effort, No respiratory distress on 2L O2 Gastrointestinal - NT / ND; +BS; No rebound or guarding : Pritchett in place draining yellow urine Extremities - no calf tenderness bilaterally, no swelling Skin - Warm/Dry Neurological - Alert & oriented x3, No focal deficit Psychological - Appropriate affect Objective Data Active Medications Acetaminophen (Acetaminophen 325 Mg Tablet) 650 mg PO Q6H PRN PRN Reason: Pain, Mild (Pain Scale 1-3) Amlodipine Besylate (Amlodipine Besylate 5 Mg Tablet) 5 mg PO DAILY [facility]; P rotocol Last Admin: 07/04/22 09:12 Dose: 5 mg Documented By: TEODORO Digoxin (Digoxin 0.125 Mg Tablet) 0.0625 mg PO Q48H [facility] Last Admin: 07/04/22 09:12 Dose: 0.0625 mg Documented By: TEODORO Docusate Sodium (Docusate Sodium 100 Mg Capsule) 100 mg PO DAILY PRN PRN Reason: Constipation Finasteride (Finasteride 5 Mg Tablet) 5 mg PO DAILY [facility] Last Admin: 07/04/22 09:12 Dose: 5 mg Documented By: TEODORO Fluticasone/Vilanterol (Fluticasone/Vilanterol 100/25 Blst.W.Dev) 1 puff INHALE RDAILY [facility] Last Admin: 07/05/22 08:04 Dose: 1 puff Documented By: GERMÁN Furosemide (Furosemide 40 Mg/4 Ml Vial) 40 mg IVPUSH TID [facility]; Protocol Last Admin: 07/04/22 21:08 Dose: 40 mg Documented By: AJ Dextrose (D5w) 1,000 mls @ 75 mls/hr IVCONT .[id number] [facility] Last Admin: 07/05/22 06:23 Dose: 75 mls/hr Documented By: AJ Ondansetron HCl (Ondansetron Hcl 4 Mg/2 Ml Vial) 4 mg IVPUSH Q8H PRN PRN Reason: Nausea and Vomiting Pantoprazole Sodium (Pantoprazole Sodium 40 Mg/10 Ml Vial) 40 mg IVPUSH BID@0630,1630 [facility] Last Admin: 07/05/22 06:23 Dose: 40 mg Documented By: AJ Pharmacy Consult (Consult Rx Perform Med Rec) 1 each MISCELLANE ONCE PRN PRN Reason: Consult order Sertraline HCl (Sertraline Hcl 25 Mg Tablet) 25 mg PO DAILY [facility] Last Admin: 07/04/22 09:12 Dose: 25 mg Documented By: TEODORO Sodium Chloride (0.9 % Sodium Chloride Flush 3 Ml Syringe) 3 ml IVFLUSH QSHIFT [facility] Last Admin: 07/04/22 21:08 Dose: 3 ml Documented By: JA Tamsulosin HCl (Tamsulosin Hcl 0.4 Mg Capsule) 0.4 mg PO BEDTIME [facility] Last Admin: 07/04/22 21:07 Dose: 0.4 mg Documented By: AJ Tiotropium [place] (Tiotropium [place] 18 Mcg Cap.W.Dev) 1 puff INHALE RDAILY [facility] Last Admin: 07/05/22 08:04 Dose: 1 puff Documented By: GERMÁN Labs CBC & Chem 7: 07/05/22 06:49 07/05/22 06:49 Labs: Laboratory Results - last 24 hr 07/05/22 06:49 MCV 94.1 MCH 29.9 MCHC 31.8 RDW 17.1 H Plt Count 128 L MPV 11.0 Immature Gran % (Auto) 2.3 H Neut % (Auto) 81.3 H Lymph % (Auto) 6.9 L [place] % (Auto) 6.4 Eos % (Auto) 2.6 Baso % (Auto) 0.5 Lymph # (Auto) 0.4 L [place] # (Auto) 0.4 Eos # (Auto) 0.2 Baso # (Auto) 0.0 Abs Immat Gran (auto) 0.14 H Absolute Neuts (auto) 5.0 Absolute Nucleated RBC 0.000 Nucleated RBC % (auto) 0.0 Assessment and Plan (1) Melena: Status: Acute (2) Anemia: Status: Acute (3) CKD (chronic kidney disease): Status: Acute Plan 87-year-old male with past medical history of COPD on 2 L of O2 at baseline, CHF, history of PE, AFib on Eliquis, bladder outlet obstruction on finasteride, history of seizures, depression to be admitted for severe anemia with upper GI bleed. # acute on chronic normocytic anemia-likely secondary to UGIB -H/H improved to 9.1/28.6%. No evidence of active bleeding. Normal BM yesterday, no melena -transfused 2 units in ED -follows CBC and BMP tomorrow # upper GI bleed with melena causing acute worsening of anemia -H/H improved and holding with minimal decrease in H/H. Will continue CBC BID per GI. -BM yesterday normal without melena -GI following. Hold on any further intervention at this time -Renal advises desmopressin if active bleeding -Cotninue IV PPI -Consider resuming eliquis if H/H remains stable. # CHF unspecified type with acute exacernation- clinically improving -Pt diuresing. Outut -132.5 -Clinically denies sob, orthopnea. CXR showed small right pleural effusion. Bibasilar crackles -BNP 2800- likely cariorenal -Renal consulted. 40mg lasix TID with D5W for hypernatremia -Continue strict I&O # oropharyngeal dysphagia -IV PPI -GI consult -evaluated by speech recommending ground/mechanical altered and nectar thick liquids with pills crushed in puree as well as 1 on 1 assistance -will need outpatient speech therapy # Poor PO intake with moderate malnutrition -Refusing food, with minimal fluid intake -Nutrition consult placed -Initial discussions surrounding hospice have taken place with family. # hypernatremia -Downtrending, now 148 -COntinue D5w @75ml/hr with 40mg lasix tid per nephrology -BMP am -hold home sodium bicarb # ESRD -no acute kidney injury -non-oliguric -patient and family declined HD-discussed with daughter on the phone and MOLST form updated # chronic atrial fibrillation-rate controlled at 67 -Consider resuming eliquis if H/H remains stable. -continue digoxin.? Digital level 0.6 -not on rate control # HTN-controlled -continue amlodipine # BPH with bladder outlet obstruction -continue finasteride # depression -continue sertraline # COPD with chronic hypoxic respiratory failure without acute exacerbation -continue home O2 at 2 L. oximetry stable 97% -continue home maintenance inhalers -albuterol p.r.n. DVT prophylaxis-hold Eliquis due to upper GI bleed.? Mechanical/ambulation DNR/DNI-discussed MOLST form With patient and daughter.? Patient prognosis poor. No HD per MOLST form. GI bleed stabilizing, hypernatremia improving with fluids and lasix for diuresis to prevent ongoing fluid overload. However, pt continues with poor PO intake. Discussed prognosis with daughter who is in agreement with discharge to hospice. Will discuss with case management in the am for discharge back to SNF on hospice. Patient requires ongoing inpatient stay due to acute blood loss anemia of unclear etiology for further monitoring of blood counts and possible additional transfusion now in fluid overload requiring nephrology evaluation. Quality Stroke Does the patient have a stroke diagnosis?: No VTE Prior VTE?: No VTE Risk Level:: Medical - moderate - high VTE Device Contraindication: N/A - Device Ordered VTE Drug Contraindication: Treatment Not Tolerated
[2022-07-05 09:40] LABS: Anion Gap 20 (12-20); Blood Urea Nitrogen 125 mg/dL (9-16); Calcium 8.5 mg/dL (8.4-10.2); Carbon Dioxide 24 mmol/L (22-29); Chloride 108 mmol/L (96-108); Creatinine Clr Calc Pharmacy 4.7; Estimated Glomerular Filt Rate 6; Glucose Random 108 mg/dL (60-115); Potassium 3.9 mmol/L (3.3-5.1); Sodium 148 mmol/L (135-145)
[2022-07-05] MEDS: Finasteride 5 MG TABLET PO (10:24)
[2022-07-05] MEDS: Furosemide 40 MG/4 ML VIAL IVPUSH ×3 (10:24→20:22)
[2022-07-05] MEDS: Sertraline HCL 25 MG TABLET PO (10:25)
[2022-07-05] MEDS: 0.9 % Sodium Chloride Flush 3 ML SYRINGE IVFLUSH ×3 (10:25→20:23)
[2022-07-05] MEDS: amLODIPine Besylate 5 MG TABLET PO (10:25)
--- NOTE | 2022-07-05 15:48 | P.PNNP_ITS ---
Subjective Subjective Date of Service: 07/05/22 Interval history: Seen in follow up for [place] / ESRD not on HD Interval history- pt has no complaints. Sitting up comfortably in bed. Denies s ob, palpitations, CP, abd pain, n/v. BM last night without melena. Non oliguric y Physical Exam Vital Signs: Vital Signs: Last Vital Signs Temp 98.0 F 07/05/22 15:00 Pulse 58 07/05/22 15:00 Resp 18 07/05/22 15:00 BP 117/58 L 07/05/22 15:00 Pulse Ox 94 07/05/22 15:00 O2 Del Method 07/05/22 15:00 O2 Flow Rate 2 07/05/22 15:00 Oxygen Flow Rate 2 07/03/22 07:21 BMI result Body Mass Index 17.7 Constitutional - Awake and Alert, No apparent distress Eyes - PERRLA, EOMI Mouth- lips dry Cardiovascular - S1S2, RRR, No edema Respiratory - Bibasilar crackles. Normal lung expansion, Normal respiratory effort, No respiratory distress on 2L O2 Gastrointestinal - NT / ND; +BS; No rebound or guarding : Naylor in place draining yellow urine Extremities - no calf tenderness bilaterally, no swelling Skin - Warm/Dry Neurological - Alert & oriented x3, No focal deficit Psychological - Appropriate affect Objective Data Labs CBC & Chem 7: 07/05/22 06:49 07/05/22 06:49 Labs: Laboratory Results - last 24 hr 07/05/22 07/05/22 06:49 06:49 WBC 6.1 RBC 3.04 L Hgb 9.1 L Hct 28.6 L MCV 94.1 MCH 29.9 MCHC 31.8 RDW 17.1 H Plt Count 128 L MPV 11.0 Immature Gran % (Auto) 2.3 H Neut % (Auto) 81.3 H Lymph % (Auto) 6.9 L [place] % (Auto) 6.4 Eos % (Auto) 2.6 Baso % (Auto) 0.5 Lymph # (Auto) 0.4 L [place] # (Auto) 0.4 Eos # (Auto) 0.2 Baso # (Auto) 0.0 Abs Immat Gran (auto) 0.14 H Absolute Neuts (auto) 5.0 Absolute Nucleated RBC 0.000 Nucleated RBC % (auto) 0.0 Sodium 148 H Potassium 3.9 Chloride 108 Carbon Dioxide 24 Anion Gap 20 BUN 125 H Creatinine 8.57 H* Estim Creat Clear Calc 4.7 Estimated GFR 6 Random Glucose 108 Calcium 8.5 Procedures Date of Service Date of Service: 07/05/22 Assessment & Plan Assessment and plan (1) CKD (chronic kidney disease): Status: Acute Plan [place] - In the setting of hypovolemia/ Severe anemia CKD stage 5 / ESRD Hypernatremia H/o CHF Anemia/ GI bleed 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
[2022-07-05 17:56] LABS: MANUAL DIFF FLAG NO
[2022-07-05 17:57] LABS: PLT CLUMP 1; Red Blood Count 3.28 X10*6/uL (4.60-5.80); SCAN SMEAR FLAG 1
[2022-07-05 17:58] LABS: Basophils Percent Auto 0.4 % (0-2); Eosinophils Absolute Auto 0.1 X10*3/uL (0.0-0.4); Eosinophils Percent Auto 2.5 % (0-4); Hematocrit 30.5 % (42.0-52.0); Imm Gran Abs Auto 0.12 X10*3/uL (0.00-0.03); Imm Gran Pct Auto 2.2 % (0.0-0.4); Lymphocytes Absolute Auto 0.5 X10*3/uL (1.2-4.9); Lymphocytes Percent Auto 8.2 % (20-40); Mean Corpuscular HGB Conc 32.8 g/dl (31.0-36.0); Mean Corpuscular Hemoglobin 30.5 pg (27.0-33.0); Mean Platelet Volume 11.5 fL (9.4-12.4); Monocytes Absolute Auto 0.3 X10*3/uL (0.1-1.2); Neutrophils Absolute Auto 4.5 x10*3/uL (2.0-8.3); Neutrophils Percent Auto 80.7 % (45-73)
[2022-07-05 18:00] LABS: Platelet Count 129 X10*3/uL (160-400); White Blood Count 5.5 X10*3/uL (4.8-10.8)
[2022-07-05] MEDS: Tamsulosin HCL 0.4 MG CAPSULE PO (20:23)
[2022-07-06] VITALS: BP 166/73; PULSE 66; RESP 18; TEMP 37; O2SAT 92
[2022-07-06 03:23] VITALS: BP 158/70; PULSE 54; RESP 20; TEMP 37; O2SAT 97
[2022-07-06] MEDS: Pantoprazole Sodium 40 MG/10 ML VIAL IVPUSH ×2 (05:58→15:48)
[2022-07-06 07:19] LABS: MANUAL DIFF FLAG NO
[2022-07-06 07:22] LABS: Basophils Percent Auto 0.5 % (0-2); Mean Corpuscular HGB Conc 32.2 g/dl (31.0-36.0); PLT CLUMP 1; SCAN SMEAR FLAG 1
[2022-07-06 07:25] LABS: Eosinophils Absolute Auto 0.2 X10*3/uL (0.0-0.4); Eosinophils Percent Auto 2.7 % (0-4); Hemoglobin 10.3 g/dl (14.0-18.0); Imm Gran Abs Auto 0.11 X10*3/uL (0.00-0.03); Lymphocytes Absolute Auto 0.3 X10*3/uL (1.2-4.9); Lymphocytes Percent Auto 5.7 % (20-40); Mean Corpuscular Hemoglobin 30.2 pg (27.0-33.0); Mean Corpuscular Volume 93.8 fL (80.0-98.0); Mean Platelet Volume 11.1 fL (9.4-12.4); Monocytes Absolute Auto 0.3 X10*3/uL (0.1-1.2); Monocytes Percent Auto 5.4 % (2-11); Neutrophils Absolute Auto 4.7 x10*3/uL (2.0-8.3); Neutrophils Percent Auto 83.7 % (45-73); Platelet Count 129 X10*3/uL (160-400); Red Blood Count 3.41 X10*6/uL (4.60-5.80); White Blood Count 5.6 X10*3/uL (4.8-10.8)
[2022-07-06] MEDS: Fluticasone/Vilanterol 100/25 BLST.W.DEV 1 PUFF INHALE (07:31)
[2022-07-06 07:32] VITALS: PULSE 62; RESP 18; O2SAT 98
[2022-07-06 07:40] VITALS: BP 138/67; PULSE 61; RESP 18; TEMP 36.4; O2SAT 96
[2022-07-06 08:12] LABS: Anion Gap 21 (12-20); Blood Urea Nitrogen 115 mg/dL (9-16); Calcium 8.6 mg/dL (8.4-10.2); Carbon Dioxide 22 mmol/L (22-29); Chloride 106 mmol/L (96-108); Creatinine Clr Calc Pharmacy 4.8; Estimated Glomerular Filt Rate 6; Glucose Random 122 mg/dL (60-115); Sodium 145 mmol/L (135-145)
[2022-07-06] MEDS: Dextrose 5 % 1,000 ML 75 ML IVCONT (10:42)
[2022-07-06] MEDS: Furosemide 40 MG/4 ML VIAL IVPUSH ×2 (10:44→15:48)
[2022-07-06] MEDS: Finasteride 5 MG TABLET PO (10:44)
[2022-07-06] MEDS: amLODIPine Besylate 5 MG TABLET PO (10:45)
[2022-07-06] MEDS: Sertraline HCL 25 MG TABLET PO (10:46)
[2022-07-06] MEDS: Digoxin 0.125 MG TABLET 0.0625 MG PO (10:46)
[2022-07-06] MEDS: 0.9 % Sodium Chloride Flush 3 ML SYRINGE IVFLUSH ×2 (10:47→15:48)
[2022-07-06 12:00] VITALS: BP 140/62; PULSE 67; RESP 20; TEMP 36.2; O2SAT 98
--- NOTE | 2022-07-06 13:16 | P.DS_ITS ---
DS: Providers Provider Date of Service: 07/06/22 Date of admission: 07/03/22 12:04 Primary care physician: Kai Silva MD Consults: 07/03/22 12:19 Consult to Gastroenterology Routine Consulting Provider: Susanne Zapata Reason for consultation: ugi bleed 07/04/22 12:51 Consult to Nephrology Routine Consulting Provider: Lanre Patrick Reason for consultation: ESRD, hypernatremia, fluid overload, no HD DS: Diagnosis Discharge Diagnosis (1) Melena: Status: Acute (2) Anemia: Status: Acute (3) CKD (chronic kidney disease): Status: Acute (4) CHF (congestive heart failure): Status: Acute (5) Dysphagia: Status: Acute (6) Hypernatremia: Status: Acute (7) BPH (benign prostatic hyperplasia): Status: Acute (8) Hypertension: Status: Acute (9) Depression: Status: Acute DS: Summary Hospital Course Hospital Course: HPI: 87-year-old male with past medical history of COPD on 2 L of O2 at baseline, CHF, history of PE, AFib on Eliquis, bladder outlet obstruction on finasteride, history of seizures, depression, who comes in from custodial after being di scharged on 04/17 for management of acute kidney injury on CKD, as well as chronic anemia due to CKD presented to the ED via EMS due to an episode of melena x1 noted by his an aide at [facility] where he has been residing since discharge from 06/10 for BERLIN and COPD exacerbation.? The patient was supposed to have been discharged on hospice but according to his daughter he is not actually on hospice yet.? He is DNR/DNI but is agreeable to hospitalization as well as Gastroenterology evaluation for acute blood loss anemia with H/H of 6.1/20.4 (baseline 7.4, 24.5%).? Has end-stage renal disease but declines hemodialysis.? Creatinine 9.16, BUN 122, creatinine clearance 4.4, sodium 159, chloride 113, potassium 4.3.? INR 1.1, PT 12.4.? UA with 3+ protein, 3+ blood, trace leuks, trace bacteria, urine osmolality 341, urine sodium 74.? The patient does endorse fatigue but denies any fevers, chills, nausea, vomiting, lightheadedness, palpitations, shortness of breath, or chest pain.? He does endorse some dysphagia initially reported by his daughter. Hospital course: # Acute on chronic normocytic anemia-likely secondary to UGIB -patient received 2 units PRBC transfusion during hospital course. GI was consulted who did not recommend any invasive procedures given patient's age and multiple comorbidities. Initiated on Protonix 40 mg IV b.i.d. Stool without melena prior to discharge and hemoglobin was stable. # ESRD -patient and family declined HD-discussed with daughter on the phone and MOLST form updated. # dysphagia, poor po intake with moderate malnutrition -nutrition and speech consulted. recommend ground/mechanical altered and nectar thick liquids with pills crushed in puree as well as 1 on 1 assistance # hypernatremia -resolved with free water resuscitation # chronic atrial fibrillation-rate controlled -hold Eliquis due to upper GI bleed -continue digoxin.? Digital level 0.6 # HTN-controlled -continue amlodipine # BPH with bladder outlet obstruction -continue finasteride # depression -continue sertraline # COPD with chronic hypoxic respiratory failure without acute exacerbation -continue home O2 at 2 L. oximetry stable 97% -continue home maintenance inhalers -albuterol p.r.n. DNR/DNI-discussed MOLST form With patient and daughter.? Patient family interested in hospice at custodial. Status at Discharge Overall status at discharge: other (poor prognosis) Time Spent with Patient Time attestation: Total time spent providing and/or coordinating discharge services: Discharge coordination time: Greater than 30 minutes Quality: Safe Use of Opioids Does Pt have an Active Cancer Diagnosis on the Problem List?: No Quality: Stroke Does the patient have a stroke diagnosis?: No Physical Exam Vital Signs: Vital Signs: Last Vital Signs Temp 97.2 F 07/06/22 12:00 Pulse 67 07/06/22 12:00 Resp 20 07/06/22 12:00 BP 140/62 H 07/06/22 12:00 Pulse Ox 98 07/06/22 12:00 O2 Del Method 07/06/22 12:00 O2 Flow Rate 2 07/06/22 12:00 Oxygen Flow Rate 2 07/03/22 07:21 BMI result Body Mass Index 17.7 Elderly male lying in bed in no distress Neck supple, no JVD, mouth dry Regular rate and rhythm, S1-S2 heard Decreased breath sounds at bases Abdomen soft nontender, no guarding, no rigidity, Naylor in place Patient is awake, alert and oriented to place, time and person ; no focal motor deficit Psych: Normal mood DS: Data Data Completed and Pending Completed studies during hospitalization [Text1]: Procedures Transfusion of Nonautologous Red Blood Cells into Peripheral Vein, Percutaneous Approach (04/16/22) Labs on day of discharge: Laboratory Results - last 24 hr 07/05/22 07/06/22 07/06/22 17:48 06:52 06:52 WBC 5.5 5.6 RBC 3.28 L 3.41 L Hgb 10.0 L 10.3 L Hct 30.5 L 32.0 L MCV 93.0 93.8 MCH 30.5 30.2 MCHC 32.8 32.2 RDW 17.0 H 17.0 H Plt Count 129 L 129 L MPV 11.5 11.1 Immature Gran % (Auto) 2.2 H 2.0 H Neut % (Auto) 80.7 H 83.7 H Lymph % (Auto) 8.2 L 5.7 L Briscoe % (Auto) 6.0 5.4 Eos % (Auto) 2.5 2.7 Baso % (Auto) 0.4 0.5 Lymph # (Auto) 0.5 L 0.3 L Briscoe # (Auto) 0.3 0.3 Eos # (Auto) 0.1 0.2 Baso # (Auto) 0.0 0.0 Abs Immat Gran (auto) 0.12 H 0.11 H Absolute Neuts (auto) 4.5 4.7 Absolute Nucleated RBC 0.000 0.000 Nucleated RBC % (auto) 0.0 0.0 Sodium 145 Potassium 4.0 Chloride 106 Carbon Dioxide 22 Anion Gap 21 H BUN 115 H Creatinine 8.43 H* Estim Creat Clear Calc 4.8 Estimated GFR 6 Random Glucose 122 H Calcium 8.6 Imaging Chest x-ray: Radiologist's impression: ITS Impressions Chest X-Ray 07/04/22 10:56 IMPRESSION: 1. Small right pleural effusion with right basilar disease. 2. Chronic interstitial lung disease with appearance of superimposed emphysematous change Discharge Plan Discharge Anticipated Discharge Date/Time: 07/06/22 13:36 Patient Disposition: [facility] Discharge Diagnosis: Acute on chronic anemia, end-stage renal disease Referrals: Kai Silva MD [Primary Care Provider] - 1 Week Discharge Medications: Continued finasteride 5 mg tablet 5 mg PO DAILY 90 Days Qty: 90 1RF tamsulosin 0.4 mg capsule 0.4 mg PO BEDTIME digoxin 125 mcg (0.125 mg) tablet 62.5 mcg PO Q48H amlodipine 5 mg tablet 1 tab PO DAILY Hold Instructions: Monitor blood pressure before restarting amlodipine. sertraline 25 mg tablet 1 tab PO DAILY Trelegy Ellipta 100-62.5-25 mcg blister with device 1 puff INHALATION DAILY Changed pantoprazole 40 mg tablet,delayed release (DR/EC) 1 tab PO BID 15 Days Qty: 30 0RF Discontinued sodium bicarbonate 650 mg Tablet 650 mg PO BID 30 Days Qty: 60 0RF Eliquis 2.5 mg tablet 1 tab PO BID Discharge Orders: Discharge Order (Routine); Ordered 07/06/22 Ordered By: Zoltan Howard Activity on Discharge: As tolerated Stand Alone Forms: Patient Portal Discharge page Care Plan Goals: Comfort care measures. Health Concerns: ESRD Acute on chronic anemia Dysphagia with poor po intake Plan of Treatment: Consultation with hospice Assessment: Per summary
--- NOTE | 2022-07-06 14:00 | MHC.CM.PN ---
IMM 07/06/22 Male 87 is discharged today. He will return to [facility] via S. Transport is booked for 4pm. The family has been notified of the transfer time. The facility has been sent all discharge info. The covid test is pending. the reuslt will be sent to the facility prior to patients discharge.
[2022-07-06 15:28] VITALS: BP 130/64; PULSE 55; RESP 18; TEMP 35.9; O2SAT 96
[2022-07-06 15:31] LABS: COVID-19 Test Negative (Negative); IDNOW Serial# 16C4AD1C
--- NOTE | 2022-07-07 17:58 | CONS_ITS ---
DATE OF SERVICE: 07/04/2022 REASON FOR CONSULTATION: Consult requested by the medical team to evaluate and help in management of patient with severe renal insufficiency and hypernatremia. HISTORY OF PRESENT ILLNESS: Patient is an 87-year-old male with past medical history of COPD, history of CHF, PE, AFib on Eliquis, bladder outlet obstruction, who presented to the hospital via EMS with an episode of melena. Patient was admitted for management of acute kidney injury on CKD. He also had chronic anemia. He has been in [facility] where he has been residing since discharge. He was supposed to be discharged on hospice, but according to daughter, he is not actually on hospice. He is DNR/DNI and agreeable to hospitalization for GI evaluation. He has ESRD but declined hemodialysis. , sodium was 159. Renal consult has been extensively requested for help with management of his hypernatremia and severe renal insufficiency. He does complain of fatigue but denies any fever, chills, nausea, vomiting, lightheadedness, palpitation. REVIEW OF SYSTEMS: As noted above. Other systems reviewed and negative. PAST MEDICAL HISTORY: History of AFib, bladder outlet obstruction, CHF, elevated PSA, history of COPD, seizure, home oxygen requirement, pulmonary embolism. FAMILY HISTORY: No family history of coronary artery disease. PAST SURGICAL HISTORY: No pertinent past medical history. PERSONAL AND SOCIAL HISTORY: Patient is a former smoker. Does not drink alcohol at the present time. He is retired. ALLERGIES: PATIENT HAS NO KNOWN DRUG ALLERGIES. MEDICATIONS: As an outpatient and inpatient were reviewed. PHYSICAL EXAMINATION: GENERAL: Patient is resting in the bed. VITAL SIGNS: Blood pressure was 129/60, pulse 58, afebrile. HEENT: Shows pupils equal bilaterally to light. Mucosa dry. There is no scleral icterus or conjunctival congestion. NECK: No jugular venous distention is noted. Neck is supple. CARDIOVASCULAR SYSTEM: S1, S2 without rub or murmur. RESPIRATORY SYSTEM: Mild decreased in the bases. ABDOMEN: Soft. Bowel sounds normal. EXTREMITIES: Showed no edema. NEURO: Essentially nonfocal. LABORATORY DATA: Done today sodium 153, potassium 4.2, chloride 111, CO2 of 25, BUN 115, creatinine 8.66. Hemoglobin 9.4, hematocrit 29.3, WBC 6.6, platelets 133. IMPRESSION: An 87-year-old male with severe acute kidney injury. 1. Acute kidney injury in this patient likely secondary to prerenal state/severe anemia. 2. Severe chronic kidney disease stage 5 at baseline. 3. Hypernatremia in the setting of free water deficit. 4. History of congestive heart failure. 5. Chronic atrial fibrillation. RECOMMENDATIONS: At this juncture, I recommend transfusing to keep a hemoglobin level above 7.0. As mentioned in the medical team's note, the patient does not want to be on renal replacement therapy. He has a DNR/DNI status. In regard to hypernatremia, patient was on D5 water, but patient had volume overloaded and required IV Lasix. As his sodium level is still high, I recommend restarting D5 water at 75 mL/hour and given IV Lasix on a frequent basis. Hopefully, we will correct hypernatremia by giving him free water after diuresis with Lasix. The patient has active bleeding on DDAVP to help with platelet dysfunction. Thank you for allowing me to participate in medical management of the patient. MD CHRISTOPHER Francis/RAYSA / [phone]
== END 2022-07-06 18:14 | disposition skilled nursing facility (03) | DRG 811 ==
LOC: HO.ED 08:21 → HO.EDOVER 12:20 → HO.IMC 22:12
PROVIDERS: Admitting Provider Physician Assistant; Emergency Provider Emergency Medicine; PCP Family Medicine; Visit Provider Student in an Organized Health Care Education/Training Program
DX: D62 Acute posthemorrhagic anemia (principal); N18.6 End stage renal disease; I13.11 Hypertensive heart and chronic kidney disease without heart failure, with stage 5 chronic kidney disease, or end stage renal disease; E87.0 Hyperosmolality and hypernatremia; J96.10 Chronic respiratory failure, unspecified whether with hypoxia or hypercapnia; N13.8 Other obstructive and reflux uropathy; I48.20 Chronic atrial fibrillation, unspecified; K92.1 Melena; E44.0 Moderate protein-calorie malnutrition; Z68.1 Body mass index [BMI] 19.9 or less, adult; N17.9 Acute kidney failure, unspecified; Z66 Do not resuscitate; D63.1 Anemia in chronic kidney disease; K21.9 Gastro-esophageal reflux disease without esophagitis; E86.1 Hypovolemia; F32.A Depression, unspecified; I50.9 Heart failure, unspecified; N40.1 Benign prostatic hyperplasia with lower urinary tract symptoms; J44.9 Chronic obstructive pulmonary disease, unspecified; Z20.822 Contact with and (suspected) exposure to COVID-19; Z99.81 Dependence on supplemental oxygen; Z86.711 Personal history of pulmonary embolism; Z87.891 Personal history of nicotine dependence; Z79.899 Other long term (current) drug therapy
CPT/HCPCS: 36415; 71045; 80048; 80076; 80162; 82272; 82728; 83540; 83605; 83690; 83735; 83880; 84484; 85025; 85027; 85045; 85610; 85730; 86850; 86900; 86901; 86923; 87635; 92610; 93005; 94640; 99285; C1758; J1940; J2405; P9016

== ENCOUNTER 2022-07-07 06:47 | Outpatient (REF) | payer MEDICARE, OTHER, SELFPAY ==
[2022-07-07 07:38] LABS: Hematocrit 31.6 % (42.0-52.0); Hemoglobin 10.3 g/dl (14.0-18.0); Mean Corpuscular HGB Conc 32.6 g/dl (31.0-36.0); Mean Corpuscular Hemoglobin 30.3 pg (27.0-33.0); Mean Corpuscular Volume 92.9 fL (80.0-98.0); Mean Platelet Volume 11.7 fL (9.4-12.4); Platelet Count 137 X10*3/uL (160-400); Red Cell Distribution Width 16.9 % (11.0-16.0); White Blood Count 8.7 X10*3/uL (4.8-10.8)
[2022-07-07 07:54] LABS: Anion Gap 23 (12-20); Blood Urea Nitrogen 122 mg/dL (9-16); Calcium 8.8 mg/dL (8.4-10.2); Carbon Dioxide 22 mmol/L (22-29); Chloride 104 mmol/L (96-108); Estimated Glomerular Filt Rate 6; Glucose Random 90 mg/dL (60-115); Sodium 145 mmol/L (135-145)
== END 2022-07-07 06:48 | disposition home or self-care (01) ==
LOC: HO.MMNH3L 06:47
PROVIDERS: Visit Provider Family Medicine
DX: I11.0 Hypertensive heart disease with heart failure (principal); I50.9 Heart failure, unspecified; J44.9 Chronic obstructive pulmonary disease, unspecified
CPT/HCPCS: 36415; 80048; 85027

== ENCOUNTER 2022-07-14 02:50 | Inpatient (IN) | payer MEDICARE, OTHER, SELFPAY ==
--- NOTE | ~2022-07-14 | XR_ITS ---
EXAMINATION: XR chest 1V CLINICAL INFORMATION: Fall COMPARISON: 07/04/2022 TECHNIQUE: Portable chest x-ray marked 8:56 AM Tubes and lines: None Lungs and pleura: Diffuse interstitial opacification especially over the right lower lobe possibly mild infiltrates. This is more prominent on today's exam, might have been exaggerated by patient positioning/technique. Heart and mediastinum: The mediastinum is within normal limits.. Bones/soft tissue: Skeletal structures included are normal for patient's age. XR/XR chest 1V IMPRESSION: 1. Mild diffuse interstitial opacification especially over the right lower lobe possibly mild diffuse infiltrates. This might have slightly worsened, exaggerated by technique and exposure. 2. No pleural effusion. 3. No pneumothorax. 4. No displaced rib fractures.
--- NOTE | ~2022-07-14 | XR_ITS ---
EXAMINATION: XR SHOULDER LEFT XR HUMERUS LEFT XR ELBOW LEFT XR FOREARM LEFT CLINICAL INFORMATION: History of fall. Evaluate for injury. COMPARISON: None TECHNIQUE: Left shoulder, 3 views Left humerus, 2 views Left elbow, 2 views Left forearm, 2 views FINDINGS: Left shoulder: Bones appear to be diffusely osteopenic. Alignment is normal at the acromioclavicular and glenohumeral joints. No acute fracture or subluxation. There are no findings of any significant degenerative or inflammatory arthropathy at the shoulder. The humeral head is well-positioned over the intact glenoid. Small, 0.3 cm focus of calcium deposition is seen in the region of the infraspinatus tendon insertion on the greater tuberosity (i.e., likely chronic, mild calcific tendinopathy). Left humerus: Intact. No focal soft tissue swelling in the upper arm. Left elbow: Normal alignment. The radiocapitellar and ulnohumeral joint spaces are maintained. No acute fracture or focal soft tissue swelling. Left forearm: The radius and ulna are intact. The proximal and distal radioulnar joints are normal. Carpal bones are unremarkable. No focal soft tissue swelling. XR/XR elbow LT min 3V IMPRESSION: No acute osseous injury in the region of the left shoulder, upper arm, elbow or forearm. No fracture or malalignment.
--- NOTE | ~2022-07-14 | XR_ITS ---
EXAMINATION: XR SHOULDER LEFT XR HUMERUS LEFT XR ELBOW LEFT XR FOREARM LEFT CLINICAL INFORMATION: History of fall. Evaluate for injury. COMPARISON: None TECHNIQUE: Left shoulder, 3 views Left humerus, 2 views Left elbow, 2 views Left forearm, 2 views FINDINGS: Left shoulder: Bones appear to be diffusely osteopenic. Alignment is normal at the acromioclavicular and glenohumeral joints. No acute fracture or subluxation. There are no findings of any significant degenerative or inflammatory arthropathy at the shoulder. The humeral head is well-positioned over the intact glenoid. Small, 0.3 cm focus of calcium deposition is seen in the region of the infraspinatus tendon insertion on the greater tuberosity (i.e., likely chronic, mild calcific tendinopathy). Left humerus: Intact. No focal soft tissue swelling in the upper arm. Left elbow: Normal alignment. The radiocapitellar and ulnohumeral joint spaces are maintained. No acute fracture or focal soft tissue swelling. Left forearm: The radius and ulna are intact. The proximal and distal radioulnar joints are normal. Carpal bones are unremarkable. No focal soft tissue swelling. XR/XR humerus LT IMPRESSION: No acute osseous injury in the region of the left shoulder, upper arm, elbow or forearm. No fracture or malalignment.
--- NOTE | ~2022-07-14 | XR_ITS ---
EXAMINATION: XR SHOULDER LEFT XR HUMERUS LEFT XR ELBOW LEFT XR FOREARM LEFT CLINICAL INFORMATION: History of fall. Evaluate for injury. COMPARISON: None TECHNIQUE: Left shoulder, 3 views Left humerus, 2 views Left elbow, 2 views Left forearm, 2 views FINDINGS: Left shoulder: Bones appear to be diffusely osteopenic. Alignment is normal at the acromioclavicular and glenohumeral joints. No acute fracture or subluxation. There are no findings of any significant degenerative or inflammatory arthropathy at the shoulder. The humeral head is well-positioned over the intact glenoid. Small, 0.3 cm focus of calcium deposition is seen in the region of the infraspinatus tendon insertion on the greater tuberosity (i.e., likely chronic, mild calcific tendinopathy). Left humerus: Intact. No focal soft tissue swelling in the upper arm. Left elbow: Normal alignment. The radiocapitellar and ulnohumeral joint spaces are maintained. No acute fracture or focal soft tissue swelling. Left forearm: The radius and ulna are intact. The proximal and distal radioulnar joints are normal. Carpal bones are unremarkable. No focal soft tissue swelling. XR/XR shoulder LT min 2V IMPRESSION: No acute osseous injury in the region of the left shoulder, upper arm, elbow or forearm. No fracture or malalignment.
--- NOTE | ~2022-07-14 | CT_ITS ---
EXAMINATION: CT HEAD W/O IV CONTRAST CT CERVICAL SPINE W/O IV CONTRAST CLINICAL INFORMATION: 87-year-old male with history of fall. COMPARISON: None TECHNIQUE: Head - Contiguous axial imaging of the head was performed from the skull base to the vertex without the administration of intravenous contrast, and axial images are reconstructed at 2 mm and 5 mm slice thickness. Cervical spine - A volumetric, helical CT acquisition of the cervical spine was obtained without contrast; in addition to the standard set of axial images, multiplanar reformatted images were provided in the coronal and sagittal imaging planes. This CT examination was performed using dose optimization techniques as appropriate, variously including the following: *Automated exposure control *Adjustment of mA and/or kV according to patient size (this includes techniques or standardized protocols for targeted exams where dose is matched to indication/reason for exam; i.e. extremities or head) *Use of iterative reconstruction technique DLP: 927 mGy-cm (total) FINDINGS: HEAD: No intracranial hemorrhage, extra-axial fluid correction, focal mass effect or midline shift. Moderate parenchymal volume loss with commensurate prominence of ventricles and sulci; no hydrocephalus. Mild small vessel ischemic changes of the supratentorial white matter. 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 The jaquez-white matter differentiation is maintained. No evidence of an acute major vascular territory infarction. There is atherosclerotic calcification of cavernous carotid arteries. No calvarial fracture. The mastoid air cells and visualized paranasal sinuses are well aerated. No fracture or malalignment at either temporomandibular joint. CERVICAL SPINE: The craniocervical junction is normal. The occipital condyles, dens and atlantodental articulation are intact. Mild dextrocurvature of the cervical spine. The vertebral body heights are maintained. No acute fractures in the anterior or posterior elements. No prevertebral soft tissue swelling. Multilevel facet osteoarthritis, including C4-C5, with approximately 0.2 cm of degenerative anterolisthesis of C4 on C5. There is moderate to severe degenerative disc space loss, endplate irregularity, endplate sclerosis and osteophytosis at C5-C6 and C6-C7. There appears to be old, faintly visible, lobulated calcific density projecting posterior to the degenerated left C2-C3 facet joint. No hematoma within the neck. The visualized thyroid gland is atrophied and otherwise unremarkable. Centrilobular emphysema at partially visualized lung apices. CT/CT cervical spine wo IV con IMPRESSION: * No intracranial hemorrhage or other acute intracranial pathology. * No fracture or traumatic subluxation in the degenerated cervical spine.
--- NOTE | ~2022-07-14 | XR_ITS ---
EXAMINATION: XR SHOULDER LEFT XR HUMERUS LEFT XR ELBOW LEFT XR FOREARM LEFT CLINICAL INFORMATION: History of fall. Evaluate for injury. COMPARISON: None TECHNIQUE: Left shoulder, 3 views Left humerus, 2 views Left elbow, 2 views Left forearm, 2 views FINDINGS: Left shoulder: Bones appear to be diffusely osteopenic. Alignment is normal at the acromioclavicular and glenohumeral joints. No acute fracture or subluxation. There are no findings of any significant degenerative or inflammatory arthropathy at the shoulder. The humeral head is well-positioned over the intact glenoid. Small, 0.3 cm focus of calcium deposition is seen in the region of the infraspinatus tendon insertion on the greater tuberosity (i.e., likely chronic, mild calcific tendinopathy). Left humerus: Intact. No focal soft tissue swelling in the upper arm. Left elbow: Normal alignment. The radiocapitellar and ulnohumeral joint spaces are maintained. No acute fracture or focal soft tissue swelling. Left forearm: The radius and ulna are intact. The proximal and distal radioulnar joints are normal. Carpal bones are unremarkable. No focal soft tissue swelling. XR/XR forearm LT 2V IMPRESSION: No acute osseous injury in the region of the left shoulder, upper arm, elbow or forearm. No fracture or malalignment.
--- NOTE | 2022-07-14 02:57 | PC.NURSE ---
Pt. on ekg monitor at this time
[2022-07-14 03:00] VITALS: BP 120/51; BP 132/68; PULSE 55; PULSE 92; RESP 14; O2SAT 95; O2SAT 96; BMI 22.8
--- OUTSIDE RECORDS SUMMARY | 2022-07-14 03:58 | XMS_ITS | Encounter Summary ---
:1935 Author Care Team Providers Name Role Phone Genaro Mancini Primary Care Provider [phone] [facility] [address] [address] OTHER [phone] Reason for Visit Acute Rounding Visit Assessment [...] ? Blood in Urine Active 07/02/2022 ? Gastrointestinal Hemorrhage Active 07/07/2022 ? Procedures Notes: cataract Vaccine List Vaccine Type COVID-19, mRNA, LNP-S, PF, 30 mcg/0.3 mL dose ([employer]) 11/23/2020 12/20/2020 10/01/2021 influenza, high-dose, quadrivalent 06/28/2021 Tdap 05/28/2021 Social History Tobacco Smoking Status Former Smoker Notes: quit What is your level of alcohol None consumption? Has tobacco cessation counseling been N N otes: n/a as pt no longer provided? smokes What is your code status? DNR/DNI Do you have a medical power of Y Notes: invoked deputy commonwealth's attorney? What was the date of your most recent 04/18/2022 tobacco screening? Do you have an advanced directive? Y Note s: DNH, NO hd, IVF, GTHCP invoked Do you have an out of hospital DNR? N Legal Guardian? N Do you or have you ever used any other N forms of tobacco or nicotine? Do you use any illicit or recreational N drugs? Where do you live? Apartment Notes: lives in [facility] complex with his wif e What is your relationship status? Functional Status Unknown. Past Encounters 04/21/2022 Dementia; Congestive Heart Failure; At R isk for Falls Carmen Hameed, MANAGEMENT TRAINEE [employer] STORES: [address] [place] [address], Ph. 04/18/2022 Dementia; Congestive Heart Failure; Atri al Fibrillation; Benign Prostatic Hyperplasia; Essential Hypertension; Osteoporosis; At Risk for Falls; Chronic Obstructive Lung Disease; Gastroesophageal Reflux Disease without Esophagitis; Seizure Disorder Carmen Hameed MANAGEMENT [employer]ES: [address] [place] [address], Ph. History of Present Illness Note: <div>seen [...]
--- OUTSIDE RECORDS SUMMARY | 2022-07-14 03:58 | XMS_ITS | Encounter Summary ---
:1935 Author Care Team Providers Name Role Phone Genaro Mancini Primary Care Provider [phone] Milton Serena [address] OTHER [phone] Reason for Visit Acute Rounding Visit Assessment [...] mRNA, LNP-S, PF, 30 mcg/0.3 mL dose ([employer]) 11/23/2020 12/20/2020 10/01/2021 influenza, high-dose, quadrivalent 06/28/2021 Tdap 05/28/2021 Social History Tobacco Smoking Status Former Smoker Notes: quit What is your code status? DNR/DNI Do you have a medical power of Y Notes: invoked privacy attorney? What is your relationship status? What [...] do you live? Apartment Notes: lives in [facility] with his wif e Functional Status Unknown. Past Encounters 06/30/2022 Chronic Kidney Disease Stage 4; Dementia Carmen Hameed ESTATE CONSERVATOR: [address] [facility] [place] [address], Ph. 06/13/2022 Chronic Obstructive Lung Disease; Benign Prostatic Hyperplasia; Atrial Fibrillation; Essential Hypertension; Chronic Kidney Disease Stage 4; Gastroesophageal Reflux Disease without Esophagitis; Mixed Anxiety and Depressive Disorder Janine Tam MD: [address] [facility] [place] [address], Ph. 06/11/2022 Chronic Obstructive Lung Disease; Mukesh ia; Congestive Heart Failure; Atrial Fibrillation; Benign Prostatic Hyperplasia; Essential Hypertension; Osteoporosis; At Risk for Falls; Gastroesophageal Reflux Disease without Esophagitis; Seizure Dis order; Chronic Kidney Disease Stage 4 Carmen Hameed ESTATE CONSERVATOR: [address] [place] [address], Ph. History of Present Illness Note: <div>seen [...]
--- OUTSIDE RECORDS SUMMARY | 2022-07-14 03:58 | XMS_ITS | Encounter Summary ---
:1935 Author Care Team Providers Name Role Phone Genaro Mancini Primary Care Provider [phone] Milton Serena [address] OTHER [phone] Reason for Visit Acute Rounding Visit Assessment [...] Code Code System Name Reaction Severity Onset 8493 RxNorm Cortisone ? ? ? Problems Name [...] mRNA, LNP-S, PF, 30 mcg/0.3 mL dose ([employer]) 11/23/2020 12/20/2020 10/01/2021 influenza, high-dose, quadrivalent 06/28/2021 [...] do you live? Apartment Notes: lives in [facility]. complex with his wif e What is your relationship status? What is your level of alcohol None consumption? Do you have an out of hospital DNR? N Legal Guardian? N Do you or have you ever used any other N forms of tobacco or nicotine? Functional Status Unknown. Past Encounters 04/30/2022 Seizure Disorder; Congestive Heart Failu re; Chronic Obstructive Lung Disease Carmen Hameed CHEMISTRY TECHNICIAN: [address] [place] [address], Ph. 04/22/2022 Dementia; Chronic Kidney Disease Stage 4 ; Anemia; Congestive Heart Failure; At Risk for Falls; Atrial Fibrillation; Benign Prostatic Hyperplasia; Essential Hypertension; Osteoporosis; Chronic Obstructiv e Lung Disease; Gastroesophageal Reflux Disease without Esophagitis; Seizure Disorder Jocelyn Good MD: [address] [place] [address], Ph. 04/21/2022 Dementia; Congestive Heart Failure; At R isk for Falls Carmen Hameed NP: [address] [facility] [place] [address], Ph. 04/18/2022 Dementia; Congestive Heart Failure; Atri al Fibrillation; Benign Prostatic Hyperplasia; Essential Hypertension; Osteoporosis; At Risk for Falls; Chronic Obstructive Lung Disease; Gastroesophageal Reflux Disease without Esophagitis; Seizure Disorder Carmen Hameed NP: [address] [facility] [place] [address], Ph. History of Present Illness Note: <div>seen [...] and palpation: no rash, no ulcer Notes: <div>8/ covid negative, vac cine +</div><div>wbc 6.6 h/h 7.3/23.3 plt 247 na 141 k 5.0 bun 49 creat 2.9 gfr 21</div><div>85 wbc 6.5 h/h 8.9/27.6 plt 232 na 140 k 4.4 bun 43 creat 2.65 gfr 23 alb 2.7</div><div>88 wbc 6.1 h/ h 8.7/27.1 plt 241 na 138 k 3.9 bun 40 creat 3.16 gfr 19</div><div> 04/28 wbc 6.9 h/h 9.9/31.6 plt 257 na 139 k 4.1 bun 54 creat 4.12 gfr 14</div>
--- OUTSIDE RECORDS SUMMARY | 2022-07-14 03:58 | XMS_ITS | Encounter Summary ---
:1935 Author Care Team Providers Name Role Phone Genaro Mancini Primary Care Provider [phone] [facility] [address] Floor OTHER [phone] Reason for Visit Initial Intake Assessment and [...] Code Code System Name Reaction Severity Onset 6942 RxNorm Cortisone ? ? ? Problems Name [...] mRNA, LNP-S, PF, 30 mcg/0.3 mL dose ([employer]) 11/23/2020 12/20/2020 10/01/2021 influenza, high-dose, quadrivalent 06/28/2021 Tdap 05/28/2021 Social History Tobacco Smoking Status Former Smoker Notes: quit Has tobacco cessation counseling been N N otes: n/a as pt no longer provided? smokes What is your code status? DNR/DNI Do you have a medical power of Y Notes: invoked insurance attorney? What was the date of your most recent 04/18/2022 tobacco screening? Do you have an advanced directive? Y Note s: DNH, NO hd, IVF, GTHCP invoked Do you use any illicit or recreational N drugs? Where do you live? Apartment Notes: lives in [facility]. complex with his wif e What is your relationship status? What is your level of alcohol None consumption? Do you have an out of hospital DNR? N Legal Guardian? N Do you or have you ever used any other N forms of tobacco or nicotine? Functional Status Unknown. Past Encounters 04/18/2022 Dementia; Congestive Heart Failure; Atri al Fibrillation; Benign Prostatic Hyperplasia; Essential Hypertension; Osteoporosis; At Risk for Falls; Chronic Obstructive Lung Disease; Gastroesophageal Reflux Disease without Esophagitis; Seizure Disorder Carmen Hameed DRILLER AND BROACHER: [address] [facility] [place] [address], Ph. History of Present Illness Note: <div>seen [...]
--- OUTSIDE RECORDS SUMMARY | 2022-07-14 03:58 | XMS_ITS | Encounter Summary ---
:1935 Author Care Team Providers Name Role Phone Genaro Mancini Primary Care Provider [phone] [facility] Serena 2nd Floor OTHER [phone] Reason for Visit Routine Rounding Assessment and Plan 1. Gastrointestinal hemorrhage protonix 40 mg bid monitor 2. Blood in urine hold eliquis ua negative for infection 3. Chronic obstructive lung disease trelegy daily monitor resp status O2 prn 4. Dementia continue to monitor and chart any wilks es in mood or behaviors psych prn zoloft 25 mg daily 5. Congestive heart failure eliquis 2.5 mg bid-on hold digoxin 62.5 mcg every other day 6. Atrial fibrillation eliquis 2.5 mg bid-on hold digoxin 62.5 mcg qod 7. Benign prostatic hyperplasia finasteride 5 mg daily tamsulosin 0.4 mg daily chronic pritchett now monitor voiding 8. Essential hypertension amlodipine 5 mg daily monitor bp 9. Osteoporosis tylenol 650 mg tid preservision mvi 10. At risk for falls PT OT eval and treat fall precautions frequent safety checks 11. Gastroesophageal reflux disease wit hout esophagitis monitor protonix 40 mg bid 12. Seizure disorder monitor for seizures 13. Chronic kidney disease stage 4 With marked worsening over the past 6 mo nths, Had improved somewhat with hydration inpt Will push fluids and monitor closely. Continue to avoid nephrotoxic meds as ab [...] Height Blood Pressure 5 ft 6 in 145/70 mm[Hg] Results Lab Results None recorded. Allergies Code Code System Name Reaction Severity Onset 8478 RxNorm Cortisone ? ? ? Problems Name [...] mRNA, LNP-S, PF, 30 mcg/0.3 mL dose ([employer]) 11/23/2020 12/20/2020 10/01/2021 influenza, high-dose, quadrivalent 06/28/2021 Tdap 05/28/2021 Social History Tobacco Smoking Status Former Smoker Notes: quit What is your level of alcohol None consumption? Has tobacco cessation counseling been N N otes: n/a as pt no longer provided? smokes What is your code status? DNR/DNI Do you have a medical power of Y Notes: invoked divorce attorney? What was the date of your [...] do you live? Apartment Notes: lives in [facility] with his wif e What is your relationship status? Functional Status Unknown. Past Encounters 07/09/2022 Gastrointestinal Hemorrhage; Blood in Ur ine; Chronic Obstructive Lung Disease; Dementia; Congestive Heart Failure; Atrial Fibrillation; Benign Prostatic Hyperplasia; Essential Hypertension; Osteoporosis ; At Risk for Falls; Gastroesophageal Re flux Disease without Esophagitis; Seizure Disorder; Chronic Kidney Disease Stage 4 Carmen Hameed CAFETERIA TABLE ATTENDANT: [address] [facility] , [place] [address], Ph. 07/07/2022 Gastrointestinal Hemorrhage; Blood in Ur ine; Chronic Obstructive Lung Disease; Dementia; Congestive Heart Failure; Atrial Fibrillation; Benign Prostatic Hyperplasia; Essential Hypertension; Osteoporosis ; At Risk for Falls; Gastroesophageal Re flux Disease without Esophagitis; Seizure Disorder; Chronic Kidney Disease Stage 4 Carmen Hameed CAFETERIA TABLE ATTENDANT: [address] [place] [address], Ph. 07/02/2022 Blood in Urine Carmen Hameed CAFETERIA TABLE ATTENDANT: [address] [place] [address], Ph. 06/30/2022 Chronic Kidney Disease Stage 4; Dementia Carmen Hameed CAFETERIA TABLE ATTENDANT: [address] [place] [address], Ph. 06/13/2022 Chronic Obstructive Lung Disease; Benign Prostatic Hyperplasia; Atrial Fibrillation; Essential Hypertension; Chronic Kidney Disease Stage 4; Gastroesophageal Reflux Disease without Esophagitis; Mixed Anxiety and Depressive Disorder Janine Tam MD: [address] [place] [address], Ph. 06/11/2022 Chronic Obstructive Lung Disease; Mukesh ia; Congestive Heart Failure; Atrial Fibrillation; Benign Prostatic Hyperplasia; Essential Hypertension; Osteoporosis; At Risk for Falls; Gastroesophageal Reflux Disease without Esophagitis; Seizure Dis order; Chronic Kidney Disease Stage 4 Carmen Hameed CAFETERIA TABLE ATTENDANT: [address] [place] [address], Ph. History of Present Illness Note: <div>seen today for 90 day routine rounding visit-</div><div>87 yom originally admitted to for rehab after presenting from home 04/16, he came with his to the ED because she was SI and felt he could not be left home alone, she was requesting rehab placement. His reported she could no longer take care of him. per family he has been eating and drinking well. He was admitted for desirae CKD3 and chronic anemia due to the ckd, he was given 1 unit PRBC, there was a question of urinary retention, CT no hydronephrosis and he is able to urinate spontaneously. </div><div>06/07 sent to hospital for altered mental status and sob, with sputum production, cxr negative for acute process, but has corsened reticular markings bilaterally. He was in copd exacerbation, started on steroids, nebs and O2 weaned down. he haslo had desirae, tx with ivf, CT a/p negative for obstruction and he was seen by nephrology, discussed with hcp dialysis and it was refused. status was changed to hospice and to follow him at [facility].,n pritchett started for weak urine stream, tamsulosin added.</div><div>07/03 sent to ED for gi bleed and hematuria, received 2 units PRBC, GI was consulted but noinvasive procedures recommended given his age and comorbidities, protonix increased to bid, HD continues to be declined as well as hospice. Speech consulted for ground/mech altered and nectar thick liqu ids</div><div>
</div><div>CAOx1 sitting up on bed, pritchett intact clear yellow urine, he denies any distress or discomfort, eating and drinking fairly well, family still undecided about hospice</div>Review of Systems: ROS as noted in the HPI Review of Systems None recorded. Physical Exam ? General Adult Exam Reported By: Patient Constitutional: General Appearance: healthy- appearing, too thin. Level of Distress: NAD. Ambulation: ; in bed at the time of visit [...] soft, non-distended, no tenderness : ; chronic pritchett-hx hematu thad-eliquis on hold, clear yellow today Musculoskeletal:: Extremities: no cyanosis, no edema. Joints, [...] 3.7 bun 121 creat 8 .8 gfr 6</div><div>07/06 wbc 5.6 h/h 10.3/32 plt 129 na 145 k 4.0 bun 115 creat 8.43 gfr 6-hosp</div><div>dig 0.6</di v><div>07/07 wbc 8.7 h/h 10.3/31.6 plt 137 na 145 k 4.0 bun 122 cre at 8.44 gfr 6</div>
--- OUTSIDE RECORDS SUMMARY | 2022-07-14 03:58 | XMS_ITS | Encounter Summary ---
:1935 Author Care Team Providers Name Role Phone Genaro Mancini Primary Care Provider [phone] Milton Serena 2nd Floor OTHER [phone] Reason for Visit Routine Rounding routine rounding [...] Code Code System Name Reaction Severity Onset 9749 RxNorm Cortisone ? ? ? Problems Name [...] mRNA, LNP-S, PF, 30 mcg/0.3 mL dose ([employer]) 11/23/2020 12/20/2020 10/01/2021 influenza, high-dose, quadrivalent 06/28/2021 [...] do you live? Apartment Notes: lives in [facility] with his wif e What is your relationship status? What is your level of alcohol None consumption? Do you have an out of hospital DNR? N Legal Guardian? N Do you or have you ever used any other N forms of tobacco or nicotine? Functional Status Unknown. Past Encounters 06/13/2022 Chronic Obstructive Lung Disease; Benign Prostatic Hyperplasia; Atrial Fibrillation; Essential Hypertension; Chronic Kidney Disease Stage 4; Gastroesophageal Reflux Disease without Esophagitis; Mixed Anxiety and Depressive Disorder Janine Tam MD: [address] [facility] [place] [address], Ph. 06/11/2022 Chronic Obstructive Lung Disease; Mukesh ia; Congestive Heart Failure; Atrial Fibrillation; Benign Prostatic Hyperplasia; Essential Hypertension; Osteoporosis; At Risk for Falls; Gastroesophageal Reflux Disease without Esophagitis; Seizure Dis order; Chronic Kidney Disease Stage 4 Carmen Hameed NP: [address] [facility] [place] [address], Ph. 05/15/2022 Dementia; Congestive Heart Failure; Atri al Fibrillation; Benign Prostatic Hyperplasia; Essential Hypertension; Osteoporosis; At Risk for Falls; Chronic Obstructive Lung Disease; Gastroesophageal Reflux Disease without Esophagitis; Seizure Disorder Carmen Hameed CITY DIRECTOR: [address] [facility] [address] , [place] [address], Ph. History of Present Illness Note: <div>This 86 year old male intermediate care resident is seen today for routine rounding visit.</div><div>
</div><div>Medical history is remarkable for hypertension, peripheral edema, COPD, BPH, history of PE, aflutter, CHF, severe TR/, right ventricular dysfuncti on</div><div>
</div><div>Patient was sent out from facility on 06/07/22 to ER at [facility] with dyspnea worsened over prior few [...]
--- OUTSIDE RECORDS SUMMARY | 2022-07-14 03:58 | XMS_ITS | Encounter Summary ---
:1935 Author Care Team Providers Name Role Phone Genaro Mancini Primary Care Provider [phone] [facility] 2nd Floor OTHER [phone] Reason for Visit Admitting H&P Assessment and [...] Code Code System Name Reaction Severity Onset 7528 RxNorm Cortisone ? ? ? Problems Name [...] mRNA, LNP-S, PF, 30 mcg/0.3 mL dose ([employer]) 11/23/2020 12/20/2020 10/01/2021 influenza, high-dose, quadrivalent 06/28/2021 Tdap 05/28/2021 Social History Tobacco Smoking Status Former Smoker Notes: quit Has tobacco cessation counseling been N N otes: n/a as pt no longer provided? smokes What is your code status? DNR/DNI Do you have a medical power of Y Notes: invoked workers compensation attorney? What was the date of your most recent 04/18/2022 tobacco screening? Do you have an advanced directive? Y Note s: DNH, NO hd, IVF, GTHCP invoked Do you use any illicit or recreational N drugs? Where do you live? Apartment Notes: lives in [place] with his wif e What is [...] Esophagitis; Seizure Disorder Jocelyn Good MD: [address] [place] [address], Ph. 04/21/2022 Dementia; Congestive Heart Failure; At R isk for Falls Carmen Hameed AUTOMOTIVE GENERAL MANAGER: [address] [place] [address], Ph. 04/18/2022 Dementia; Congestive Heart Failure; Atri al Fibrillation; Benign Prostatic Hyperplasia; Essential Hypertension; Osteoporosis; At Risk for Falls; Chronic Obstructive Lung Disease; Gastroesophageal Reflux Disease without Esophagitis; Seizure Disorder Carmen Hameed AUTOMOTIVE GENERAL MANAGER: [address] [place] [address], Ph. History of Present Illness Note: <div>This [...] in 07/2021 to 52/3.08. Labs found in [facility] system showed 24/1.7 in 02/2022 and hgb [...] 04/18. </div><div>Notable is hospitalization in 02/2022 at [facility] after a seizure, thought to be due [...]
--- OUTSIDE RECORDS SUMMARY | 2022-07-14 03:58 | XMS_ITS | Encounter Summary ---
:1935 Author Care Team Providers Name Role Phone Genaro Mancini Primary Care Provider [phone] [facility] 2nd Floor OTHER [phone] Reason for Visit Acute Rounding Visit Assessment [...] Code Code System Name Reaction Severity Onset 8113 RxNorm Cortisone ? ? ? Problems Name [...] mRNA, LNP-S, PF, 30 mcg/0.3 mL dose ([employer]) 11/23/2020 12/20/2020 10/01/2021 influenza, high-dose, quadrivalent 06/28/2021 Tdap 05/28/2021 Social History Tobacco Smoking Status Former Smoker Notes: quit Has tobacco cessation counseling been N N otes: n/a as pt no longer provided? smokes What is your code status? DNR/DNI Do you have a medical power of Y Notes: invoked joint runner? What was the date of your most recent 04/18/2022 tobacco screening? Do you have an advanced directive? Y Note s: DNH, NO hd, IVF, GTHCP invoked Do you use any illicit or recreational N drugs? Where do you live? Apartment Notes: lives in [facility] with his wif e What is your relationship status? What is your level of alcohol None consumption? Do you have an out of hospital DNR? N Legal Guardian? N Do you or have you ever used any other N forms of tobacco or nicotine? Functional Status Unknown. Past Encounters 05/07/2022 Chronic Obstructive Lung Disease; Chroni c Kidney Disease Stage 4; Gastroesophageal Reflux Disease without Esophagitis Carmen Hameed NP: [address] [facility] [place] [address], Ph. 04/30/2022 Seizure Disorder; Congestive Heart Failu re; Chronic Obstructive Lung Disease Carmen Hameed NP: [address] [facility] [place] [address], Ph. 04/22/2022 Dementia; Chronic Kidney Disease Stage 4 ; Anemia; Congestive Heart Failure; At Risk for Falls; Atrial Fibrillation; Benign Prostatic Hyperplasia; Essential Hypertension; Osteoporosis; Chronic Obstructiv e Lung Disease; Gastroesophageal Reflux Disease without Esophagitis; Seizure Disorder Jocelyn Good MD: [address] [facility] [place] [address], Ph. 04/21/2022 Dementia; Congestive Heart Failure; At R isk for Falls Carmen Hameed NP: [address] [facility] [place] [address], Ph. 04/18/2022 Dementia; Congestive Heart Failure; Atri al Fibrillation; Benign Prostatic Hyperplasia; Essential Hypertension; Osteoporosis; At Risk for Falls; Chronic Obstructive Lung Disease; Gastroesophageal Reflux Disease without Esophagitis; Seizure Disorder Carmen Hameed, SEROLOGY TECHNICIAN: [address] [facility] [address] , [place] [address], Ph. History of Present Illness Note: <div>seen [...]
--- OUTSIDE RECORDS SUMMARY | 2022-07-14 03:58 | XMS_ITS | Encounter Summary ---
:1935 Author Care Team Providers Name Role Phone Genaro Mancini Primary Care Provider [phone] Milton Serena 2nd Floor OTHER [phone] Reason for Visit Readmission Assessment and Plan [...] Code Code System Name Reaction Severity Onset 9059 RxNorm Cortisone ? ? ? Problems Name [...] mRNA, LNP-S, PF, 30 mcg/0.3 mL dose ([employer]) 11/23/2020 12/20/2020 10/01/2021 influenza, high-dose, quadrivalent 06/28/2021 Tdap 05/28/2021 Social History Tobacco Smoking Status Former Smoker Notes: quit What is your level of alcohol None consumption? Has tobacco cessation counseling been N N otes: n/a as pt no longer provided? smokes What is your code status? DNR/DNI Do you have a medical power of Y Notes: invoked criminal defense attorney? What was the date of your [...] do you live? Apartment Notes: lives in [facility] with his wif e What is your relationship status? Functional Status Unknown. Past Encounters 06/11/2022 Chronic Obstructive Lung Disease; Mukesh ia; Congestive Heart Failure; Atrial Fibrillation; Benign Prostatic Hyperplasia; Essential Hypertension; Osteoporosis; At Risk for Falls; Gastroesophageal Reflux Disease without Esophagitis; Seizure Dis order; Chronic Kidney Disease Stage 4 Carmen Hmaeed SIZE CUTTER: [address] [facility] , [place] [address], Ph. 05/15/2022 Dementia; Congestive Heart Failure; Atri al Fibrillation; Benign Prostatic Hyperplasia; Essential Hypertension; Osteoporosis; At Risk for Falls; Chronic Obstructive Lung Disease; Gastroesophageal Reflux Disease without Esophagitis; Seizure Disorder Carmen Hameed, SIZE CUTTER: [address] , [place] [address], Ph. History of Present Illness Note: <div>seen [...]
--- OUTSIDE RECORDS SUMMARY | 2022-07-14 03:58 | XMS_ITS | Encounter Summary ---
:1935 Author Care Team Providers Name Role Phone Genaro Mancini Primary Care Provider [phone] Milton Serena 2nd Floor OTHER [phone] Reason for Visit Routine Rounding Assessment and [...] Code Code System Name Reaction Severity Onset 3898 RxNorm Cortisone ? ? ? Problems Name [...] mRNA, LNP-S, PF, 30 mcg/0.3 mL dose ([employer]) 11/23/2020 12/20/2020 10/01/2021 influenza, high-dose, quadrivalent 06/28/2021 Tdap 05/28/2021 Social History Tobacco Smoking Status Former Smoker Notes: quit Has tobacco cessation counseling been N N otes: n/a as pt no longer provided? smokes What is your code status? DNR/DNI Do you have a medical power of Y Notes: invoked patent prosecution attorney? What was the date of your most recent 04/18/2022 tobacco screening? Do you have an advanced directive? Y Note s: DNH, NO hd, IVF, GTHCP invoked Do you use any illicit or recreational N drugs? Where do you live? Apartment Notes: lives in [facility] with his wif e What is your relationship status? What is your level of alcohol None consumption? Do you have an out of hospital DNR? N Legal Guardian? N Do you or have you ever used any other N forms of tobacco or nicotine? Functional Status Unknown. Past Encounters 05/15/2022 Dementia; Congestive Heart Failure; Atri al Fibrillation; Benign Prostatic Hyperplasia; Essential Hypertension; Osteoporosis; At Risk for Falls; Chronic Obstructive Lung Disease; Gastroesophageal Reflux Disease without Esophagitis; Seizure Disorder Carmen Hameed SOFTWARE APPLICATIONS ARCHITECT: [address] [place] [address], Ph. 05/07/2022 Chronic Obstructive Lung Disease; Chroni c Kidney Disease Stage 4; Gastroesophageal Reflux Disease without Esophagitis Carmen Hameed SOFTWARE APPLICATIONS ARCHITECT: [address] [place] [address], Ph. 04/30/2022 Seizure Disorder; Congestive Heart Failu re; Chronic Obstructive Lung Disease Carmen Hameed SOFTWARE APPLICATIONS ARCHITECT: [address] [facility] [place] [address], Ph. 04/22/2022 Dementia; Chronic Kidney Disease Stage 4 ; Anemia; Congestive Heart Failure; At Risk for Falls; Atrial Fibrillation; Benign Prostatic Hyperplasia; Essential Hypertension; Osteoporosis; Chronic Obstructiv e Lung Disease; Gastroesophageal Reflux Disease without Esophagitis; Seizure Disorder Jocelyn Good MD: [address] [facility], [place] [address], Ph. 04/21/2022 Dementia; Congestive Heart Failure; At R isk for Falls Carmen Hameed SOFTWARE APPLICATIONS ARCHITECT: [address] [facility] , [place] [address], Ph. 04/18/2022 Dementia; Congestive Heart Failure; Atri al Fibrillation; Benign Prostatic Hyperplasia; Essential Hypertension; Osteoporosis; At Risk for Falls; Chronic Obstructive Lung Disease; Gastroesophageal Reflux Disease without Esophagitis; Seizure Disorder Carmen Hameed SOFTWARE APPLICATIONS ARCHITECT: [address] [place] [address], Ph. History of Present Illness Note: <div>seen [...]
--- OUTSIDE RECORDS SUMMARY | 2022-07-14 03:58 | XMS_ITS | Encounter Summary ---
:1935 Author Care Team Providers Name Role Phone Genaro Mancini Primary Care Provider [phone] Milton Serena 2nd Floor OTHER [phone] Reason for Visit Readmission Assessment and Plan 1. Gastrointestinal hemorrhage protonix [...] Code Code System Name Reaction Severity Onset 8781 RxNorm Cortisone ? ? ? Problems Name [...] mRNA, LNP-S, PF, 30 mcg/0.3 mL dose ([employer]) 11/23/2020 12/20/2020 10/01/2021 influenza, high-dose, quadrivalent 06/28/2021 Tdap 05/28/2021 Social History Tobacco Smoking Status Former Smoker Notes: quit Has tobacco cessation counseling been N N otes: n/a as pt no longer provided? smokes What is your code status? DNR/DNI Do you have a medical power of Y Notes: invoked senior trial attorney? What was the date of your most recent 04/18/2022 tobacco screening? Do you have an advanced directive? Y Note s: DNH, NO hd, IVF, GTHCP invoked Do you use any illicit or recreational N drugs? Where do you live? Apartment Notes: lives in [facility] with his wif e What is your relationship status? What is your level of alcohol None consumption? Do you have an out of hospital DNR? N Legal Guardian? N Do you or have you ever used any other N forms of tobacco or nicotine? Functional Status Unknown. Past Encounters 07/07/2022 Gastrointestinal Hemorrhage; Blood in Ur ine; Chronic Obstructive Lung Disease; Dementia; Congestive Heart Failure; Atrial Fibrillation; Benign Prostatic Hyperplasia; Essential Hypertension; Osteoporosis ; At Risk for Falls; Gastroesophageal Re flux Disease without Esophagitis; Seizure Disorder; Chronic Kidney Disease Stage 4 Carmen Hameed CIVIL ENGINEERING TEACHER: [address] [facility] , [place] [address], Ph. 07/02/2022 Blood in Urine Carmen Hameed CIVIL ENGINEERING TEACHER: [address] [facility] [address] , [place] [address], Ph. 06/30/2022 Chronic Kidney Disease Stage 4; Dementia Carmen Hameed NP: [address] [facility] [address] , [place] [address], Ph. 06/13/2022 Chronic Obstructive Lung Disease; Benign Prostatic Hyperplasia; Atrial Fibrillation; Essential Hypertension; Chronic Kidney Disease Stage 4; Gastroesophageal Reflux Disease without Esophagitis; Mixed Anxiety and Depressive Disorder Janine Tam MD: [address] [facility] [address], [place] [address], Ph. 06/11/2022 Chronic Obstructive Lung Disease; Mukesh ia; Congestive Heart Failure; Atrial Fibrillation; Benign Prostatic Hyperplasia; Essential Hypertension; Osteoporosis; At Risk for Falls; Gastroesophageal Reflux Disease without Esophagitis; Seizure Dis order; Chronic Kidney Disease Stage 4 Carmen Hameed CIVIL ENGINEERING TEACHER: [address] [facility] , [place] [address], Ph. History of Present Illness Note: <div>seen today for readmission-</div><div>87 yom originally admitted to for rehab after [...] to hospice and to follow him at .,sander pritchett started for weak urine stream, tamsulosin added.</div><div>07/03 sen t to ED for gi bleed and hematuria, received 2 units PRBC, GI was consulted but no invasive procedures recommended given his age and comorbidities, protonix increased to bid, HD continues to be declined as well as hospice. Speech consulted for ground/mech altered and nectar thick liquids</div>&lt ;div>
</div><div>CAOx1 sitting up on bed, pritchett intact clear yellow urine, he denies any distress or discomfort</div>Review of Systems: ROS as noted in the [...]
--- OUTSIDE RECORDS SUMMARY | 2022-07-14 03:58 | XMS_ITS | Encounter Summary ---
:1935 Author Care Team Providers Name Role Phone Genaro Mancini Primary Care Provider [phone] Milton Serena 2nd Floor OTHER [phone] Reason for Visit Acute Rounding Visit Assessment [...] Code Code System Name Reaction Severity Onset 207 RxNorm Cortisone ? ? ? Problems Name [...] mRNA, LNP-S, PF, 30 mcg/0.3 mL dose ([employer]) 11/23/2020 12/20/2020 10/01/2021 influenza, high-dose, quadrivalent 06/28/2021 Tdap 05/28/2021 Social History Tobacco Smoking Status Former Smoker Notes: quit Has tobacco cessation counseling been N N otes: n/a as pt no longer provided? smokes What is your code status? DNR/DNI Do you have a medical power of Y Notes: invoked county attorney? What was the date of your most recent 04/18/2022 tobacco screening? Do you have an advanced directive? Y Note s: DNH, NO hd, IVF, GTHCP invoked Do you use any illicit or recreational N drugs? Where do you live? Apartment Notes: lives in [facility] with his wif e What is your relationship status? What is your level of alcohol None consumption? Do you have an out of hospital DNR? N Legal Guardian? N Do you or have you ever used any other N forms of tobacco or nicotine? Functional Status Unknown. Past Encounters 07/02/2022 Blood in Urine Carmen Hameed LOGISTICS TECHNICIAN: [address] [place] [address], Ph. 06/30/2022 Chronic Kidney Disease Stage 4; Dementia Carmen Hameed LOGISTICS TECHNICIAN: [address] [place] [address], Ph. 06/13/2022 Chronic Obstructive Lung Disease; Benign Prostatic Hyperplasia; Atrial Fibrillation; Essential Hypertension; Chronic Kidney Disease Stage 4; Gastroesophageal Reflux Disease without Esophagitis; Mixed Anxiety and Depressive Disorder Janine Tam MD: [address] [facility] [place] [address], Ph. 06/11/2022 Chronic Obstructive Lung Disease; Mukesh ia; Congestive Heart Failure; Atrial Fibrillation; Benign Prostatic Hyperplasia; Essential Hypertension; Osteoporosis; At Risk for Falls; Gastroesophageal Reflux Disease without Esophagitis; Seizure Dis order; Chronic Kidney Disease Stage 4 Carmen Hameed LOGISTICS TECHNICIAN: [address] [place] [address], Ph. History of Present Illness Note: <div>seen [...]
--- OUTSIDE RECORDS SUMMARY | 2022-07-14 03:58 | XMS_ITS ---
:1935 Author Care Team Providers Name Role Phone YASMEEN REID Primary Care Provider [phone] RIYA JUANA 2ND FLOOR OTHER [phone] Allergies Code Code System Name Reaction Severity [...] Hemorrhage Active 07/07/2022 ? Procedures Notes: cataract Results Lab Results None recorded. Past Encounters 07/09/2022 Gastrointestinal Hemorrhage; Blood in Ur ine; Chronic Obstructive Lung Disease; Dementia; Congestive Heart Failure; Atrial Fibrillation; Benign Prostatic Hyperplasia; Essential Hypertension; Osteoporosis ; At Risk for Falls; Gastroesophageal Re flux Disease without Esophagitis; Seizure Disorder; Chronic Kidney Disease Stage 4 Carmen Hameed MACHINE SPREADER: [address] [place] [address], Ph. 07/07/2022 Gastrointestinal Hemorrhage; Blood in Ur ine; Chronic Obstructive Lung Disease; Dementia; Congestive Heart Failure; Atrial Fibrillation; Benign Prostatic Hyperplasia; Essential Hypertension; Osteoporosis ; At Risk for Falls; Gastroesophageal Re flux Disease without Esophagitis; Seizure Disorder; Chronic Kidney Disease Stage 4 Carmen Hameed MACHINE SPREADER: [address] [place] [address], Ph. 07/02/2022 Blood in Urine Carmen Hameed MACHINE SPREADER: [address] [place] [address], Ph. 06/30/2022 Chronic Kidney Disease Stage 4; Dementia Carmen Hameed NP: [address] [place] [address], Ph. 06/13/2022 Chronic Obstructive Lung Disease; Benign Prostatic Hyperplasia; Atrial Fibrillation; Essential Hypertension; Chronic Kidney Disease Stage 4; Gastroesophageal Reflux Disease without Esophagitis; Mixed Anxiety and Depressive Disorder Janine Tam MD: [address] [place] [address], Ph. 06/11/2022 Chronic Obstructive Lung Disease; Mukesh ia; Congestive Heart Failure; Atrial Fibrillation; Benign Prostatic Hyperplasia; Essential Hypertension; Osteoporosis; At Risk for Falls; Gastroesophageal Reflux Disease without Esophagitis; Seizure Dis order; Chronic Kidney Disease Stage 4 Carmen Hameed NP: [address] [place] [address], Ph. 05/15/2022 Dementia; Congestive Heart Failure; Atri al Fibrillation; Benign Prostatic Hyperplasia; Essential Hypertension; Osteoporosis; At Risk for Falls; Chronic Obstructive Lung Disease; Gastroesophageal Reflux Disease without Esophagitis; Seizure Disorder Carmen Hameed MACHINE SPREADER: [address] [place] [address], Ph. 05/07/2022 Chronic Obstructive Lung Disease; Chroni c Kidney Disease Stage 4; Gastroesophageal Reflux Disease without Esophagitis Carmen Hameed MACHINE SPREADER: [address] [place] [address], Ph. 04/30/2022 Seizure Disorder; Congestive Heart Failu re; Chronic Obstructive Lung Disease Carmen Hameed NP: [address] [place] [address], Ph. 04/22/2022 Dementia; Chronic Kidney Disease Stage 4 ; Anemia; Congestive Heart Failure; At Risk for Falls; Atrial Fibrillation; Benign Prostatic Hyperplasia; Essential Hypertension; Osteoporosis; Chronic Obstructiv e Lung Disease; Gastroesophageal Reflux Disease without Esophagitis; Seizure Disorder Jocelyn Good MD: [address] [place] [address], Ph. 04/21/2022 Dementia; Congestive Heart Failure; At R isk for Falls Carmen Hameed, MACHINE SPREADER: [address] [place] [address], Ph. 04/18/2022 Dementia; Congestive Heart Failure; Atri al Fibrillation; Benign Prostatic Hyperplasia; Essential Hypertension; Osteoporosis; At Risk for Falls; Chronic Obstructive Lung Disease; Gastroesophageal Reflux Disease without Esophagitis; Seizure Disorder Carmen Hameed, MACHINE SPREADER: [address] [place] [address], Ph. 07/30/2021 Congestive Heart Failure; Atrial Fibrill ation; Benign Prostatic Hyperplasia; Essential Hypertension; Osteoporosis; At Risk for Falls Carmen Gibson Hameed, MACHINE SPREADER: [address] [place] [address], Ph. 07/23/2021 Congestive Heart Failure; At Risk for Fa lls Carmen Hameed, MACHINE SPREADER: [address] [place] [address], Ph. 07/19/2021 Congestive Heart Failure; Osteoporosis Carmen Gibson Hameed, MACHINE SPREADER: [address] [place] [address], Ph. 07/15/2021 Congestive Heart Failure; Benign Prostat ic Hyperplasia Carmen Hameed, MACHINE SPREADER: [address] [place] [address], Ph. 07/10/2021 Asthenia; Atrial Fibrillation; Benign Pr ostatic Hyperplasia; Acute Pulmonary Embolism; Aortic Valve Stenosis; Osteoporosis; Congestive Heart Failure; Essential Hypertension Janine Tam MD: [address] [place] [address], Ph. 07/08/2021 Congestive Heart Failure; Essential Hype rtension Carmengibson Hmaeed, MACHINE SPREADER: [address] [place] [address], Ph. 07/05/2021 Congestive Heart Failure; Atrial Fibrill ation; Benign Prostatic Hyperplasia; Essential Hypertension; Osteoporosis; At Risk for Falls Carmen Hameed MACHINE SPREADER: [address] [facility] , [place] [address], Ph. Social History Tobacco Smoking Status Former Smoker Notes: quit Vaccine List Vaccine Type COVID-19, mRNA, LNP-S, PF, 30 mcg/0.3 mL dose ([employer]) 11/23/2020 12/20/2020 10/01/2021 influenza, high-dose, quadrivalent 06/28/2021 Tdap 05/28/2021 Plan of Care Reminders Provider Appointments None recorded. ? ? Lab None recorded. ? ? Referral None recorded. ? ? Procedures None recorded. ? ? Surgeries None recorded. ? ? Imaging None recorded. ? ? Vitals 07/09/2022 11:15AM Routine Rounding Visit Height Blood Pressure 5 ft 6 in 145/70 mm[Hg] 07/07/2022 12:04PM Readmission Height Blood Pressure 5 ft 6 in 145/70 mm[Hg] 07/02/2022 11:58AM Acute Rounding Visit Height Blood [...]
[2022-07-14 07:12] VITALS: BP 133/65; PULSE 54; RESP 21; O2SAT 91
--- NOTE | 2022-07-14 08:16 | ECG_ITS ---
Test Reason : FALLS Blood Pressure : / mmHG Vent. Rate : 054 BPM Atrial Rate : 054 BPM P-R Int : 208 ms QRS Dur : 128 ms QT Int : 524 ms P-R-T Axes : 081 076 -61 degrees QTc Int : 496 ms Sinus bradycardia Right bundle branch block Nonspecific ST abnormality Inferior leads Lateral leads Abnormal ECG When compared with ECG of 03-JUL-2022 07:29, Premature atrial complexes are no longer Present Heart rate has decreased Referred By: Rachel Ward Electronically Signed By:NUVIA MORELAND MD
--- NOTE | 2022-07-14 08:18 | ED.FALL ---
HPI - Fall General Chief Complaint: Fall Stated Complaint: fall Time Seen by Provider: 07/14/22 08:08 Source: EMS, RN notes reviewed and old records reviewed Mode of arrival: EMS Limitations: other (dementia) History of Present Illness HPI Narrative: 87-year-old male with a past medical history of PE, aortic stenosis, CKD, HTN, dementia, COPD on home O2, PE, presenting to the ED via EMS with unwitnessed fall last night, unknown head trauma. Denies LOC. Patient not on anticoagulation. Per SNF nurse patient with multiple skin tears to sent to ED for evaluation. At baseline patient is on 2L NC, verbal, alert and confused. History limited due to patient's baseline dementia MD complaint: fall Onset (ago): hour(s) Related Data Home Medications Medication Instructions Recorded Confirmed amlodipine 5 mg tablet 1 tab PO DAILY 04/16/22 07/03/22 fluticasone fur. 100 mcg-umeclid 1 puff inhalation DAILY 04/16/22 07/03/22 62.5 mcg-vilant 25 mcg inhalat.powder (Trelegy Ellipta) sertraline 25 mg tablet 1 tab PO DAILY 04/16/22 07/03/22 digoxin 125 mcg (0.125 mg) tablet 62.5 mcg PO Q48H 07/03/22 07/03/22 tamsulosin 0.4 mg capsule 0.4 mg PO BEDTIME 07/03/22 07/03/22 Previous Rx's Medication Instructions Recorded finasteride 5 mg tablet 5 mg PO DAILY 90 days #90 tabs 05/15/22 pantoprazole 40 mg tablet,delayed 1 tab PO BID 15 days #30 tabs 07/06/22 release Allergies Allergy/AdvReac Type Severity Reaction Status Date / Time No Known Allergies Allergy Verified 12/25/21 08:19 Review of Systems Review of Systems: ROS limited due to patient's baseline dementia/acute mental status Yes all other systems are reviewed and are negative Constitutional: Constitutional: Reports as per [facility] Past Medical History Attestation statement: The following information was validated with the patient. Medical History Afib Bladder outlet obstruction Bladder outlet obstruction CHF (congestive heart failure) Elevated PSA Elevated PSA History of COPD History of seizures Melena On home oxygen therapy Pulmonary embolus Surgical History No pertinent past surgical history Family History Family History Other No family history of coronary artery disease Social History Social History Housing: [facility] Alcohol intake: unknown Patient Tobacco Use Status: Former Tobacco user Advance Directives: Yes Advance Directives on File: Yes Advance Directives Date on File: 07/03/22 service: No Current occupational status: retired Physical Exam Vital Signs: Vital Signs: Last Vital Signs Pulse 53 07/14/22 10:14 Resp 22 H 07/14/22 10:14 BP 114/51 L 07/14/22 10:14 Pulse Ox 98 07/14/22 10:14 O2 Del Method 07/14/22 10:14 O2 Flow Rate 3 07/14/22 10:14 BMI result Body Mass Index 22.8 Const: Other: Nonverbal, not following commands General: no acute distress Nutritional Appearance: cachectic HEENT: Head: Yes normal to inspection, Yes atraumatic, No Piper's sign and No raccoon eyes Ears: hearing grossly normal bilaterally General nose exam: Normal external nose present Face and sinus: Yes normal facial exam Mouth: mucous membranes dry Eyes: General: appearance normal, both eyes and all related structures EOM: EOMs intact bilaterally Neck: Neck: Yes normal visual inspection and Yes no meningeal signs Resp: Effort & Inspection: normal respiratory effort and no respiratory distress Auscultation: diminished lung sounds diffuse Cardio: Rate: regular rate Heart sounds: S1 normal heart sound present and S2 normal heart sound present Peripheral pulses: Peripheral pulses 2+ throughout GI: Inspection: Yes normal to inspection Palpation (GI): Soft to palpation, nontender, no guarding and not rigid Skin: Other: + multiple skin tears noted to left upper extremity. Rashes: no rashes Neuro: Other: Alert, not following commands General: tone normal and no meningeal signs Course Course Course Narrative: -1040--no leukocytosis. H&H at patient's baseline. CT head/brain wo IV con/CT cervical spine wo IV con IMPRESSION: *? No intracranial hemorrhage or other acute intracranial pathology. *? No fracture or traumatic subluxation in the degenerated cervical spine. XR shoulder LT min 2V/XR humerus LT/XR forearm LT 2V/XR elbow LT min 3V IMPRESSION: No acute osseous injury in the region of the left shoulder, upper arm, elbow or forearm. No fracture or malalignment. XR chest 1V IMPRESSION: 1.? Mild diffuse interstitial opacification especially over the right lower lobe possibly mild diffuse infiltrates. This might have slightly worsened, exaggerated by technique and exposure. 2.? No pleural effusion. 3.? No pneumothorax. 4.? No displaced rib fractures. >> will obtain lactic/cultures and give IV Cefepime -troponin elevated to 60.0 (elevated priors) > will obtain 3 hour repeat. BNP 2338 (similar to prior) -1215--hypernatremic, anion gap of 33 > suspect from renal failure. Worsening acute on chronic renal failure with a BUN >125 and creatinine of 10.06 >> spoke with patient's daughter, Ml (HCP) > reports patient is DNR/DNI, not interested in dialysis, [facility] to get [facility] care however having insurance issues at the moment > plan to admit for further management MDM - Fall MDM Narrative Medical decision making narrative: 87-year-old male with a past medical history of PE, aortic stenosis, CKD, HTN, dementia, COPD on home O2, PE, presenting to the ED via EMS with unwitnessed fall last night, unknown head trauma. On exam 91% on room air > patient's baseline O2 applied now satting 96%, alert, nonverbal (baseline verbal but confused), not following commands, ecchymosis and skin tears under to left upper extremity. Concern for encephalopathy, metabolic/infectious etiologys vs ICH/fractures Plan: EKG, labs, UA, straight cath, head/C-spine CT, x-rays Medical Records Attestation: I reviewed the patient's medical records. Lab Data Attestation: I reviewed the patient's lab results. Result diagrams: 07/14/22 10:06 07/14/22 10:06 Labs: Lab Results 07/14/22 07/14/22 07/14/22 Range/Units 10:06 10:06 10:06 WBC 5.8 (4.8-10.8) X10*3/uL RBC 3.08 L (4.60-5.80) X10*6/uL Hgb 9.4 L (14.0-18.0) g/dl Hct 29.6 L (42.0-52.0) % MCV 96.1 (80.0-98.0) fL MCH 30.5 (27.0-33.0) pg MCHC 31.8 (31.0-36.0) g/dl RDW 18.8 H (11.0-16.0) % Plt Count 128 L (160-400) X10*3/uL MPV 10.7 (9.4-12.4) fL Immature Gran % (Auto) 1.0 H (0.0-0.4) % Neut % (Auto) 94.0 H (45-73) % Lymph % (Auto) 1.9 L (20-40) % [place] % (Auto) 2.9 (2-11) % Eos % (Auto) 0.0 (0-4) % Baso % (Auto) 0.2 (0-2) % Lymph # (Auto) 0.1 L (1.2-4.9) X10*3/uL [place] # (Auto) 0.2 (0.1-1.2) X10*3/uL Eos # (Auto) 0.0 (0.0-0.4) X10*3/uL Baso # (Auto) 0.0 (0.0-0.2) X10*3/uL Abs Immat Gran (auto) 0.06 H (0.00-0.03) X10*3/uL Absolute Neuts (auto) 5.4 (2.0-8.3) x10*3/uL Absolute Nucleated RBC 0.000 (0.0-0.012) X10*3/uL Nucleated RBC % (auto) 0.0 (0.0-0.2) /100WBC Smear Tech's Comments VERIFIED PT 12.4 (10.0-13.1) SEC INR 1.1 (0.9-1.1) Sodium 153 H (135-145) mmol/L Potassium 4.7 (3.3-5.1) mmol/L Chloride 111 H (96-108) mmol/L Carbon Dioxide 14 L (22-29) mmol/L Anion Gap 33 H (12-20) BUN > 125 H (9-16) mg/dL Creatinine 10.06 H* (0.5-1.4) mg/dL Estim Creat Clear Calc 5.0 Estimated GFR 5 Random Glucose 90 (60-115) mg/dL Lactic Acid (0.5-2.0) mmol/L Calcium 9.1 (8.4-10.2) mg/dL Magnesium 2.6 (1.6-2.6) mg/dL Total Bilirubin 0.6 (0.0-1.0) mg/dL Direct Bilirubin 0.3 (0.0-0.5) mg/dL AST 33 D (5-37) U/L ALT 22 (0-40) U/L Alkaline Phosphatase 96 D (39-117) U/L Total Creatine Kinase (38-174) U/L Troponin I High Sens (<3.5-35.0) ng/L B-Natriuretic Peptide (<100) pg/mL Total Protein 5.9 L (6.5-8.0) g/dL Albumin 3.2 L (3.5-5.0) g/dL COVID-19 (VINCE) (Negative) COVID-19 Clin Com 07/14/22 07/14/22 07/14/22 Range/Units 10:06 10:06 10:07 WBC (4.8-10.8) X10*3/uL RBC (4.60-5.80) X10*6/uL Hgb (14.0-18.0) g/dl Hct (42.0-52.0) % MCV (80.0-98.0) fL MCH (27.0-33.0) pg MCHC (31.0-36.0) g/dl RDW (11.0-16.0) % Plt Count (160-400) X10*3/uL MPV (9.4-12.4) fL Immature Gran % (Auto) (0.0-0.4) % Neut % (Auto) (45-73) % Lymph % (Auto) (20-40) % Oxford % (Auto) (2-11) % Eos % (Auto) (0-4) % Baso % (Auto) (0-2) % Lymph # (Auto) (1.2-4.9) X10*3/uL Oxford # (Auto) (0.1-1.2) X10*3/uL Eos # (Auto) (0.0-0.4) X10*3/uL Baso # (Auto) (0.0-0.2) X10*3/uL Abs Immat Gran (auto) (0.00-0.03) X10*3/uL Absolute Neuts (auto) (2.0-8.3) x10*3/uL Absolute Nucleated RBC (0.0-0.012) X10*3/uL Nucleated RBC % (auto) (0.0-0.2) /100WBC Smear Tech's Comments PT (10.0-13.1) SEC INR (0.9-1.1) Sodium (135-145) mmol/L Potassium (3.3-5.1) mmol/L Chloride (96-108) mmol/L Carbon Dioxide (22-29) mmol/L Anion Gap (12-20) BUN (9-16) mg/dL Creatinine (0.5-1.4) mg/dL Estim Creat Clear Calc Estimated GFR Random Glucose (60-115) mg/dL Lactic Acid (0.5-2.0) mmol/L Calcium (8.4-10.2) mg/dL Magnesium (1.6-2.6) mg/dL Total Bilirubin (0.0-1.0) mg/dL Direct Bilirubin (0.0-0.5) mg/dL AST (5-37) U/L ALT (0-40) U/L Alkaline Phosphatase (39-117) U/L Total Creatine Kinase 257 H (38-174) U/L Troponin I High Sens 60.0 H (<3.5-35.0) ng/L B-Natriuretic Peptide 2338 H (<100) pg/mL Total Protein (6.5-8.0) g/dL Albumin (3.5-5.0) g/dL COVID-19 (VINCE) Negative (Negative) COVID-19 Clin Com See Note 07/14/22 Range/Units 10:58 WBC (4.8-10.8) X10*3/uL RBC (4.60-5.80) X10*6/uL Hgb (14.0-18.0) g/dl Hct (42.0-52.0) % MCV (80.0-98.0) fL MCH (27.0-33.0) pg MCHC (31.0-36.0) g/dl RDW (11.0-16.0) % Plt Count (160-400) X10*3/uL MPV (9.4-12.4) fL Immature Gran % (Auto) (0.0-0.4) % Neut % (Auto) (45-73) % Lymph % (Auto) (20-40) % Oxford % (Auto) (2-11) % Eos % (Auto) (0-4) % Baso % (Auto) (0-2) % Lymph # (Auto) (1.2-4.9) X10*3/uL Oxford # (Auto) (0.1-1.2) X10*3/uL Eos # (Auto) (0.0-0.4) X10*3/uL Baso # (Auto) (0.0-0.2) X10*3/uL Abs Immat Gran (auto) (0.00-0.03) X10*3/uL Absolute Neuts (auto) (2.0-8.3) x10*3/uL Absolute Nucleated RBC (0.0-0.012) X10*3/uL Nucleated RBC % (auto) (0.0-0.2) /100WBC Smear Tech's Comments PT (10.0-13.1) SEC INR (0.9-1.1) Sodium (135-145) mmol/L Potassium (3.3-5.1) mmol/L Chloride (96-108) mmol/L Carbon Dioxide (22-29) mmol/L Anion Gap (12-20) BUN (9-16) mg/dL Creatinine (0.5-1.4) mg/dL Estim Creat Clear Calc Estimated GFR Random Glucose (60-115) mg/dL Lactic Acid 0.8 (0.5-2.0) mmol/L Calcium (8.4-10.2) mg/dL Magnesium (1.6-2.6) mg/dL Total Bilirubin (0.0-1.0) mg/dL Direct Bilirubin (0.0-0.5) mg/dL AST (5-37) U/L ALT (0-40) U/L Alkaline Phosphatase (39-117) U/L Total Creatine Kinase (38-174) U/L Troponin I High Sens (<3.5-35.0) ng/L B-Natriuretic Peptide (<100) pg/mL Total Protein (6.5-8.0) g/dL Albumin (3.5-5.0) g/dL COVID-19 (VINCE) (Negative) COVID-19 Clin Com Critical Care Time Critical Care Time Critical Care Time: Yes Total Critical Care Time: 40 Attestation: I have personally provided critical care time exclusive of time spent on separately billable procedures. Time includes review of lab data, radiology results, discussion with consultants, and monitoring for potential decompensation. Intervention performed as documented. Discharge Plan Discharge Clinical Impression: Pneumonia, AMS (altered mental status), Fall, Skin tear, CKD (chronic kidney disease) Patient Disposition: Admitted As Inpatient
[2022-07-14] MEDS: 0.9 % Sodium Chloride 1,000 ML 999 ML IV (10:10)
[2022-07-14 10:14] VITALS: BP 114/51; PULSE 53; RESP 22; O2SAT 98
[2022-07-14 10:18] LABS: Basophils Percent Auto 0.2 % (0-2); Hematocrit 29.6 % (42.0-52.0); Hemoglobin 9.4 g/dl (14.0-18.0); Imm Gran Abs Auto 0.06 X10*3/uL (0.00-0.03); Lymphocytes Absolute Auto 0.1 X10*3/uL (1.2-4.9); Lymphocytes Percent Auto 1.9 % (20-40); MANUAL DIFF FLAG SCAN; Mean Corpuscular HGB Conc 31.8 g/dl (31.0-36.0); Mean Corpuscular Hemoglobin 30.5 pg (27.0-33.0); Mean Corpuscular Volume 96.1 fL (80.0-98.0); Mean Platelet Volume 10.7 fL (9.4-12.4); Monocytes Absolute Auto 0.2 X10*3/uL (0.1-1.2); Monocytes Percent Auto 2.9 % (2-11); Neutrophils Absolute Auto 5.4 x10*3/uL (2.0-8.3); Platelet Count 128 X10*3/uL (160-400); Red Blood Count 3.08 X10*6/uL (4.60-5.80); Red Cell Distribution Width 18.8 % (11.0-16.0); SCAN SMEAR FLAG 1; White Blood Count 5.8 X10*3/uL (4.8-10.8)
[2022-07-14 10:23] LABS: INTERNATIONAL NORM RATIO 1.1 (0.9-1.1); Prothrombin Time 12.4 SEC (10.0-13.1)
--- NOTE | 2022-07-14 10:27 | PC.NURSE ---
pt. alert, non verbal. unable to assess pain level and details of fall. ns tae 53. bp 114/51. O2sat 99 2L nc. pt's skin very dry and fragile, 3 skin tears on left arm (upper arm, elbow and wrist) according to EMS incurred in fall. We dressed with non stick dressing. RA upper arm has a small dry skin tear. IV in place on RT upper arm and NS running. folly notted w/200cc of cloudy urine
[2022-07-14 10:34] LABS: COVID-19 Test Negative (Negative); IDNOW Serial# 16C4AD1C
[2022-07-14 10:39] LABS: B Type Natriuretic Peptide 2338 pg/mL (<100)
[2022-07-14 10:53] LABS: SLIDE REVIEW VERIFIED
[2022-07-14] MEDS: cefEPime HCl 2 GM in 0.9 % Sodium Chloride 50 ML IV (11:00)
[2022-07-14 11:17] LABS: Lactic Acid 0.8 mmol/L (0.5-2.0)
[2022-07-14 12:02] LABS: Alanine Aminotransferase 22 U/L (0-40); Albumin Level 3.2 g/dL (3.5-5.0); Alkaline Phosphatase 96 U/L (39-117); Anion Gap 33 (12-20); Aspartate Amino Transferase 33 U/L (5-37); Bilirubin Direct 0.3 mg/dL (0.0-0.5); Bilirubin Total 0.6 mg/dL (0.0-1.0); Blood Urea Nitrogen > 125 mg/dL (9-16); Calcium 9.1 mg/dL (8.4-10.2); Carbon Dioxide 14 mmol/L (22-29); Chloride 111 mmol/L (96-108); Estimated Glomerular Filt Rate 5; Glucose Random 90 mg/dL (60-115); Magnesium 2.6 mg/dL (1.6-2.6); Potassium 4.7 mmol/L (3.3-5.1); Sodium 153 mmol/L (135-145); Total Protein 5.9 g/dL (6.5-8.0)
[2022-07-14 12:27] VITALS: BP 106/49; PULSE 53; RESP 22; O2SAT 96
--- NOTE | 2022-07-14 12:38 | PM.IMHP ---
History of Present Illness Date of Service: 07/14/22 Chief Complaint: Fall 87-year-old male with past medical history of COPD on 2 L of O2 at baseline, CHF, history of PE, AFib on Eliquis, CKD5/ESRD (doesn't want dilaysis), bladder outlet obstruction on finasteride, history of seizures, depression, recent hospitalization from 07/03/22 to 07/06/22 and was treated for acute on chronic anemia but did not require intervention at time. He presents today with unwitnessed fall last nigh with no evidence of head injury or LOC yet he suffered multiple skin tears to sent to ED for evaluation.? He is confused beyond his baseline confusion, I could not get him to say anything to me. At baseline patient is on 2L NC, verbal, alert and confused. Therefore history obtain from ED record, SNF record. Work is revealing pneumonia on cXR, has no fever and no increase in WBC, no Hypoxia. He is DNR/DNI and family had previously considered hospice but not done due insurance issues from my understanding. Review of Systems Review of Systems: Gen: no fever Resp: no sob, no cough Yes Unobtainable due to mental status PMFSH Medical History Afib Bladder outlet obstruction Bladder outlet obstruction CHF (congestive heart failure) Elevated PSA Elevated PSA History of COPD History of seizures Melena On home oxygen therapy Pulmonary embolus Family History Other No family history of coronary artery disease Surgical History No pertinent past surgical history Social History Housing: [facility] Alcohol intake: unknown Patient Tobacco Use Status: Former Tobacco user Advance Directives: Yes Advance Directives on File: Yes Advance Directives Date on File: 07/03/22 service: No Current occupational status: retired Meds Allergies Allergy/AdvReac Type Severity Reaction Status Date / Time No Known Allergies Allergy Verified 12/25/21 08:19 Home Medications Medication Instructions Recorded Confirmed Last Taken Type amlodipine 5 mg tablet 1 tab PO DAILY 04/16/22 07/14/22 06/07/22 History fluticasone fur. 100 mcg-umeclid 1 puff inhalation DAILY 04/16/22 07/14/22 06/07/22 History 62.5 mcg-vilant 25 mcg inhalat.powder (Trelegy Ellipta) sertraline 25 mg tablet 1 tab PO DAILY 04/16/22 07/14/22 06/07/22 History digoxin 125 mcg (0.125 mg) tablet 62.5 mcg PO Q48H 07/03/22 07/14/22 Unknown History tamsulosin 0.4 mg capsule 0.4 mg PO BEDTIME 07/03/22 07/14/22 Unknown History acetaminophen 325 mg tablet 650 mg PO Q6H PRN PAIN OR FEVER 07/14/22 07/14/22 Unknown History pantoprazole 40 mg tablet,delayed 1 tab PO BID@0630,1630 07/14/22 07/14/22 Unknown History release Physical Exam Vital Signs and Narrative: Vital Signs: Last Vital Signs Pulse 53 07/14/22 12:27 Resp 22 H 07/14/22 12:27 BP 106/49 L 07/14/22 12:27 Pulse Ox 96 07/14/22 12:27 O2 Del Method 07/14/22 12:27 O2 Flow Rate 2 07/14/22 12:27 BMI result Body Mass Index 22.8 Const: Other: Constitutional: Alert, in no distress, very frail, not talking Mental Status:Not oriented Eyes: Pupils are equal, round and reactive to light. Ear, Nose and Throat: Oropharynx clear, mucous membranes moist. Ears and nose without eformities. Respiratory: Clear to auscultation. No wheezing, rales or rhonchi. Cardiovascular: S1 S2 regular. No murmurs, rubs or gallops. Gastrointestinal: Abdomen soft, non-tender, non-distended. Normal bowel sounds.? Neurologic: no gross focal deficit Skin: No rashes or lesions.? Musculoskeletal: No cyanosis or clubbing. Psychiatric: flat affect Results Labs CBC and Chem 7: 07/14/22 10:07/14/22 10:06 Labs: Laboratory Results - last 24 hr 07/14/22 07/14/22 07/14/22 10:06 10:06 10:06 MCV 96.1 MCH 30.5 MCHC 31.8 RDW 18.8 H Plt Count 128 L MPV 10.7 Immature Gran % (Auto) 1.0 H Neut % (Auto) 94.0 H Lymph % (Auto) 1.9 L [place] % (Auto) 2.9 Eos % (Auto) 0.0 Baso % (Auto) 0.2 Lymph # (Auto) 0.1 L [place] # (Auto) 0.2 Eos # (Auto) 0.0 Baso # (Auto) 0.0 Abs Immat Gran (auto) 0.06 H Absolute Neuts (auto) 5.4 Absolute Nucleated RBC 0.000 Nucleated RBC % (auto) 0.0 Smear Tech's Comments VERIFIED PT 12.4 INR 1.1 Anion Gap 33 H Estim Creat Clear Calc 5.0 Estimated GFR 5 Random Glucose 90 Lactic Acid Calcium 9.1 Magnesium 2.6 Total Bilirubin 0.6 Direct Bilirubin 0.3 AST 33 D ALT 22 Alkaline Phosphatase 96 D Total Creatine Kinase Troponin I High Sens B-Natriuretic Peptide Total Protein 5.9 L Albumin 3.2 L COVID-19 ([facility]IN[facility]) [facility] [facility] Com 07/14/22 07/14/22 07/14/22 10:06 10:06 10:07 MCV MCH MCHC RDW Plt Count MPV Immature Gran % (Auto) Neut % (Auto) Lymph % (Auto) [place] % (Auto) Eos % (Auto) Baso % (Auto) Lymph # (Auto) [place] # (Auto) Eos # (Auto) Baso # (Auto) Abs Immat Gran (auto) Absolute Neuts (auto) Absolute Nucleated RBC Nucleated RBC % (auto) Smear Tech's Comments PT INR Anion Gap Estim Creat Clear Calc Estimated GFR Random Glucose Lactic Acid Calcium Magnesium Total Bilirubin Direct Bilirubin AST ALT Alkaline Phosphatase Total Creatine Kinase 257 H Troponin I High Sens 60.0 H B-Natriuretic Peptide 2338 H Total Protein Albumin COVID-19 ([facility]INCE) Negative [facility] [facility] Com See Note 07/14/22 10:58 MCV MCH MCHC RDW Plt Count MPV Immature Gran % (Auto) Neut % (Auto) Lymph % (Auto) [place] % (Auto) Eos % (Auto) Baso % (Auto) Lymph # (Auto) [place] # (Auto) Eos # (Auto) Baso # (Auto) Abs Immat Gran (auto) Absolute Neuts (auto) Absolute Nucleated RBC Nucleated RBC % (auto) Smear Tech's Comments PT INR Anion Gap Estim Creat Clear Calc Estimated GFR Random Glucose Lactic Acid 0.8 Calcium Magnesium Total Bilirubin Direct Bilirubin AST ALT Alkaline Phosphatase Total Creatine Kinase Troponin I High Sens B-Natriuretic Peptide Total Protein Albumin COVID-19 ([facility]INCE) COVID-19 Clin Com Imaging Radiologist's Impressions: Impressions Cervical Spine CT 07/14/22 09:09 IMPRESSION: * No intracranial hemorrhage or other acute intracranial pathology. * No fracture or traumatic subluxation in the degenerated cervical spine. Chest X-Ray 07/14/22 09:09 IMPRESSION: 1. Mild diffuse interstitial opacification especially over the right lower lobe possibly mild diffuse infiltrates. This might have slightly worsened, exaggerated by technique and exposure. 2. No pleural effusion. 3. No pneumothorax. 4. No displaced rib fractures. Elbow X-Ray 07/14/22 09:09 IMPRESSION: No acute osseous injury in the region of the left shoulder, upper arm, elbow or forearm. No fracture or malalignment. Forearm X-Ray 07/14/22 09:09 IMPRESSION: No acute osseous injury in the region of the left shoulder, upper arm, elbow or forearm. No fracture or malalignment. Humerus X-Ray 07/14/22 09:09 IMPRESSION: No acute osseous injury in the region of the left shoulder, upper arm, elbow or forearm. No fracture or malalignment. Shoulder X-Ray 07/14/22 09:09 IMPRESSION: No acute osseous injury in the region of the left shoulder, upper arm, elbow or forearm. No fracture or malalignment. Head CT 07/14/22 09:10 IMPRESSION: * No intracranial hemorrhage or other acute intracranial pathology. * No fracture or traumatic subluxation in the degenerated cervical spine. Assessment and Plan (1) Pneumonia: Status: Acute (2) AMS (altered mental status): Status: Acute Plan 87-year-old male with past medical history of COPD on 2 L of O2 at baseline, CHF, history of PE, AFib on Eliquis, CKD5 (doesn't want dilaysis), bladder outlet obstruction on finasteride, history of seizures, depression, recent hospitalization from 07/03/22 to 07/06/22 and was treated for acute on chronic anemia but did not require intervention at time. He presents today with unwitnessed fall last nigh with no evidence of head injury or LOC yet he suffered multiple skin tears to sent to ED for evaluation and found to have Pneumonia 1/PNA started on IV Cefepime, continue renal dose 2/Hypernatremia--d/t dehydration -IVF and repeat 3/ESRD/CKD5, Cre 10, family/pt don't want dialysis 4/Anemia of chronic disease--H/H stable 5/ho PE not anticoagulated 6/Metabolic acidosis d/t ESRD 7/Encephalopathy--likely metabolic due to uremia 8/Fall d/t confusio, and everything above 9/Unsepecified dementia--pretty advanced 10/COPD no acute exacerbation, continue baseline O2 11/Chronic heart failure--suspect chronic systolic heart failu, no exacerbation 12/ Permanent AFIB not on anticoagulation 13/Falls, bruses, PT eval Overall prognosis is poor and in light of declining dialysis, I think it is reasonable to consider hospice, reportedly this has been considered in the past by family not done d/t insurance issues? 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 Quality Stroke Does the patient have a stroke diagnosis?: No VTE Prior VTE?: No VTE Risk Level:: Medical - moderate - high VTE Device Contraindication: Treatment Not Indicated VTE Drug Contraindication: N/A - Med Ordered
--- NOTE | 2022-07-14 13:39 | PHA.MEDREC ---
Pharmacy Consult ? Medication Reconciliation Pharmacy has completed the medication reconciliation. Patient came from [facility] with medication list. Tana Thompson, ChristinaD
--- OUTSIDE RECORDS SUMMARY | 2022-07-14 14:03 | XMS_ITS | Encounter Summary ---
:1935 Author Care Team Providers Name Role Phone Genaro Mancini Primary Care Provider [phone] Milton Serena 2[address] Floor OTHER [phone] Reason for Visit Acute Rounding Visit Assessment [...] mRNA, LNP-S, PF, 30 mcg/0.3 mL dose ([employer]) 11/23/2020 12/20/2020 10/01/2021 influenza, high-dose, quadrivalent 06/28/2021 [...] do you live? Apartment Notes: lives in [facility]. complex with his wif e What is your relationship status? Functional Status Unknown. Past Encounters 06/30/2022 Chronic Kidney Disease Stage 4; Dementia Carmen Hameed LADLE PULLER: [address] [facility] [place] [address], Ph. 06/13/2022 Chronic Obstructive Lung Disease; Benign Prostatic Hyperplasia; Atrial Fibrillation; Essential Hypertension; Chronic Kidney Disease Stage 4; Gastroesophageal Reflux Disease without Esophagitis; Mixed Anxiety and Depressive Disorder Janine Tam MD: [address] [facility] [place] [address], Ph. 06/11/2022 Chronic Obstructive Lung Disease; Mukesh ia; Congestive Heart Failure; Atrial Fibrillation; Benign Prostatic Hyperplasia; Essential Hypertension; Osteoporosis; At Risk for Falls; Gastroesophageal Reflux Disease without Esophagitis; Seizure Dis order; Chronic Kidney Disease Stage 4 Carmen Hameed NP: [address] [place] [address], Ph. History of Present Illness Note: <div>seen [...]
--- OUTSIDE RECORDS SUMMARY | 2022-07-14 14:03 | XMS_ITS | Encounter Summary ---
:1935 Author Care Team Providers Name Role Phone Genaro Mancini Primary Care Provider [phone] Milton Serena 2[address] Floor OTHER [phone] Reason for Visit Readmission Assessment and Plan [...] Code Code System Name Reaction Severity Onset 2385 RxNorm Cortisone ? ? ? Problems Name [...] mRNA, LNP-S, PF, 30 mcg/0.3 mL dose ([employer]) 11/23/2020 12/20/2020 10/01/2021 influenza, high-dose, quadrivalent 06/28/2021 [...] do you live? Apartment Notes: lives in [facility] with his wif e What is your relationship status? Functional Status Unknown. Past Encounters 07/07/2022 Gastrointestinal Hemorrhage; Blood in Ur ine; Chronic Obstructive Lung Disease; Dementia; Congestive Heart Failure; Atrial Fibrillation; Benign Prostatic Hyperplasia; Essential Hypertension; Osteoporosis ; At Risk for Falls; Gastroesophageal Re flux Disease without Esophagitis; Seizure Disorder; Chronic Kidney Disease Stage 4 Carmen Hameed MERCHANDISE MANAGER: [address] [facility] , [place] [address], Ph. 07/02/2022 Blood in Urine Carmen Hameed MERCHANDISE MANAGER: [address] , [place] [address], Ph. 06/30/2022 Chronic Kidney Disease Stage 4; Dementia Carmen Hameed NP: [address] , [place] [address], Ph. 06/13/2022 Chronic Obstructive Lung Disease; Benign Prostatic Hyperplasia; Atrial Fibrillation; Essential Hypertension; Chronic Kidney Disease Stage 4; Gastroesophageal Reflux Disease without Esophagitis; Mixed Anxiety and Depressive Disorder Janine Tam MD: [address] [facility] [address], [place] [address], Ph. 06/11/2022 Chronic Obstructive Lung Disease; Mukesh ia; Congestive Heart Failure; Atrial Fibrillation; Benign Prostatic Hyperplasia; Essential Hypertension; Osteoporosis; At Risk for Falls; Gastroesophageal Reflux Disease without Esophagitis; Seizure Dis order; Chronic Kidney Disease Stage 4 Carmen Hameed MERCHANDISE MANAGER: [address] [facility] , [place] [address], Ph. History of Present Illness Note: <div>seen [...]
--- OUTSIDE RECORDS SUMMARY | 2022-07-14 14:03 | XMS_ITS | Encounter Summary ---
:1935 Author Care Team Providers Name Role Phone Genaro Mancini Primary Care Provider [phone] Milton Serena 2[address] Floor OTHER [phone] Reason for Visit Routine Rounding Assessment and [...] Code Code System Name Reaction Severity Onset 8798 RxNorm Cortisone ? ? ? Problems Name [...] mRNA, LNP-S, PF, 30 mcg/0.3 mL dose ([employer]) 11/23/2020 12/20/2020 10/01/2021 influenza, high-dose, quadrivalent 06/28/2021 [...] do you live? Apartment Notes: lives in [facility] with his wif e What is your relationship status? Functional Status Unknown. Past Encounters 05/15/2022 Dementia; Congestive Heart Failure; Atri al Fibrillation; Benign Prostatic Hyperplasia; Essential Hypertension; Osteoporosis; At Risk for Falls; Chronic Obstructive Lung Disease; Gastroesophageal Reflux Disease without Esophagitis; Seizure Disorder Carmen Hameed PLUGGER WORKER: [address] [place] [address], Ph. 05/07/2022 Chronic Obstructive Lung Disease; Chroni c Kidney Disease Stage 4; Gastroesophageal Reflux Disease without Esophagitis Carmen Hameed PLUGGER WORKER: [address] [place] [address], Ph. 04/30/2022 Seizure Disorder; Congestive Heart Failu re; Chronic Obstructive Lung Disease Carmen Hameed PLUGGER WORKER: [address] [facility] [place] [address], Ph. 04/22/2022 Dementia; Chronic Kidney Disease Stage 4 ; Anemia; Congestive Heart Failure; At Risk for Falls; Atrial Fibrillation; Benign Prostatic Hyperplasia; Essential Hypertension; Osteoporosis; Chronic Obstructiv e Lung Disease; Gastroesophageal Reflux Disease without Esophagitis; Seizure Disorder Jocelyn Good MD: [address] [facility], [place] [address], Ph. 04/21/2022 Dementia; Congestive Heart Failure; At R isk for Falls Carmen Hameed PLUGGER WORKER: [address] [facility] , [place] [address], Ph. 04/18/2022 Dementia; Congestive Heart Failure; Atri al Fibrillation; Benign Prostatic Hyperplasia; Essential Hypertension; Osteoporosis; At Risk for Falls; Chronic Obstructive Lung Disease; Gastroesophageal Reflux Disease without Esophagitis; Seizure Disorder Carmen Hameed PLUGGER WORKER: [address] [place] [address], Ph. History of Present Illness Note: <div>seen [...]
--- OUTSIDE RECORDS SUMMARY | 2022-07-14 14:03 | XMS_ITS | Encounter Summary ---
:1935 Author Care Team Providers Name Role Phone Genaro Mancini Primary Care Provider [phone] [facility] 2nd Floor OTHER [phone] Reason for Visit Acute Rounding Visit Assessment [...] Code Code System Name Reaction Severity Onset 2916 RxNorm Cortisone ? ? ? Problems Name [...] mRNA, LNP-S, PF, 30 mcg/0.3 mL dose ([employer]) 11/23/2020 12/20/2020 10/01/2021 influenza, high-dose, quadrivalent 06/28/2021 Tdap 05/28/2021 Social History Tobacco Smoking Status Former Smoker Notes: quit 202 What is your level of alcohol None consumption? Has tobacco cessation counseling been N N otes: n/a as pt no longer provided? smokes What is your code status? DNR/DNI Do you have a medical power of Y Notes: invoked employment attorney? What was the date of your [...] do you live? Apartment Notes: lives in [facility] with his wif e What is your relationship status? Functional Status Unknown. Past Encounters 05/07/2022 Chronic Obstructive Lung Disease; Chroni c Kidney Disease Stage 4; Gastroesophageal Reflux Disease without Esophagitis Carmen Hameed NP: [address] [facility] [place] [place] [address], Ph. 04/30/2022 Seizure Disorder; Congestive Heart Failu re; Chronic Obstructive Lung Disease Carmen Hameed NP: [address] [facility] [place] [place] [address], Ph. 04/22/2022 Dementia; Chronic Kidney Disease Stage 4 ; Anemia; Congestive Heart Failure; At Risk for Falls; Atrial Fibrillation; Benign Prostatic Hyperplasia; Essential Hypertension; Osteoporosis; Chronic Obstructiv e Lung Disease; Gastroesophageal Reflux Disease without Esophagitis; Seizure Disorder Jocelyn Good MD: [address] [facility] [place] [place] [address], Ph. 04/21/2022 Dementia; Congestive Heart Failure; At R isk for Falls Carmen Hameed NP: [address] [facility] [place] [place] [address], Ph. 04/18/2022 Dementia; Congestive Heart Failure; Atri al Fibrillation; Benign Prostatic Hyperplasia; Essential Hypertension; Osteoporosis; At Risk for Falls; Chronic Obstructive Lung Disease; Gastroesophageal Reflux Disease without Esophagitis; Seizure Disorder Carmen Hameed, BOAT ENGINE MECHANIC: [address] , [place] [address], Ph. History of Present Illness Note: <div>seen [...]
--- OUTSIDE RECORDS SUMMARY | 2022-07-14 14:03 | XMS_ITS | Encounter Summary ---
:1935 Author Care Team Providers Name Role Phone Genaro Mancini Primary Care Provider [phone] Milton Serena 2[address] Floor OTHER [phone] Reason for Visit Acute Rounding Visit Assessment [...] Code Code System Name Reaction Severity Onset 121 RxNorm Cortisone ? ? ? Problems Name [...] mRNA, LNP-S, PF, 30 mcg/0.3 mL dose ([employer]) 11/23/2020 12/20/2020 10/01/2021 influenza, high-dose, quadrivalent 06/28/2021 Tdap 05/28/2021 Social History Tobacco Smoking Status Former Smoker Notes: quit What is your level of alcohol None consumption? Has tobacco cessation counseling been N N otes: n/a as pt no longer provided? smokes What is your code status? DNR/DNI Do you have a medical power of Y Notes: invoked attorney lawyer? What was the date of your most [...] do you live? Apartment Notes: lives in [facility] with his wif e What is your relationship status? Functional Status Unknown. Past Encounters 07/02/2022 Blood in Urine Carmen Hameed CORN POPPER: [address] [place] [address], Ph. 06/30/2022 Chronic Kidney Disease Stage 4; Dementia Carmen Hameed CORN POPPER: [address] [place] [address], Ph. 06/13/2022 Chronic Obstructive Lung Disease; Benign Prostatic Hyperplasia; Atrial Fibrillation; Essential Hypertension; Chronic Kidney Disease Stage 4; Gastroesophageal Reflux Disease without Esophagitis; Mixed Anxiety and Depressive Disorder Janine Tam MD: [address] [facility] [place] [address], Ph. 06/11/2022 Chronic Obstructive Lung Disease; Mukesh ia; Congestive Heart Failure; Atrial Fibrillation; Benign Prostatic Hyperplasia; Essential Hypertension; Osteoporosis; At Risk for Falls; Gastroesophageal Reflux Disease without Esophagitis; Seizure Dis order; Chronic Kidney Disease Stage 4 Carmen Hameed CORN POPPER: [address] [place] [address], Ph. History of Present Illness Note: <div>seen [...]
--- OUTSIDE RECORDS SUMMARY | 2022-07-14 14:03 | XMS_ITS | Encounter Summary ---
:1935 Author Care Team Providers Name Role Phone Genaro Mancini Primary Care Provider [phone] Milton Serena 2[address] Floor OTHER [phone] Reason for Visit Acute Rounding Visit Assessment [...] Code Code System Name Reaction Severity Onset 1882 RxNorm Cortisone ? ? ? Problems Name [...] mRNA, LNP-S, PF, 30 mcg/0.3 mL dose ([employer]) 11/23/2020 12/20/2020 10/01/2021 influenza, high-dose, quadrivalent 06/28/2021 Tdap 05/28/2021 Social History Tobacco Smoking Status Former Smoker Notes: quit What is your level of alcohol None consumption? Has tobacco cessation counseling been N N otes: n/a as pt no longer provided? smokes What is your code status? DNR/DNI Do you have a medical power of Y Notes: invoked deputy attorney general? What was the date of your most [...] do you live? Apartment Notes: lives in [facility]. complex with his wif e What is your relationship status? Functional Status Unknown. Past Encounters 04/30/2022 Seizure Disorder; Congestive Heart Failu re; Chronic Obstructive Lung Disease Carmen Hameed HOG OPERATOR: [address] [place] [address], Ph. 04/22/2022 Dementia; Chronic Kidney Disease Stage 4 ; Anemia; Congestive Heart Failure; At Risk for Falls; Atrial Fibrillation; Benign Prostatic Hyperplasia; Essential Hypertension; Osteoporosis; Chronic Obstructiv e Lung Disease; Gastroesophageal Reflux Disease without Esophagitis; Seizure Disorder Jocelyn Good MD: [address] [facility] [place] [address], Ph. 04/21/2022 Dementia; Congestive Heart Failure; At R isk for Falls Carmen Hameed NP: [address] [facility] [place] [address], Ph. 04/18/2022 Dementia; Congestive Heart Failure; Atri al Fibrillation; Benign Prostatic Hyperplasia; Essential Hypertension; Osteoporosis; At Risk for Falls; Chronic Obstructive Lung Disease; Gastroesophageal Reflux Disease without Esophagitis; Seizure Disorder Carmen Hameed NP: [address] [facility] [place] [address], Ph. History of Present Illness Note: <div>seen [...]
--- OUTSIDE RECORDS SUMMARY | 2022-07-14 14:03 | XMS_ITS ---
:1935 Author Care Team Providers Name Role Phone YASMEEN REID Primary Care Provider [phone] RIYA JUANA 2ND FLOOR OTHER [phone] Allergies Code Code System Name Reaction Severity [...] Chronic Kidney Disease Stage 4 Carmen Hameed INTERNAL CONTROL MANAGER: [address] [place] [address], Ph. 07/07/2022 Gastrointestinal Hemorrhage; Blood in Ur ine; Chronic Obstructive Lung Disease; Dementia; Congestive Heart Failure; Atrial Fibrillation; Benign Prostatic Hyperplasia; Essential Hypertension; Osteoporosis ; At Risk for Falls; Gastroesophageal Re flux Disease without Esophagitis; Seizure Disorder; Chronic Kidney Disease Stage 4 Carmen Hameed INTERNAL CONTROL MANAGER: [address] [place] [address], Ph. 07/02/2022 Blood in Urine Carmen Hameed INTERNAL CONTROL MANAGER: [address] [place] [address], Ph. 06/30/2022 Chronic Kidney Disease Stage 4; Dementia Carmen Hameed NP: [address] [place] [address], Ph. 06/13/2022 Chronic Obstructive Lung Disease; Benign Prostatic Hyperplasia; Atrial Fibrillation; Essential Hypertension; Chronic Kidney Disease Stage 4; Gastroesophageal Reflux Disease without Esophagitis; Mixed Anxiety and Depressive Disorder Janine Tam MD: [address] [place] [address], Ph. 06/11/2022 Chronic Obstructive Lung Disease; Mukesh ia; Congestive Heart Failure; Atrial Fibrillation; Benign Prostatic Hyperplasia; Essential Hypertension; Osteoporosis; At Risk for Falls; Gastroesophageal Reflux Disease without Esophagitis; Seizure Dis order; Chronic Kidney Disease Stage 4 Carmen Hameed NP: [address] [place] [address], Ph. 05/15/2022 Dementia; Congestive Heart Failure; Atri al Fibrillation; Benign Prostatic Hyperplasia; Essential Hypertension; Osteoporosis; At Risk for Falls; Chronic Obstructive Lung Disease; Gastroesophageal Reflux Disease without Esophagitis; Seizure Disorder Carmen Hameed INTERNAL CONTROL MANAGER: [address] [place] [address], Ph. 05/07/2022 Chronic Obstructive Lung Disease; Chroni c Kidney Disease Stage 4; Gastroesophageal Reflux Disease without Esophagitis Carmen Hameed INTERNAL CONTROL MANAGER: [address] [place] [address], Ph. 04/30/2022 Seizure Disorder; Congestive Heart Failu re; Chronic Obstructive Lung Disease Carmen Hameed NP: [address] [place] [address], Ph. 04/22/2022 Dementia; Chronic Kidney Disease Stage 4 ; Anemia; Congestive Heart Failure; At Risk for Falls; Atrial Fibrillation; Benign Prostatic Hyperplasia; Essential Hypertension; Osteoporosis; Chronic Obstructiv e Lung Disease; Gastroesophageal Reflux Disease without Esophagitis; Seizure Disorder Jocelyn Good MD: [address] [place] [address], Ph. 04/21/2022 Dementia; Congestive Heart Failure; At R isk for Falls Carmen Hameed, INTERNAL CONTROL MANAGER: [address] [place] [address], Ph. 04/18/2022 Dementia; Congestive Heart Failure; Atri al Fibrillation; Benign Prostatic Hyperplasia; Essential Hypertension; Osteoporosis; At Risk for Falls; Chronic Obstructive Lung Disease; Gastroesophageal Reflux Disease without Esophagitis; Seizure Disorder Carmen Hameed, INTERNAL CONTROL MANAGER: [address] [place] [address], Ph. 07/30/2021 Congestive Heart Failure; Atrial Fibrill ation; Benign Prostatic Hyperplasia; Essential Hypertension; Osteoporosis; At Risk for Falls Carmen Gibson Hameed, INTERNAL CONTROL MANAGER: [address] [place] [address], Ph. 07/23/2021 Congestive Heart Failure; At Risk for Fa lls Carmen Hameed, INTERNAL CONTROL MANAGER: [address] [place] [address], Ph. 07/19/2021 Congestive Heart Failure; Osteoporosis Carmen Gibson Hameed, INTERNAL CONTROL MANAGER: [address] [place] [address], Ph. 07/15/2021 Congestive Heart Failure; Benign Prostat ic Hyperplasia Carmen Hameed, INTERNAL CONTROL MANAGER: [address] [place] [address], Ph. 07/10/2021 Asthenia; Atrial Fibrillation; Benign Pr ostatic Hyperplasia; Acute Pulmonary Embolism; Aortic Valve Stenosis; Osteoporosis; Congestive Heart Failure; Essential Hypertension Janine Tam MD: [address] [place] [address], Ph. 07/08/2021 Congestive Heart Failure; Essential Hype rtension Carmengibson Hameed, INTERNAL CONTROL MANAGER: [address] [place] [address], Ph. 07/05/2021 Congestive Heart Failure; Atrial Fibrill ation; Benign Prostatic Hyperplasia; Essential Hypertension; Osteoporosis; At Risk for Falls Carmen Hameed INTERNAL CONTROL MANAGER: [address] [facility] , [place] [address], Ph. Social History Tobacco Smoking Status Former Smoker Notes: quit Vaccine List Vaccine Type COVID-19, mRNA, LNP-S, PF, 30 mcg/0.3 mL dose ([employer]) 11/23/2020 12/20/2020 10/01/2021 influenza, high-dose, quadrivalent 06/28/2021 [...]
--- OUTSIDE RECORDS SUMMARY | 2022-07-14 14:03 | XMS_ITS | Encounter Summary ---
:1935 Author Care Team Providers Name Role Phone Genaro Mancini Primary Care Provider [phone] Milton Serena 2nd Floor OTHER [phone] Reason for Visit Routine Rounding routine rounding [...] Code Code System Name Reaction Severity Onset 8373 RxNorm Cortisone ? ? ? Problems Name [...] mRNA, LNP-S, PF, 30 mcg/0.3 mL dose ([employer]) 11/23/2020 12/20/2020 10/01/2021 influenza, high-dose, quadrivalent 06/28/2021 Tdap 05/28/2021 Social History Tobacco Smoking Status Former Smoker Notes: quit Has tobacco cessation counseling been N N otes: n/a as pt no longer provided? smokes What is your code status? DNR/DNI Do you have a medical power of Y Notes: invoked collections attorney? What was the date of your most recent 04/18/2022 tobacco screening? Do you have an advanced directive? Y Note s: DNH, NO hd, IVF, GTHCP invoked Do you use any illicit or recreational N drugs? Where do you live? Apartment Notes: lives in [facility] with his wif e What is [...] and Depressive Disorder Janine Tam MD: [address] [facility] [place] [address], Ph. 06/11/2022 Chronic Obstructive Lung Disease; Mukesh ia; Congestive Heart Failure; Atrial Fibrillation; Benign Prostatic Hyperplasia; Essential Hypertension; Osteoporosis; At Risk for Falls; Gastroesophageal Reflux Disease without Esophagitis; Seizure Dis order; Chronic Kidney Disease Stage 4 Carmen Hameed NP: [address] [facility] [place] [address], Ph. 05/15/2022 Dementia; Congestive Heart Failure; Atri al Fibrillation; Benign Prostatic Hyperplasia; Essential Hypertension; Osteoporosis; At Risk for Falls; Chronic Obstructive Lung Disease; Gastroesophageal Reflux Disease without Esophagitis; Seizure Disorder Carmen Hameed FREIGHT CAR INSPECTOR: [address] [facility] [address] , [place] [address], Ph. History of Present Illness Note: <div>This 86 year old male fdc care resident is seen today for routine [...]
--- OUTSIDE RECORDS SUMMARY | 2022-07-14 14:03 | XMS_ITS | Encounter Summary ---
:1935 Author Care Team Providers Name Role Phone Genaro Mancini Primary Care Provider [phone] Milton Serena 2nd Floor OTHER [phone] Reason for Visit Routine Rounding Assessment and [...] Code Code System Name Reaction Severity Onset 1132 RxNorm Cortisone ? ? ? Problems Name [...] mRNA, LNP-S, PF, 30 mcg/0.3 mL dose ([employer]) 11/23/2020 12/20/2020 10/01/2021 influenza, high-dose, quadrivalent 06/28/2021 Tdap 05/28/2021 Social History Tobacco Smoking Status Former Smoker Notes: quit What is your level of alcohol None consumption? Has tobacco cessation counseling been N N otes: n/a as pt no longer provided? smokes What is your code status? DNR/DNI Do you have a medical power of Y Notes: invoked prom burn off operator? What was the date of your most [...] do you live? Apartment Notes: lives in [facility] with his wif e What is your relationship status? Functional Status Unknown. Past Encounters 07/09/2022 Gastrointestinal Hemorrhage; Blood in Ur ine; Chronic Obstructive Lung Disease; Dementia; Congestive Heart Failure; Atrial Fibrillation; Benign Prostatic Hyperplasia; Essential Hypertension; Osteoporosis ; At Risk for Falls; Gastroesophageal Re flux Disease without Esophagitis; Seizure Disorder; Chronic Kidney Disease Stage 4 Carmen Hameed RN NEUROSURGICAL: [address] [facility] , [place] [address], Ph. 07/07/2022 Gastrointestinal Hemorrhage; Blood in Ur ine; Chronic Obstructive Lung Disease; Dementia; Congestive Heart Failure; Atrial Fibrillation; Benign Prostatic Hyperplasia; Essential Hypertension; Osteoporosis ; At Risk for Falls; Gastroesophageal Re flux Disease without Esophagitis; Seizure Disorder; Chronic Kidney Disease Stage 4 Carmen Hameed RN NEUROSURGICAL: [address] [place] [address], Ph. 07/02/2022 Blood in Urine Carmen Hameed RN NEUROSURGICAL: [address] [place] [address], Ph. 06/30/2022 Chronic Kidney Disease Stage 4; Dementia Carmen Hameed RN NEUROSURGICAL: [address] [place] [address], Ph. 06/13/2022 Chronic Obstructive Lung Disease; Benign Prostatic Hyperplasia; Atrial Fibrillation; Essential Hypertension; Chronic Kidney Disease Stage 4; Gastroesophageal Reflux Disease without Esophagitis; Mixed Anxiety and Depressive Disorder Janine Tam MD: [address] [place] [address], Ph. 06/11/2022 Chronic Obstructive Lung Disease; Mukesh ia; Congestive Heart Failure; Atrial Fibrillation; Benign Prostatic Hyperplasia; Essential Hypertension; Osteoporosis; At Risk for Falls; Gastroesophageal Reflux Disease without Esophagitis; Seizure Dis order; Chronic Kidney Disease Stage 4 Carmen Hameed RN NEUROSURGICAL: [address] [place] [address], Ph. History of Present Illness Note: <div>seen [...]
--- OUTSIDE RECORDS SUMMARY | 2022-07-14 14:03 | XMS_ITS | Encounter Summary ---
:1935 Author Care Team Providers Name Role Phone Genaro Mancini Primary Care Provider [phone] Milton Serena 2nd Floor OTHER [phone] Reason for Visit Readmission Assessment and Plan [...] Code Code System Name Reaction Severity Onset 9845 RxNorm Cortisone ? ? ? Problems Name [...] mRNA, LNP-S, PF, 30 mcg/0.3 mL dose ([employer]) 11/23/2020 12/20/2020 10/01/2021 influenza, high-dose, quadrivalent 06/28/2021 [...] do you live? Apartment Notes: lives in [facility] with his wif e What is your relationship status? Functional Status Unknown. Past Encounters 06/11/2022 Chronic Obstructive Lung Disease; Mukesh ia; Congestive Heart Failure; Atrial Fibrillation; Benign Prostatic Hyperplasia; Essential Hypertension; Osteoporosis; At Risk for Falls; Gastroesophageal Reflux Disease without Esophagitis; Seizure Dis order; Chronic Kidney Disease Stage 4 Carmen Hameed RADIOTELEGRAPH OPERATOR SERVICER: [address] [facility] , [place] [address], Ph. 05/15/2022 Dementia; Congestive Heart Failure; Atri al Fibrillation; Benign Prostatic Hyperplasia; Essential Hypertension; Osteoporosis; At Risk for Falls; Chronic Obstructive Lung Disease; Gastroesophageal Reflux Disease without Esophagitis; Seizure Disorder Carmen Hameed, RADIOTELEGRAPH OPERATOR SERVICER: [address] [facility] [address] , [place] [address], Ph. History of Present Illness Note: <div>seen [...]
--- OUTSIDE RECORDS SUMMARY | 2022-07-14 14:04 | XMS_ITS | Encounter Summary ---
:1935 Author Care Team Providers Name Role Phone Genaro Mancini Primary Care Provider [phone] [facility] 2nd Floor OTHER [phone] Reason for Visit Admitting H&P Assessment and [...] Code Code System Name Reaction Severity Onset 7516 RxNorm Cortisone ? ? ? Problems Name [...] mRNA, LNP-S, PF, 30 mcg/0.3 mL dose ([employer]) 11/23/2020 12/20/2020 10/01/2021 influenza, high-dose, quadrivalent 06/28/2021 Tdap 05/28/2021 Social History Tobacco Smoking Status Former Smoker Notes: quit What is your level of alcohol None consumption? Has tobacco cessation counseling been N N otes: n/a as pt no longer provided? smokes What is your code status? DNR/DNI Do you have a medical power of Y Notes: invoked real estate associate attorney? What was the date of your [...] do you live? Apartment Notes: lives in [facility] with his wif e What is your relationship status? Functional Status Unknown. Past Encounters 04/22/2022 Dementia; Chronic Kidney Disease Stage 4 ; Anemia; Congestive Heart Failure; At Risk for Falls; Atrial Fibrillation; Benign Prostatic Hyperplasia; Essential Hypertension; Osteoporosis; Chronic Obstructiv e Lung Disease; Gastroesophageal Reflux Disease without Esophagitis; Seizure Disorder Jocelyn Good MD: [address] [place] [address], Ph. 04/21/2022 Dementia; Congestive Heart Failure; At R isk for Falls Carmen Hameed ECHO VASC TECH: [address] [place] [address], Ph. 04/18/2022 Dementia; Congestive Heart Failure; Atri al Fibrillation; Benign Prostatic Hyperplasia; Essential Hypertension; Osteoporosis; At Risk for Falls; Chronic Obstructive Lung Disease; Gastroesophageal Reflux Disease without Esophagitis; Seizure Disorder Carmen Hameed ECHO VASC TECH: [address] [place] [address], Ph. History of Present Illness Note: <div>This [...] in 07/2021 to 52/3.08. [place] [facility] [place] showed 24/1.7 in [...] 04/18. </div><div>Notable is [place] in [place]20[place] [facility], thought [...]
--- OUTSIDE RECORDS SUMMARY | 2022-07-14 14:04 | XMS_ITS | Encounter Summary ---
:1935 Author Care Team Providers Name Role Phone Genaro Mancini Primary Care Provider [phone] [facility] 2nd Floor OTHER [phone] Reason for Visit Initial Intake Assessment and [...] Code Code System Name Reaction Severity Onset 5370 RxNorm Cortisone ? ? ? Problems Name [...] mRNA, LNP-S, PF, 30 mcg/0.3 mL dose ([employer]) 11/23/2020 12/20/2020 10/01/2021 influenza, high-dose, quadrivalent 06/28/2021 [...] do you live? Apartment Notes: lives in [facility] with his wif e What is your relationship status? Functional Status Unknown. Past Encounters 04/18/2022 Dementia; Congestive Heart Failure; Atri al Fibrillation; Benign Prostatic Hyperplasia; Essential Hypertension; Osteoporosis; At Risk for Falls; Chronic Obstructive Lung Disease; Gastroesophageal Reflux Disease without Esophagitis; Seizure Disorder Carmen Hameed AIR BRAKES INSPECTOR: [address] [facility] , [place] [address], Ph. History of Present Illness Note: <div>seen [...]
--- OUTSIDE RECORDS SUMMARY | 2022-07-14 14:04 | XMS_ITS | Encounter Summary ---
:1935 Author Care Team Providers Name Role Phone Genaro Mancini Primary Care Provider [phone] Milton Serena 2nd Floor OTHER [phone] Reason for Visit Acute Rounding Visit Assessment [...] mRNA, LNP-S, PF, 30 mcg/0.3 mL dose ([employer]) 11/23/2020 12/20/2020 10/01/2021 influenza, high-dose, quadrivalent 06/28/2021 Tdap 05/28/2021 Social History Tobacco Smoking Status Former Smoker Notes: quit What is your level of alcohol None consumption? Has tobacco cessation counseling been N N otes: n/a as pt no longer provided? smokes What is your code status? DNR/DNI Do you have a medical power of Y Notes: invoked airdrop systems technician? What was the date of your most [...] do you live? Apartment Notes: lives in [facility] complex with his wif e What is your relationship status? Functional Status Unknown. Past Encounters 04/21/2022 Dementia; Congestive Heart Failure; At R isk for Falls Carmen Hameed, SEAPORT PLANNING MANAGER: [address] [place] [address], Ph. 04/18/2022 Dementia; Congestive Heart Failure; Atri al Fibrillation; Benign Prostatic Hyperplasia; Essential Hypertension; Osteoporosis; At Risk for Falls; Chronic Obstructive Lung Disease; Gastroesophageal Reflux Disease without Esophagitis; Seizure Disorder Carmen Hameed SEAPORT PLANNING MANAGER: [address] [place] [address], Ph. History of Present Illness Note: <div>seen [...]
[2022-07-14 14:26] LABS: Appearance Urine Cloudy; Color Urine Yellow; Glucose Urine UA Negative (Negative); Leukocyte Esterase Urine Moderate (2+) (Negative); Nitrite Urine Positive (Negative); PH 5.5 (5.0-9.0); Specific Gravity - Urine 1.025 (1.005-1.025); UMIC TRIGGER UACC YES; Urine Blood Large (3+) (Negative); Urine Ketones 40 mg/dL (Negative); Urine Protein 300 (3+) mg/dL (Neg-Trace)
[2022-07-14 14:45] LABS: Bacteria Urine 3+ (None Seen); RBC Urine >20 /HPF (0-2); Squamous Epithelial Cell Urine 0-2 /HPF (0-2); UACC Culture Trigger YES; WBC Urine >50 /HPF (0-5)
[2022-07-14 14:46] LABS: Calcium Oxalate Crystals Urine Present; Granular Casts Urine Present; Hyaline Casts Urine 0-2 /LPF (0-2)
[2022-07-14] MEDS: Heparin Sodium,Porcine 5,000 UNIT/ML VIAL 5000 UNIT SUBCUT (15:01)
[2022-07-14] MEDS: Dextrose 5 % and 0.45 % NaCl 1,000 ML 100 ML IVCONT (15:02)
--- NOTE | 2022-07-14 15:24 | PC.NURSE ---
Dressing redressed to left arm d/t large amt of sanguineous strikethrough. Pt non verbal and restless intermittently (grabbing at pritchett and dressings to arms). Pritchett patent but minimal urine ouput noted in bag. Dhaval on continues, HR noted 38-55, Digoxin held, Dr Zamorano notified.
--- NOTE | 2022-07-14 17:44 | PC.NURSE ---
Pt unable to tolerate PO, attempted pudding and water and pt spitting out, not opening mouth fully, appears to be confused with how to eat/drink, speech eveal placed
[2022-07-14 19:37] LABS: Ammonia 25 umol/L (13-55)
--- NOTE | 2022-07-14 21:08 | PC.NURSE ---
jaycob Sethi and I went to go and boost the pt in the bed. pt opened mouth and had an unknown substance in mouth. So oral care was preformed for pt. pt face was wiped and is resting comfortably
[2022-07-14 21:20] VITALS: BP 122/51; PULSE 50; RESP 20; TEMP 29.2; O2SAT 100
[2022-07-14] MEDS: Tamsulosin HCL 0.4 MG CAPSULE PO (21:33)
--- NOTE | 2022-07-14 21:44 | PC.NURSE ---
Pt temp was attempted but no reading. Provider was notified. Pt meds was administered with pudding placed in his mouth and he did swallow it. Dr. Smith was notified and asked to have [facility]. Pt V/S are stable but on the monitor he is sinus tae. Pt IVF are patent and running.
--- NOTE | 2022-07-14 21:50 | PC.NURSE ---
jaycob mckeon and I changed pt dressing on the left side due to saturation of blood. Clean dresssing applied pt is comfortable resting
[2022-07-15] VITALS (10 sets, daily range): BP systolic 107–189; BP diastolic 51–90; PULSE 54–72; RESP 15–30; TEMP 34.8–37; O2SAT 91–95
[2022-07-15] MEDS: Dextrose 5 % and 0.45 % NaCl 1,000 ML 100 ML IVCONT (01:20)
[2022-07-15] MEDS: Heparin Sodium,Porcine 5,000 UNIT/ML VIAL 5000 UNIT SUBCUT ×2 (02:56→15:29)
--- NOTE | 2022-07-15 03:10 | PC.NURSE ---
Pt was changed, Pt's BM was dark diarrhea stool. PT IVF are running, Pt was re-position to the left side and his rectal temp was 94.6. Pt was put back on the bare hugger. will continue to monitor.
--- NOTE | 2022-07-15 06:10 | PC.NURSE ---
Addendum entered by Anette Glover 07/15/22 06:14: Pt is NPO per provider order d/t pt need speech eval. Original Note: Pt left forearm dressing was changed, Pt was changed and his BP was elevated. Nurse notified Dr. Smith. Pt IVF are running. PT was taken off the [facility] d/t temp 97 degrees.
[2022-07-15] MEDS: hydrALAZINE HCl 20 MG/ML VIAL 5 MG IVPUSH (06:38)
--- NOTE | 2022-07-15 07:38 | PC.NURSE ---
pt repositioned in bed, pillow placed from under pt left side to pt right side. pt vitals were taken. pt remains dry and clean pritchett in place.
[2022-07-15 07:50] LABS: Anion Gap 25 (12-20); Carbon Dioxide 18 mmol/L (22-29); Chloride 115 mmol/L (96-108); Creatinine Clr Calc Pharmacy 5.3; Estimated Glomerular Filt Rate 5; Glucose Random 103 mg/dL (60-115); Potassium 4.1 mmol/L (3.3-5.1); Sodium 154 mmol/L (135-145)
[2022-07-15 08:01] LABS: Blood Urea Nitrogen 120 mg/dL (9-16)
--- NOTE | 2022-07-15 09:11 | PC.NURSE ---
pt resting in bed, awake, periodically changing positon. pt not answering questions but will track speaker with eyes. pt rectal temp this morning 96.1 - covered with warm blankets. will re-assess. d5 0.45% NS IVF stopped, change to D5W. Pt wound to L wrist assessed and bandage changed as it was saturated with blood. noted skin tear to the area.
[2022-07-15 09:35] LABS: Procalcitonin 0.61 ng/mL
[2022-07-15] MEDS: Piperacillin Sodium/Tazobactam 2.25 GM in 0.9 % Sodium Chloride 50 ML IV ×3 (09:35→22:35)
[2022-07-15] MEDS: Dextrose 5 % 1,000 ML 100 ML IVCONT ×2 (09:35→20:08)
--- NOTE | 2022-07-15 12:22 | MHC.CM.PN ---
Attempted to meet with patient in regards to discharge planning. Patient is not engaging with staff at this time. Spoke with patient's daughter/HCP, Ml, via telephone at [phone]. Anticipate patient will return to [facility] via [facility] when medically stable. HCP verified to be on file. Patient received 5 Moderna vaccines. IMM explained and sent via certified mail. Continue to monitor for d/c needs.
--- NOTE | 2022-07-15 12:48 | PC.NURSE ---
pt brought over from ed to room 8, patient alert to self, unable to state if he has pain, dressings to arms intact, pt turned/positioned to comfort, call [facility] within reach, will continue to monitor.
--- NOTE | 2022-07-15 13:48 | MHC.SL.SWA ---
Speech Pathologist Impression: Risk of Aspiration Due to: Lethargy Medically Fragile History of Pneumonia Reduced Cognition Dysphasia Diet Status: NPO. Re-asses swallow as level of alertness/engagement improves. Liquid Consistency and Strategies for Safe Swallow: Liquid Intake Recommendation: NPO Liquid Intake Strategies: Solid Food Consistency: Dietary Recommendations: NPO Additional Modifications to Solid Foods: Recommend continued NPO at this time, secondary to Pt's level of alertness/responsiveness. Oral Medication Intake: NPO Please contact the pharmacy regarding appropriate crushable or liquid drug formulations that are available whenever modified delivery is recommended. Compensatory Strategies and Precautions to be Taken for Safe Swallow: Supervision While Eating and Drinking for Safe Swallow: Foods to Avoid: Swallowing Recommended Treatments: Compens. Strategy Educat. Recommendation for Speech: Further Testing Needed Inpatient Speech Therapy Comment: Pt was able to tolerate only trace amounts of P.O. trials today, due to level of alertness and orientation. Pt presented with clinical signs of aspiration on trace amt of water given, more timely swallow on trace amounts of [place] Thick and Puree with reduced laryngeal elevation noted on all swallows. Pt is edentulous. Pt had waxing waning alertness, not appropriate at this time to be on diet due to aspiration risk, ability to sustain alertness/engagement during meal. Recommend continue NPO at this time, re-assess daily for readiness for diet. Discussed recommendation with Nursing in person, by secure text with and RD. FLUE GAS ANALYST will continue to follow, re-assess as appropriate. Frequency/Duration: M-F while inpatient Date Range for Service Req: Timeline to reassess: Hot Stick Worker Clinican/Clinical Fellow: No Supervisory Statement: I have reviewed and agree with the student/clinical fellow's documentation: N/A Speech Language Pathologist: Vivian Crespo M.A., [facility]-FLUE GAS ANALYST
--- NOTE | 2022-07-15 16:02 | HO.PM.IMPN ---
Subjective Subjective Date of Service: 07/15/22 Interval History: minimally responsive, nonverbal, not safe for PO Review of Systems Review of Systems: Yes Unobtainable due to mental status Physical Exam Vital Signs: Vital Signs: Last Vital Signs Temp 97.0 F 07/15/22 12:15 Pulse 67 07/15/22 12:15 Resp 22 H 07/15/22 12:15 BP 107/52 L 07/15/22 12:15 Pulse Ox 92 07/15/22 12:15 O2 Del Method 07/15/22 12:15 O2 Flow Rate 2 07/15/22 12:15 BMI result Body Mass Index 22.8 Gen: ill-appearing HEENT: sclera anicteric, moist mucus membranes Neck: supple Lungs: coarse crackles bilaterally Heart: irregular, no murmurs Abd: soft, non-tender, non-distended Ext: no edema Skin: warm/well-perfused Neuro: somnolent Psych: impaired insight Objective Data Active Medications Acetaminophen (Acetaminophen 325 Mg Tablet) 650 mg PO Q6H PRN PRN Reason: Pain, Mild (Pain Scale 1-3) Acetaminophen (Acetaminophen 325 Mg Tablet) 650 mg PO Q6H PRN PRN Reason: PAIN OR FEVER Amlodipine Besylate (Amlodipine Besylate 5 Mg Tablet) 5 mg PO DAILY [facility]; Protocol Last Admin: 07/15/22 09:14 Dose: Not Given Documented By: DORIS Non-Admin Reason: NPO Digoxin (Digoxin 0.125 Mg Tablet) 0.0625 mg PO Q48H [facility] Last Admin: 07/14/22 15:03 Dose: Not Given Documented By: MAYO Non-Admin Reason: Decreased Heart Rate Finasteride (Finasteride 5 Mg Tablet) 5 mg PO DAILY [facility] Last Admin: 07/15/22 09:15 Dose: Not Given Documented By: DORIS Non-Admin Reason: NPO Heparin Sodium (Porcine) (Heparin Sodium,Porcine 5,000 Unit/Ml Vial) 5,000 unit SUBCUT Q12H [facility] Last Admin: 07/15/22 15:29 Dose: 5,000 unit Documented By: KATHRYN Dextrose (D5w) 1,000 mls @ 100 mls/hr IVCONT .Q10H [facility] Last Admin: 07/15/22 09:35 Dose: 100 mls/hr Documented By: DORIS Piperacillin Sod/Tazobactam (Sod 2.25 gm/ Sodium Chloride) 50 mls @ 100 mls/hr IV Q6H [facility] Last Infusion: 07/15/22 15:49 Dose: 100 mls/hr Documented By: KATHRYN Melatonin (Melatonin 3 Mg Tablet) 3 mg PO BEDTIME PRN PRN Reason: Insomnia Non-Formulary Medication (Rzdwqhclndg-Oyawpzrmz-Njcccpaa [Trelegy Ellipta]) 1 puff INHALE DAILY [facility] Omeprazole (Omeprazole 20 Mg Capsule.Dr) 20 mg PO BID@0630,1630 [facility] Last Admin: 07/15/22 15:28 Dose: Not Given Documented By: KATHRYN Non-Admin Reason: NPO Sertraline HCl (Sertraline Hcl 25 Mg Tablet) 25 mg PO DAILY [facility] Last Admin: 07/15/22 09:15 Dose: Not Given Documented By: DORIS Non-Admin Reason: NPO Sodium Chloride (0.9 % Sodium Chloride Flush 3 Ml Syringe) 3 ml IVFLUSH QSHIFT [facility] Last Admin: 07/15/22 15:28 Dose: Not Given Documented By: KATHRYN Non-Admin Reason: IV Running Tamsulosin HCl (Tamsulosin Hcl 0.4 Mg Capsule) 0.4 mg PO BEDTIME [facility] Last Admin: 07/14/22 21:33 Dose: 0.4 mg Documented By: JORGE Labs CBC & Chem 7: 07/14/22 10:06 07/15/22 06:44 Labs: Laboratory Results - last 24 hr 07/14/22 07/15/22 07/15/22 19:21 06:44 06:44 Anion Gap 25 H Estim Creat Clear Calc 5.3 Estimated GFR 5 Random Glucose 103 Calcium 8.0 L D Ammonia 25 Procalcitonin 0.61 Microbiology Microbiology Results: Microbiology 07/14/22 10:59 Blood Culture - Preliminary Blood - Venous No growth after 24 hours. 07/14/22 10:32 Blood Culture - Preliminary Blood - Venous No growth after 24 hours. 07/14/22 Unknown Urine Culture - Preliminary Urine clean catch - Urine jaquez top Culture in progress. Assessment and Plan (1) Pneumonia: Status: Acute Plan d#2 87yo M SNF resident with dementia, COPD on 2L O2, CHF, hx PE + AF on apixaban, ESRD declined HD, bladder outlet obstruction, hx sz, depression, recent hospitalization for acute/chronic anemia, sent in after unwitnessed fall, found to be more confused than baseline, workup showed PNA though not hypoxic and no leukocytosis # PNA - change cefepime to pip/kenneth renally dosed # hyperNa - replete free water IV, recheck Na in AM # ESRD - declined HD, renally dose medications # anemia of ESRD - Hb stable, monitor # hx PE # AF - not anticoagulated - continue digoxin # COPD - conitnue O2, inhalers # encephalopathy - multifactorial -likely due to uremia + PNA on background dementia # VTE ppx: UFH In my clinical judgment, the patient requires continued inpatient hospitalization for the following reasons: IV ABX, IV water Quality Stroke Does the patient have a stroke diagnosis?: No VTE Prior VTE?: No VTE Risk Level:: Medical - moderate - high VTE Device Contraindication: Treatment Not Indicated VTE Drug Contraindication: N/A - Med Ordered
--- NOTE | 2022-07-15 16:58 | PC.NURSE ---
report given to floor
[2022-07-16] VITALS (8 sets, daily range): BP systolic 105–152; BP diastolic 40–65; PULSE 54–91; RESP 18–24; TEMP 32.8–37.3; O2SAT 4–93; BMI 18.2
[2022-07-16] MEDS: Piperacillin Sodium/Tazobactam 2.25 GM in 0.9 % Sodium Chloride 50 ML IV ×4 (03:07→21:54)
[2022-07-16] MEDS: Heparin Sodium,Porcine 5,000 UNIT/ML VIAL 5000 UNIT SUBCUT ×2 (03:10→14:08)
[2022-07-16] MEDS: Dextrose 5 % 1,000 ML 100 ML IVCONT (05:23)
--- NOTE | 2022-07-16 06:01 | PC.NURSE ---
Pt's rectal temp was 91.1 at 04:40 and O2 was 91% on 4L NC. Pt has a hx of COPD and was admitted with pneumonia and mechanical fall on 07/14/22. This nurse notified the respiratory therapist of the pt's low O2 and notified the MD of the pt's low rectal temp at 04:48. The respiratory therapist said that anything over 88% is good for the pt because of the pt's hx of COPD. The MD was notified and ordered stat labs for the pt.This nurse placed a marta hugger on pt. At 05:42 this nurse reassess the pt's rectal temp and was 92.3.
[2022-07-16 06:28] LABS: Lactic Acid 0.9 mmol/L (0.5-2.0)
[2022-07-16 06:32] LABS: Anion Gap 24 (12-20); Blood Urea Nitrogen 121 mg/dL (9-16); Calcium 7.6 mg/dL (8.4-10.2); Carbon Dioxide 16 mmol/L (22-29); Chloride 109 mmol/L (96-108); Creatinine Clr Calc Pharmacy 5.6; Estimated Glomerular Filt Rate 6; Glucose Random 110 mg/dL (60-115); Potassium 3.9 mmol/L (3.3-5.1); Sodium 145 mmol/L (135-145)
[2022-07-16] MEDS: Sodium Bicarbonate 8.4% 150 MEQ in Dextrose 5 % 850 ML 50 MEQ IV (08:50)
--- NOTE | 2022-07-16 10:23 | HO.PM.IMPN ---
Subjective Subjective Date of Service: 07/16/22 Interval History: somewhat more alert today but still unable to obtain ROS or to eat safely Review of Systems Review of Systems: Yes Unobtainable due to mental status Physical Exam Vital Signs: Vital Signs: Last Vital Signs Temp 95.5 F L 07/16/22 07:17 Pulse 64 07/16/22 07:17 Resp 18 07/16/22 07:17 BP 114/55 L 07/16/22 07:17 Pulse Ox 4 L 07/16/22 07:17 O2 Del Method 07/16/22 07:17 O2 Flow Rate 4 07/16/22 04:48 BMI result Body Mass Index 22.8 Gen: ill-appearing HEENT: sclera anicteric, moist mucus membranes Neck: supple Lungs: coarse crackles bilaterally Heart: irregular, no murmurs Abd: soft, non-tender, non-distended Ext: no edema Skin: warm/well-perfused Neuro: awake, disoriented Psych: impaired insight Objective Data Active Medications Acetaminophen (Acetaminophen 325 Mg Tablet) 650 mg PO Q6H PRN PRN Reason: Pain, Mild (Pain Scale 1-3) Acetaminophen (Acetaminophen 325 Mg Tablet) 650 mg PO Q6H PRN PRN Reason: PAIN OR FEVER Amlodipine Besylate (Amlodipine Besylate 5 Mg Tablet) 5 mg PO DAILY [facility]; Protocol Last Admin: 07/16/22 07:49 Dose: Not Given Documented By: BRAD Non-Admin Reason: NPO Digoxin (Digoxin 0.125 Mg Tablet) 0.0625 mg PO Q48H [facility] Last Admin: 07/14/22 15:03 Dose: Not Given Documented By: MAYO Non-Admin Reason: Decreased Heart Rate Finasteride (Finasteride 5 Mg Tablet) 5 mg PO DAILY [facility] Last Admin: 07/16/22 07:28 Dose: Not Given Documented By: BRAD Non-Admin Reason: NPO Heparin Sodium (Porcine) (Heparin Sodium,Porcine 5,000 Unit/Ml Vial) 5,000 unit SUBCUT Q12H [facility] Last Admin: 07/16/22 03:10 Dose: 5,000 unit Documented By: ARIANE Piperacillin Sod/Tazobactam (Sod 2.25 gm/ Sodium Chloride) 50 mls @ 100 mls/hr IV Q6H [facility] Last Infusion: 07/16/22 03:45 Dose: 0 mls/hr Documented By: ARIANE Sodium Bicarbonate 150 meq/ (Dextrose) 1,000 mls @ 50 mls/hr IV .Q20H [facility] Last Admin: 07/16/22 08:50 Dose: 50 mls/hr Documented By: ELFEGO Melatonin (Melatonin 3 Mg Tablet) 3 mg PO BEDTIME PRN PRN Reason: Insomnia Non-Formulary Medication (Ehnaeuuntjm-Waqqrkvsm-Crqubmof [Trelegy Ellipta]) 1 puff INHALE DAILY [facility] Omeprazole (Omeprazole 20 Mg Capsule.Dr) 20 mg PO BID@0630,1630 [facility] Last Admin: 07/16/22 05:24 Dose: Not Given Documented By: NATHAN Non-Admin Reason: NPO Sertraline HCl (Sertraline Hcl 25 Mg Tablet) 25 mg PO DAILY [facility] Last Admin: 07/16/22 07:28 Dose: Not Given Documented By: BRAD Non-Admin Reason: NPO Sodium Chloride (0.9 % Sodium Chloride Flush 3 Ml Syringe) 3 ml IVFLUSH QSHIFT [facility] Last Admin: 07/16/22 07:28 Dose: Not Given Documented By: BRAD Non-Admin Reason: IV Running Tamsulosin HCl (Tamsulosin Hcl 0.4 Mg Capsule) 0.4 mg PO BEDTIME [facility] Last Admin: 07/15/22 22:31 Dose: Not Given Documented By: ARIANE Non-Admin Reason: NPO Labs CBC & Chem 7: 07/14/22 10:06 07/16/22 05:25 Labs: Laboratory Results - last 24 hr 07/16/22 07/16/22 05:25 05:57 Anion Gap 24 H Estim Creat Clear Calc 5.6 Estimated GFR 6 Random Glucose 110 Lactic Acid 0.9 Calcium 7.6 L Microbiology Microbiology Results: Microbiology 07/14/22 Unknown Urine Culture - Final Urine clean catch - Urine jaquez top 07/14/22 10:59 Blood Culture - Preliminary Blood - Venous No growth after 24 hours. 07/14/22 10:32 Blood Culture - Preliminary Blood - Venous No growth after 24 hours. Assessment and Plan (1) Pneumonia: Status: Acute Plan d#3 87yo M SNF resident with dementia, COPD on 2L O2, CHF, hx PE + AF on apixaban, ESRD declined HD, bladder outlet obstruction, hx sz, depression, recent hospitalization for acute/chronic anemia, sent in after unwitnessed fall, found to be more confused than baseline, workup showed PNA though not hypoxic and no leukocytosis # PNA - d#2 pip/kenneth renally dosed # hyperNa - resolved s/p free water repletion # metabolic acidosis - due to ESRD; change IV fluid to isotonic bicarbonate # ESRD - declined HD, renally dose medications # anemia of ESRD - Hb stable, monitor # hx PE # AF - not anticoagulated - continue digoxin # COPD - conitnue O2, inhalers # encephalopathy - multifactorial; likely due to uremia + PNA on background dementia # VTE ppx: UFH In my clinical judgment, the patient requires continued inpatient hospitalization for the following reasons: IV ABX, IV water Quality Stroke Does the patient have a stroke diagnosis?: No VTE Prior VTE?: No VTE Risk Level:: Medical - moderate - high VTE Device Contraindication: Treatment Not Indicated VTE Drug Contraindication: N/A - Med Ordered
--- NOTE | 2022-07-16 11:11 | MHC.SL.SWA ---
Speech Pathologist Impression: Oropharyngeal phase dysphagia Risk of Aspiration Due to: Lethargy Medically Fragile History of Pneumonia Reduced Cognition Dysphasia Diet Status: No Change at this time. Provide daily oral care & elevate head of bed at least 30 degrees. Re-asses swallow as level of alertness/engagement improves. Liquid Consistency and Strategies for Safe Swallow: Liquid Intake Recommendation: NPO Solid Food Consistency: Dietary Recommendations: NPO Additional Modifications to Solid Foods: Recommend continued NPO at this time, secondary to Pt's level of alertness/responsiveness. Oral Medication Intake: NPO Please contact the pharmacy regarding appropriate crushable or liquid drug formulations that are available whenever modified delivery is recommended. Recommendation for Speech: Further Testing Needed Inpatient Speech Therapy Frequency/Duration: M-F while inpatient Date Range for Service Req: Timeline to reassess: Survey Chief Clinican/Clinical Fellow: Yes: Farrah Gamble Supervisory Statement: I have reviewed and agree with the student/clinical fellow's documentation: N/A Speech Language Pathologist: Edith León M.A., CCC-TEACHER [employer]
--- NOTE | 2022-07-16 12:59 | MHC.CLN ---
NUTRITION CONSULT FOR SKIN INTEGRITY. SKIN WITH REDNESS TO BUTTOCKS, NO OPEN PRESSURE INJURIES. NPO PER WELDING TEACHER EVALUATION. PER [facility] 07/03/22, NO ARTIFICIAL NUTRITION OR HYDRATION. PATIENT WITH SEVERE MALNUTRITION. SEE CLINICAL NUTRITION ASSESSMENT 07/16/22. FOLLOW FOR CHANGE TO NPO STATUS OR [facility].
[2022-07-16] MEDS: 0.9 % Sodium Chloride Flush 3 ML SYRINGE IVFLUSH (15:25)
[2022-07-17] VITALS (12 sets, daily range): BP systolic 110–144; BP diastolic 55–78; PULSE 63–96; RESP 14–22; TEMP 35.3–38.5; O2SAT 89–95
[2022-07-17] MEDS: Heparin Sodium,Porcine 5,000 UNIT/ML VIAL 5000 UNIT SUBCUT (01:34)
[2022-07-17] MEDS: Haloperidol Lactate 5 MG/ML VIAL 2.5 MG IVPUSH (03:22)
[2022-07-17] MEDS: Piperacillin Sodium/Tazobactam 2.25 GM in 0.9 % Sodium Chloride 50 ML IV ×4 (03:27→22:12)
--- NOTE | 2022-07-17 04:36 | PC.NURSE ---
At midnight, the pt had a temporal temp of 95.7. This nurse reassess the pt's temp via rectal and got 94.4. This nurse used the Shanon Hugger on pt, but the pt was pulling it off and was restless. This nurse notified the MD at 01:49 about the situation and also talk to the nursing filter press supervisor and advised me to call the MD. The nursing filter press supervisor placed a patient observer at bedside. This nurse called the MD at 03:08 and she ordered a one time dose of Haldol 2.5mg via IV Push. This nurse administered the one time dose to pt. This nurse reassessed the pt's rectal temp at 04:15 and was 95.7. This nurse will continue to monitor the pt's temp.
[2022-07-17] MEDS: Sodium Bicarbonate 8.4% 150 MEQ in Dextrose 5 % 850 ML 50 MEQ IV (05:18)
[2022-07-17 05:43] LABS: PLT CLUMP 1
[2022-07-17 05:44] LABS: Mean Corpuscular HGB Conc 32.9 g/dl (31.0-36.0); Mean Corpuscular Hemoglobin 30.7 pg (27.0-33.0); Mean Corpuscular Volume 93.3 fL (80.0-98.0); Mean Platelet Volume 10.5 fL (9.4-12.4); NRBC Pct Auto 0.3 /100WBC (0.0-0.2); Red Blood Count 2.25 X10*6/uL (4.60-5.80)
[2022-07-17 05:56] LABS: Hemoglobin 6.9 g/dl (14.0-18.0)
[2022-07-17 05:57] LABS: White Blood Count 6.6 X10*3/uL (4.8-10.8)
[2022-07-17 06:02] LABS: Platelet Count 78 X10*3/uL (160-400)
[2022-07-17 06:22] LABS: Anion Gap 26 (12-20); Blood Urea Nitrogen 124 mg/dL (9-16); Calcium 7.3 mg/dL (8.4-10.2); Carbon Dioxide 17 mmol/L (22-29); Chloride 109 mmol/L (96-108); Creatinine Clr Calc Pharmacy 4.4; Estimated Glomerular Filt Rate 5; Glucose Random 76 mg/dL (60-115); Potassium 3.5 mmol/L (3.3-5.1); Sodium 148 mmol/L (135-145)
--- NOTE | 2022-07-17 08:40 | PC.NURSE ---
call to blood bank at 0830 regarding prbc ordered stat at 0600, type and screen not received yet. They will contact phlebotomy to draw the speciman.
[2022-07-17 09:49] LABS: Procalcitonin 0.73 ng/mL
--- NOTE | 2022-07-17 10:26 | P.PNIM_ITS ---
Subjective Subjective Date of Service: 07/17/22 Interval History: Altered mental status, unable to obtain ROS Anemic; Hb 6.9 on 4L O2 Review of Systems Review of Systems: Yes Unobtainable due to mental status Physical Exam Vital Signs: Vital Signs: Last Vital Signs Temp 101.3 F H 07/17/22 10:20 Pulse 96 07/17/22 10:20 Resp 22 H 07/17/22 10:20 BP 114/58 L 07/17/22 10:20 Pulse Ox 94 07/17/22 10:20 O2 Del Method 07/17/22 10:20 O2 Flow Rate 4 07/17/22 10:20 BMI result Body Mass Index 18.2 Gen: ill-appearing, extensive muscle wasting HEENT: sclera anicteric, moist mucus membranes Neck: supple Lungs: coarse crackles bilaterally Heart: irregular, no murmurs Abd: soft, non-tender, non-distended Ext: no edema Skin: warm/well-perfused Neuro: awake, disoriented Psych: impaired insight ? Objective Data Active Medications Acetaminophen (Acetaminophen 325 Mg Tablet) 650 mg PO Q6H PRN PRN Reason: Pain, Mild (Pain Scale 1-3) Acetaminophen (Acetaminophen 325 Mg Tablet) 650 mg PO Q6H PRN PRN Reason: PAIN OR FEVER Amlodipine Besylate (Amlodipine Besylate 5 Mg Tablet) 5 mg PO DAILY [facility]END[facility] S[facility] TO [facility]; Protocol Last Admin: 07/17/22 10:02 Dose: Not Given Documented By: KENIA Non-Admin Reason: NPO Digoxin (Digoxin 0.125 Mg Tablet) 0.0625 mg PO Q48H [facility] Last Admin: 07/16/22 14:07 Dose: Not Given Documented By: BRAD Non-Admin Reason: NPO Finasteride (Finasteride 5 Mg Tablet) 5 mg PO DAILY [facility] Last Admin: 07/17/22 10:02 Dose: Not Given Documented By: KENIA Non-Admin Reason: NPO Fluticasone/Vilanterol (Fluticasone/Vilanterol 100/25 Blst.W.Dev) 1 puff INHALE RDAILY [facility] Piperacillin Sod/Tazobactam (Sod 2.25 gm/ Sodium Chloride) 50 mls @ 100 mls/hr IV Q6H [facility] Last Admin: 07/17/22 10:07 Dose: 100 mls/hr Documented By: KENIA Dextrose (D5w) 1,000 mls @ 50 mls/hr IVCONT .Q20H [facility] Stop: 07/18/22 10:29 Melatonin (Melatonin 3 Mg Tablet) 3 mg PO BEDTIME PRN PRN Reason: Insomnia Omeprazole (Omeprazole 20 Mg Capsule.Dr) 20 mg PO BID@0630,1630 [facility] Last Admin: 07/17/22 05:32 Dose: Not Given Documented By: ARIANE Non-Admin Reason: NPO Sertraline HCl (Sertraline Hcl 25 Mg Tablet) 25 mg PO DAILY [facility] Last Admin: 07/17/22 10:02 Dose: Not Given Documented By: KENIA Non-Admin Reason: NPO Sodium Chloride (0.9 % Sodium Chloride Flush 3 Ml Syringe) 3 ml IVFLUSH QSHIFT [facility] Last Admin: 07/17/22 10:02 Dose: Not Given Documented By: KENIA Non-Admin Reason: IV Running Tamsulosin HCl (Tamsulosin Hcl 0.4 Mg Capsule) 0.4 mg PO BEDTIME [facility] Last Admin: 07/16/22 21:28 Dose: Not Given Documented By: ARIANE Non-Admin Reason: NPO Tiotropium [place] (Tiotropium [place] 18 Mcg Cap.W.Dev) 1 puff INHALE RDAILY [facility] Labs CBC & Chem 7: 07/17/22 05:33 07/17/22 05:33 Labs: Laboratory Results - last 24 hr 07/17/22 07/17/22 07/17/22 05:33 05:33 05:33 MCV 93.3 MCH 30.7 MCHC 32.9 RDW 19.0 H Plt Count 78 L D MPV 10.5 Absolute Nucleated RBC 0.020 H Nucleated RBC % (auto) 0.3 H Anion Gap 26 H Estim Creat Clear Calc 4.4 Estimated GFR 5 Random Glucose 76 Calcium 7.3 L Procalcitonin 0.73 Blood Type Antibody Screen Crossmatch 07/17/22 08:50 MCV MCH MCHC RDW Plt Count MPV Absolute Nucleated RBC Nucleated RBC % (auto) Anion Gap Estim Creat Clear Calc Estimated GFR Random Glucose Calcium Procalcitonin Blood Type O Positive Antibody Screen NEGATIVE Crossmatch See Detail Microbiology Microbiology Results: Microbiology 07/16/22 05:57 Blood Culture - Preliminary Blood - Venous No growth after 24 hours. 07/14/22 10:59 Blood Culture - Preliminary Blood - Venous No growth after 48 hours. 07/14/22 10:32 Blood Culture - Preliminary Blood - Venous No growth after 48 hours. 07/14/22 Unknown Urine Culture - Final Urine clean catch - Urine jaquez top Assessment and Plan (1) Pneumonia: Status: Acute Plan d#4 87yo M SNF resident with dementia, COPD on 2L O2, CHF, hx PE + AF on apixaban, ESRD declined HD, bladder outlet obstruction, hx sz, depression, recent hospitalization for acute/chronic anemia, sent in after unwitnessed fall, found to be more confused than baseline, workup showed PNA # anemia of ESRD - discuss transfusion with family as it may not really be in the best interests of the patient at this point # PNA - d#3 pip/kenneth renally dosed # hyperNa - restart IV D5W for free water repletion # metabolic acidosis - due to ESRD; consider PO bicarbonate if can take POs # ESRD - declined HD, renally dose medications # hx PE # AF - not anticoagulated, FOBT+ - continue digoxin # COPD - conitnue O2, inhalers # encephalopathy - multifactorial; likely due to uremia + PNA on background dementia # severe pr/ambreen malnutrition - supplements when taking POs # VTE ppx: SCDs In my clinical judgment, the patient requires continued inpatient hospitalization for the following reasons: IV ABX, IV water- consideration of transition to CLEARANCE COORDINATOR Quality Stroke Does the patient have a stroke diagnosis?: No VTE Prior VTE?: No VTE Risk Level:: Medical - moderate - high VTE Device Contraindication: Treatment Not Indicated VTE Drug Contraindication: N/A - Med Ordered
[2022-07-17] MEDS: Dextrose 5 % 1,000 ML 50 ML IVCONT (11:43)
[2022-07-17] MEDS: Acetaminophen Supp 650 MG SUPP.RECT PR (11:43)
--- NOTE | 2022-07-17 12:43 | MHC.SL.SWA ---
Speech Pathologist Impression: Risk of Aspiration Due to: Lethargy Medically Fragile History of Pneumonia Reduced Cognition Dysphasia Diet Status: Provide daily oral care & elevate head of bed at least 30 degrees. Re-asses swallow as level of alertness/engagement improves. Liquid Consistency and Strategies for Safe Swallow: Liquid Intake Recommendation: NPO Liquid Intake Strategies: Solid Food Consistency: Dietary Recommendations: NPO Additional Modifications to Solid Foods: Recommend continued NPO at this time, secondary to Pt's level of alertness/responsiveness. Oral Medication Intake: NPO Please contact the pharmacy regarding appropriate crushable or liquid drug formulations that are available whenever modified delivery is recommended. Compensatory Strategies and Precautions to be Taken for Safe Swallow: Supervision While Eating and Drinking for Safe Swallow: PO with EMERGENCY PHYSICIAN Foods to Avoid: Swallowing Recommended Treatments: Compens. Strategy Educat. Recommendation for Speech: Further Testing Needed Inpatient Speech Therapy Comment: Pt seen this morning for re-assessment. Patient persists in lethargic state, with ENVIRONMENTAL CONTROL ADMINISTRATOR reported that he had been asleep all morning. Patient was repositioned in up right position, did not open eyes. Pt. noted to have dry mouth, given oral care by swab and with balm, removing some dry skin from lips. Patient had minimal response to oral care, did not wake fully throughout. Not appropriate for oral trials. Will continue to follow, re-assess with improved level of alertness. Frequency/Duration: M-F while inpatient Date Range for Service Req: Timeline to reassess: Paint Coating Machine Operator Clinican/Clinical Fellow: Yes: Fararh Gamble Supervisory Statement: I have reviewed and agree with the student/clinical fellow's documentation: N/A Speech Language Pathologist: Vivian Crespo M.A., CCC-EMERGENCY PHYSICIAN
[2022-07-17 18:12] LABS: OBS Int Ctl Valid YES; OBS1 POSITIVE (NEGATIVE)
[2022-07-18] VITALS: BP 86/51; PULSE 94; RESP 15; RESP 16; TEMP 35.5; O2SAT 91
[2022-07-18] MEDS: 0.9 % Sodium Chloride Flush 3 ML SYRINGE IVFLUSH ×4 (00:50→23:10)
[2022-07-18 02:00] VITALS: BP 116/65; PULSE 83; O2SAT 92
[2022-07-18] MEDS: Piperacillin Sodium/Tazobactam 2.25 GM in 0.9 % Sodium Chloride 50 ML IV (03:33)
[2022-07-18 04:00] VITALS: BP 134/74; PULSE 80; RESP 16; TEMP 35.1; O2SAT 92
[2022-07-18] MEDS: Dextrose 5 % 1,000 ML 50 ML IVCONT (05:35)
[2022-07-18 06:43] LABS: Anion Gap 30 (12-20); Blood Urea Nitrogen 124 mg/dL (9-16); Calcium 7.2 mg/dL (8.4-10.2); Carbon Dioxide 12 mmol/L (22-29); Chloride 109 mmol/L (96-108); Creatinine Clr Calc Pharmacy 4.6; Estimated Glomerular Filt Rate 6; Glucose Random 111 mg/dL (60-115); Potassium 3.8 mmol/L (3.3-5.1); Sodium 147 mmol/L (135-145)
[2022-07-18 07:09] LABS: Hematocrit 30.6 % (42.0-52.0); Hemoglobin 9.8 g/dl (14.0-18.0); Mean Corpuscular Volume 96.8 fL (80.0-98.0); PLT CLUMP 1; Red Blood Count 3.16 X10*6/uL (4.60-5.80); Red Cell Distribution Width 19.8 % (11.0-16.0)
[2022-07-18 07:10] LABS: White Blood Count 6.7 X10*3/uL (4.8-10.8)
--- NOTE | 2022-07-18 07:32 | PC.NURSE ---
Patient on 1:1 sitter, and camera. repeatedly removing O2 NC . hypothermia @ 95.7 noted at beginning of shift. resolved with bear hug. Patient was able to sleep for most part of the night. Tolerated all scheduled antibiotics and IV continuos fluids.
[2022-07-18 07:34] LABS: Platelet Count 47 X10*3/uL (160-400)
[2022-07-18 07:55] VITALS: BP 181/105; PULSE 89; RESP 20; TEMP 36; O2SAT 98
--- NOTE | 2022-07-18 08:08 | P.PNIM_ITS ---
Subjective Subjective Date of Service: 07/18/22 Interval History: Follow up on encephalopathy, uremia, respiratory failure Confused, minimally respnsive. O2 dropping into 60s' Review of Systems Gen: no fever Resp: no sob, no cough Physical Exam Vital Signs: Vital Signs: Last Vital Signs Temp 96.8 F 07/18/22 07:55 Pulse 89 07/18/22 07:55 Resp 20 07/18/22 07:55 BP 181/105 H 07/18/22 07:55 Pulse Ox 98 07/18/22 07:55 O2 Del Method 07/18/22 07:55 O2 Flow Rate 4 07/18/22 04:00 BMI result Body Mass Index 18.2 Const: Other: General: confused, non-communicative Resp: rhonchi bilater CVS: S1,S2,RRR GI: +BS, NT, no distention Skin: No rash Neuro: motor grossly intact Psych: flat Objective Data Active Medications Acetaminophen (Acetaminophen 325 Mg Tablet) 650 mg PO Q6H PRN PRN Reason: PAIN OR FEVER Fluticasone/Vilanterol (Fluticasone/Vilanterol 100/25 Blst.W.Dev) 1 puff INHALE RDAILY [facility] Last Admin: 07/18/22 07:43 Dose: Not Given Documented By: DEE DEE Non-Admin Reason: See Note Lorazepam (Lorazepam 0.5 Mg Tablet) 0.5 mg PO Q4H PRN PRN Reason: Anxiety Morphine Sulfate (Morphine Sulfate 2 Mg/Ml Cartridge) 2 mg IVPUSH Q2H PRN; Protocol PRN Reason: comfort Scopolamine (Scopolamine 1.5 Mg Patch.Td.3) 1.5 mg EAR-BEHIND Q72H [facility] Sodium Chloride (0.9 % Sodium Chloride Flush 3 Ml Syringe) 3 ml IVFLUSH QSHIFT [facility] Last Admin: 07/18/22 00:50 Dose: 3 ml Documented By: MARINA Labs CBC & Chem 7: 07/18/22 06:54 07/18/22 05:49 Labs: Laboratory Results - last 24 hr 07/17/22 07/17/22 07/17/22 05:33 08:50 17:51 MCV MCH MCHC RDW Plt Count MPV Absolute Nucleated RBC Nucleated RBC % (auto) Anion Gap Estim Creat Clear Calc Estimated GFR Random Glucose Calcium Procalcitonin 0.73 Stool Occult Blood POSITIVE Blood Type O Positive Antibody Screen NEGATIVE Crossmatch See Detail 07/18/22 07/18/22 05:49 06:54 MCV 96.8 MCH 31.0 MCHC 32.0 RDW 19.8 H Plt Count 47 L D MPV Not Reportable Absolute Nucleated RBC 0.000 Nucleated RBC % (auto) 0.0 Anion Gap 30 H Estim Creat Clear Calc 4.6 Estimated GFR 6 Random Glucose 111 D Calcium 7.2 L Procalcitonin Stool Occult Blood Blood Type Antibody Screen Crossmatch Microbiology Microbiology Results: Microbiology 07/16/22 05:57 Blood Culture - Preliminary Blood - Venous No growth after 24 hours. Assessment and Plan (1) Pneumonia: Status: Acute Plan d#5 87yo M SNF resident with dementia, COPD on 2L O2, CHF, hx PE + AF on apixaban, ESRD declined HD, bladder outlet obstruction, hx sz, depression, recent hospitalization for acute/chronic anemia, sent in after unwitnessed fall, found to be more confused than baseline, workup showed PNA # anemia of ESRD - discuss transfusion with family as it may not really be in the best interests of the patient at this point # PNA - d#4 pip/kenneth renally dosed # hyperNa - restart IV D5W for free water repletion # metabolic acidosis - due to ESRD; consider PO bicarbonate if can take POs # ESRD - declined HD, renally dose medications # hx PE # AF - not anticoagulated, FOBT+ - continue digoxin # COPD - conitnue O2, inhalers # encephalopathy - multifactorial; likely due to uremia + PNA on background dementia # severe pr/ambreen malnutrition - supplements when taking POs # VTE ppx: SCDs Overall not doing well, with progressive encephalopathy, uremia and respiratory failure, after dicussing with family (daughter--HCP), he's being transitined to comofort measures only no meds other than morphine, ativan for comfort. In my clinical judgment, the patient requires continued inpatient hospitalization for the following reasons: IV ABX, IV water- consideration of transition to COTTON GINNER HELPER Quality Stroke Does the patient have a stroke diagnosis?: No VTE Prior VTE?: No VTE Risk Level:: Medical - moderate - high VTE Device Contraindication: Treatment Not Indicated VTE Drug Contraindication: N/A - Med Ordered
[2022-07-18] MEDS: Morphine Sulfate 2 MG/ML CARTRIDGE IVPUSH ×3 (09:18→17:13)
[2022-07-18] MEDS: Scopolamine 1.5 MG PATCH.TD.3 EAR-BEHIND (09:22)
[2022-07-18] MEDS: Haloperidol Lactate 5 MG/ML VIAL 2 MG IVPUSH (10:21)
--- NOTE | 2022-07-18 11:10 | MHC.CLN ---
F/U PATIENT NOW FRONT EDGER. CONTINUES NPO. RD AVAILABLE NEEDED.
--- NOTE | 2022-07-18 13:01 | MHC.SLORD ---
Addendum entered and electronically signed by Edith León MA, CCC-EQUIPMENT CLEANER 07/18/22 17:06: D.S. 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 However, oral care may continue to be provided for comfort. This EQUIPMENT CLEANER attempted to see pt 2X in the morning. Pt was occupied with other staff both times. EQUIPMENT CLEANER will continue to follow to assist with oral care if needed.
--- NOTE | 2022-07-18 14:20 | MHC.CM.PN ---
EMR REVIEWED, PT NOW ON IT TRAINER, PT'S SPOUSE HAS BEEN ON UNIT X2 TO VISIT W/PT, ANTIC PT'S DTR/HCP EDIL WILL BE HER TODAY TO VISIT. CM WILL CONT TO FOLLOW.
[2022-07-19] MEDS: Morphine Sulfate 2 MG/ML CARTRIDGE IVPUSH ×3 (03:09→15:16)
[2022-07-19 07:50] VITALS: BP 143/64; PULSE 57; RESP 8; TEMP 36.1; O2SAT 98
--- NOTE | 2022-07-19 08:28 | P.PNIM_ITS ---
Subjective Subjective Date of Service: 07/19/22 Interval History: Follow up on encephalopathy, uremia, respiratory failure and now comfort measures Unresponsive, appear comfortable Review of Systems unable to obtain Physical Exam Vital Signs: Vital Signs: Last Vital Signs Temp 96.9 F 07/19/22 07:50 Pulse 57 07/19/22 07:50 Resp 20 07/18/22 07:55 BP 143/64 H 07/19/22 07:50 Pulse Ox 98 07/19/22 07:50 O2 Del Method 07/19/22 07:50 O2 Flow Rate 15 07/19/22 07:50 BMI result Body Mass Index 18.2 Const: Other: General: Unresponsive CV RRR S1s2 lung no include wob Neuro: unresponsive Objective Data Active Medications Acetaminophen (Acetaminophen 325 Mg Tablet) 650 mg PO Q6H PRN PRN Reason: PAIN OR FEVER Fluticasone/Vilanterol (Fluticasone/Vilanterol 100/25 Blst.W.Dev) 1 puff INHALE RDAILY [facility] Last Admin: 07/19/22 07:35 Dose: Not Given Documented By: BRANDY Non-Admin Reason: See Note Haloperidol Lactate (Haloperidol Lactate 5 Mg/Ml Vial) 2 mg IVPUSH Q4H PRN PRN Reason: agitation/anxiety Last Admin: 07/18/22 10:21 Dose: 2 mg Documented By: NANCY Lorazepam (Lorazepam 0.5 Mg Tablet) 0.5 mg PO Q4H PRN PRN Reason: Anxiety Morphine Sulfate (Morphine Sulfate 2 Mg/Ml Cartridge) 2 mg IVPUSH Q2H PRN; Protocol PRN Reason: comfort Last Admin: 07/19/22 03:09 Dose: 2 mg Documented By: LEO Scopolamine (Scopolamine 1.5 Mg Patch.Td.3) 1.5 mg EAR-BEHIND Q72H [facility] Last Admin: 07/18/22 09:22 Dose: 1.5 mg Documented By: NANCY Sodium Chloride (0.9 % Sodium Chloride Flush 3 Ml Syringe) 3 ml IVFLUSH QSHIFT [facility] Last Admin: 07/18/22 23:10 Dose: 3 ml Documented By: LEO Labs CBC & Chem 7: 07/18/22 06:54 07/18/22 05:49 Microbiology Microbiology Results: Microbiology 07/16/22 05:57 Blood Culture - Preliminary Blood - Venous No growth after 48 hours. Assessment and Plan (1) Pneumonia: Status: Acute Plan d#6 87yo M SNF resident with dementia, COPD on 2L O2, CHF, hx PE + AF on apixaban, ESRD declined HD, bladder outlet obstruction, hx sz, depression, recent hospitalization for acute/chronic anemia, sent in after unwitnessed fall, found to be more confused than baseline, workup showed PNA, encephalopathy, uremia and now comfort measures only -Continue comfort measures, morphine for comofrt, Haldol for agitations, scopolamine off, doesn't neeed sitter at this time. Quality Stroke Does the patient have a stroke diagnosis?: No VTE Prior VTE?: No VTE Risk Level:: Medical - moderate - high VTE Device Contraindication: Treatment Not Indicated VTE Drug Contraindication: N/A - Med Ordered
[2022-07-19 08:49] VITALS: RESP 10
[2022-07-19] MEDS: Haloperidol Lactate 5 MG/ML VIAL 2 MG IVPUSH ×3 (08:49→23:43)
[2022-07-19] MEDS: 0.9 % Sodium Chloride Flush 3 ML SYRINGE IVFLUSH ×4 (08:50→23:45)
[2022-07-19 23:32] VITALS: BP 96/54; PULSE 76; RESP 14; TEMP 36.2; O2SAT 95
[2022-07-20] MEDS: Morphine Sulfate 2 MG/ML CARTRIDGE IVPUSH ×4 (01:08→16:15)
[2022-07-20 03:32] VITALS: BP 138/58; PULSE 65; RESP 16; TEMP 36
--- NOTE | 2022-07-20 07:05 | P.PNIM_ITS ---
Subjective Subjective Date of Service: 07/20/22 Interval History: Follow up on encephalopathy, uremia, respiratory failure and now comfort measures little alert, confused Review of Systems unable to obtain Physical Exam Vital Signs: Vital Signs: Last Vital Signs Temp 96.8 F 07/20/22 03:32 Pulse 65 07/20/22 03:32 Resp 16 07/20/22 03:32 BP 138/58 L 07/20/22 03:32 Pulse Ox 95 07/19/22 23:32 O2 Del Method 07/19/22 23:32 O2 Flow Rate 15 07/19/22 07:50 BMI result Body Mass Index 18.2 Const: Other: General: Unresponsive CV RRR S1s2 lung no include wob Neuro: unresponsive Objective Data Active Medications Haloperidol Lactate (Haloperidol Lactate 5 Mg/Ml Vial) 2 mg IVPUSH Q4H PRN PRN Reason: agitation/anxiety Last Admin: 07/19/22 23:43 Dose: 2 mg Documented By: LEO Lorazepam (Lorazepam 0.5 Mg Tablet) 0.5 mg PO Q4H PRN PRN Reason: Anxiety Morphine Sulfate (Morphine Sulfate 2 Mg/Ml Cartridge) 2 mg IVPUSH Q1H PRN; Protocol PRN Reason: comfort Last Admin: 07/20/22 01:08 EST Dose: 2 mg Documented By: LEO Scopolamine (Scopolamine 1.5 Mg Patch.Td.3) 1.5 mg EAR-BEHIND Q72H [facility] Last Admin: 07/18/22 09:22 Dose: 1.5 mg Documented By: CHLOEDEM Sodium Chloride (0.9 % Sodium Chloride Flush 3 Ml Syringe) 3 ml IVFLUSH QSHIFT [facility] Last Admin: 07/19/22 20:33 Dose: 3 ml Documented By: LEO Labs CBC & Chem 7: 07/18/22 06:54 07/18/22 05:49 Microbiology Microbiology Results: Microbiology 07/14/22 10:59 Blood Culture - Final Blood - Venous No growth after 5 days. 07/14/22 10:32 Blood Culture - Final Blood - Venous No growth after 5 days. Assessment and Plan (1) Pneumonia: Status: Acute Plan d#7 87yo M SNF resident with dementia, COPD on 2L O2, CHF, hx PE + AF on apixaban, ESRD declined HD, bladder outlet obstruction, hx sz, depression, recent hospitalization for acute/chronic anemia, sent in after unwitnessed fall, found to be more confused than baseline, workup showed PNA, encephalopathy, uremia and now comfort measures only -Continue comfort measures,ajust morphine for comofrt, Haldol for agitations, scopolamine off, doesn't neeed sitter at this time. Quality Stroke Does the patient have a stroke diagnosis?: No VTE Prior VTE?: No VTE Risk Level:: Medical - moderate - high VTE Device Contraindication: Treatment Not Indicated VTE Drug Contraindication: N/A - Med Ordered
[2022-07-20 07:24] VITALS: RESP 8
[2022-07-20] MEDS: Haloperidol Lactate 5 MG/ML VIAL 2 MG IVPUSH ×2 (07:24→15:12)
[2022-07-20] MEDS: 0.9 % Sodium Chloride Flush 3 ML SYRINGE IVFLUSH ×3 (07:24→19:45)
[2022-07-20 08:00] VITALS: RESP 8
--- NOTE | 2022-07-20 09:49 | PC.NURSE ---
pt was kicking legs, grabbing at the air, and moaning. pt medicated with IVP haldol and morphine per nov. RR 10. Will continue to monitor comfort level.
[2022-07-20 12:20] VITALS: RESP 11
[2022-07-20 19:59] VITALS: RESP 16
[2022-07-21] MEDS: Scopolamine 1.5 MG PATCH.TD.3 EAR-BEHIND (10:11)
[2022-07-21] MEDS: 0.9 % Sodium Chloride Flush 3 ML SYRINGE IVFLUSH ×3 (10:12→21:05)
--- NOTE | 2022-07-21 10:39 | P.CDIC_ITS ---
CDI Concurrent Query Documentation Clarification: PHYSICIAN'S DOCUMENTATION REQUEST Date of Query: 07/21/22 1040 Patient Name: Khoa Ag Admit Date: 07/14/22 Dear Doctor, A review of the medical record indicates additional documentation may be needed. Please review below and update the documentation accordingly. Clinical Indicators: On 07/18/22, the provider progress note indicates a diagnosis of respiratory failure. Is there further specificity/clarification that correlates with the findings below: Risk Factors/Clinical Indicators/Treatments Per provider progress note on 07/18/22: respiratory failure. O2 dropping into 60s. 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 Tachypnea, SOB, dyspnea ? Pallor or cyanosis ? Anxiety or restlessness ? Use of accessory muscles ? Retractions (grunting in newborns) ? Unable to speak in complete sentences Clarify which of the following accurately represents the patient's respiratory status: * Acute respiratory failure with COPD exacerbation * Acute on chronic respiratory failure with COPD exacerbation * Acute respiratory failure * Acute on chronic respiratory failure * Other (please specify) * Unable to determine Please include type if known: * Hypoxic * Hypercapnic * Hypoxic and hypercapnic * Unable to determine Use of terms such as suspected, likely, concern for, or probable (associated with a specific diagnosis that is being evaluated, monitored, or treated as if it exists) are acceptable and can be coded in the inpatient setting, when documented at the time of discharge. Thank you, Hanna Persaud, MS, RN, CCRN Extension: [phone] Please use your independent medical judgment in providing your response. THIS QUERY IS PART OF THE PERMANENT MEDICAL RECORD Provider Response: Other Other Diagnosis: see note
--- NOTE | 2022-07-21 11:25 | MHC.SLORD ---
Speech Language Pathology Order Status: WATER AND SEWER SYSTEMS SUPERINTENDENT attempted bedside dysphagia evaluation 3x times, pt lethargic and not able to tolerate PO. Per RN this morning, pt is unresponsive and not appropriate for PO trials. 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 Per attending hospitalist, order to be cx'ed. Please re-consult WATER AND SEWER SYSTEMS SUPERINTENDENT should there be any changes.
--- NOTE | 2022-07-21 14:03 | P.PNIM_ITS ---
Subjective Subjective Date of Service: 07/21/22 Interval History: Being followed for FUNCTIONAL TESTER, patient resting in bed noted to periods of apnea, no respiratory distress Review of Systems Review of Systems: Yes Unobtainable due to mental status Physical Exam Vital Signs: Vital Signs: Last Vital Signs Temp 96.8 F 07/20/22 03:32 Pulse 65 07/20/22 03:32 Resp 16 07/20/22 19:59 BP 138/58 L 07/20/22 03:32 Pulse Ox 95 07/19/22 23:32 O2 Del Method 07/19/22 23:32 O2 Flow Rate 15 07/19/22 07:50 BMI result Body Mass Index 18.2 Const: Other: General: Unresponsive CVS regular rate rhythm lung no respiratory distress noted to have periods of apnea Neuro: unresponsive Objective Data Active Medications Haloperidol Lactate (Haloperidol Lactate 5 Mg/Ml Vial) 2 mg IVPUSH Q4H PRN PRN Reason: agitation/anxiety Last Admin: 07/20/22 15:12 Dose: 2 mg Documented By: COTEMA Lorazepam (Lorazepam 0.5 Mg Tablet) 0.5 mg PO Q4H PRN PRN Reason: Anxiety Morphine Sulfate (Morphine Sulfate 2 Mg/Ml Cartridge) 2 mg IVPUSH Q1H PRN; Protocol PRN Reason: comfort Last Admin: 07/20/22 16:15 Dose: 2 mg Documented By: MIHAELA Scopolamine (Scopolamine 1.5 Mg Patch.Td.3) 1.5 mg EAR-BEHIND Q72H [facility] Last Admin: 07/21/22 10:11 Dose: 1.5 mg Documented By: TEODORO Sodium Chloride (0.9 % Sodium Chloride Flush 3 Ml Syringe) 3 ml IVFLUSH QSHIFT [facility] Last Admin: 07/21/22 10:12 Dose: 3 ml Documented By: TEODORO Labs CBC & Chem 7: 07/18/22 06:54 07/18/22 05:49 Microbiology Microbiology Results: Microbiology 07/16/22 05:57 Blood Culture - Final Blood - Venous No growth after 5 days. Assessment and Plan (1) Pneumonia: Status: Acute (2) Hypertension: Status: Acute (3) CKD (chronic kidney disease): Status: Acute (4) AMS (altered mental status): Status: Acute Plan 87yo M resident of nursing facility with history ofh dementia, COPD on 2L O2, CHF, hx PE + AF on apixaban, ESRD declined HD, bladder outlet obstruction, hx sz, depression, recent hospitalization for acute/chronic anemia, sent in after unwitnessed fall, found to be more confused than baseline, workup showed PNA, encephalopathy, uremia and now comfort measures only Diagnosis Acute on chronic hypoxic respiratory failure due to pneumonia and underlying COPD End-stage renal disease declined hemodialysis History of pulmonary embolism Paroxysmal atrial fibrillation not anticoagulated due to positive fecal occult blood test Acute toxic metabolic encephalopathy due to uremia, pneumonia and hypoxia Severe protein calorie malnutrition Hypernatremia Plan-Continue comfort measures, morphine for comfort, Ativan, Haldol for agitations, and scopolamine patch, patient noted to have poor urine output, shal low, slow respiratory rate. Quality Stroke Does the patient have a stroke diagnosis?: No VTE Prior VTE?: No VTE Risk Level:: Medical - moderate - high VTE Device Contraindication: Treatment Not Indicated VTE Drug Contraindication: N/A - Med Ordered
--- NOTE | 2022-07-21 14:20 | MHC.CM.PN ---
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 CM WILL CONT TO MONITOR.
[2022-07-21 15:22] VITALS: RESP 9
[2022-07-21] MEDS: Morphine Sulfate 2 MG/ML CARTRIDGE IVPUSH (15:24)
[2022-07-21 19:14] VITALS: RESP 9
--- NOTE | 2022-07-22 05:52 | PC.NURSE ---
pt stays in comfortable care. RR 18, urine out put 30 mL in 12 hours. provide mouth care, repositioned side to side. no BM.
[2022-07-22 08:11] VITALS: RESP 13
[2022-07-22] MEDS: Morphine Sulfate 2 MG/ML CARTRIDGE IVPUSH (08:11)
[2022-07-22] MEDS: 0.9 % Sodium Chloride Flush 3 ML SYRINGE IVFLUSH (08:11)
--- NOTE | 2022-07-22 13:02 | PM.DDS ---
Discharge Sum: Prov Provider Primary care physician: Kai Silva MD Discharge Sum: Diag Contributing Factors (1) Pneumonia: (2) Hypertension: (3) CKD (chronic kidney disease): (4) AMS (altered mental status): Discharge Sum: Summary Date and Time Date of admission: 07/14/22 13:49 Date of : 07/22/22 Time of : 12:45 Summary Details: 87yo M resident of nursing facility with history of dementia, COPD on 2L O2, CHF, hx PE + AF on apixaban, ESRD declined HD, bladder outlet obstruction, hx sz, depression, recent hospitalization for acute/chronic anemia, sent in after a unwitnessed fall, found to be more confused than baseline, workup showed PNA, encephalopathy, hypernatremia, uremia , metabolic acidosis, patient admitted to medical floor and was treated with IV Zosyn renally dosed, and was treated with IV fluid, and since patient had multiple other comorbidities including anemia and end-stage renal disease family opted for comfort measures since patient had declined hemodialysis, Patient was placed on morphine, Ativan, Haldol and scopolamine patient at 12:45 on May 22 2022 Diagnosis Acute on chronic hypoxic respiratory failure due to pneumonia and underlying COPD End-stage renal disease declined hemodialysis History of pulmonary embolism Paroxysmal atrial fibrillation not anticoagulated due to positive fecal occult blood test Acute toxic metabolic encephalopathy due to uremia, pneumonia and hypoxia Severe protein calorie malnutrition Hypernatremia Additional Data Attending physician: Josue Mercado MD
== END 2022-07-22 15:35 | disposition expired | DRG 193 ==
LOC: HO.ED 10:47 → HO.EDOVER 13:58 → HO.S3 07-15 16:16
PROVIDERS: Family Medicine; Internal Medicine; Physician Assistant; Admitting Provider Internal Medicine; Emergency Provider Emergency Medicine Emergency Medical Services; PCP Family Medicine; Visit Provider Hospitalist
DX: J18.9 Pneumonia, unspecified organism (principal); E43 Unspecified severe protein-calorie malnutrition; N18.6 End stage renal disease; J96.21 Acute and chronic respiratory failure with hypoxia; G92.8 Other toxic encephalopathy; J44.0 Chronic obstructive pulmonary disease with (acute) lower respiratory infection; Z68.1 Body mass index [BMI] 19.9 or less, adult; I13.2 Hypertensive heart and chronic kidney disease with heart failure and with stage 5 chronic kidney disease, or end stage renal disease; I50.22 Chronic systolic (congestive) heart failure; E87.20 Acidosis, unspecified; E87.0 Hyperosmolality and hypernatremia; Z66 Do not resuscitate; Z51.5 Encounter for palliative care; F03.90 Unspecified dementia, unspecified severity, without behavioral disturbance, psychotic disturbance, mood disturbance, and anxiety; I35.0 Nonrheumatic aortic (valve) stenosis; I48.0 Paroxysmal atrial fibrillation; F32.A Depression, unspecified; N32.0 Bladder-neck obstruction; E86.0 Dehydration; D63.1 Anemia in chronic kidney disease; Z86.711 Personal history of pulmonary embolism; Z99.81 Dependence on supplemental oxygen; Z20.822 Contact with and (suspected) exposure to COVID-19; Z87.891 Personal history of nicotine dependence; Z79.51 Long term (current) use of inhaled steroids; Z79.899 Other long term (current) drug therapy
CPT/HCPCS: 36415; 70450; 71045; 72125; 73030; 73060; 73080; 73090; 80048; 80076; 81001; 82140; 82272; 82550; 83605; 83735; 83880; 84145; 84484; 85025; 85027; 85610; 86850; 86900; 86901; 86923; 87040; 87086; 87635; 92610; 93005; 99285; C1758; J0692; J2270; J2543; P9016